=== PATIENT | male | born 1950 | race Caucasian/White ===

== ENCOUNTER 2022-07-03 17:05 | Inpatient (IN) | payer OTHER, MEDICARE, SELFPAY ==
[2022-07-03] VITALS (9 sets, daily range): BP systolic 192–206; BP diastolic 84–100; PULSE 64–105; RESP 16–22; TEMP 35.8–37.2; O2SAT 95–100; BMI 29.4
--- NOTE | ~2022-07-03 | XR_ITS ---
EXAMINATION: XR CHEST CLINICAL INFORMATION: Hypoxia COMPARISON: Chest radiographs 07/11/2022, 07/10/2022, CTA chest 07/06/2022. TECHNIQUE: Portable upright AP view of the chest was obtained. FINDINGS: There are low lung volumes with inspiration to the seventh posterior intercostal spaces. Heart size normal. Vascularity normal. No airspace consolidation or groundglass opacity. No pneumothorax or pleural reaction. NG tube is seen with distal end overlying the left upper quadrant abdomen. Left internal jugular central venous line tip is in region of mid SVC. XR/XR chest 1V IMPRESSION: Low lung volumes. No visible acute abnormality.
--- NOTE | ~2022-07-03 | XR_ITS ---
EXAMINATION: ABDOMEN. CHEST CLINICAL INFORMATION: Abdominal pain. Chest pain. Distention COMPARISON: 07/12/2022 TECHNIQUE: 2 views abdomen. Single view chest FINDINGS: Abdomen: There is diffuse enteric distention particularly with small bowel with less colonic distention. Partial small bowel obstruction versus ileus are differential considerations midline surgical sutures noted. No observed. Chest survey: Lungs grossly clear. Heart and pulmonary vessels normal. Left-sided central line seen with its distal tip in the SVC. Portions of an NG tube present with its distal tip is not clearly seen and may still be within the esophagus. Please confirm the positioning of the NG tube. XR/XR chest 1V . IMPRESSION: Ileus. Continued follow-up advised.
--- NOTE | ~2022-07-03 | CT_ITS ---
EXAMINATION: CT ANGIOGRAM OF THE CHEST WITH AND WITHOUT CONTRAST (CT PULMONARY ANGIOGRAM FOR PE) CLINICAL INFORMATION: Reason for Exam hypoxia COMPARISON: None TECHNIQUE: Prior to contrast administration, noncontrast localization images were obtained. Subsequently, multidetector volumetric imaging was performed from the thoracic inlet to below the diaphragms following the administration of 71 mL Omnipaque 350 intravenous contrast. No contrast reaction reported Sagittal, coronal, and MIP oblique sagittal reformatted images were obtained on the CT workstation, uploaded to PACS, and reviewed. This CT examination was performed using dose optimization techniques as appropriate, variously including the following: *Automated exposure control *Adjustment of mA and/or kV according to patient size (this includes techniques or standardized protocols for targeted exams where dose is matched to indication/reason for exam; i.e. extremities or head) *Use of iterative reconstruction technique Total exam dose-length product 257 mGy-cm FINDINGS: QUALITY OF STUDY/CONTRAST BOLUS: Satisfactory. PULMONARY ARTERIES: No central or segmental pulmonary emboli. THORACIC AORTA: No aneurysm or dissection. LUNGS / PLEURA: Moderate emphysema. Small bilateral pleural effusions with accompanying atelectasis. No pneumothorax. MEDIASTINUM: Normal heart size. No pericardial effusion. Triple vessel coronary calcifications. No hilar or mediastinal lymphadenopathy. No evidence of septal bowing or right heart strain.No reflux of contrast into the hepatic veins to suggest elevated right heart pressures. CHEST WALL/AXILLA: No axillary or internal mammary lymphadenopathy. OSSEOUS STRUCTURES: No acute or suspicious osseous abnormality. UPPER ABDOMEN: Cholelithiasis. Trace intraperitoneal free air evident anterior to the medial segment of the liver. The patient is postoperative day 1, so this is expected. CT/CT angio chest PE protocol IMPRESSION: * No pulmonary embolism. * No aortic aneurysm or dissection. * Moderate secretions present within the left mainstem bronchus and lower lobe bronchioles -- recommend pulmonary toilet. * Small bilateral pleural effusions with accompanying atelectasis. * Moderate emphysema. VTE: negative This critical result was discussed with Dr Farley at 07/06/2022 1:25 AM and it was ascertained that the content and urgency of the report was understood at the time of direct communication.
--- NOTE | ~2022-07-03 | CT_ITS ---
EXAMINATION: CT ABDOMEN AND PELVIS WITHOUT CONTRAST CLINICAL INFORMATION: Left lower quadrant pain. Colostomy. COMPARISON: None TECHNIQUE: Multidetector volumetric imaging was performed from the superior aspect of the liver through the pubic symphysis. Sagittal and coronal reformatted images were obtained on the technologist's workstation. This CT examination was performed using dose optimization techniques as appropriate, variously including the following: *Automated exposure control. *Adjustment of mA and/or kV according to patient size (this includes techniques or standardized protocols for targeted exams where dose is matched to indication/reason for exam; i.e. extremities or head). *Use of iterative reconstruction technique. DLP: 668 mGy-cm FINDINGS: LUNG BASES: The visualized lung bases are unremarkable. LIVER, GALLBLADDER, AND BILIARY TREE: The liver is normal in size, shape, and attenuation. No focal hepatic lesion or biliary ductal dilatation is present. Multiple small calcified gallstones in the gallbladder. No gallbladder wall thickening or edema around the gallbladder. No bile duct dilatation. PANCREAS: Unremarkable. SPLEEN: Unremarkable. ADRENAL GLANDS: Unremarkable. KIDNEYS AND URETERS: The kidneys are normal in size, shape, and attenuation. No hydronephrosis, hydroureter, or calculi seen. No perinephric stranding. A 1.2 cm hypodense cyst anterior midpole right kidney. No follow up imaging recommended. BLADDER: Unremarkable. ABDOMINAL WALL/GASTROINTESTINAL TRACT: Posterior left lower quadrant. Bowel loops herniated into the ostomy site in the subcutaneous tissue are mildly dilated. The bowel loops proximal to the ostomy are mildly dilated as well. Findings consistent with small bowel obstruction at the ostomy site. No dilatation of the large bowel. There is diverticulosis of the left colon without diverticulitis. Moderate volume of stool in the colon. The appendix is not visualized. No bowel wall thickening or edema. No free air or free fluid. No evidence for bowel ischemia at this time. LYMPH NODES: Normal. VASCULAR: Atherosclerotic vascular calcifications of the aorta and iliac arteries. No aneurysm. PELVIC VISCERA: Prostate prominent measuring 5 cm transverse. OSSEOUS STRUCTURES: Multilevel degenerative spondylosis of the spine. Grade 1 anterolisthesis of L4 and L5 with bilateral spondylolysis of the L4 pars interarticularis. Multilevel degenerative spondylosis of the spine with disc height narrowing and endplate spurring most significant at L4-L5. CT/CT abdomen pelvis wo con IMPRESSION: Ostomy left lower quadrant. Small bowel obstruction at the ostomy site with herniation of bowel loops at the ostomy. Fleischner guidelines were followed.
--- NOTE | ~2022-07-03 | XR_ITS ---
EXAMINATION: XR CHEST CLINICAL INFORMATION: Hypoxia with question of aspiration COMPARISON: CT angiogram chest 07/06/2022 TECHNIQUE: Frontal view of the chest was obtained. FINDINGS: Heart size normal. Bibasilar atelectasis is present. A small left pleural effusion is present. At the time of the prior CT, a tiny right effusion was present which is very well still be the case. No consolidations, lung masses or evidence of CHF. XR/XR chest 1V IMPRESSION: No probable interval change when compared to 07/06/2022. Bibasilar atelectasis and small pleural effusions, left greater than right
--- NOTE | ~2022-07-03 | XR_ITS ---
EXAMINATION: XR CHEST CLINICAL INFORMATION: Central line placement COMPARISON: Previous chest x-ray from earlier the same day TECHNIQUE: Frontal view of the chest was obtained. FINDINGS: There is a new left jugular line with tip projecting over the SVC. There is a new nasogastric tube with tip projecting over the distal stomach. The cardiac and mediastinal contours are stable. There may be atelectasis at the lung bases. The lungs are otherwise clear. There is no pleural effusion or pneumothorax. There are degenerative changes of the spine. XR/XR chest 1V IMPRESSION: Satisfactory position of left jugular line and nasogastric tube. No pneumothorax.
--- NOTE | ~2022-07-03 | FL_ITS ---
EXAMINATION: FL SMALL BOWEL SERIES CLINICAL INFORMATION: Postop ileus COMPARISON: Previous CT of the abdomen and pelvis 07/03/2022 and KUB 07/17/2022 TECHNIQUE: Social Services Director film was obtained. 2 bottles of oral Gastrografin contrast were instilled into the nasogastric tube. Small bowel follow-through was performed. Follow-up 19 hour KUB the following morning was performed. FINDINGS: Social Services Director film demonstrates dilated loops of small bowel and paucity of bowel gas in the large bowel. There are skin dany. No free air is seen. There are degenerative changes of the spine. The stomach is normal-appearing. There are dilated loops of small bowel. There is passage of a small amount of oral contrast into the proximal large bowel by 1 hour and 40 minutes however, the small bowel remains dilated and filled with contrast. Delayed 7 hour image demonstrates persistent dilated small bowel and oral contrast and a small amount of oral contrast in nondilated large bowel. Delayed 19 hour images the next morning demonstrates persistent dilatation of small bowel. There is been passage of oral contrast from the small bowel to the large bowel. The large bowel is nondilated. There is evidence of diverticular disease of the large bowel. Small bowel remains dilated measuring up to 6.7 cm in diameter. Nasogastric tube is no longer seen on delayed images. FLUOROSCOPY TIME: No fluoroscopic images obtained. FL/FL small bowel follow through IMPRESSION: Persistent dilated small bowel measuring up to 6.7 cm. There is slow passage of oral contrast into the large bowel which is nondilated. Appearance is suggestive of a distal partial small bowel obstruction. Nasogastric tube no longer seen on delayed images.
--- NOTE | ~2022-07-03 | XR_ITS ---
EXAMINATION: ABDOMEN. CHEST CLINICAL INFORMATION: Abdominal pain. Chest pain. Distention COMPARISON: 07/12/2022 TECHNIQUE: 2 views abdomen. Single view chest FINDINGS: Abdomen: There is diffuse enteric distention particularly with small bowel with less colonic distention. Partial small bowel obstruction versus ileus are differential considerations midline surgical sutures noted. No observed. Chest survey: Lungs grossly clear. Heart and pulmonary vessels normal. Left-sided central line seen with its distal tip in the SVC. Portions of an NG tube present with its distal tip is not clearly seen and may still be within the esophagus. Please confirm the positioning of the NG tube. XR/XR abdomen 1V . IMPRESSION: Ileus. Continued follow-up advised.
--- NOTE | 2022-07-03 17:59 | ECG_ITS ---
Test Reason : ABD PAIN Blood Pressure : / mmHG Vent. Rate : 074 BPM Atrial Rate : 074 BPM P-R Int : 174 ms QRS Dur : 114 ms QT Int : 398 ms P-R-T Axes : 061 030 035 degrees QTc Int : 441 ms Normal sinus rhythm Normal ECG When compared with ECG of 06-AUG-2006 08:31, No significant change was found Referred By: Elsa Espinosa Electronically Signed By:STU EGAN MD
--- NOTE | 2022-07-03 18:00 | ED.ABDPAIN ---
HPI - Abdominal Pain General Chief Complaint: Abdominal Pain Stated Complaint: abd pain pt has colostomy Time Seen by Provider: 07/03/22 17:45 Source: patient Mode of arrival: ambulatory Limitations: no limitations History of Present Illness HPI narrative: Patient comes to emergency room complaining of severe abdominal pain. Patient states that to our prior to arrival, he started having abdominal cramping under the colostomy in the left lower quadrant. Patient states he had his colostomy done in 2002 for colorectal cancer. Patient has never had any issues since then. Patient states that it feels that there is a lump under his colostomy bag in his abdomen. Patient denies vomiting or diarrhea. No fever chills, no dysuria or flank pain Related Data Allergies Allergy/AdvReac Type Severity Reaction Status Date / Time No Known Allergies Allergy Verified 07/03/22 17:35 [No Known Allergies*] Review of Systems Review of Systems Constitutional : No Weight loss, No Fever, No Chills, No Night Sweats, No Fatigue, No Malaise ENT/Mouth : No Hearing loss, No Ear Pain, No Nasal Congestion, No Sinus Pain, No Hoarseness, No sore throat, No Rhinorrhea, No Swallowing Difficulty Eyes: No Eye Pain, No Swelling, No Redness, No Foreign Body, No Discharge, No Vision Changes Cardiovascular : No Chest Pain, No SOB, No Dyspnea on Exertion, No Orthopnea, No Edema, No Palpitations Respiratory : No Cough, No Sputum, No Wheezing, No Smoke Exposure, No Dyspnea Gastrointestinal : No Nausea, No Vomiting, No Diarrhea, complaining of abdominal cramping and pain under the colostomy site in the left lower quadrant Genitourinary : no irregular bleeding, No Dysuria, No Urinary Frequency, No Hematuria, No Urinary Incontinence, No Urgency, No Flank Pain, No Urinary Flow Changes, No Hesitancy Musculoskeletal : No joint pain, No Myalgias, No Joint Swelling Skin : No Skin Lesions, No rash Neuro : No Weakness, No Numbness, No Paresthesias, No Loss of Consciousness, No Dizziness, No Headache Psych : No Anxiety/Panic, No Depression, No SI/HI/AH/VH, No Social Issues, Heme/Lymph: No Bruising, No Bleeding,No Lymphadenopathy Endocrine : No Polyuria, No Polydipsia, No Temperature Intolerance [facility] Past Medical History Medical History (Updated 07/03/22 @ 21:44 by Elsa Espinosa MD) Colorectal cancer Social History Social History Advance Directives: Yes Advance Directives Information Provided: No Advance Directives on File: No Physical Exam ED Vital Signs: Vital Signs - 24 hr 07/03/22 17:36 07/03/22 18:51 07/03/22 19:26 Temperature 96.4 F L 97.8 F Pulse Rate 64 74 Respiratory Rate 18 16 22 H Blood Pressure 206/84 H 192/92 H Pulse Oximetry 100 98 Oxygen Delivery Method Room Air Room Air Oxygen Flow Rate 07/03/22 19:20 07/03/22 20:00 07/03/22 21:35 Temperature 97.6 F 98.9 F 98.4 F Pulse Rate 75 86 89 Respiratory Rate 22 H 16 16 Blood Pressure 203/85 H 193/94 H 206/99 H Pulse Oximetry 95 98 98 Oxygen Delivery Method Room Air Nasal Cannula Nasal Cannula Oxygen Flow Rate 4 4 BMI result Body Mass Index 29.4 Const Other: Appearance: Alert. Oriented X3. Patient looks very uncomfortable Eyes: Pupils equal, round and reactive to light. ENT: Pharynx normal. Neck: Normal inspection. Neck supple. No lymph nodes noted. No crepitus CVS: Normal heart rate and rhythm. Pulses normal. Normal S1 and S2 Respiratory: No respiratory distress. Breath sounds normal. No Wheezing. No rales Abdomen: Soft tenderness and distension noted to the left lower quadrant around the colostomy site. The colostomy itself looks clean Skin: Skin warm and dry. Normal skin color. Normal skin turgor. Extremities: No lower extremity edema. No Lacerations. No Rash Neuro: Oriented X 3. No motor deficit. No sensory deficit. Moving all extremities. No slurred speech. CN 2 through 12 grossly intact Psych: calm, cooperative, normal affect Course Course Course Narrative: Patient received IV fluids, Zofran and Dilaudid, labs and imaging pending. Patient is empirically being covered with Zosyn. Patient seems to have a para stomal hernia and a small bowel obstruction, Dr. Lugo is aware. Patient being admitted MDM - Abdominal Pain Lab Data Result diagrams: 07/03/22 19:07 07/03/22 19:07 Labs: Lab Results 07/03/22 07/03/22 07/03/22 Range/Units 19:07 19:07 19:07 WBC 16.4 H (4.8-10.8) X10*3/uL RBC 4.86 (4.60-5.80) X10*6/uL Hgb 15.4 (14.0-18.0) g/dl Hct 44.5 (42.0-52.0) % MCV 91.6 (80.0-98.0) fL MCH 31.7 (27.0-33.0) pg MCHC 34.6 (31.0-36.0) g/dl RDW 12.5 (11.0-16.0) % Plt Count 269 (160-400) X10*3/uL MPV 10.2 (9.4-12.4) fL Immature Gran % (Auto) 0.4 (0.0-0.4) % Neut % (Auto) 91.1 H (45-73) % Lymph % (Auto) 4.4 L (20-40) % Kerr % (Auto) 3.7 (2-11) % Eos % (Auto) 0.1 (0-4) % Baso % (Auto) 0.3 (0-2) % Lymph # (Auto) 0.7 L (1.2-4.9) X10*3/uL [place] # (Auto) 0.6 (0.1-1.2) X10*3/uL Eos # (Auto) 0.0 (0.0-0.4) X10*3/uL Baso # (Auto) 0.1 (0.0-0.2) X10*3/uL Abs Immat Gran (auto) 0.06 H (0.00-0.03) X10*3/uL Absolute Neuts (auto) 15.0 H (2.0-8.3) x10*3/uL Absolute Nucleated RBC 0.000 (0.0-0.012) X10*3/uL Nucleated RBC % (auto) 0.0 (0.0-0.2) /100WBC Smear Tech's Comments VERIFIED Sodium 145 (135-145) mmol/L Potassium 3.1 L (3.3-5.1) mmol/L Chloride 103 (96-108) mmol/L Carbon Dioxide 24 (22-29) mmol/L Anion Gap 21 H (12-20) BUN 18 H (9-16) mg/dL Creatinine 1.15 (0.5-1.4) mg/dL Estim Creat Clear Calc 58.8 Estimated GFR > 60 Random Glucose 145 H (60-115) mg/dL Lactic Acid 2.7 H* (0.5-2.0) mmol/L Calcium 9.8 (8.4-10.2) mg/dL Lipase 24 (8-78) U/L Urine Color Urine Appearance Urine pH (5.0-8.0) Ur Specific [place] (1.005-1.025) Urine Protein (NEG-TRACE) MG/DL Urine Glucose (UA) (NEG) MG/DL Urine Ketones (NEG) MG/DL Urine Blood (NEG) Urine Nitrite (NEG) Ur Leukocyte Esterase (NEG) Urine RBC (0) /HPF Urine WBC (0-4) /HPF Ur Squamous Epith Cells /LPF Urine Bacteria /LPF COVID-19 (DUNIA) (Negative) COVID-19 Clin Com 07/03/22 07/03/22 Range/Units 19:15 19:21 WBC (4.8-10.8) X10*3/uL RBC (4.60-5.80) X10*6/uL Hgb (14.0-18.0) g/dl Hct (42.0-52.0) % MCV (80.0-98.0) fL MCH (27.0-33.0) pg MCHC (31.0-36.0) g/dl RDW (11.0-16.0) % Plt Count (160-400) X10*3/uL MPV (9.4-12.4) fL Immature Gran % (Auto) (0.0-0.4) % Neut % (Auto) (45-73) % Lymph % (Auto) (20-40) % [place] % (Auto) (2-11) % Eos % (Auto) (0-4) % Baso % (Auto) (0-2) % Lymph # (Auto) (1.2-4.9) X10*3/uL [place] # (Auto) (0.1-1.2) X10*3/uL Eos # (Auto) (0.0-0.4) X10*3/uL Baso # (Auto) (0.0-0.2) X10*3/uL Abs Immat Gran (auto) (0.00-0.03) X10*3/uL Absolute Neuts (auto) (2.0-8.3) x10*3/uL Absolute Nucleated RBC (0.0-0.012) X10*3/uL Nucleated RBC % (auto) (0.0-0.2) /100WBC Smear Tech's Comments Sodium (135-145) mmol/L Potassium (3.3-5.1) mmol/L Chloride (96-108) mmol/L Carbon Dioxide (22-29) mmol/L Anion Gap (12-20) BUN (9-16) mg/dL Creatinine (0.5-1.4) mg/dL Estim Creat Clear Calc Estimated GFR Random Glucose (60-115) mg/dL Lactic Acid (0.5-2.0) mmol/L Calcium (8.4-10.2) mg/dL Lipase (8-78) U/L Urine Color YELLOW Urine Appearance CLEAR Urine pH 7.0 (5.0-8.0) Ur Specific [place] 1.015 (1.005-1.025) Urine Protein TRACE (NEG-TRACE) MG/DL Urine Glucose (UA) NEG (NEG) MG/DL Urine Ketones 15 (NEG) MG/DL Urine Blood NEG (NEG) Urine Nitrite NEG (NEG) Ur Leukocyte Esterase TRACE H (NEG) Urine RBC 0 (0) /HPF Urine WBC 0-2 (0-4) /HPF Ur Squamous Epith Cells NONE /LPF Urine Bacteria TRACE /LPF COVID-19 (DUNIA) Negative (Negative) COVID-19 Clin Com See Note Imaging Data CT scan - abdomen: Radiologist's impression: FINDINGS: LUNG BASES: The visualized lung bases are unremarkable.? LIVER, GALLBLADDER, AND BILIARY TREE: The liver is normal in size, shape, and attenuation. No focal hepatic lesion or biliary ductal dilatation is present. Multiple small calcified gallstones in the gallbladder. No gallbladder wall thickening or edema around the gallbladder. No bile duct dilatation.? PANCREAS: Unremarkable.? SPLEEN: Unremarkable.? ADRENAL GLANDS: Unremarkable.? KIDNEYS AND URETERS: The kidneys are normal in size, shape, and attenuation. No hydronephrosis, hydroureter, or calculi seen. No perinephric stranding. A 1.2 cm hypodense cyst anterior midpole right kidney. No follow up imaging recommended. BLADDER: Unremarkable.? ABDOMINAL WALL/GASTROINTESTINAL TRACT: Posterior left lower quadrant. Bowel loops herniated into the ostomy site in the subcutaneous tissue are mildly dilated. The bowel loops proximal to the ostomy are mildly dilated as well. Findings consistent with small bowel obstruction at the ostomy site. No dilatation of the large bowel. There is diverticulosis of the left colon without diverticulitis. Moderate volume of stool in the colon. The appendix is not visualized. No bowel wall thickening or edema. No free air or free fluid. No evidence for bowel ischemia at this time. ? LYMPH NODES: Normal. VASCULAR: Atherosclerotic vascular calcifications of the aorta and iliac arteries. No aneurysm. PELVIC VISCERA: Prostate prominent measuring 5 cm transverse.? OSSEOUS STRUCTURES: Multilevel degenerative spondylosis of the spine. Grade 1 anterolisthesis of L4 and L5 with bilateral spondylolysis of the L4 pars interarticularis. Multilevel degenerative spondylosis of the spine with disc height narrowing and endplate spurring most significant at L4-L5.? CT/CT abdomen pelvis wo con IMPRESSION: Ostomy left lower quadrant. Small bowel obstruction at the ostomy site with herniation of bowel loops at the ostomy.? ? Fleischner guidelines were followed. Discharge Plan Discharge Clinical Impression: Parastomal hernia, Small bowel obstruction Patient Disposition: Admitted As Inpatient
[2022-07-03] MEDS: HYDROmorphone HCl 1 MG/ML SYRINGE IVPUSH ×4 (18:31→23:52)
[2022-07-03] MEDS: 0.9 % Sodium Chloride 1,000 ML 999 ML IVCONT (18:31)
[2022-07-03] MEDS: ondansetron HCL 4 MG/2 ML VIAL IVPUSH ×2 (18:31→23:58)
[2022-07-03 19:13] LABS: Basophils Absolute Auto 0.1 X10*3/uL (0.0-0.2); Basophils Percent Auto 0.3 % (0-2); Eosinophils Percent Auto 0.1 % (0-4); Hematocrit 44.5 % (42.0-52.0); Hemoglobin 15.4 g/dl (14.0-18.0); Imm Gran Abs Auto 0.06 X10*3/uL (0.00-0.03); Imm Gran Pct Auto 0.4 % (0.0-0.4); Lymphocytes Absolute Auto 0.7 X10*3/uL (1.2-4.9); Lymphocytes Percent Auto 4.4 % (20-40); MANUAL DIFF FLAG SCAN; Mean Corpuscular HGB Conc 34.6 g/dl (31.0-36.0); Mean Corpuscular Hemoglobin 31.7 pg (27.0-33.0); Mean Corpuscular Volume 91.6 fL (80.0-98.0); Mean Platelet Volume 10.2 fL (9.4-12.4); Monocytes Absolute Auto 0.6 X10*3/uL (0.1-1.2); Monocytes Percent Auto 3.7 % (2-11); Neutrophils Percent Auto 91.1 % (45-73); Platelet Count 269 X10*3/uL (160-400); Red Blood Count 4.86 X10*6/uL (4.60-5.80); Red Cell Distribution Width 12.5 % (11.0-16.0); SCAN SMEAR FLAG 1; White Blood Count 16.4 X10*3/uL (4.8-10.8)
--- NOTE | 2022-07-03 19:31 | PC.NURSE ---
pt medicated per MAR orders. Shortly after noted patients 02 saturation to desat to high 80s. Patient placed on 4L of 02 via NC. Pt 02 sat increased to 90s. Will continue to monitor pt
[2022-07-03 19:35] LABS: Anion Gap 21 (12-20); Blood Urea Nitrogen 18 mg/dL (9-16); Calcium 9.8 mg/dL (8.4-10.2); Carbon Dioxide 24 mmol/L (22-29); Chloride 103 mmol/L (96-108); Creatinine Clr Calc Pharmacy 58.8; Estimated Glomerular Filt Rate > 60; Glucose Random 145 mg/dL (60-115); Lipase 24 U/L (8-78); Potassium 3.1 mmol/L (3.3-5.1); Sodium 145 mmol/L (135-145)
[2022-07-03 19:39] LABS: Lactic Acid 2.7 mmol/L (0.5-2.0)
[2022-07-03 19:41] LABS: COVID-19 Test Negative (Negative); IDNOW Serial# 16C4AD1C
[2022-07-03 19:51] LABS: Appearance Urine CLEAR; Color Urine YELLOW; Glucose Urine UA NEG (NEG); Leukocyte Esterase Urine TRACE (NEG); Nitrite Urine NEG (NEG); Specific Gravity - Urine 1.015 (1.005-1.025); Urine Blood NEG (NEG); Urine Ketones 15 MG/DL (NEG); Urine Protein TRACE MG/DL (NEG-TRACE)
[2022-07-03 19:54] LABS: SLIDE REVIEW VERIFIED
[2022-07-03 20:00] LABS: Bacteria Urine TRACE /LPF; RBC Urine 0 /HPF (0); WBC Urine 0-2 /HPF (0-4)
[2022-07-03 21:11] LABS: Reflex Lactate? Lactic Acid Added
--- NOTE | 2022-07-03 21:50 | P.HPGS_ITS ---
History of Present Illness History of Present Illness Date of Service: 07/06/22 Chief complaint: parastomal hernia Narrative: Prosper Bhatti is a 72 year old male who came to the ED this evening because of abdominal pain. He says this started sometime earlier today. He states he did not have pain yesterday. He has a hx of abdominoperineal resenction in 2002 for rectal cancer, and has a colostomy on the LLQ. He states his pain was mostly around the stoma, and he says he has felt this area to be swollen. He does state that he has had a swollen area patient to the stoma for a long time now but this seems to be firmer tonight. He says that he has with stoma output. He otherwise says he has had no problems with his colostomy since his surgery in 2002. He had been undergoing colonoscopies as well via his stoma. Review of Systems 2 Constitutional: Constitutional: Denies chills and Denies fever(s) Cardiovascular: Cardiovascular: Denies chest pain, Denies dyspnea and Denies dyspnea on exertion Respiratory: Respiratory: Denies cough, Denies dyspnea and Denies dyspnea on exertion Gastrointestinal: Gastrointestinal: Denies hematochezia and Denies change in bowel habits Genitourinary: Genitourinary: Denies hematuria and Denies difficulty urinating Musculoskeletal: Musculoskeletal: Denies back pain and Denies limited range of motion Neurologic: Denies focal weakness and Denies convulsions Psychiatric: Psychiatric: Denies depression and Denies mood swings PMFSH Past Medical History Medical History Colorectal cancer Hypertension Social History Social History Household Members: Spouse Housing: Apartment Do you presently have visiting nurse or other home services: No Alcohol intake: unknown Patient Tobacco Use Status: Never used Tobacco Advance Directives Date on File: 07/04/22 service: Yes Current occupational status: retired Meds Allergies Allergy/AdvReac Type Severity Reaction Status Date / Time No Known Allergies Allergy Verified 07/03/22 17:35 [No Known Allergies*] Active Medications: Current Medications Potassium Chloride () 10 meq in 100 mls @ 100 mls/hr IV Q1H KRISTIAN Stop: 07/03/22 21:59 Sodium Chloride (Ns) 1,000 mls @ 999 mls/hr IVCONT .Q1H1M ONE Stop: 07/03/22 22:01 Piperacillin Sod/Tazobactam (Sod 3.375 gm/ Sodium Chloride) 50 mls @ 100 mls/hr IV ONCE ONE Stop: 07/03/22 21:55 Piperacillin Sod/Tazobactam (Sod 3.375 gm/ Sodium Chloride) 50 mls @ 100 mls/hr IV ONCE ONE Stop: 07/03/22 21:55 Sodium Chloride (Ns) 1,000 mls @ 999 mls/hr IV .Q1H1M ONE Stop: 07/03/22 22:25 Pharmacy Consult (Consult Rx Perform Med Rec) 1 each MISCELLANE ONCE PRN PRN Reason: Consult order Home Medications Medication Instructions Recorded Confirmed Last Taken Type benazepril 40 mg tablet 40 mg PO BID 07/03/22 07/03/22 07/03/22 History diltiazem HCl 30 mg tablet 30 mg PO DAILY 07/03/22 07/03/22 07/03/22 History hydrochlorothiazide 25 mg tablet 25 mg PO DAILY 07/03/22 07/03/22 07/03/22 History Physical Exam Vital Signs: Vital Signs: Last Vital Signs Temp 98.4 F 07/03/22 21:35 Pulse 89 07/03/22 21:35 Resp 16 07/03/22 21:35 BP 206/99 H 07/03/22 21:35 Pulse Ox 98 07/03/22 21:35 O2 Del Method 07/03/22 21:35 O2 Flow Rate 4 07/03/22 21:35 BMI result Body Mass Index 29.4 Const: Other: says he is uncomfortable General: no acute distress Orientation/consciousness: patient oriented x3 Neck: Neck: Yes no lymphadenopathy Resp: Auscultation: clear to auscultation bilaterally Cardio: Rhythm: regular rhythm GI: Other: colostomy with gas, small amount of stool, has praastomal hernia with some tenderness Palpation (GI): Soft to palpation, Tenderness to palpation present (GI), no guarding and not rigid Neuro: General: patient oriented x3 Results Results Labs: Short CBC 07/03/22 Range/Units 19:07 WBC 16.4 H (4.8-10.8) X10*3/uL Hgb 15.4 (14.0-18.0) g/dl Hct 44.5 (42.0-52.0) % Plt Count 269 (160-400) X10*3/uL BMP 07/03/22 19:07 Sodium 145 Potassium 3.1 L Chloride 103 Carbon Dioxide 24 BUN 18 H Creatinine 1.15 Calcium 9.8 Urine 07/03/22 Range/Units 19:21 Urine Color YELLOW Urine Appearance CLEAR Urine pH 7.0 (5.0-8.0) Ur Specific [place] 1.015 (1.005-1.025) Urine Protein TRACE (NEG-TRACE) MG/DL Urine Glucose (UA) NEG (NEG) MG/DL Additional studies: Laboratory Results WBC 16.4 X10*3/uL (4.8-10.8) H 07/03/22 19:07 RBC 4.86 X10*6/uL (4.60-5.80) 07/03/22 19:07 Hgb 15.4 g/dl (14.0-18.0) 07/03/22 19:07 Hct 44.5 % (42.0-52.0) 07/03/22 19:07 MCV 91.6 fL (80.0-98.0) 07/03/22 19:07 MCH 31.7 pg (27.0-33.0) 07/03/22 19:07 MCHC 34.6 g/dl (31.0-36.0) 07/03/22 19:07 RDW 12.5 % (11.0-16.0) 07/03/22 19:07 Plt Count 269 X10*3/uL (160-400) 07/03/22 19:07 MPV 10.2 fL (9.4-12.4) 07/03/22 19:07 Immature Gran % (Auto) 0.4 % (0.0-0.4) 07/03/22 19:07 Neut % (Auto) 91.1 % (45-73) H 07/03/22 19:07 Lymph % (Auto) 4.4 % (20-40) L 07/03/22 19:07 [place] % (Auto) 3.7 % (2-11) 07/03/22 19:07 Eos % (Auto) 0.1 % (0-4) 07/03/22 19:07 Baso % (Auto) 0.3 % (0-2) 07/03/22 19:07 Lymph # (Auto) 0.7 X10*3/uL (1.2-4.9) L 07/03/22 19:07 [place] # (Auto) 0.6 X10*3/uL (0.1-1.2) 07/03/22 19:07 Eos # (Auto) 0.0 X10*3/uL (0.0-0.4) 07/03/22 19:07 Baso # (Auto) 0.1 X10*3/uL (0.0-0.2) 07/03/22 19:07 Abs Immat Gran (auto) 0.06 X10*3/uL (0.00-0.03) H 07/03/22 19:07 Absolute Neuts (auto) 15.0 x10*3/uL (2.0-8.3) H 07/03/22 19:07 Absolute Nucleated RBC 0.000 X10*3/uL (0.0-0.012) 07/03/22 19:07 Nucleated RBC % (auto) 0.0 /100WBC (0.0-0.2) 07/03/22 19:07 Smear Tech's Comments VERIFIED 07/03/22 19:07 Sodium 145 mmol/L (135-145) 07/03/22 19:07 Potassium 3.1 mmol/L (3.3-5.1) L 07/03/22 19:07 Chloride 103 mmol/L (96-108) 07/03/22 19:07 Carbon Dioxide 24 mmol/L (22-29) 07/03/22 19:07 Anion Gap 21 (12-20) H 07/03/22 19:07 BUN 18 mg/dL (9-16) H 07/03/22 19:07 Creatinine 1.15 mg/dL (0.5-1.4) 07/03/22 19:07 Estim Creat Clear Calc 58.8 07/03/22 19:07 Estimated GFR > 60 07/03/22 19:07 Random Glucose 145 mg/dL (60-115) H 07/03/22 19:07 Lactic Acid 2.7 mmol/L (0.5-2.0) H* 07/03/22 19:07 Calcium 9.8 mg/dL (8.4-10.2) 07/03/22 19:07 Lipase 24 U/L (8-78) 07/03/22 19:07 Urine Color YELLOW 07/03/22 19:21 Urine Appearance CLEAR 07/03/22 19:21 Urine pH 7.0 (5.0-8.0) 07/03/22 19:21 Ur Specific [place] 1.015 (1.005-1.025) 07/03/22 19:21 Urine Protein TRACE MG/DL (NEG-TRACE) 07/03/22 19:21 Urine Glucose (UA) NEG MG/DL (NEG) 07/03/22 19:21 Urine Ketones 15 MG/DL (NEG) 07/03/22 19:21 Urine Blood NEG (NEG) 07/03/22 19:21 Urine Nitrite NEG (NEG) 07/03/22 19:21 Ur Leukocyte Esterase TRACE (NEG) H 07/03/22 19:21 Urine RBC 0 /HPF (0) 07/03/22 19:21 Urine WBC 0-2 /HPF (0-4) 07/03/22 19:21 Ur Squamous Epith Cells NONE /LPF 07/03/22 19:21 Urine Bacteria TRACE /LPF 07/03/22 19:21 COVID-19 (DUNIA) Negative (Negative) 07/03/22 19:15 COVID-19 Clin Com See Note 07/03/22 19:15 Impressions Abdomen/Pelvis CT 07/03/22 20:20 IMPRESSION: Ostomy left lower quadrant. Small bowel obstruction at the ostomy site with herniation of bowel loops at the ostomy. Fleischner guidelines were followed. Assessment and Plan (1) Parastomal hernia: Status: Acute He has a parastomal hernia whcih appears to be new. His CT shows mild dilatation of small bowel loops in the hernia, suggestive of partial small bowel obstruction. He otherwise has good air distal to this including in the colon. I would order for NGT placement, and bowel rest. I told him that if he does not improve or shows worsening within a reasonable period of time, he may require urgent repair of this parastomal hernia. His CT otherwise does not show thickening of involved bowel loops nor free fluiid. His lactate is slightly elevated so he will he given IV fluids generously. I will consult the Hospitalist for his HTN. Quality Stroke Does the patient have a stroke diagnosis?: No VTE Prior VTE?: No VTE Risk Level:: Medical - moderate - high VTE Device Contraindication: N/A - Device Ordered VTE Drug Contraindication: N/A - Med Ordered Procedures Date of Service Date of Service: 07/03/22
[2022-07-03] MEDS: Piperacillin Sodium/Tazobactam 3.375 GM in 0.9 % Sodium Chloride 50 ML IV (22:00)
--- NOTE | 2022-07-03 22:10 | PHA.MEDREC ---
Pharmacy Consult ? Medication Reconciliation Pharmacy has completed the medication reconciliation. Med list obtained from [place]
[2022-07-04] VITALS (10 sets, daily range): BP systolic 105–164; BP diastolic 57–89; PULSE 94–121; RESP 16–20; TEMP 36.1–37.2; O2SAT 91–98; BMI 29.3
[2022-07-04] MEDS: 0.9 % Sodium Chloride 1,000 ML 999 ML IVCONT (00:01)
[2022-07-04] MEDS: 0.9 % Sodium Chloride 1,000 ML 999 ML IV (00:13)
[2022-07-04 00:18] LABS: ~Lactic Acid-LAB USE ONLY 1.8 mmol/L (0.5-2.0)
[2022-07-04] MEDS: Potassium Chloride/H20 10 MEQ/100 ML PIGGYBACK 100 MEQ IV ×2 (01:16)
[2022-07-04] MEDS: Ketorolac Tromethamine 30 MG/ML VIAL IVPUSH (02:49)
[2022-07-04] MEDS: HYDROmorphone HCl 1 MG/ML SYRINGE IVPUSH ×2 (02:50→22:39)
--- NOTE | 2022-07-04 03:06 | PC.NURSE ---
all ordered IVFs now completed at this time will start pt on LR cont IVFs per MAR orders
[2022-07-04] MEDS: Lactated Ringers 1,000 ML 100 ML IVCONT ×3 (03:25→22:39)
--- NOTE | 2022-07-04 03:41 | PC.NURSE ---
pt asleep resting comfortably at this time, vss, will continue to monitor pt. Pt bed locked in lowest position, call light within reach
[2022-07-04 06:34] LABS: Hematocrit 50.3 % (42.0-52.0); Hemoglobin 16.8 g/dl (14.0-18.0); Mean Corpuscular HGB Conc 33.4 g/dl (31.0-36.0); Mean Corpuscular Hemoglobin 31.3 pg (27.0-33.0); Mean Corpuscular Volume 93.7 fL (80.0-98.0); Mean Platelet Volume 10.5 fL (9.4-12.4); Platelet Count 278 X10*3/uL (160-400); Red Blood Count 5.37 X10*6/uL (4.60-5.80); Red Cell Distribution Width 12.9 % (11.0-16.0); White Blood Count 7.4 X10*3/uL (4.8-10.8)
[2022-07-04 06:54] LABS: Anion Gap 17 (12-20); Blood Urea Nitrogen 23 mg/dL (9-16); Carbon Dioxide 20 mmol/L (22-29); Chloride 112 mmol/L (96-108); Estimated Glomerular Filt Rate 56; Glucose Random 169 mg/dL (60-115); Potassium 3.7 mmol/L (3.3-5.1); Sodium 145 mmol/L (135-145)
[2022-07-04 07:23] LABS: Calcium 8.1 mg/dL (8.4-10.2)
--- NOTE | 2022-07-04 10:21 | MHC.CM.PN ---
Met with patient in regards to discharge planning. Patient lives with his , ambulates independently and had no services prior to coming to the hospital. Patient has an ostomy at baseline. No services anticipated to be needed at discharge. PCP verified. Patient's has a copy of patient's HCP and will try to obtain a copy. Patient received 4 Moderna vaccines. IMM explained and signed. Patient's will transport him home when medically stable. Continue to monitor for d/c needs.
--- NOTE | 2022-07-04 10:51 | P.CONHOSP_ITS ---
History of Present Illness Data of Consult Service Date: 07/04/22 Primary Care Provider: Julio Cesar Hernandez MD HPI Reason for consult: hypertension This is a 72-year-old male with a past medical history of hypertension and colon cancer status post resection in 2002 who presents to the hospital with complaints of left lower quadrant abdominal pain and hardening which occurred on the day prior to admission. The patient reports that he had associated nausea and vomiting. There was decreased stool output in his ostomy. He reports due to the persistent nature of the pain he presented to the emergency room. In the ED, the patient was found to have a parastomal hernia. He has been admitted under the [facility]. Medical consult has been requested for management of his comorbidities. Patient is seen and examined the emergency room, he reports that he feels better with the placement of the NG tube. Review of Systems Review of Systems: Negative except HPI FORMERLY [facility], [facility] Medical History (Updated 07/03/22 @ 22:21 by Mati Lugo MD) Colorectal cancer Hypertension Social History Alcohol intake: unknown Patient Tobacco Use Status: Tobacco use Unknown Use of substances other than those prescribed or required for medical reasons: No Advance Directives: Yes Advance Directives Information Provided: No Advance Directives on File: No service: Yes Current occupational status: retired [employer] Allergies Allergy/AdvReac Type Severity Reaction Status Date / Time No Known Allergies Allergy Verified 07/03/22 17:35 [No Known Allergies*] Active Medications: Current Medications Heparin Sodium (Porcine) (Heparin Sodium,Porcine 5,000 Unit/Ml Vial) 5,000 unit SUBCUT Q12H KRISTIAN Hydromorphone HCl (Hydromorphone Hcl 1 Mg/Ml Syringe) 1 mg IVPUSH Q3H PRN; Protocol PRN Reason: Pain, Severe (Pain Scale 7-10) Last Admin: 07/04/22 02:50 Dose: 1 mg Lactated Ringer's (Lr) 1,000 mls @ 100 mls/hr IVCONT .Q10H KRISTIAN Last Admin: 07/04/22 03:25 Dose: 100 mls/hr Promethazine HCl 6.25 mg/ (Sodium Chloride) 50.25 mls @ 201 mls/hr IV Q6H PRN PRN Reason: nausea Ketorolac Tromethamine (Ketorolac Tromethamine 30 Mg/Ml Vial) 30 mg IVPUSH Q6H PRN PRN Reason: Pain, Moderate (Pain Scale 4-6 Last Admin: 07/04/22 02:49 Dose: 30 mg Ondansetron HCl (Ondansetron Hcl 4 Mg/2 Ml Vial) 4 mg IVPUSH Q8H PRN PRN Reason: nausea Last Admin: 07/03/22 23:58 Dose: 4 mg Pharmacy Consult (Consult Rx Perform Med Rec) 1 each MISCELLANE ONCE PRN PRN Reason: Consult order Sodium Chloride (0.9 % Sodium Chloride Flush 3 Ml Syringe) 3 ml IVFLUSH QSHIFT [facility] Last Admin: 07/04/22 07:25 Dose: Not Given Home Medications Medication Instructions Recorded Confirmed Last Taken Type benazepril 40 mg tablet 40 mg PO BID 07/03/22 07/03/22 07/03/22 History diltiazem HCl 30 mg tablet 30 mg PO DAILY 07/03/22 07/03/22 07/03/22 History hydrochlorothiazide 25 mg tablet 25 mg PO DAILY 07/03/22 07/03/22 07/03/22 History Physical Exam Vital Signs and Narrative: Vital Signs: Last Vital Signs Temp 98.0 F 07/04/22 07:45 Pulse 99 07/04/22 07:45 Resp 18 07/04/22 07:45 BP 110/71 07/04/22 07:45 Pulse Ox 95 07/04/22 07:45 O2 Del Method 07/04/22 07:45 O2 Flow Rate 5 07/04/22 07:45 BMI result Body Mass Index 29.4 Const: Other: General - no acute distress, appears comfortable HEENT - NG in place Cardiovascular - regular rate and rhythm, S1-S2 Lungs - normal respiratory effort, clear to auscultation bilaterally, no wheezing Abdomen - LLQ colostomy with minimal stool; NG in place Extremities - no edema bilaterally Neuro - awake and alert, no focal deficits Results Labs CBC and Chem 7: 07/04/22 06:21 07/04/22 06:21 Labs: Laboratory Results - last 24 hr 07/03/22 07/03/22 07/03/22 19:07 19:07 19:07 MCV 91.6 MCH 31.7 MCHC 34.6 RDW 12.5 Plt Count 269 MPV 10.2 Immature Gran % (Auto) 0.4 Neut % (Auto) 91.1 H Lymph % (Auto) 4.4 L [place] % (Auto) 3.7 Eos % (Auto) 0.1 Baso % (Auto) 0.3 Lymph # (Auto) 0.7 L [place] # (Auto) 0.6 Eos # (Auto) 0.0 Baso # (Auto) 0.1 Abs Immat Gran (auto) 0.06 H Absolute Neuts (auto) 15.0 H Absolute Nucleated RBC 0.000 Nucleated RBC % (auto) 0.0 Smear Tech's Comments VERIFIED Anion Gap 21 H Estim Creat Clear Calc 58.8 Estimated GFR > 60 Random Glucose 145 H Lactic Acid 2.7 H* Lactic Acid F/U @ 2Hr Calcium 9.8 Lipase 24 Urine Color Urine Appearance Urine pH Ur Specific [place] Urine Protein Urine Glucose (UA) Urine Ketones Urine Blood Urine Nitrite Ur Leukocyte Esterase Urine RBC Urine WBC Ur Squamous Epith Cells Urine Bacteria COVID-19 (DUNIA) COVID-19 Clin Com 07/03/22 07/03/22 07/03/22 19:15 19:21 23:38 MCV MCH MCHC RDW Plt Count MPV Immature Gran % (Auto) Neut % (Auto) Lymph % (Auto) [place] % (Auto) Eos % (Auto) Baso % (Auto) Lymph # (Auto) [place] # (Auto) Eos # (Auto) Baso # (Auto) Abs Immat Gran (auto) Absolute Neuts (auto) Absolute Nucleated RBC Nucleated RBC % (auto) Smear Tech's Comments Anion Gap Estim Creat Clear Calc Estimated GFR Random Glucose Lactic Acid Lactic Acid F/U @ 2Hr 1.8 Calcium Lipase Urine Color YELLOW Urine Appearance CLEAR Urine pH 7.0 Ur Specific [place] 1.015 Urine Protein TRACE Urine Glucose (UA) NEG Urine Ketones 15 Urine Blood NEG Urine Nitrite NEG Ur Leukocyte Esterase TRACE H Urine RBC 0 Urine WBC 0-2 Ur Squamous Epith Cells NONE Urine Bacteria TRACE COVID-19 (DUNIA) Negative COVID-19 Clin Com See Note 07/04/22 07/04/22 06:21 06:21 MCV 93.7 MCH 31.3 MCHC 33.4 RDW 12.9 Plt Count 278 MPV 10.5 Immature Gran % (Auto) Neut % (Auto) Lymph % (Auto) [place] % (Auto) Eos % (Auto) Baso % (Auto) Lymph # (Auto) [place] # (Auto) Eos # (Auto) Baso # (Auto) Abs Immat Gran (auto) Absolute Neuts (auto) Absolute Nucleated RBC 0.000 Nucleated RBC % (auto) 0.0 Smear Tech's Comments Anion Gap 17 Estim Creat Clear Calc 54.0 Estimated GFR 56 Random Glucose 169 H Lactic Acid Lactic Acid F/U @ 2Hr Calcium 8.1 L D Lipase Urine Color Urine Appearance Urine pH Ur Specific [place] Urine Protein Urine Glucose (UA) Urine Ketones Urine Blood Urine Nitrite Ur Leukocyte Esterase Urine RBC Urine WBC Ur Squamous Epith Cells Urine Bacteria COVID-19 (DUNIA) COVID-19 Clin Com Imaging Radiologist's Impressions: Impressions Abdomen/Pelvis CT 07/03/22 20:20 IMPRESSION: Ostomy left lower quadrant. Small bowel obstruction at the ostomy site with herniation of bowel loops at the ostomy. Fleischner guidelines were followed. Assessment and Plan (1) Hypertension: Status: Acute Plan This is a 72 yo M with a PMH of colon Ca s/p resection and ostomy, HTN who is admitted for pSBO (parastomal hernia). Medical consult requested for mgmt of his co-morbidities 1. SBO mgmt per gen surg 2. HTN normotensive currently, hold PO meds Patient is currently on 5L of oxygen - no documentation of hypoxia. D/w the patients RN -- pt placed on O2 after he was given dilaudid as he became a bit drowsy. Weaned O2 from 5L to 2.5L while in the room with sats remaining in the high 90s. RN to wean him to RA as tolerated. Will follow as needed.
--- NOTE | 2022-07-04 10:54 | PM.PNGS ---
Subjective Subjective Date of Service: 07/06/22 Interval history: He says he now feels much better Denies any pain anymore on the abdomen and the stoma Says he is comfortable Physical Exam Vital Signs: Vital Signs: Last Vital Signs Temp 98.0 F 07/04/22 07:45 Pulse 99 07/04/22 07:45 Resp 18 07/04/22 07:45 BP 110/71 07/04/22 07:45 Pulse Ox 95 07/04/22 07:45 O2 Del Method 07/04/22 07:45 O2 Flow Rate 5 07/04/22 07:45 BMI result Body Mass Index 29.4 Const: General: comfortable and no acute distress Resp: Effort & Inspection: normal respiratory effort Cardio: Rhythm: regular rhythm GI: Other: Soft, no guarding, no rebound, no tenderness, stoma with good gas, no tenderness on the parastomal hernia Objective Data Active Medications Heparin Sodium (Porcine) (Heparin Sodium,Porcine 5,000 Unit/Ml Vial) 5,000 unit SUBCUT Q12H KRISTIAN Hydromorphone HCl (Hydromorphone Hcl 1 Mg/Ml Syringe) 1 mg IVPUSH Q3H PRN; Protocol PRN Reason: Pain, Severe (Pain Scale 7-10) Last Admin: 07/04/22 02:50 Dose: 1 mg Documented By: KRUNAL Lactated Ringer's (Lr) 1,000 mls @ 100 mls/hr IVCONT .Q10H KRISTIAN Last Admin: 07/04/22 03:25 Dose: 100 mls/hr Documented By: KRUNAL Promethazine HCl 6.25 mg/ (Sodium Chloride) 50.25 mls @ 201 mls/hr IV Q6H PRN PRN Reason: nausea Ketorolac Tromethamine (Ketorolac Tromethamine 30 Mg/Ml Vial) 30 mg IVPUSH Q6H PRN PRN Reason: Pain, Moderate (Pain Scale 4-6 Last Admin: 07/04/22 02:49 Dose: 30 mg Documented By: KRUNAL Ondansetron HCl (Ondansetron Hcl 4 Mg/2 Ml Vial) 4 mg IVPUSH Q8H PRN PRN Reason: nausea Last Admin: 07/03/22 23:58 Dose: 4 mg Documented By: KRUNAL Pharmacy Consult (Consult Rx Perform Med Rec) 1 each MISCELLANE ONCE PRN PRN Reason: Consult order Sodium Chloride (0.9 % Sodium Chloride Flush 3 Ml Syringe) 3 ml IVFLUSH QSHIFT [facility] Last Admin: 07/04/22 07:25 Dose: Not Given Documented By: SIRENA Non-Admin Reason: IV Running Labs CBC & Chem 7: 07/06/22 05:31 07/06/22 05:31 Labs: Laboratory Results - last 24 hr 07/03/22 07/03/22 07/03/22 19:07 19:07 19:07 MCV 91.6 MCH 31.7 MCHC 34.6 RDW 12.5 Plt Count 269 MPV 10.2 Immature Gran % (Auto) 0.4 Neut % (Auto) 91.1 H Lymph % (Auto) 4.4 L [place] % (Auto) 3.7 Eos % (Auto) 0.1 Baso % (Auto) 0.3 Lymph # (Auto) 0.7 L [place] # (Auto) 0.6 Eos # (Auto) 0.0 Baso # (Auto) 0.1 Abs Immat Gran (auto) 0.06 H Absolute Neuts (auto) 15.0 H Absolute Nucleated RBC 0.000 Nucleated RBC % (auto) 0.0 Smear Tech's Comments VERIFIED Anion Gap 21 H Estim Creat Clear Calc 58.8 Estimated GFR > 60 Random Glucose 145 H Lactic Acid 2.7 H* Lactic Acid F/U @ 2Hr Calcium 9.8 Lipase 24 Urine Color Urine Appearance Urine pH Ur Specific [place] Urine Protein Urine Glucose (UA) Urine Ketones Urine Blood Urine Nitrite Ur Leukocyte Esterase Urine RBC Urine WBC Ur Squamous Epith Cells Urine Bacteria COVID-19 (DUNIA) COVID-19 Clin Com 07/03/22 07/03/22 07/03/22 19:15 19:21 23:38 MCV MCH MCHC RDW Plt Count MPV Immature Gran % (Auto) Neut % (Auto) Lymph % (Auto) [place] % (Auto) Eos % (Auto) Baso % (Auto) Lymph # (Auto) [place] # (Auto) Eos # (Auto) Baso # (Auto) Abs Immat Gran (auto) Absolute Neuts (auto) Absolute Nucleated RBC Nucleated RBC % (auto) Smear Tech's Comments Anion Gap Estim Creat Clear Calc Estimated GFR Random Glucose Lactic Acid Lactic Acid F/U @ 2Hr 1.8 Calcium Lipase Urine Color YELLOW Urine Appearance CLEAR Urine pH 7.0 Ur Specific [place] 1.015 Urine Protein TRACE Urine Glucose (UA) NEG Urine Ketones 15 Urine Blood NEG Urine Nitrite NEG Ur Leukocyte Esterase TRACE H Urine RBC 0 Urine WBC 0-2 Ur Squamous Epith Cells NONE Urine Bacteria TRACE COVID-19 (DUNIA) Negative COVID-19 Clin Com See Note 07/04/22 07/04/22 06:21 06:21 MCV 93.7 MCH 31.3 MCHC 33.4 RDW 12.9 Plt Count 278 MPV 10.5 Immature Gran % (Auto) Neut % (Auto) Lymph % (Auto) [place] % (Auto) Eos % (Auto) Baso % (Auto) Lymph # (Auto) [place] # (Auto) Eos # (Auto) Baso # (Auto) Abs Immat Gran (auto) Absolute Neuts (auto) Absolute Nucleated RBC 0.000 Nucleated RBC % (auto) 0.0 Smear Tech's Comments Anion Gap 17 Estim Creat Clear Calc 54.0 Estimated GFR 56 Random Glucose 169 H Lactic Acid Lactic Acid F/U @ 2Hr Calcium 8.1 L D Lipase Urine Color Urine Appearance Urine pH Ur Specific [place] Urine Protein Urine Glucose (UA) Urine Ketones Urine Blood Urine Nitrite Ur Leukocyte Esterase Urine RBC Urine WBC Ur Squamous Epith Cells Urine Bacteria COVID-19 (DUNIA) COVID-19 Clin Com Procedures Date of Service Date of Service: 07/04/22 Progress Note: A&P Assessment and plan (1) Parastomal hernia: Status: Acute Assessment and Plan: Pain on the parastomal hernia has resolved However, hernia still present He agrees to proceed with repair I had a long discussion with him about the technique of repair with mesh possible I explained the risks including but not limited to bleeding, infections, mesh failure, bowel injury, recurrent hernia We will order for a biologic mesh in case that this is necessary as he has a colostomy clinically looks well otherwise labs ok Time Spent With Patient Time: Total time spent is greater than 50% in coordination of care (as documented) at patient's floor/unit and/or counseling patient: Quality Stroke Does the patient have a stroke diagnosis?: No VTE Prior VTE?: No VTE Risk Level:: Medical - moderate - high VTE Device Contraindication: N/A - Device Ordered VTE Drug Contraindication: N/A - Med Ordered
--- NOTE | 2022-07-04 13:39 | PC.NURSE ---
CALLED TO GIVE REPORT, UNABLE TO GIVE ROOM BEING COVID CLEANED
[2022-07-04] MEDS: Heparin Sodium,Porcine 5,000 UNIT/ML VIAL 5000 UNIT SUBCUT (22:38)
[2022-07-05] VITALS (17 sets, daily range): BP systolic 101–178; BP diastolic 62–82; PULSE 78–122; RESP 16–24; TEMP 35.9–37.4; O2SAT 88–98; BMI 29.0
[2022-07-05] MEDS: Lactated Ringers 1,000 ML 100 ML IVCONT ×2 (04:38→07:37)
[2022-07-05] MEDS: HYDROmorphone HCl 1 MG/ML SYRINGE IVPUSH ×2 (07:38→20:40)
--- NOTE | 2022-07-05 09:23 | HO.ANESPROP2 ---
FORMERLY [facility], [facility] Active Problems Active Problems: All Active Problems (Updated 07/03/22 @ 22:21 by Mati Lugo MD) Hypertension (Acute) Parastomal hernia (Acute) Small bowel obstruction (Acute) Past Medical History Medical History Colorectal cancer Hypertension Family History Family history of problems with anesthesia: No Surgical History History of Problems with Anesthesia: No Social History Social History Household Members: Spouse Housing: Apartment Do you presently have visiting nurse or other home services: No Alcohol intake: unknown Patient Tobacco Use Status: Never used Tobacco Advance Directives Date on File: 07/04/22 service: Yes Current occupational status: retired [employer] Allergies Allergy/AdvReac Type Severity Reaction Status Date / Time No Known Allergies Allergy Verified 07/03/22 17:35 [No Known Allergies*] Active Medications: Current Medications Fentanyl (Fentanyl Citrate/Pf 100 Mcg/2 Ml Vial) 25 mcg IVPUSH Q5M PRN; Protocol PRN Reason: Pain, Moderate (Pain Scale 4-6 Heparin Sodium (Porcine) (Heparin Sodium,Porcine 5,000 Unit/Ml Vial) 5,000 unit SUBCUT Q12H [facility] Last Admin: 07/04/22 22:38 Dose: 5,000 unit Hydromorphone HCl (Hydromorphone Hcl 1 Mg/Ml Syringe) 1 mg IVPUSH Q3H PRN; Protocol PRN Reason: Pain, Severe (Pain Scale 7-10) Last Admin: 07/05/22 07:38 Dose: 1 mg Lactated Ringer's (Lr) 1,000 mls @ 100 mls/hr IVCONT .Q10H KRISTIAN Last Admin: 07/05/22 07:37 Dose: 100 mls/hr Promethazine HCl 6.25 mg/ (Sodium Chloride) 50.25 mls @ 201 mls/hr IV Q6H PRN PRN Reason: nausea Ketorolac Tromethamine (Ketorolac Tromethamine 30 Mg/Ml Vial) 30 mg IVPUSH Q6H PRN PRN Reason: Pain, Moderate (Pain Scale 4-6 Last Admin: 07/04/22 02:49 Dose: 30 mg Ondansetron HCl (Ondansetron Hcl 4 Mg/2 Ml Vial) 4 mg IVPUSH Q8H PRN PRN Reason: nausea Last Admin: 07/03/22 23:58 Dose: 4 mg Ondansetron HCl (Ondansetron Hcl 4 Mg/2 Ml Vial) 4 mg IVPUSH ONCE PRN PRN Reason: Nausea and Vomiting Pharmacy Consult (Consult Rx Perform Med Rec) 1 each MISCELLANE ONCE PRN PRN Reason: Consult order Sodium Chloride (0.9 % Sodium Chloride Flush 3 Ml Syringe) [facility] Last Admin: 07/05/22 07:38 Dose: Not Given Home Medications Medication Instructions Recorded Confirmed Last Taken Type benazepril 40 mg tablet 40 mg PO BID 07/03/22 07/03/22 07/03/22 History diltiazem HCl 30 mg tablet 30 mg PO DAILY 07/03/22 07/03/22 07/03/22 History hydrochlorothiazide 25 mg tablet 25 mg PO DAILY 07/03/22 07/03/22 07/03/22 History Exam Exam Date and Time: July 05, [id number] Height,Weight and Vital Signs: Height 5 ft 7 in Weight 83.915 kg Last Vital Signs Temp 98.4 F 07/05/22 08:12 Pulse 110 H 07/05/22 08:12 Resp 18 07/05/22 08:12 BP 136/62 07/05/22 08:12 Pulse Ox 98 07/05/22 08:12 O2 Del Method 07/05/22 08:12 O2 Flow Rate 2 07/04/22 12:15 Pertinent Lab Results Pertinent Lab Results: Laboratory Tests 07/03/22 07/03/22 07/03/22 19:07 19:07 19:07 WBC 16.4 H RBC 4.86 Hgb 15.4 Hct 44.5 MCV 91.6 MCH 31.7 MCHC 34.6 RDW 12.5 Plt Count 269 MPV 10.2 Immature Gran % (Auto) 0.4 Neut % (Auto) 91.1 H Lymph % (Auto) 4.4 L [place] % (Auto) 3.7 Eos % (Auto) 0.1 Baso % (Auto) 0.3 Lymph # (Auto) 0.7 L [place] # (Auto) 0.6 Eos # (Auto) 0.0 Baso # (Auto) 0.1 Abs Immat Gran (auto) 0.06 H Absolute Neuts (auto) 15.0 H Absolute Nucleated RBC 0.000 Nucleated RBC % (auto) 0.0 Smear Tech's Comments VERIFIED Sodium 145 Potassium 3.1 L Chloride 103 Carbon Dioxide 24 Anion Gap 21 H BUN 18 H Creatinine 1.15 Estim Creat Clear Calc 58.8 Estimated GFR > 60 Random Glucose 145 H Lactic Acid 2.7 H* Lactic Acid F/U @ 2Hr Calcium 9.8 Lipase 24 Urine Color Urine Appearance Urine pH Ur Specific [place] Urine Protein Urine Glucose (UA) Urine Ketones Urine Blood Urine Nitrite Ur Leukocyte Esterase Urine RBC Urine WBC Ur Squamous Epith Cells Urine Bacteria COVID-19 (DUNIA) COVID-19 Clin Com 07/03/22 07/03/22 07/03/22 19:15 19:21 23:38 WBC RBC Hgb Hct MCV MCH MCHC RDW Plt Count MPV Immature Gran % (Auto) Neut % (Auto) Lymph % (Auto) [place] % (Auto) Eos % (Auto) Baso % (Auto) Lymph # (Auto) [place] # (Auto) Eos # (Auto) Baso # (Auto) Abs Immat Gran (auto) Absolute Neuts (auto) Absolute Nucleated RBC Nucleated RBC % (auto) Smear Tech's Comments Sodium Potassium Chloride Carbon Dioxide Anion Gap BUN Creatinine Estim Creat Clear Calc Estimated GFR Random Glucose Lactic Acid Lactic Acid F/U @ 2Hr 1.8 Calcium Lipase Urine Color YELLOW Urine Appearance CLEAR Urine pH 7.0 Ur Specific [place] 1.015 Urine Protein TRACE Urine Glucose (UA) NEG Urine Ketones 15 Urine Blood NEG Urine Nitrite NEG Ur Leukocyte Esterase TRACE H Urine RBC 0 Urine WBC 0-2 Ur Squamous Epith Cells NONE Urine Bacteria TRACE COVID-19 (DUNIA) Negative COVID-19 Clin Com See Note 07/04/22 07/04/22 06:21 06:21 WBC 7.4 RBC 5.37 Hgb 16.8 Hct 50.3 MCV 93.7 MCH 31.3 MCHC 33.4 RDW 12.9 Plt Count 278 MPV 10.5 Immature Gran % (Auto) Neut % (Auto) Lymph % (Auto) [place] % (Auto) Eos % (Auto) Baso % (Auto) Lymph # (Auto) [place] # (Auto) Eos # (Auto) Baso # (Auto) Abs Immat Gran (auto) Absolute Neuts (auto) Absolute Nucleated RBC 0.000 Nucleated RBC % (auto) 0.0 Smear Tech's Comments Sodium 145 Potassium 3.7 Chloride 112 H Carbon Dioxide 20 L Anion Gap 17 BUN 23 H Creatinine 1.25 Estim Creat Clear Calc 54.0 Estimated GFR 56 Random Glucose 169 H Lactic Acid Lactic Acid F/U @ 2Hr Calcium 8.1 L D Lipase Urine Color Urine Appearance Urine pH Ur Specific [place] Urine Protein Urine Glucose (UA) Urine Ketones Urine Blood Urine Nitrite Ur Leukocyte Esterase Urine RBC Urine WBC Ur Squamous Epith Cells Urine Bacteria COVID-19 (DUNIA) COVID-19 Clin Com Airway Mallampati Class: I TM Dist: >3cm Neck ROM: Full Loose/Missing/Broken Teeth: No Heart: rr Lungs: clear Assessment and Plan Final Anesthetic Review Family History of Problems with Anesthesia: No History of Problems with Anesthesia: No NPO: Yes ASA Class: II Final Preanesthetic Review: No Changes in Pt Med Stat, Meds/Allgs Chart Reviewed, Consent Obtained/Reviewed and Anes Risks/Benef Reviewed Patient Risk: Intermediate Procedure Risk: High Anesthetic Plan Anesthetic Plan: GA Disposition: Standard PACU
--- NOTE | 2022-07-05 13:08 | P.OP_ITS ---
Operative Note Operative Note Date of Service: 07/05/22 Narrative: Preop diagnosis: Parastomal hernia Postop diagnosis: Parastomal hernia, with necrotic segment of incarcerated small bowel loops; extensive adhesions Procedure: Laparotomy, reduction of incarcerated parastomal hernia, extensive lysis of adhesions, small-bowel resection, repair of the hernia a biologic mesh, flexible sigmoidoscopy via the colostomy Surgeon: Mati Lugo MD The patient is a 72-year-old male, who had an APR in 2002, and had been doing well but admitted on the evening of 07/03/2022 because of pain on his stoma. His CAT scan showed small bowel loops within the stoma without thickening nor free fluid. There was some mildly dilated small bowel loops proximal to this stoma so says this was suggestive of partial small-bowel obstruction. I placed an NG tube and admitted him for bowel rest and IV fluids and close observation. He improved significantly admission and denies any abdominal pain thereafter. His exam remains very benign. He had good colostomy output. However, explained to him that I would recommend proceeding with repair because of the possibility of recurrent problems with this parastomal hernia. I therefore kept the NG tube in place and schedule him for repair of the parastomal hernia He was brought to the operating room. He was placed supine on the table under general anesthesia via endotracheal tube. A Webb catheter was inserted. The abdomen was prepped and draped in the usual sterile fashion. A surgical time- out was done. The patient received Cefotan 2 g IV preoperatively I had earlier closed the colostomy with a running Dexon 2-0 stitch to seal this. I made a low midline incision using blade 15. This was carried down through the full-thickness of the skin and subcutaneous fat with electrocautery. There was note of a lot of fibrotic changes along this area from the previous surgery. I incised the fascia and entered the peritoneum. Note of adherent omentum on the upper part of the incision so I had to carefully separate this. I applied Jennifer clamps on the fascia on the left side to lift this up examined the stoma. Note of small bowel loops in herniated through the parastomal hernia. This was markedly adherent to the surrounding fascia so I to gently lyse these adhesions with Metzenbaum scissors as well as electrocautery. The sac was also divided as well to allow me to reduce the hernia. eventually, after for dissection of adhesions surrounding the small bowel loops I was able to reduce this. Examination of this herniated small bowel loops showed dense adhesions which appeared to be fibrotic suggestive of chronic hernia. However, there were areas of the in herniated small bowel that was also nonviable and appeared. There was note of significant distention of the small bowel loops proximal to this. I therefore proceeded to continue to fede the small bowel loops away from the rest of the abdomen. There was note of very dense adhesions distal to this segment that was earlier incarcerated. Note of thick fibrotic bands tethering this to the pelvis and other surrounding small bowel loops. I had to do a lot of extensive dissection using the Metzenbaum scissors to carefully lysed these adhesions all the way to the pelvis. This part of the procedure took an extended period of time. The most distal small bowel loops were also noted to be telangiectatic in the pelvis and were densely adherent and packed in the pelvic region. This was likely secondary to previous radiation treatment to the pelvis for his rectal cancer Since I could clearly define theViable and healthy or small bowel loops her extensive lysis of adhesions, I proceeded to then find the proximal bowel loops as well and was able to free this up. This entire segment of incarcerated small intestine appeared to be in the jejunum. I chose my point of dissection proximally I created a mesenteric window divided this with a SUSANA 60 mm stapler. I was able to choose my point of transection as well distally a segment that appeared healthy so I created a mesenteric window as well and divided this with a SUSANA 60 mm stapler. I the entire segment of small bowel from the rest of the mesentery by dividing the mesentery with the LigaSure all the way to the distal side This was sent as specimen. Overall I resected about 75 cm of also bowel I then proceeded to do my ruin-ih-nocl anastomosis. I opened up the apex of each staple line. I had to suction a lot of enteric contents from the proximal limb. I then positioned each arm of the SUSANA 60 mm stapler at the anti mesenteric border. Line this to limbs together and position the stapler. Once I confirmed that there was no bowel loops trapped between the staplers, I fired this to do my ipbr-hr-[id number] anastomosis. I completed the anastomosis with a TA 60 mm stapler to close the enterotomy I applied had Dexon 3-0 stitch at the crotch of the staple line in a seromuscular fashion to release any tension along the staple line itself Examined the staple lines and these all appeared to be viable and healthy without any evidence of any ischemia. The dany all appeared to be intact I then proceeded to close the enlarged mesenteric defect with a running Dexon 3- 0 stitch I then replaced the bowel loops back into the peritoneal cavity Proceeded to carefully define the stoma at the peritoneal side. The stoma limb of the colon itself appeared viable. There was note of however dense adhesions lateral to this so my view more laterally was still limited. I did not want to do more Dissection of adhesions lateral to the stoma because of the risk of injury to the stoma. I closed the excess fascial opening medial to the stoma with a running Maxon 1 stitch. I then reinforced this with an Ovitex biologic mesh, partially lateralizing the stoma as well. I used tacks to secure this is on the peritoneal side I made sure that I was not applying the tacks on the stoma limb itself . I then proceeded to copiously irrigate. I closed the fascia with a running PDS 1 stitch. It is noted that the fascia had fibrotic changes from his scar and appeared tenuous. I closed the skin incision with skin dany. I infiltrated the area with Marcaine 0.5% for postop analgesia. Dressings were applied I proceeded to do the sigmoidoscopy to examine the stoma limb. I released the there was applied earlier on the stoma. I inserted the colonoscope gently all the way to level 20 cm and examined the entire lumen distally and this appeared to be patent, viable and healthy with out any ischemic segment The colostomy appliance was then applied The procedure was then completed The patient tolerated procedure well. There were no complications noted. Shell final counts of sponges and instruments were correct. Estimated blood loss was about 100 cc The patient was extubated without difficulty and transferred to the recovery room with stable vital signs.
[2022-07-05] MEDS: fentaNYL citrate/PF 100 MCG/2 ML VIAL 25 MCG IVPUSH ×4 (13:35→13:50)
[2022-07-05] MEDS: HYDROmorphone HCl 0.5 MG/0.5 ML SYRINGE 0.25 MG IVPUSH ×2 (13:55→14:53)
--- NOTE | 2022-07-05 14:13 | MHC.CM.PN ---
Patient Not yet medically ready for discharge today r/t surgery for Parastomal hernia. Discharge plan continues to be Home (self-care). CM will continue to follow for safe discharge.
[2022-07-05] MEDS: 0.9 % Sodium Chloride Flush 3 ML SYRINGE IVFLUSH ×2 (15:40→20:37)
--- NOTE | 2022-07-05 16:34 | PM.EVENT ---
Event Note Date of Service: 07/05/22 Event Note: Seen postop He had undergone laparotomy, extensive lysis of adhesions, reduction of incarcerated hernia para stoma with small bowel resection and repair of hernia with biologic mesh Says he has good pain control Clear liquids Pain management Webb in place Incentive spirometry updated over the phone
[2022-07-05] MEDS: Heparin Sodium,Porcine 5,000 UNIT/ML VIAL 5000 UNIT SUBCUT (20:37)
[2022-07-06] VITALS (9 sets, daily range): BP systolic 166–170; BP diastolic 74–82; PULSE 95–102; RESP 16–24; TEMP 36.1–37.1; O2SAT 87–97
[2022-07-06 00:33] LABS: Anion Gap 13 (12-20); Blood Urea Nitrogen 40 mg/dL (9-16); Calcium 7.7 mg/dL (8.4-10.2); Carbon Dioxide 29 mmol/L (22-29); Chloride 108 mmol/L (96-108); Creatinine Clr Calc Pharmacy 57.3; Estimated Glomerular Filt Rate > 60; Glucose Random 133 mg/dL (60-115); Sodium 146 mmol/L (135-145)
[2022-07-06 00:36] LABS: B Type Natriuretic Peptide 73 pg/mL (<100)
[2022-07-06] MEDS: iohexoL 350 MG/ML 100 ML INFUS..BTL IV (00:46)
--- NOTE | 2022-07-06 00:52 | PC.NURSE ---
Patient was hypoxic for 11 pm vitals. Patient was originally on 3L of O2 via NC. Patient was sating 87% on the 3L. Patient O2 had to be bumped to 10L to a non rebreather. Md was notified. Test were ordered.
[2022-07-06] MEDS: Furosemide 20 MG/2 ML VIAL IVPUSH (01:05)
--- NOTE | 2022-07-06 01:25 | PM.EVENT ---
Event Note Date of Service: 07/06/22 Event Note: acute hypoxia: Patient was placed on supplemental oxygen requiring up to 10 L. Not in respiratory distress. CT chest showed no evidence of pulmonary embolism. Noted to have emphysema. Sid p.r.n. CT chest also showed mucus plugging-chest physiotherapy CT chest showed intra-abdominal air -appears to be postsurgical changes as per the radiologist.
[2022-07-06] MEDS: Albuterol/Iprat 2.5/0.5MG 3 ML AMPUL.NEB INHALE ×2 (02:00→05:56)
[2022-07-06] MEDS: HYDROmorphone HCl 1 MG/ML SYRINGE IVPUSH ×5 (05:40→21:34)
--- NOTE | 2022-07-06 06:29 | PC.NURSE ---
Patient pulled out NG tube on 07/06/22 at 0630. Md was notified. Since output for the night was 50 ml, MD advised to hold off on replacing NG tube
[2022-07-06 06:45] LABS: Hematocrit 47.2 % (42.0-52.0); Hemoglobin 15.4 g/dl (14.0-18.0); Mean Corpuscular HGB Conc 32.6 g/dl (31.0-36.0); Mean Corpuscular Hemoglobin 31.7 pg (27.0-33.0); Mean Corpuscular Volume 97.1 fL (80.0-98.0); PLT CLUMP 1; Red Blood Count 4.86 X10*6/uL (4.60-5.80); Red Cell Distribution Width 13.3 % (11.0-16.0)
[2022-07-06 07:03] LABS: Anion Gap 17 (12-20); Blood Urea Nitrogen 36 mg/dL (9-16); Calcium 7.8 mg/dL (8.4-10.2); Carbon Dioxide 26 mmol/L (22-29); Chloride 106 mmol/L (96-108); Creatinine Clr Calc Pharmacy 61.5; Estimated Glomerular Filt Rate > 60; Glucose Random 105 mg/dL (60-115); Sodium 145 mmol/L (135-145)
[2022-07-06 07:20] LABS: Platelet Count 163 X10*3/uL (160-400); White Blood Count 11.4 X10*3/uL (4.8-10.8)
[2022-07-06 07:21] LABS: Mean Platelet Volume 11.6 fL (9.4-12.4)
[2022-07-06] MEDS: 0.9 % Sodium Chloride Flush 3 ML SYRINGE IVFLUSH ×3 (08:32→23:41)
[2022-07-06] MEDS: Heparin Sodium,Porcine 5,000 UNIT/ML VIAL 5000 UNIT SUBCUT ×2 (08:32→21:34)
--- NOTE | 2022-07-06 09:08 | PM.PNGS ---
Subjective Subjective Date of Service: 07/09/22 Interval history: says he feels ok seems to have had good pain control O2 sats low last night - was on 10 lpm of NC O2 sats better this AM he pulled out NGT by accident early this AM Physical Exam Vital Signs: Vital Signs: Last Vital Signs Temp 98.7 F 07/06/22 07:24 Pulse 98 07/06/22 07:24 Resp 20 07/06/22 07:24 BP 169/78 H 07/06/22 07:24 Pulse Ox 92 07/06/22 07:24 O2 Del Method 07/06/22 07:24 O2 Flow Rate 14 07/06/22 03:09 BMI result Body Mass Index 29.0 Const: General: no acute distress Resp: Effort & Inspection: normal respiratory effort Cardio: Rate: regular rate GI: Other: soft, stoma viable, no signficant output, dressings clean Objective Data Active Medications Albuterol/Ipratropium (Albuterol/Iprat 2.5/0.5mg 3 Ml Ampul.Neb) 3 ml INHALE RQ4H PRN PRN Reason: Shortness of Breath/Wheezing Last Admin: 07/06/22 05:56 Dose: 3 ml Documented By: DAMIÁN Heparin Sodium (Porcine) (Heparin Sodium,Porcine 5,000 Unit/Ml Vial) 5,000 unit SUBCUT Q12H KRISTIAN Last Admin: 07/06/22 08:32 Dose: 5,000 unit Documented By: VISH Hydromorphone HCl (Hydromorphone Hcl 1 Mg/Ml Syringe) 1 mg IVPUSH Q3H PRN; Protocol PRN Reason: Pain, Severe (Pain Scale 7-10) Last Admin: 07/06/22 08:27 Dose: 1 mg Documented By: VISH Hydromorphone HCl (Hydromorphone Hcl 0.5 Mg/0.5 Ml Syringe) 0.25 mg IVPUSH Q5M PRN; Protocol PRN Reason: Pain, Severe (Pain Scale 7-10) Last Admin: 07/05/22 14:53 Dose: 0.25 mg Documented By: JOANNA Promethazine HCl 6.25 mg/ (Sodium Chloride) 50.25 mls @ 201 mls/hr IV Q6H PRN PRN Reason: nausea Ketorolac Tromethamine (Ketorolac Tromethamine 30 Mg/Ml Vial) 30 mg IVPUSH Q6H PRN PRN Reason: Pain, Moderate (Pain Scale 4-6 Last Admin: 07/04/22 02:49 Dose: 30 mg Documented By: KRUNAL Ondansetron HCl (Ondansetron Hcl 4 Mg/2 Ml Vial) 4 mg IVPUSH Q8H PRN PRN Reason: nausea Last Admin: 07/03/22 23:58 Dose: 4 mg Documented By: KRUNAL Ondansetron HCl (Ondansetron Hcl 4 Mg/2 Ml Vial) 4 mg IVPUSH ONCE PRN PRN Reason: Nausea and Vomiting Pharmacy Consult (Consult Rx Perform Med Rec) 1 each MISCELLANE ONCE PRN PRN Reason: Consult order Sodium Chloride (0.9 % Sodium Chloride Flush 3 Ml Syringe) 3 ml IVFLUSH QSHIFT KRISTIAN Last Admin: 07/06/22 08:32 Dose: 3 ml Documented By: VISH Labs CBC & Chem 7: 07/06/22 05:31 07/06/22 05:31 Labs: Laboratory Results - last 24 hr 07/06/22 07/06/22 07/06/22 00:08 00:08 05:31 MCV 97.1 MCH 31.7 MCHC 32.6 RDW 13.3 Plt Count 163 D MPV 11.6 Absolute Nucleated RBC 0.000 Nucleated RBC % (auto) 0.0 Anion Gap 13 Estim Creat Clear Calc 57.3 Estimated GFR > 60 Random Glucose 133 H Calcium 7.7 L B-Natriuretic Peptide 73 07/06/22 05:31 MCV MCH MCHC RDW Plt Count MPV Absolute Nucleated RBC Nucleated RBC % (auto) Anion Gap 17 Estim Creat Clear Calc 61.5 Estimated GFR > 60 Random Glucose 105 Calcium 7.8 L B-Natriuretic Peptide Microbiology Microbiology Results: Microbiology 07/03/22 22:16 Blood Culture - Preliminary Blood - Venous No growth after 48 hours. 07/03/22 21:51 Blood Culture - Preliminary Blood - Venous No growth after 48 hours. Procedures Date of Service Date of Service: 07/06/22 Progress Note: A&P Assessment and plan (1) Parastomal hernia: Status: Acute Assessment and Plan: underwent laparotomy, reduction of hernia, SB resection yesterday O2 sats marginal last night, better this AM clear liquid diet today OOB to chair await full return of GI function pain mgt instructed on incentive spirometry Time Spent With Patient Time: Total time spent is greater than 50% in coordination of care (as documented) at patient's floor/unit and/or counseling patient: Quality Stroke Does the patient have a stroke diagnosis?: No VTE Prior VTE?: No VTE Risk Level:: Medical - moderate - high VTE Device Contraindication: N/A - Device Ordered VTE Drug Contraindication: N/A - Med Ordered
--- NOTE | 2022-07-06 11:28 | MHC.CM.PN ---
DCP CONTINUES TO BE HOME WITH NO SERVICES TO TRANSPORT
--- NOTE | 2022-07-06 11:50 | HO.POSTANES ---
Post Anesthesia Evaluation Post Anesthesia Evaluation Vital Signs: Vital Signs Temp Pulse Resp BP Pulse Ox O2 Del Method O2 Flow Rate 07/06/22 10:50 94 Oxymask 9 07/06/22 07:24 98.7 F 98 20 169/78 H 92 Oxymask 07/06/22 05:56 97 16 07/06/22 03:09 96.9 F 96 20 166/74 H 92 Aerosol Mask 14 07/06/22 02:00 95 24 H Anesthesia: General Endotracheal-GETA Mental Status: Awake Pain Control: Satisfactory Nausea/Vomiting: None Hydration: Adequate Anesthesia-Related Issues: No Anes. Related Issues
--- NOTE | 2022-07-06 15:24 | PM.EVENT ---
Event Note Date of Service: 07/06/22 Event Note: Says he is comfortable Some incisional pain coughing No significant output yet from the colostomy O2 sats still marginal, requiring supplemental oxygen He says he is not short of breath Appears comfortable Abdomen soft Some serous drainage from the incision Dressings therefore changed Keep on clear liquids only Out of bed Await return of GI function
--- NOTE | 2022-07-06 16:00 | PC.NURSE ---
RESP- PT ON OXYMASCK. AT 9 L ALL SHIFT. o2 SAT FLUCTUATES. DEPENDING ON ACTIVITY SUCH JENNY EATIN AND USING INCENTIVE. AT TIMES PT FORGETS TO PUT MASK BACK ON. SAT HAS BEEN ANYWHERE BETWEEN 88- 95%
[2022-07-06] MEDS: Ketorolac Tromethamine 30 MG/ML VIAL IVPUSH (18:17)
[2022-07-07] VITALS (13 sets, daily range): BP systolic 140–192; BP diastolic 68–94; PULSE 72–99; RESP 16–20; TEMP 36–36.9; O2SAT 91–99
[2022-07-07] MEDS: HYDROmorphone HCl 1 MG/ML SYRINGE IVPUSH ×3 (02:17→15:16)
[2022-07-07] MEDS: Ketorolac Tromethamine 30 MG/ML VIAL IVPUSH ×3 (04:05→23:30)
[2022-07-07] MEDS: dilTIAZem HCL 30 MG TABLET PO (04:05)
--- NOTE | 2022-07-07 08:22 | P.PNGS_ITS ---
Subjective Subjective Date of Service: 07/07/22 Interval history: Pod 2 following small-bowel resection and repair of parastomal hernia with biologic mesh. He has incisional pain but reports good improvement with the pain medications. Denies any output from his ostomy. Physical Exam Vital Signs: Vital Signs: Last Vital Signs Temp 96.8 F 07/07/22 07:09 Pulse 81 07/07/22 07:09 Resp 18 07/07/22 07:09 BP 160/86 H 07/07/22 08:09 Pulse Ox 96 07/07/22 08:00 O2 Del Method 07/07/22 08:00 O2 Flow Rate 11 07/07/22 07:09 Oxygen Flow Rate 9 07/06/22 08:37 BMI result Body Mass Index 29.0 Const: General: comfortable and alert Nutritional Appearance: well nourished Orientation/consciousness: patient oriented x3 Limitations: no limitations Resp: Effort & Inspection: normal respiratory effort GI: Other: Dressings changed. A small amount of serous discharge noted from in incision. No surrounding erythema is appreciated. Hernia repair is intact. Ostomy is patent but with no stool or gas identified. Neuro: General: patient oriented x3 Extrem: General: Yes no pedal edema Objective Data Active Medications Albuterol/Ipratropium (Albuterol/Iprat 2.5/0.5mg 3 Ml Ampul.Neb) 3 ml INHALE RQ4H PRN PRN Reason: Shortness of Breath/Wheezing Last Admin: 07/06/22 05:56 Dose: 3 ml Documented By: DAMIÁN Diltiazem HCl (Diltiazem Hcl 30 Mg Tablet) 30 mg PO DAILY KRISTIAN; Protocol Last Admin: 07/07/22 04:05 Dose: 30 mg Documented By: MADHU Heparin Sodium (Porcine) (Heparin Sodium,Porcine 5,000 Unit/Ml Vial) 5,000 unit SUBCUT Q12H KRISTIAN Last Admin: 07/06/22 21:34 Dose: 5,000 unit Documented By: ADRIA Hydromorphone HCl (Hydromorphone Hcl 1 Mg/Ml Syringe) 1 mg IVPUSH Q3H PRN; Protocol PRN Reason: Pain, Severe (Pain Scale 7-10) Last Admin: 07/07/22 02:17 Dose: 1 mg Documented By: MADHU Hydromorphone HCl (Hydromorphone Hcl 0.5 Mg/0.5 Ml Syringe) 0.25 mg IVPUSH Q5M PRN; Protocol PRN Reason: Pain, Severe (Pain Scale 7-10) Last Admin: 07/05/22 14:53 Dose: 0.25 mg Documented By: JOANNA Promethazine HCl 6.25 mg/ (Sodium Chloride) 50.25 mls @ 201 mls/hr IV Q6H PRN PRN Reason: nausea Ketorolac Tromethamine (Ketorolac Tromethamine 30 Mg/Ml Vial) 30 mg IVPUSH Q6H PRN PRN Reason: Pain, Moderate (Pain Scale 4-6 Last Admin: 07/07/22 04:05 Dose: 30 mg Documented By: MADHU Ondansetron HCl (Ondansetron Hcl 4 Mg/2 Ml Vial) 4 mg IVPUSH Q8H PRN PRN Reason: nausea Last Admin: 07/03/22 23:58 Dose: 4 mg Documented By: KRUNAL Ondansetron HCl (Ondansetron Hcl 4 Mg/2 Ml Vial) 4 mg IVPUSH ONCE PRN PRN Reason: Nausea and Vomiting Pharmacy Consult (Consult Rx Perform Med Rec) 1 each MISCELLANE ONCE PRN PRN Reason: Consult order Sodium Chloride (0.9 % Sodium Chloride Flush 3 Ml Syringe) [facility] Last Admin: 07/06/22 23:41 Dose: 3 ml Documented By: MADHU Labs CBC & Chem 7: 07/06/22 05:31 07/06/22 05:31 Procedures Date of Service Date of Service: 07/07/22 Progress Note: A&P Assessment and plan (1) Parastomal hernia: Status: Acute Assessment and Plan: underwent laparotomy, reduction of hernia, SB resection pod 2 Continues to require supplemental O2. Continue clear liquid diet today pending return of GI function Encouraged OOB to chair and incentive spirometry await full return of GI function Monitor incisional drainage output. Time Spent With Patient Time: Total time spent is greater than 50% in coordination of care (as documented) at patient's floor/unit and/or counseling patient: Quality Stroke Does the patient have a stroke diagnosis?: No VTE Prior VTE?: No VTE Risk Level:: Medical - moderate - high VTE Device Contraindication: N/A - Device Ordered VTE Drug Contraindication: N/A - Med Ordered
[2022-07-07] MEDS: Heparin Sodium,Porcine 5,000 UNIT/ML VIAL 5000 UNIT SUBCUT ×2 (10:14→20:19)
[2022-07-07] MEDS: 0.9 % Sodium Chloride Flush 3 ML SYRINGE IVFLUSH ×3 (10:14→22:41)
[2022-07-07] MEDS: Simethicone 80 MG TAB.CHEW PO ×2 (11:55→22:45)
[2022-07-07] MEDS: HYDROmorphone HCl 0.5 MG/0.5 ML SYRINGE 0.25 MG IVPUSH (22:40)
[2022-07-07] MEDS: Albuterol/Iprat 2.5/0.5MG 3 ML AMPUL.NEB INHALE (23:33)
[2022-07-08] VITALS (7 sets, daily range): BP systolic 146–168; BP diastolic 66–80; PULSE 63–85; RESP 14–18; TEMP 36–36.9; O2SAT 96–100
[2022-07-08] MEDS: HYDROmorphone HCl 1 MG/ML SYRINGE IVPUSH ×5 (03:47→23:28)
--- NOTE | 2022-07-08 08:14 | P.PNGS_ITS ---
Subjective Subjective Date of Service: 07/08/22 Interval history: patient reports feeling much improved today with decreased abdominal pain. He denies any flatus or BM per ostomy yet. He is tolerating clear liquids without nausea or vomiting. He does have occasional hiccups. He is requesting pudding. Physical Exam Vital Signs: Vital Signs: Last Vital Signs Temp 98.4 F 07/08/22 03:35 Pulse 69 07/08/22 03:35 Resp 18 07/08/22 03:35 BP 164/80 H 07/08/22 03:35 Pulse Ox 96 07/08/22 03:35 O2 Del Method 07/08/22 03:35 O2 Flow Rate 10 07/08/22 03:35 Oxygen Flow Rate 9 07/06/22 08:37 BMI result Body Mass Index 29.0 Const: General: comfortable and alert Nutritional Appearance: well nourished Orientation/consciousness: patient oriented x3 Limitations: no limitations Resp: Effort & Inspection: normal respiratory effort GI: Other: Dressings changed. Continued serous discharge from the mid incision; the hernia repair is intact. Ostomy is patent but with no stool or gas identified. Inspection: Yes distended and Yes Abdominal panniculus present Percussion: Y es dullness to percussion Skin: General skin exam: no rashes or lesions noted Neuro: General: patient oriented x3 Extrem: General: Yes no pedal edema Objective Data Active Medications Albuterol/Ipratropium (Albuterol/Iprat 2.5/0.5mg 3 Ml Ampul.Neb) 3 ml INHALE RQ4H PRN PRN Reason: Shortness of Breath/Wheezing Last Admin: 07/07/22 23:33 Dose: 3 ml Documented By: ROCKY Diltiazem HCl (Diltiazem Hcl 30 Mg Tablet) 30 mg PO DAILY [facility]; Protocol Last Admin: 07/07/22 04:05 Dose: 30 mg Documented By: MADHU Heparin Sodium (Porcine) (Heparin Sodium,Porcine 5,000 Unit/Ml Vial) 5,000 unit SUBCUT Q12H [facility] Last Admin: 07/07/22 20:19 Dose: 5,000 unit Documented By: JOSERISLiu Hydromorphone HCl (Hydromorphone Hcl 1 Mg/Ml Syringe) 1 mg IVPUSH Q3H PRN; Protocol PRN Reason: Pain, Severe (Pain Scale 7-10) Last Admin: 07/08/22 03:47 Dose: 1 mg Documented By: SHIRLEY Hydromorphone HCl (Hydromorphone Hcl 0.5 Mg/0.5 Ml Syringe) 0.25 mg IVPUSH Q5M PRN; Protocol PRN Reason: Pain, Severe (Pain Scale 7-10) Last Admin: 07/07/22 22:40 Dose: 0.25 mg Documented By: SHIRLEY Promethazine HCl 6.25 mg/ (Sodium Chloride) 50.25 mls @ 201 mls/hr IV Q6H PRN PRN Reason: nausea Ketorolac Tromethamine (Ketorolac Tromethamine 30 Mg/Ml Vial) 30 mg IVPUSH Q6H PRN PRN Reason: Pain, Moderate (Pain Scale 4-6 Last Admin: 07/07/22 23:30 Dose: 30 mg Documented By: SHIRLEY Ondansetron HCl (Ondansetron Hcl 4 Mg/2 Ml Vial) 4 mg IVPUSH Q8H PRN PRN Reason: nausea Last Admin: 07/03/22 23:58 Dose: 4 mg Documented By: NGHIA-FELICITAS Ondansetron HCl (Ondansetron Hcl 4 Mg/2 Ml Vial) 4 mg IVPUSH ONCE PRN PRN Reason: Nausea and Vomiting Pharmacy Consult (Consult Rx Perform Med Rec) 1 each MISCELLANE ONCE PRN PRN Reason: Consult order Simethicone (Simethicone 80 Mg Tab.Chew) 80 mg PO Q6H PRN PRN Reason: Gas Last Admin: 07/07/22 22:45 Dose: 80 mg Documented By: SHIRLEY Sodium Chloride (0.9 % Sodium Chloride Flush 3 Ml Syringe) [facility] Last Admin: 07/07/22 22:41 Dose: 3 ml Documented By: SHIRLEY Labs CBC & Chem 7: 07/06/22 05:31 07/06/22 05:31 Procedures Date of Service Date of Service: 07/08/22 Progress Note: A&P Assessment and plan (1) Parastomal hernia: Status: Acute Assessment and Plan: Status post laparotomy, repair of parastomal hernia with biologic mesh,, SB res ection pod 3 Continues to require supplemental O2. Tolerating clear liquids without nausea or vomiting. Encouraged OOB to chair and incentive spirometry await full return of GI function Monitor incisional drainage output. (2) Small bowel obstruction: Status: Acute Time Spent With Patient Time: Total time spent is greater than 50% in coordination of care (as documented) at patient's floor/unit and/or counseling patient: Quality Stroke Does the patient have a stroke diagnosis?: No VTE Prior VTE?: No VTE Risk Level:: Medical - moderate - high VTE Device Contraindication: N/A - Device Ordered VTE Drug Contraindication: N/A - Med Ordered
[2022-07-08] MEDS: dilTIAZem HCL 30 MG TABLET PO (09:00)
[2022-07-08] MEDS: 0.9 % Sodium Chloride Flush 3 ML SYRINGE IVFLUSH ×3 (09:01→20:16)
[2022-07-08] MEDS: Ketorolac Tromethamine 30 MG/ML VIAL IVPUSH (11:39)
[2022-07-08] MEDS: Heparin Sodium,Porcine 5,000 UNIT/ML VIAL 5000 UNIT SUBCUT ×2 (11:39→20:16)
[2022-07-09] MEDS: ondansetron HCL 4 MG/2 ML VIAL IVPUSH (03:43)
[2022-07-09] MEDS: HYDROmorphone HCl 1 MG/ML SYRINGE IVPUSH ×3 (03:44→17:47)
[2022-07-09 03:48] VITALS: BP 171/85; PULSE 88; RESP 19; TEMP 36.4; O2SAT 95
[2022-07-09 07:03] VITALS: BP 160/90; PULSE 71; RESP 20; TEMP 36.1; O2SAT 99
--- NOTE | 2022-07-09 08:08 | PM.PNGS ---
Subjective Subjective Date of Service: 07/10/22 Interval history: c/o hiccups denies signficant abdl pain no output yet from stoma Physical Exam Vital Signs: Vital Signs: Last Vital Signs Temp 97 F 07/09/22 07:03 Pulse 71 07/09/22 07:03 Resp 20 07/09/22 07:03 BP 160/90 H 07/09/22 07:03 Pulse Ox 99 07/09/22 07:03 O2 Del Method 07/09/22 07:03 O2 Flow Rate 9 07/09/22 03:48 Oxygen Flow Rate 9 07/08/22 08:00 BMI result Body Mass Index 29.0 Const: General: no acute distress Resp: Other: still on O2 supplement Effort & Inspection: normal respiratory effort and able to speak in complete sentences Cardio: Rate: regular rate GI: Other: stoma viable, no stooll Palpation (GI): Soft to palpation, not firm and no guarding Objective Data Active Medications Albuterol/Ipratropium (Albuterol/Iprat 2.5/0.5mg 3 Ml Ampul.Neb) 3 ml INHALE RQ4H PRN PRN Reason: Shortness of Breath/Wheezing Last Admin: 07/07/22 23:33 Dose: 3 ml Documented By: ROCKY Diltiazem HCl (Diltiazem Hcl 30 Mg Tablet) 30 mg PO DAILY [facility]; Protocol Last Admin: 07/08/22 09:00 Dose: 30 mg Documented By: BIBI Heparin Sodium (Porcine) (Heparin Sodium,Porcine 5,000 Unit/Ml Vial) 5,000 unit SUBCUT Q12H [facility] Last Admin: 07/08/22 20:16 Dose: 5,000 unit Documented By: JOSERISM Hydromorphone HCl (Hydromorphone Hcl 0.5 Mg/0.5 Ml Syringe) 0.25 mg IVPUSH Q5M PRN; Protocol PRN Reason: Pain, Severe (Pain Scale 7-10) Last Admin: 07/07/22 22:40 Dose: 0.25 mg Documented By: JOSERISM Hydromorphone HCl (Hydromorphone Hcl 1 Mg/Ml Syringe) 1 mg IVPUSH Q3H PRN; Protocol PRN Reason: Pain, Severe (Pain Scale 7-10) Last Admin: 07/09/22 03:44 Dose: 1 mg Documented By: SHIRLEY Promethazine HCl 6.25 mg/ (Sodium Chloride) 50.25 mls @ 201 mls/hr IV Q6H PRN PRN Reason: nausea Ondansetron HCl (Ondansetron Hcl 4 Mg/2 Ml Vial) 4 mg IVPUSH Q8H PRN PRN Reason: nausea Last Admin: 07/09/22 03:43 Dose: 4 mg Documented By: SHIRLEY Ondansetron HCl (Ondansetron Hcl 4 Mg/2 Ml Vial) 4 mg IVPUSH ONCE PRN PRN Reason: Nausea and Vomiting Pharmacy Consult (Consult Rx Perform Med Rec) 1 each MISCELLANE ONCE PRN PRN Reason: Consult order Simethicone (Simethicone 80 Mg Tab.Chew) 80 mg PO Q6H PRN PRN Reason: Gas Last Admin: 07/07/22 22:45 Dose: 80 mg Documented By: SHIRLEY Sodium Chloride (0.9 % Sodium Chloride Flush 3 Ml Syringe) 3 ml IVFLUSH QSHIFT [facility] Last Admin: 07/08/22 20:16 Dose: 3 ml Documented By: SHIRLEY Labs CBC & Chem 7: 07/06/22 05:31 07/06/22 05:31 Microbiology Microbiology Results: Microbiology 07/03/22 22:16 Blood Culture - Final Blood - Venous No growth after 5 days. 07/03/22 21:51 Blood Culture - Final Blood - Venous No growth after 5 days. Procedures Date of Service Date of Service: 07/09/22 Progress Note: A&P Assessment and plan (1) Small bowel obstruction: Status: Acute Plan OOB to chair await return of GI function exam benign check labs wean off O2? appreciate Hospitalist input Time Spent With Patient Time: Total time spent is greater than 50% in coordination of care (as documented) at patient's floor/unit and/or counseling patient: Quality Stroke Does the patient have a stroke diagnosis?: No VTE Prior VTE?: No VTE Risk Level:: Medical - moderate - high VTE Device Contraindication: N/A - Device Ordered VTE Drug Contraindication: N/A - Med Ordered
[2022-07-09] MEDS: dilTIAZem HCL 30 MG TABLET PO (08:33)
[2022-07-09] MEDS: 0.9 % Sodium Chloride Flush 3 ML SYRINGE IVFLUSH ×3 (08:39→23:54)
[2022-07-09] MEDS: Heparin Sodium,Porcine 5,000 UNIT/ML VIAL 5000 UNIT SUBCUT ×2 (10:09→21:29)
[2022-07-09 11:48] VITALS: BP 154/77; PULSE 81; RESP 21; TEMP 36.6; O2SAT 97
--- NOTE | 2022-07-09 15:07 | MHC.CM.PN ---
Case Management continues to follow patient for discharge planning. No change in original d/c plan.
--- NOTE | 2022-07-09 15:09 | PM.EVENT ---
Event Note Date of Service: 07/09/22 Event Note: Seen on afternoon rounds Says he is comfortable Sitting up on the recliner Still on O2 Stoma now with good output stool and gas Plan to advance diet Hopefully we will be able to DC his Webb catheter tomorrow He seems to be coming along well overall
[2022-07-09 16:00] VITALS: BP 170/78; PULSE 78; RESP 18; TEMP 36.2; O2SAT 96
[2022-07-09 19:46] VITALS: BP 172/76; PULSE 75; RESP 18; TEMP 36.3; O2SAT 97
[2022-07-09 23:24] VITALS: BP 160/72; PULSE 78; RESP 17; TEMP 36.6; O2SAT 95
[2022-07-10] VITALS (8 sets, daily range): BP systolic 158–187; BP diastolic 65–84; PULSE 62–79; RESP 17–18; TEMP 36.1–36.9; O2SAT 93–98
[2022-07-10] MEDS: HYDROmorphone HCl 1 MG/ML SYRINGE IVPUSH ×2 (05:48→20:58)
--- NOTE | 2022-07-10 07:28 | PM.PNGS ---
Subjective Subjective Date of Service: 07/11/22 Interval history: says he continues to feel better had a good night stoma has been functioning says he has been walking around room more Physical Exam Vital Signs: Vital Signs: Last Vital Signs Temp 97.8 F 07/10/22 04:00 Pulse 77 07/10/22 04:00 Resp 18 07/10/22 04:00 BP 158/65 H 07/10/22 04:00 Pulse Ox 98 07/10/22 04:00 O2 Del Method 07/10/22 04:00 O2 Flow Rate 10 07/09/22 23:24 Oxygen Flow Rate 9 07/08/22 08:00 BMI result Body Mass Index 29.0 Const: Other: on O2 General: comfortable and no acute distress Resp: Other: on O2 Effort & Inspection: normal respiratory effort Cardio: Rate: regular rate GI: Other: stoma with good output, incision with serosanguinous drainage Palpation (GI): Soft to palpation, not firm and no guarding Objective Data Active Medications Albuterol/Ipratropium (Albuterol/Iprat 2.5/0.5mg 3 Ml Ampul.Neb) 3 ml INHALE RQ4H PRN PRN Reason: Shortness of Breath/Wheezing Last Admin: 07/07/22 23:33 Dose: 3 ml Documented By: ROCKY Diltiazem HCl (Diltiazem Hcl 30 Mg Tablet) 30 mg PO DAILY [facility]; Protocol Last Admin: 07/09/22 08:33 Dose: 30 mg Documented By: BARBIE Heparin Sodium (Porcine) (Heparin Sodium,Porcine 5,000 Unit/Ml Vial) 5,000 unit SUBCUT Q12H [facility] Last Admin: 07/09/22 21:29 Dose: 5,000 unit Documented By: CASTILM Hydromorphone HCl (Hydromorphone Hcl 0.5 Mg/0.5 Ml Syringe) 0.25 mg IVPUSH Q5M PRN; Protocol PRN Reason: Pain, Severe (Pain Scale 7-10) Last Admin: 07/07/22 22:40 Dose: 0.25 mg Documented By: ODRISM Hydromorphone HCl (Hydromorphone Hcl 1 Mg/Ml Syringe) 1 mg IVPUSH Q3H PRN; Protocol PRN Reason: Pain, Severe (Pain Scale 7-10) Last Admin: 07/10/22 05:48 Dose: 1 mg Documented By: ZEV Promethazine HCl 6.25 mg/ (Sodium Chloride) 50.25 mls @ 201 mls/hr IV Q6H PRN PRN Reason: nausea Ondansetron HCl (Ondansetron Hcl 4 Mg/2 Ml Vial) 4 mg IVPUSH Q8H PRN PRN Reason: nausea Last Admin: 07/09/22 03:43 Dose: 4 mg Documented By: SHIRLEY Ondansetron HCl (Ondansetron Hcl 4 Mg/2 Ml Vial) 4 mg IVPUSH ONCE PRN PRN Reason: Nausea and Vomiting Pharmacy Consult (Consult Rx Perform Med Rec) 1 each MISCELLANE ONCE PRN PRN Reason: Consult order Simethicone (Simethicone 80 Mg Tab.Chew) 80 mg PO Q6H PRN PRN Reason: Gas Last Admin: 07/07/22 22:45 Dose: 80 mg Documented By: SHIRLEY Sodium Chloride (0.9 % Sodium Chloride Flush 3 Ml Syringe) [facility] Last Admin: 07/09/22 23:54 Dose: 3 ml Documented By: ZEV Labs CBC & Chem 7: 07/10/22 16:30 07/10/22 16:30 Procedures Date of Service Date of Service: 07/10/22 Progress Note: A&P Assessment and plan (1) Parastomal hernia: Status: Acute Assessment and Plan: s/p repair and reduction of hernia, SB resection clinically doing well advance diet dc Bowser ambulate incetnive spirometry wean off O2 Time Spent With Patient Time: Total time spent is greater than 50% in coordination of care (as documented) at patient's floor/unit and/or counseling patient: Quality Stroke Does the patient have a stroke diagnosis?: No VTE Prior VTE?: No VTE Risk Level:: Medical - moderate - high VTE Device Contraindication: N/A - Device Ordered VTE Drug Contraindication: N/A - Med Ordered
[2022-07-10] MEDS: dilTIAZem HCL 30 MG TABLET PO (08:36)
[2022-07-10] MEDS: Heparin Sodium,Porcine 5,000 UNIT/ML VIAL 5000 UNIT SUBCUT ×2 (08:37→20:55)
[2022-07-10] MEDS: 0.9 % Sodium Chloride Flush 3 ML SYRINGE IVFLUSH ×3 (08:37→20:58)
--- NOTE | 2022-07-10 15:14 | MHC.CM.PN ---
EMR review, patient is Not yet medically cleared for discharge today r/t weaning off O2, Advancing his diet, and Discharging his Webb Catheter. D/C plan continues to be Home (self-care). CM will continue to follow for D/C need.
--- NOTE | 2022-07-10 16:22 | P.PNIM_ITS ---
Subjective Subjective Date of Service: 07/10/22 Interval History: asked to see patient in follow up for persistent oxygen requirements pt seen and examined he denies any shortness of breath despite o2 requirements; reports cough productive of white sputum denies pleuritic chest pain Review of Systems negative except interval history Physical Exam Vital Signs: Vital Signs: Last Vital Signs Temp 98.4 F 07/10/22 15:23 Pulse 76 07/10/22 15:23 Resp 18 07/10/22 15:23 BP 169/79 H 07/10/22 15:23 Pulse Ox 97 07/10/22 15:23 O2 Del Method 07/10/22 15:23 O2 Flow Rate 8 07/10/22 15:23 Oxygen Flow Rate 9 07/08/22 08:00 BMI result Body Mass Index 29.0 Const: Other: General - no acute distress, appears comfortable Cardiovascular - regular rate and rhythm, S1-S2 Lungs - rales at L base, diminished sounds otherwise Abdomen - soft, nontender, no rebound or guarding Extremities - no edema bilaterally Neuro - awake and alert, no focal deficits Objective Data Active Medications Albuterol/Ipratropium (Albuterol/Iprat 2.5/0.5mg 3 Ml Ampul.Neb) 3 ml INHALE RQ4H PRN PRN Reason: Shortness of Breath/Wheezing Last Admin: 07/07/22 23:33 Dose: 3 ml Documented By: ROCKY Albuterol/Ipratropium (Albuterol/Iprat 2.5/0.5mg 3 Ml Ampul.Neb) 3 ml INHALE RQ4H WHILE AWAKE [facility] Diltiazem HCl (Diltiazem Hcl 30 Mg Tablet) 30 mg PO DAILY [facility]; Protocol Last Admin: 07/10/22 08:36 Dose: 30 mg Documented By: DAYANNA Guaifenesin (Guaifenesin 100 Mg/5 Ml Liquid) 5 ml PO Q6H [facility] Heparin Sodium (Porcine) (Heparin Sodium,Porcine 5,000 Unit/Ml Vial) 5,000 unit SUBCUT Q12H [facility] Last Admin: 07/10/22 08:37 Dose: 5,000 unit Documented By: DAYANNA Hydromorphone HCl (Hydromorphone Hcl 0.5 Mg/0.5 Ml Syringe) 0.25 mg IVPUSH Q5M PRN; Protocol PRN Reason: Pain, Severe (Pain Scale 7-10) Last Admin: 07/07/22 22:40 Dose: 0.25 mg Documented By: SHIRLEY Hydromorphone HCl (Hydromorphone Hcl 1 Mg/Ml Syringe) 1 mg IVPUSH Q3H PRN; Pro tocol PRN Reason: Pain, Severe (Pain Scale 7-10) Last Admin: 07/10/22 05:48 Dose: 1 mg Documented By: ZEV Promethazine HCl 6.25 mg/ (Sodium Chloride) 50.25 mls @ 201 mls/hr IV Q6H PRN PRN Reason: nausea Ondansetron HCl (Ondansetron Hcl 4 Mg/2 Ml Vial) 4 mg IVPUSH Q8H PRN PRN Reason: nausea Last Admin: 07/09/22 03:43 Dose: 4 mg Documented By: SHIRLEY Ondansetron HCl (Ondansetron Hcl 4 Mg/2 Ml Vial) 4 mg IVPUSH ONCE PRN PRN Reason: Nausea and Vomiting Pharmacy Consult (Consult Rx Perform Med Rec) 1 each MISCELLANE ONCE PRN PRN Reason: Consult order Simethicone (Simethicone 80 Mg Tab.Chew) 80 mg PO Q6H PRN PRN Reason: Gas Last Admin: 07/07/22 22:45 Dose: 80 mg Documented By: SHIRLEY Sodium Chloride (0.9 % Sodium Chloride Flush 3 Ml Syringe) 3 ml IVFLUSH QSHIFT [facility] Last Admin: 07/10/22 16:17 Dose: 3 ml Documented By: KODOSOB Labs CBC & Chem 7: 07/06/22 05:31 07/06/22 05:31 Assessment and Plan (1) Acute respiratory failure with hypoxia: Status: Acute Plan This is a 72 year old male with a PMH of colon Ca s/p resection and ostomy, HTN, prior tobacco use but no formal diagnosis of COPD who is admitted under the general surgical services. Medical follow up requested due to persistant hypoxia. 1. Acute respiratory failure with hypoxia CT scan from 07/06 reviewed -- secretions noted in the L mainstem bronchus; on exam has some LL rales -> will empirically start unasyn for presumed aspiration. Will check CXR. CT also showing moderate emphysema (not formally diagnosed previously). Will start scheduled DuoNebs. Mucinex Continue with incentive spirometry 2. HTN not at goal; continue cardizem, resume benazapril 3. Incarcerated hernia s/p repair mgmt per gen surg Will follow along. Quality Stroke Does the patient have a stroke diagnosis?: No VTE Prior VTE?: No VTE Risk Level:: Medical - moderate - high VTE Device Contraindication: N/A - Device Ordered VTE Drug Contraindication: N/A - Med Ordered
[2022-07-10 16:47] LABS: Hematocrit 36.2 % (42.0-52.0); Hemoglobin 12.2 g/dl (14.0-18.0); Mean Corpuscular HGB Conc 33.7 g/dl (31.0-36.0); Mean Corpuscular Hemoglobin 31.5 pg (27.0-33.0); Mean Corpuscular Volume 93.5 fL (80.0-98.0); Platelet Count 266 X10*3/uL (160-400); Red Blood Count 3.87 X10*6/uL (4.60-5.80); Red Cell Distribution Width 12.4 % (11.0-16.0); White Blood Count 12.5 X10*3/uL (4.8-10.8)
[2022-07-10 16:53] LABS: Anion Gap 13 (12-20); Blood Urea Nitrogen 23 mg/dL (9-16); Calcium 7.9 mg/dL (8.4-10.2); Carbon Dioxide 29 mmol/L (22-29); Chloride 102 mmol/L (96-108); Creatinine Clr Calc Pharmacy 103.2; Estimated Glomerular Filt Rate > 60; Glucose Random 127 mg/dL (60-115); Potassium 3.3 mmol/L (3.3-5.1); Sodium 141 mmol/L (135-145)
[2022-07-10] MEDS: guaiFENesin 100 MG/5 ML LIQUID PO ×2 (17:43→20:57)
[2022-07-10] MEDS: Ampicillin Sodium/Sulbactam Na 3 GM in 0.9 % Sodium Chloride 100 ML IV ×2 (17:44→22:31)
[2022-07-10] MEDS: Albuterol/Iprat 2.5/0.5MG 3 ML AMPUL.NEB INHALE (19:20)
[2022-07-10] MEDS: lisinopriL 40 MG TABLET PO (19:57)
[2022-07-11] VITALS (22 sets, daily range): BP systolic 132–189; BP diastolic 62–85; PULSE 70–84; RESP 11–24; TEMP 35.8–37.4; O2SAT 93–98
--- NOTE | 2022-07-11 01:26 | PC.NURSE ---
Dressing changed to mid abd, mild serosanguinous drainage to old dressing. Dr Del Rosario notified at 0100 that a midline staple has come apart and the wound is open about 2.5 cm, PT denies pain and is asymptomatic. No new orders at this time.
[2022-07-11] MEDS: guaiFENesin 100 MG/5 ML LIQUID PO (05:12)
[2022-07-11] MEDS: Ampicillin Sodium/Sulbactam Na 3 GM in 0.9 % Sodium Chloride 100 ML IV ×3 (05:13→22:32)
[2022-07-11] MEDS: lisinopriL 40 MG TABLET PO (08:24)
[2022-07-11] MEDS: 0.9 % Sodium Chloride Flush 3 ML SYRINGE IVFLUSH ×2 (08:24→23:09)
[2022-07-11] MEDS: Heparin Sodium,Porcine 5,000 UNIT/ML VIAL 5000 UNIT SUBCUT ×2 (08:24→22:29)
[2022-07-11] MEDS: dilTIAZem HCL 30 MG TABLET PO (08:24)
--- NOTE | 2022-07-11 08:28 | P.PNGS_ITS ---
Subjective Subjective Date of Service: 07/13/22 Interval history: Says he feels ?great? Has been ambulating in room Tolerating diet well Stoma with good function Physical Exam Vital Signs: Vital Signs: Last Vital Signs Temp 97.4 F 07/11/22 07:43 Pulse 75 07/11/22 07:43 Resp 18 07/11/22 07:43 BP 158/64 H 07/11/22 07:43 Pulse Ox 94 07/11/22 07:43 O2 Del Method 07/11/22 07:43 O2 Flow Rate 6 07/11/22 07:43 Oxygen Flow Rate 9 07/08/22 08:00 BMI result Body Mass Index 29.0 Const: Other: Still with oxygen supplement General: comfortable and no acute distress Resp: Effort & Inspection: normal respiratory effort Cardio: Rate: regular rate GI: Other: Soft, no guarding rebound, incision clean although with some serosanguineous drainage, stoma functioning well with good output Objective Data Active Medications Albuterol/Ipratropium (Albuterol/Iprat 2.5/0.5mg 3 Ml Ampul.Neb) 3 ml INHALE RQ4H PRN PRN Reason: Shortness of Breath/Wheezing Last Admin: 07/07/22 23:33 Dose: 3 ml Documented By: ROCKY Albuterol/Ipratropium (Albuterol/Iprat 2.5/0.5mg 3 Ml Ampul.Neb) 3 ml INHALE RQ4H WHILE AWAKE [facility] Last Admin: 07/10/22 19:20 Dose: 3 ml Documented By: MARIZA Diltiazem HCl (Diltiazem Hcl 30 Mg Tablet) 30 mg PO DAILY [facility]; Protocol Last Admin: 07/11/22 08:24 Dose: 30 mg Documented By: DAYANNA Guaifenesin (Guaifenesin 100 Mg/5 Ml Liquid) 5 ml PO Q6H [facility] Last Admin: 07/11/22 05:12 Dose: 5 ml Documented By: DERRICK Heparin Sodium (Porcine) (Heparin Sodium,Porcine 5,000 Unit/Ml Vial) 5,000 unit SUBCUT Q12H [facility] Last Admin: 07/11/22 08:24 Dose: 5,000 unit Documented By: DAYANNA Hydromorphone HCl (Hydromorphone Hcl 0.5 Mg/0.5 Ml Syringe) 0.25 mg IVPUSH Q5M PRN; Protocol PRN Reason: Pain, Severe (Pain Scale 7-10) Last Admin: 07/07/22 22:40 Dose: 0.25 mg Documented By: SHIRLEY Hydromorphone HCl (Hydromorphone Hcl 1 Mg/Ml Syringe) 1 mg IVPUSH Q3H PRN; Protocol PRN Reason: Pain, Severe (Pain Scale 7-10) Last Admin: 07/10/22 20:58 Dose: 1 mg Documented By: DERRICK Promethazine HCl 6.25 mg/ (Sodium Chloride) 50.25 mls @ 201 mls/hr IV Q6H PRN PRN Reason: nausea Ampicillin Sodium/Sulbactam (Sodium 3 gm/ Sodium Chloride) 100 mls @ 200 mls/hr IV Q6H [facility] Last Infusion: 07/11/22 05:55 Dose: 0 mls/hr Documented By: DERRICK Lisinopril (Lisinopril 40 Mg Tablet) 40 mg PO BID [facility] Last Admin: 07/11/22 08:24 Dose: 40 mg Documented By: DAYANNA Ondansetron HCl (Ondansetron Hcl 4 Mg/2 Ml Vial) 4 mg IVPUSH Q8H PRN PRN Reason: nausea Last Admin: 07/09/22 03:43 Dose: 4 mg Documented By: SHIRLEY Ondansetron HCl (Ondansetron Hcl 4 Mg/2 Ml Vial) 4 mg IVPUSH ONCE PRN PRN Reason: Nausea and Vomiting Pharmacy Consult (Consult Rx Perform Med Rec) 1 each MISCELLANE ONCE PRN PRN Reason: Consult order Simethicone (Simethicone 80 Mg Tab.Chew) 80 mg PO Q6H PRN PRN Reason: Gas Last Admin: 07/07/22 22:45 Dose: 80 mg Documented By: SHIRLEY Sodium Chloride (0.9 % Sodium Chloride Flush 3 Ml Syringe) [address] [facility] Last Admin: 07/11/22 08:24 Dose: 3 ml Documented By: DAYANNA Labs CBC & Chem 7: 07/12/22 08:54 07/13/22 06:09 Labs: Laboratory Results - last 24 hr 07/10/22 07/10/22 16:30 16:30 MCV 93.5 MCH 31.5 MCHC 33.7 RDW 12.4 Plt Count 266 D MPV 10.0 Absolute Nucleated RBC 0.000 Nucleated RBC % (auto) 0.0 Anion Gap 13 Estim Creat Clear Calc 103.2 Estimated GFR > 60 Random Glucose 127 H Calcium 7.9 L Procedures Date of Service Date of Service: 07/11/22 Progress Note: A&P Assessment and plan (1) Parastomal hernia: Status: Acute Assessment and Plan: Status post reduction of incarcerated hernia, repair, lysis of adhesions Looks well Clinically seems to be doing well However still with to supplementation - appreciate by hospitalist Labs okay He has been ambulating in room Good oral intake Time Spent With Patient Time: Total time spent is greater than 50% in coordination of care (as documented) at patient's floor/unit and/or counseling patient: Quality Stroke Does the patient have a stroke diagnosis?: No VTE Prior VTE?: No VTE Risk Level:: Medical - moderate - high VTE Device Contraindication: N/A - Device Ordered VTE Drug Contraindication: N/A - Med Ordered
[2022-07-11] MEDS: Albuterol/Iprat 2.5/0.5MG 3 ML AMPUL.NEB INHALE ×3 (08:35→19:55)
--- NOTE | 2022-07-11 10:51 | P.PNIM_ITS ---
Subjective Subjective Date of Service: 07/11/22 Interval History: F/u on hypoxia without resp difficulty he continues to feel fine On oxymask at 6 and 94% Review of Systems negative except interval history Physical Exam Vital Signs: Vital Signs: Last Vital Signs Temp 97.4 F 07/11/22 07:43 Pulse 78 07/11/22 08:35 Resp 18 07/11/22 08:35 BP 158/64 H 07/11/22 07:43 Pulse Ox 94 07/11/22 08:00 O2 Del Method 07/11/22 08:00 O2 Flow Rate 6 07/11/22 07:43 Oxygen Flow Rate 6 07/11/22 08:00 BMI result Body Mass Index 29.0 Const: Other: General - no acute distress, appears comfortable Cardiovascular - regular rate and rhythm, S1-S2 Lungs - rales at L base, diminished sounds otherwise Abdomen - soft, nontender, no rebound or guarding Extremities - no edema bilaterally Neuro - awake and alert, no focal deficits Objective Data Active Medications Albuterol/Ipratropium (Albuterol/Iprat 2.5/0.5mg 3 Ml Ampul.Neb) 3 ml INHALE RQ4H PRN PRN Reason: Shortness of Breath/Wheezing Last Admin: 07/07/22 23:33 Dose: 3 ml Documented By: ROCKY Albuterol/Ipratropium (Albuterol/Iprat 2.5/0.5mg 3 Ml Ampul.Neb) 3 ml INHALE RQ4H WHILE AWAKE [facility] Last Admin: 07/11/22 08:35 Dose: 3 ml Documented By: RUBÉN Diltiazem HCl (Diltiazem Hcl 30 Mg Tablet) 30 mg PO DAILY [facility]; Protocol Last Admin: 07/11/22 08:24 Dose: 30 mg Documented By: DAYANNA Guaifenesin (Guaifenesin 100 Mg/5 Ml Liquid) 5 ml PO Q6H [facility] Last Admin: 07/11/22 05:12 Dose: 5 ml Documented By: DERRICK Heparin Sodium (Porcine) (Heparin Sodium,Porcine 5,000 Unit/Ml Vial) 5,000 unit SUBCUT Q12H [facility] Last Admin: 07/11/22 08:24 Dose: 5,000 unit Documented By: DAYANNA Hydromorphone HCl (Hydromorphone Hcl 0.5 Mg/0.5 Ml Syringe) 0.25 mg IVPUSH Q5M PRN; Protocol PRN Reason: Pain, Severe (Pain Scale 7-10) Last Admin: 07/07/22 22:40 Dose: 0.25 mg Documented By: SHIRLEY Hydromorphone HCl (Hydromorphone Hcl 1 Mg/Ml Syringe) 1 mg IVPUSH Q3H PRN; Protocol PRN Reason: Pain, Severe (Pain Scale 7-10) Last Admin: 07/10/22 20:58 Dose: 1 mg Documented By: DERRICK Promethazine HCl 6.25 mg/ (Sodium Chloride) 50.25 mls @ 201 mls/hr IV Q6H PRN PRN Reason: nausea Ampicillin Sodium/Sulbactam (Sodium 3 gm/ Sodium Chloride) 100 mls @ 200 mls/hr IV Q6H [facility] Last Infusion: 07/11/22 05:55 Dose: 0 mls/hr Documented By: DERRICK Lisinopril (Lisinopril 40 Mg Tablet) 40 mg PO BID [facility] Last Admin: 07/11/22 08:24 Dose: 40 mg Documented By: DAYANNA Ondansetron HCl (Ondansetron Hcl 4 Mg/2 Ml Vial) 4 mg IVPUSH Q8H PRN PRN Reason: nausea Last Admin: 07/09/22 03:43 Dose: 4 mg Documented By: SHIRLEY Ondansetron HCl (Ondansetron Hcl 4 Mg/2 Ml Vial) 4 mg IVPUSH ONCE PRN PRN Reason: Nausea and Vomiting Pharmacy Consult (Consult Rx Perform Med Rec) 1 each MISCELLANE ONCE PRN PRN Reason: Consult order Simethicone (Simethicone 80 Mg Tab.Chew) 80 mg PO Q6H PRN PRN Reason: Gas Last Admin: 07/07/22 22:45 Dose: 80 mg Documented By: SHIRLEY Sodium Chloride (0.9 % Sodium Chloride Flush 3 Ml Syringe) 3 ml IVFLUSH [facility] Last Admin: 07/11/22 08:24 Dose: 3 ml Documented By: DAYANNA Labs CBC & Chem 7: 07/10/22 16:30 07/10/22 16:30 Labs: Laboratory Results - last 24 hr 07/10/22 07/10/22 16:30 16:30 MCV 93.5 MCH 31.5 MCHC 33.7 RDW 12.4 Plt Count 266 D MPV 10.0 Absolute Nucleated RBC 0.000 Nucleated RBC % (auto) 0.0 Anion Gap 13 Estim Creat Clear Calc 103.2 Estimated GFR > 60 Random Glucose 127 H Calcium 7.9 L Assessment and Plan (1) Acute respiratory failure with hypoxia: Status: Acute Plan 72 year old male with a PMH of colon Ca s/p resection and ostomy, HTN, prior tobacco use but no formal diagnosis of COPD who is admitted under the general surgical services. Medical follow up requested due to persistant hypoxia. 1. Acute respiratory failure with hypoxia CT scan from 07/06 reviewed -- secretions noted in the L mainstem bronchus; on exam has some LL rales ->, No PT, continue empirica unasyn for presumed aspiration. Will check CXR. CT also showing moderate emphysema (not formally diagnosed previously). Will start scheduled DuoNebs. Mucinex Continue with incentive spirometry Pulmonology input 2. HTN not at goal; continue cardizem, resume benazapril 3. Incarcerated hernia s/p repair mgmt per gen surg will continue to f/u Quality Stroke Does the patient have a stroke diagnosis?: No VTE Prior VTE?: No VTE Risk Level:: Medical - moderate - high VTE Device Contraindication: N/A - Device Ordered VTE Drug Contraindication: N/A - Med Ordered
--- NOTE | 2022-07-11 11:29 | PM.EVENT ---
Event Note Date of Service: 07/11/22 Event Note: pt had been doing well was ambulating down the hallway when he caoughed his wound opened and he had evisceration from the incision pt seen - small bowel loops noted to be eviscerate stable VS explained to him that we need to bring him to OR for closure of the fascial dehiscence explained risks including but not limited to bleeding, infections, recurrence of dehiscence in view of his multiple surgeries inherent risks of anesthesia he has given consent was with him during the discussion eviscerated bowel temporarily covered with wet pads
--- NOTE | 2022-07-11 11:32 | P.CONAN_ITS ---
HPI - Anesthesia Eval Consult details Narrative: Repair wound dehiscence PMFSH Active Problems Active Problems: All Active Problems (Updated 07/10/22 @ 16:45 by Apolinar Jimenez MD) Acute respiratory failure with hypoxia (Acute) Hypertension (Acute) Parastomal hernia (Acute) Small bowel obstruction (Acute) Past Medical History Medical History Colorectal cancer Hypertension Family History Family history of problems with anesthesia: No Surgical History History of Problems with Anesthesia: No Social History Social History Household Members: Spouse Housing: Apartment Do you presently have visiting nurse or other home services: No Alcohol intake: unknown Patient Tobacco Use Status: Never used Tobacco Advance Directives Date on File: 07/04/22 service: Yes Current occupational status: retired [employer] Allergies Allergy/AdvReac Type Severity Reaction Status Date / Time No Known Allergies Allergy Verified 07/03/22 17:35 [No Known Allergies*] Active Medications: Current Medications Albuterol/Ipratropium (Albuterol/Iprat 2.5/0.5mg 3 Ml Ampul.Neb) 3 ml INHALE RQ4H PRN PRN Reason: Shortness of Breath/Wheezing Last Admin: 07/07/22 23:33 Dose: 3 ml Albuterol/Ipratropium (Albuterol/Iprat 2.5/0.5mg 3 Ml Ampul.Neb) 3 ml INHALE RQ4H WHILE AWAKE [facility] Last Admin: 07/11/22 08:35 Dose: 3 ml Diltiazem HCl (Diltiazem Hcl 30 Mg Tablet) 30 mg PO DAILY [facility]; Protocol Last Admin: 07/11/22 08:24 Dose: 30 mg Guaifenesin (Guaifenesin 100 Mg/5 Ml Liquid) 5 ml PO Q6H [facility] Last Admin: 07/11/22 05:12 Dose: 5 ml Heparin Sodium (Porcine) (Heparin Sodium,Porcine 5,000 Unit/Ml Vial) 5,000 unit SUBCUT Q12H [facility] Last Admin: 07/11/22 08:24 Dose: 5,000 unit Hydromorphone HCl (Hydromorphone Hcl 0.5 Mg/0.5 Ml Syringe) 0.25 mg IVPUSH Q5M PRN; Protocol PRN Reason: Pain, Severe (Pain Scale 7-10) Last Admin: 07/07/22 22:40 Dose: 0.25 mg Hydromorphone HCl (Hydromorphone Hcl 1 Mg/Ml Syringe) 1 mg IVPUSH Q3H PRN; Protocol PRN Reason: Pain, Severe (Pain Scale 7-10) Last Admin: 07/10/22 20:58 Dose: 1 mg Promethazine HCl 6.25 mg/ (Sodium Chloride) 50.25 mls @ 201 mls/hr IV Q6H PRN PRN Reason: nausea Ampicillin Sodium/Sulbactam (Sodium 3 gm/ Sodium Chloride) 100 mls @ 200 mls/hr IV Q6H [facility] Last Infusion: 07/11/22 05:55 Dose: Infused Lisinopril (Lisinopril 40 Mg Tablet) 40 mg PO BID [facility] Last Admin: 07/11/22 08:24 Dose: 40 mg Ondansetron HCl (Ondansetron Hcl 4 Mg/2 Ml Vial) 4 mg IVPUSH Q8H PRN PRN Reason: nausea Last Admin: 07/09/22 03:43 Dose: 4 mg Ondansetron HCl (Ondansetron Hcl 4 Mg/2 Ml Vial) 4 mg IVPUSH ONCE PRN PRN Reason: Nausea and Vomiting Pharmacy Consult (Consult Rx Perform Med Rec) 1 each MISCELLANE ONCE PRN PRN Reason: Consult order Simethicone (Simethicone 80 Mg Tab.Chew) 80 mg PO Q6H PRN PRN Reason: Gas Last Admin: 07/07/22 22:45 Dose: 80 mg Sodium Chloride (0.9 % Sodium Chloride Flush 3 Ml Syringe) [facility] Last Admin: 07/11/22 08:24 Dose: 3 ml Home Medications Medication Instructions Recorded Confirmed Last Taken Type benazepril 40 mg tablet 40 mg PO BID 07/03/22 07/03/22 07/03/22 History diltiazem HCl 30 mg tablet 30 mg PO DAILY 07/03/22 07/03/22 07/03/22 History hydrochlorothiazide 25 mg tablet 25 mg PO DAILY 07/03/22 07/03/22 07/03/22 History Exam Exam Date and Time: July 11, 2022 113 Height,Weight and Vital Signs: Height 5 ft 7 in Weight 83.915 kg Last Vital Signs Temp 97.4 F 07/11/22 07:43 Pulse 78 07/11/22 08:35 Resp 18 07/11/22 08:35 BP 158/64 H 07/11/22 07:43 Pulse Ox 94 07/11/22 08:00 O2 Del Method 07/11/22 08:00 O2 Flow Rate 6 07/11/22 07:43 Oxygen Flow Rate 6 07/11/22 08:00 Pertinent Lab Results Pertinent Lab Results: Laboratory Tests 07/03/22 07/03/22 07/03/22 19:07 19:07 19:07 WBC 16.4 H RBC 4.86 Hgb 15.4 Hct 44.5 MCV 91.6 MCH 31.7 MCHC 34.6 RDW 12.5 Plt Count 269 MPV 10.2 Immature Gran % (Auto) 0.4 Neut % (Auto) 91.1 H Lymph % (Auto) 4.4 L [place] % (Auto) 3.7 Eos % (Auto) 0.1 Baso % (Auto) 0.3 Lymph # (Auto) 0.7 L [place] # (Auto) 0.6 Eos # (Auto) 0.0 Baso # (Auto) 0.1 Abs Immat Gran (auto) 0.06 H Absolute Neuts (auto) 15.0 H Absolute Nucleated RBC 0.000 Nucleated RBC % (auto) 0.0 Smear Tech's Comments VERIFIED Sodium 145 Potassium 3.1 L Chloride 103 Carbon Dioxide 24 Anion Gap 21 H BUN 18 H Creatinine 1.15 Estim Creat Clear Calc 58.8 Estimated GFR > 60 Random Glucose 145 H Lactic Acid 2.7 H* Lactic Acid F/U @ 2Hr Calcium 9.8 B-Natriuretic Peptide Lipase 24 Urine Color Urine Appearance Urine pH Ur Specific [place] Urine Protein Urine Glucose (UA) Urine Ketones Urine Blood Urine Nitrite Ur Leukocyte Esterase Urine RBC Urine WBC Ur Squamous Epith Cells Urine Bacteria COVID-19 ([facility]) COVID-19 Clin Com 07/03/22 07/03/22 07/03/22 19:15 19:21 23:38 WBC RBC Hgb Hct MCV MCH MCHC RDW Plt Count MPV Immature Gran % (Auto) Neut % (Auto) Lymph % (Auto) [place] % (Auto) Eos % (Auto) Baso % (Auto) Lymph # (Auto) [place] # (Auto) Eos # (Auto) Baso # (Auto) Abs Immat Gran (auto) Absolute Neuts (auto) Absolute Nucleated RBC Nucleated RBC % (auto) Smear Tech's Comments Sodium Potassium Chloride Carbon Dioxide Anion Gap BUN Creatinine Estim Creat Clear Calc Estimated GFR Random Glucose Lactic Acid Lactic Acid F/U @ 2Hr 1.8 Calcium B-Natriuretic Peptide Lipase Urine Color YELLOW Urine Appearance CLEAR Urine pH 7.0 Ur Specific [place] 1.015 Urine Protein TRACE Urine Glucose (UA) NEG Urine Ketones 15 Urine Blood NEG Urine Nitrite NEG Ur Leukocyte Esterase TRACE H Urine RBC 0 Urine WBC 0-2 Ur Squamous Epith Cells NONE Urine Bacteria TRACE COVID-19 ([facility]) Negative COVID-19 Clin Com See Note 07/04/22 07/04/22 07/06/22 06:21 06:21 00:08 WBC 7.4 RBC 5.37 Hgb 16.8 Hct 50.3 MCV 93.7 MCH 31.3 MCHC 33.4 RDW 12.9 Plt Count 278 MPV 10.5 Immature Gran % (Auto) Neut % (Auto) Lymph % (Auto) [place] % (Auto) Eos % (Auto) Baso % (Auto) Lymph # (Auto) [place] # (Auto) Eos # (Auto) Baso # (Auto) Abs Immat Gran (auto) Absolute Neuts (auto) Absolute Nucleated RBC 0.000 Nucleated RBC % (auto) 0.0 Smear Tech's Comments Sodium 145 146 H Potassium 3.7 4.0 Chloride 112 H 108 Carbon Dioxide 20 L 29 Anion Gap 17 13 BUN 23 H 40 H D Creatinine 1.25 1.17 Estim Creat Clear Calc 54.0 57.3 Estimated GFR 56 > 60 Random Glucose 169 H 133 H Lactic Acid Lactic Acid F/U @ 2Hr Calcium 8.1 L D 7.7 L B-Natriuretic Peptide Lipase Urine Color Urine Appearance Urine pH Ur Specific [place] Urine Protein Urine Glucose (UA) Urine Ketones Urine Blood Urine Nitrite Ur Leukocyte Esterase Urine RBC Urine WBC Ur Squamous Epith Cells Urine Bacteria COVID-19 ([facility]) COVID-19 Clin Com 07/06/22 07/06/22 07/06/22 00:08 05:31 05:31 WBC 11.4 H RBC 4.86 Hgb 15.4 Hct 47.2 MCV 97.1 MCH 31.7 MCHC 32.6 RDW 13.3 Plt Count 163 D MPV 11.6 Immature Gran % (Auto) Neut % (Auto) Lymph % (Auto) [place] % (Auto) Eos % (Auto) Baso % (Auto) Lymph # (Auto) [place] # (Auto) Eos # (Auto) Baso # (Auto) Abs Immat Gran (auto) Absolute Neuts (auto) Absolute Nucleated RBC 0.000 Nucleated RBC % (auto) 0.0 Smear Tech's Comments Sodium 145 Potassium 4.0 Chloride 106 Carbon Dioxide 26 Anion Gap 17 BUN 36 H Creatinine 1.09 Estim Creat Clear Calc 61.5 Estimated GFR > 60 Random Glucose 105 Lactic Acid Lactic Acid F/U @ 2Hr Calcium 7.8 L B-Natriuretic Peptide 73 Lipase Urine Color Urine Appearance Urine pH Ur Specific [place] Urine Protein Urine Glucose (UA) Urine Ketones Urine Blood Urine Nitrite Ur Leukocyte Esterase Urine RBC Urine WBC Ur Squamous Epith Cells Urine Bacteria COVID-19 ([facility]) COVID-19 Clin Com 07/10/22 07/10/22 16:30 16:30 WBC 12.5 H RBC 3.87 L D Hgb 12.2 L D Hct 36.2 L D MCV 93.5 MCH 31.5 MCHC 33.7 RDW 12.4 Plt Count 266 D MPV 10.0 Immature Gran % (Auto) Neut % (Auto) Lymph % (Auto) [place] % (Auto) Eos % (Auto) Baso % (Auto) Lymph # (Auto) [place] # (Auto) Eos # (Auto) Baso # (Auto) Abs Immat Gran (auto) Absolute Neuts (auto) Absolute Nucleated RBC 0.000 Nucleated RBC % (auto) 0.0 Smear Tech's Comments Sodium 141 Potassium 3.3 Chloride 102 Carbon Dioxide 29 Anion Gap 13 BUN 23 H Creatinine 0.65 Estim Creat Clear Calc 103.2 Estimated GFR > 60 Random Glucose 127 H Lactic Acid Lactic Acid F/U @ 2Hr Calcium 7.9 L B-Natriuretic Peptide Lipase Urine Color Urine Appearance Urine pH Ur Specific [place] Urine Protein Urine Glucose (UA) Urine Ketones Urine Blood Urine Nitrite Ur Leukocyte Esterase Urine RBC Urine WBC Ur Squamous Epith Cells Urine Bacteria COVID-19 ([facility]) COVID-19 Clin Com Airway Mallampati Class: II TM Dist: >3cm Neck ROM: Full Loose/Missing/Broken Teeth: No Heart: ok Lungs: ok Assessment and Plan Assessment Anesthesia Assessment: Anesthesia Plan Discussed and Chart Reviewed Final Anesthetic Review Family History of Problems with Anesthesia: No History of Problems with Anesthesia: No NPO: No ASA Class: III and Emergency Final Preanesthetic Review: No Changes in Pt Med Stat, Meds/Allgs Chart Reviewed, Consent Obtained/Reviewed and Anes Risks/Benef Reviewed Patient Risk: High Procedure Risk: Intermediate Anesthetic Plan Anesthetic Plan: GA and Agree w/ Assess. and Plan Disposition: Standard PACU
--- NOTE | 2022-07-11 11:39 | PC.NURSE ---
pt deemed emergent due to dehiscence. pt ate at 930 and anesthesia already aware.
[2022-07-11] MEDS: ceFAZolin Sodium/Dextrose,Iso 2 GM/50 ML PIGGYBACK IV (12:03)
--- NOTE | 2022-07-11 13:03 | MHC.CM.PN ---
EMR review, patient is Not yet cleared for discharge today r/t repair of wound dehiscence. Discharge plan Home self-care vs Home with New VNA. CM will continue to follow for D/C needs.
--- NOTE | 2022-07-11 13:08 | W.PM.OPN ---
Operative Note Operative Note Date of Service: 07/11/22 Narrative: Preop diagnosis: Fascial dehiscence, with evisceration of small bowel loops Postop diagnosis: As above Procedure: Repair of fascial dehiscence, reinforcement with retention sutures Surgeon: Mati Lugo MD general assistant: Han Del Rosario MD The patient is a 49-year-old what undergone laparotomy, repair of a parastomal hernia with small-bowel resection last 07/05/2022. He actually had been doing well postoperatively. His ostomy has a good output PDS tolerating diet well. However, this morning, he said he was ambulating down the hallway and had coughed and his bowels eviscerated through the incision. I therefore explained to him that we needed to proceed with the fascial dehiscence. I explained the technique of this procedure as well as the risks, benefits, and alternatives. He had given consent. He was brought to the operating room. He was placed supine. He was under general anesthesia via endotracheal tube. The abdomen was prepped and draped in the usual sterile fashion. A surgical time-out was done. The patient received cefazolin 2 g IV preoperatively . Examination of the abdomen showed evisceration of small bowel loops through the lower part of the incision. I removed all skin dany. I closed the stoma with a running Dexon 2-0 stitch to seal this . I then proceeded to remove the original PDS stitch from the fascia. The PDS stitch was noted to be transected. By releasing the entire stitch, this allowed us to open the entire incision. I examined the eviscerated small bowel loops. There was note of some edema and redness and distension but no obvious injury. I was able to reduce all the eviscerated bowel loops back into the peritoneal cavity. Copious irrigation was then done. An NG tube was inserted because of the distention of these eviscerated bowel loops. I proceeded to define the fascia and applied Jennifer clamps on both sides. Again as before, the fascial edges appeared to be tenuous from previous surgeries. I placed a running Maxon 1 stitch to close the fascia. I placed retention sutures to reinforce the closure. I made sure that there were no bowel loops by the stitches with direct visualization while applying the sutures. I then proceeded closed the skin with dany. Dressings were applied. I released the sutures from the stoma and reapplied the appliance. A Webb catheter was inserted at the end by the urologist because of resistance from the prostate. He tolerated the procedure well. There were no complications. He was extubated without difficulty and transferred to the recovery room with stable vital signs.
[2022-07-11] MEDS: HYDROmorphone HCl 1 MG/ML SYRINGE IVPUSH ×3 (14:41→22:24)
--- NOTE | 2022-07-11 14:59 | W.PM.CCCN ---
History of Present Illness Data of Consult Service Date: 07/11/22 Requesting physician: Mati Lugo Primary Care Provider: Julio Cesar Hernandez MD HPI Reason for consult: severe COPD and hypertensive cardiovascular disease 72-year-old male 20 years status post abdominal perineal large bowel resection for rectal carcinoma with stable colostomy and bowel function with 1 day of abdominal pain and noted to have a parastomal hernia with entrapped small bowel a portion was necrotic underwent small-bowel resection with a repair of the colostomy stoma that was 6 days ago and today had dehiscence of the wound with exterior is a benson of a large amount of very distended and edematous small bowel obviously still had an ileus and currently status post repair of the wound with the with abdominal wound closure having pain but awake and oriented no respiratory distress but coughing up a purulent looking phlegm A bedside echo shows globally normal systolic wall motion of the left ventricle no primary valve or pericardial disease Review of Systems Review of Systems: Yes all other systems are reviewed and are negative [facility] Past Medical History Medical History Colorectal cancer Hypertension Social History Social History Household Members: Spouse Housing: Apartment Do you presently have visiting nurse or other home services: No Alcohol intake: unknown Patient Tobacco Use Status: Never used Tobacco Advance Directives Date on File: 07/04/22 service: Yes Current occupational status: retired Meds Allergies Allergy/AdvReac Type Severity Reaction Status Date / Time No Known Allergies Allergy Verified 07/03/22 17:35 [No Known Allergies*] Active Medications: Current Medications Albuterol/Ipratropium (Albuterol/Iprat 2.5/0.5mg 3 Ml Ampul.Neb) 3 ml INHALE RQ4H PRN PRN Reason: Shortness of Breath/Wheezing Last Admin: 07/07/22 23:33 Dose: 3 ml Albuterol/Ipratropium (Albuterol/Iprat 2.5/0.5mg 3 Ml Ampul.Neb) 3 ml INHALE RQ4H WHILE AWAKE [facility] Last Admin: 07/11/22 12:11 Dose: Not Given Diltiazem HCl (Diltiazem Hcl 30 Mg Tablet) 30 mg PO DAILY [facility]; Protocol Last Admin: 07/11/22 08:24 Dose: 30 mg Guaifenesin (Guaifenesin 100 Mg/5 Ml Liquid) 5 ml PO Q6H [facility] Last Admin: 07/11/22 05:12 Dose: 5 ml Heparin Sodium (Porcine) (Heparin Sodium,Porcine 5,000 Unit/Ml Vial) 5,000 unit SUBCUT Q12H [facility] Last Admin: 07/11/22 08:24 Dose: 5,000 unit Hydromorphone HCl (Hydromorphone Hcl 0.5 Mg/0.5 Ml Syringe) 0.25 mg IVPUSH Q5M PRN; Protocol PRN Reason: Pain, Severe (Pain Scale 7-10) Last Admin: 07/07/22 22:40 Dose: 0.25 mg Hydromorphone HCl (Hydromorphone Hcl 1 Mg/Ml Syringe) 1 mg IVPUSH Q3H PRN; Protocol PRN Reason: Pain, Severe (Pain Scale 7-10) Last Admin: 07/11/22 14:41 Dose: 1 mg Promethazine HCl 6.25 mg/ (Sodium Chloride) 50.25 mls @ 201 mls/hr IV Q6H PRN PRN Reason: nausea Ampicillin Sodium/Sulbactam (Sodium 3 gm/ Sodium Chloride) 100 mls @ 200 mls/hr IV Q6H [facility] Last Infusion: 07/11/22 05:55 Dose: Infused Acetaminophen (Ofirmev) 1,000 mg in 100 mls @ 400 mls/hr IV Q6H [facility] Stop: 07/12/22 07:59 Last Admin: 07/11/22 14:05 Dose: 400 mls/hr Lisinopril (Lisinopril 40 Mg Tablet) 40 mg PO BID [facility] Last Admin: 07/11/22 08:24 Dose: 40 mg Ondansetron HCl (Ondansetron Hcl 4 Mg/2 Ml Vial) 4 mg IVPUSH Q8H PRN PRN Reason: nausea Last Admin: 07/09/22 03:43 Dose: 4 mg Ondansetron HCl (Ondansetron Hcl 4 Mg/2 Ml Vial) 4 mg IVPUSH ONCE PRN PRN Reason: Nausea and Vomiting Pharmacy Consult (Consult Rx Perform Med Rec) 1 each MISCELLANE ONCE PRN PRN Reason: Consult order Simethicone (Simethicone 80 Mg Tab.Chew) 80 mg PO Q6H PRN PRN Reason: Gas Last Admin: 07/07/22 22:45 Dose: 80 mg Sodium Chloride (0.9 % Sodium Chloride Flush 3 Ml Syringe) 3 ml IVFLUSH QSHIFT [facility] Last Admin: 07/11/22 08:24 Dose: 3 ml Home Medications Medication Instructions Recorded Confirmed Last Taken Type benazepril 40 mg tablet 40 mg PO BID 07/03/22 07/03/22 07/03/22 History diltiazem HCl 30 mg tablet 30 mg PO DAILY 07/03/22 07/03/22 07/03/22 History hydrochlorothiazide 25 mg tablet 25 mg PO DAILY 07/03/22 07/03/22 07/03/22 History Physical Exam Vital Signs: Vital Signs: Last Vital Signs Temp 98.4 F 07/11/22 14:05 Pulse 76 07/11/22 14:25 Resp 16 07/11/22 14:41 BP 172/79 H 07/11/22 14:25 Pulse Ox 95 07/11/22 14:25 O2 Del Method 07/11/22 14:25 O2 Flow Rate 6 07/11/22 14:25 Oxygen Flow Rate 6 07/11/22 08:00 BMI result Body Mass Index 29.0 awake alert and oriented and nonfocal neurologically bedside echo with class 1 LV function flat neck veins and good bilateral carotid upstrokes skin intact and no acrocyanosis abdomen is moderately distended maybe even softer than yesterday silent and diffusely tender Results Labs CBC & Chem 7: 07/12/22 05:25 07/12/22 05:25 Labs: Short CBC 07/10/22 Range/Units 16:30 WBC 12.5 H (4.8-10.8) X10*3/uL Hgb 12.2 L D (14.0-18.0) g/dl Hct 36.2 L D (42.0-52.0) % Plt Count 266 D (160-400) X10*3/uL BMP 07/10/22 16:30 Sodium 141 Potassium 3.3 Chloride 102 Carbon Dioxide 29 BUN 23 H Creatinine 0.65 Calcium 7.9 L Microbiology Microbiology Results: Microbiology 07/03/22 22:16 Blood - Venous Blood Culture - Final No growth after 5 days. 08/02/22 21:51 Blood - Venous Blood Culture - Final No growth after 5 days. Assessment and Plan (1) Parastomal hernia: Status: Acute (2) Small bowel obstruction: Status: Acute (3) Hypertension: Status: Acute (4) Acute respiratory failure with hypoxia: Status: Acute Plan at this point we can stop the high-flow mechanism he is not demonstrating any bronchospasm and all lab work look excellent he appears to be volume repleted and because easily he has had an ileus and no nutrition for almost a week now and potentially anticipating another week until bowel recovers on going to start TPN at 40 cc an hour that could be titrated up in and slowly titrate down his fluid and electrolytes which I dropped to 100 cc/hour but when we started TPN we can drop it that it to 80 cc/hour
[2022-07-11] MEDS: KCl 20 mEq in 5% Dex/0.45% Sod 20 MEQ/1,000 ML IV.SOLN 125 MEQ IVCONT ×2 (16:54→23:09)
--- NOTE | 2022-07-11 17:13 | PM.EVENT ---
Event Note Date of Service: 07/11/22 Event Note: pt seen on afternoon rounds unerwent repair of fascial dehiscence with evisceration earlier says he is ok adequte pain control good UO dressings dry alert on high flow O2 to be monitored in ICU dw anesthesiologist earlier dw pain mgt
[2022-07-11] MEDS: HYDROmorphone HCl 0.5 MG/0.5 ML SYRINGE IVPUSH (19:45)
[2022-07-12] VITALS (11 sets, daily range): BP systolic 142–172; BP diastolic 62–80; PULSE 71–90; RESP 10–18; TEMP 36.3–37.1; O2SAT 90–98; BMI 29.0
[2022-07-12] MEDS: HYDROmorphone HCl 0.5 MG/0.5 ML SYRINGE IVPUSH ×5 (00:58→23:25)
[2022-07-12] MEDS: HYDROmorphone HCl 1 MG/ML SYRINGE IVPUSH ×3 (03:23→11:22)
[2022-07-12] MEDS: ondansetron HCL 4 MG/2 ML VIAL IVPUSH (03:26)
[2022-07-12] MEDS: Ampicillin Sodium/Sulbactam Na 3 GM in 0.9 % Sodium Chloride 100 ML IV ×4 (05:20→23:25)
[2022-07-12 05:30] LABS: MANUAL DIFF FLAG NO
[2022-07-12 05:33] LABS: Basophils Absolute Auto 0.1 X10*3/uL (0.0-0.2); Basophils Percent Auto 0.4 % (0-2); Eosinophils Absolute Auto 0.2 X10*3/uL (0.0-0.4); Eosinophils Percent Auto 1.5 % (0-4); Hematocrit 33.9 % (42.0-52.0); Hemoglobin 11.3 g/dl (14.0-18.0); Imm Gran Abs Auto 0.51 X10*3/uL (0.00-0.03); Imm Gran Pct Auto 3.3 % (0.0-0.4); Lymphocytes Absolute Auto 1.1 X10*3/uL (1.2-4.9); Mean Corpuscular HGB Conc 33.3 g/dl (31.0-36.0); Mean Corpuscular Hemoglobin 31.6 pg (27.0-33.0); Mean Corpuscular Volume 94.7 fL (80.0-98.0); Mean Platelet Volume 9.9 fL (9.4-12.4); Monocytes Absolute Auto 1.1 X10*3/uL (0.1-1.2); Monocytes Percent Auto 7.3 % (2-11); Neutrophils Absolute Auto 12.6 x10*3/uL (2.0-8.3); Neutrophils Percent Auto 80.5 % (45-73); Platelet Count 301 X10*3/uL (160-400); Red Blood Count 3.58 X10*6/uL (4.60-5.80); Red Cell Distribution Width 12.4 % (11.0-16.0); White Blood Count 15.6 X10*3/uL (4.8-10.8)
[2022-07-12] MEDS: KCl 20 mEq in 5% Dex/0.45% Sod 20 MEQ/1,000 ML IV.SOLN 125 MEQ IVCONT ×2 (05:35→14:08)
[2022-07-12 05:53] LABS: Alanine Aminotransferase 31 U/L (0-40); Albumin Level 2.2 g/dL (3.5-5.0); Alkaline Phosphatase 65 U/L (39-117); Anion Gap 11 (12-20); Aspartate Amino Transferase 18 U/L (5-37); Bilirubin Total 0.4 mg/dL (0.0-1.0); Blood Urea Nitrogen 17 mg/dL (9-16); Calcium 7.2 mg/dL (8.4-10.2); Carbon Dioxide 32 mmol/L (22-29); Chloride 104 mmol/L (96-108); Creatinine Clr Calc Pharmacy 93.2; Estimated Glomerular Filt Rate > 60; Glucose Random 149 mg/dL (60-115); Potassium 3.5 mmol/L (3.3-5.1); Sodium 143 mmol/L (135-145)
--- NOTE | 2022-07-12 06:40 | PC.NURSE ---
ASSUMED CARE OF PT AT 1900. PT A&O X3. BP STABLE, AFEBRILE. MONITOR SHOWS NSR, RATE 70-80'S, NO ECTOPY. NGT TO INTERMITTENT SUCTION DRAINING SMALL AMT OF BILE FLUID, 50 ML OVERNIGHT. COLOSTOMY LLQ INTACT, STOMA IS PINK. NO OUTPUT IN COLOSTOMY, MIDLINE ABD DSG IS D&I. PT IS GOOD AT SPLINTING HIS ABDOMEN. INCENTIVE SPIROMETER DONE SEVERAL TIMES DURING THE NIGHT UP TO 1500 ML. PT TAKING A FEW ICE CHIPS BY MOUTH.
[2022-07-12 07:21] LABS: Glucose, Whole Blood 142 mg/dL (60-115)
--- NOTE | 2022-07-12 07:22 | PM.CCPN ---
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 and and on the day of admission had developed pain at the ostomy site because of a parastomal hernia with entrapped bowel and and a section of small bowel was resected because it was necrotic and and recreated another ostomy site and then he had a wound dehiscence with exterior is a benson of the bowel which was then replaced rate and washed out repaired and primarily reclosed and outside of some pain that was responsive to pain medication he had a comfortable night and and no demonstrable need for ongoing nasal high-flow because again he has no active bronchospastic problem he has expected rating comfortably and because of nutritional issues for the prior week and anticipated for the upcoming week starting TPN today at 42 cc/hour that could be titrated up progressively to 60 and then to 80 cc/hour as we titrate down on the fluid electrolytes bedside echo shows class 1 LV and RV function Critical Care Time (minutes): 30 Physical Exam Vital Signs: Vital Signs: Last Vital Signs Temp 98.1 F 07/12/22 03:50 Pulse 71 07/12/22 03:50 Resp 16 07/12/22 05:14 BP 142/64 H 07/12/22 03:50 Pulse Ox 94 07/12/22 03:50 O2 Del Method 07/12/22 03:50 O2 Flow Rate 40 07/12/22 03:50 FiO2 35 07/12/22 03:50 Oxygen Flow Rate 6 07/11/22 08:00 BMI result Body Mass Index 29.0 awake/ alert/neurologically intact cardiovascular within normal limits by bedside echo chest perfectly clear including chest x-ray abdomen a little softer than it was the day prior skin intact Objective Data Labs CBC & Chem 7: 07/12/22 05:25 07/12/22 05:25 Labs: Laboratory Results - last 24 hr 07/12/22 07/12/22 07/12/22 05:25 05:25 07:18 WBC 15.6 H RBC 3.58 L Hgb 11.3 L Hct 33.9 L MCV 94.7 MCH 31.6 MCHC 33.3 RDW 12.4 Plt Count 301 MPV 9.9 Immature Gran % (Auto) 3.3 H Neut % (Auto) 80.5 H Lymph % (Auto) 7.0 L [place] % (Auto) 7.3 Eos % (Auto) 1.5 Baso % (Auto) 0.4 Lymph # (Auto) 1.1 L [place] # (Auto) 1.1 Eos # (Auto) 0.2 Baso # (Auto) 0.1 Abs Immat Gran (auto) 0.51 H Absolute Neuts (auto) 12.6 H Absolute Nucleated RBC 0.000 Nucleated RBC % (auto) 0.0 Sodium 143 Potassium 3.5 Chloride 104 Carbon Dioxide 32 H Anion Gap 11 L BUN 17 H Creatinine 0.72 Estim Creat Clear Calc 93.2 Estimated GFR > 60 POC Glucose 142 H Random Glucose 149 H Calcium 7.2 L D Total Bilirubin 0.4 AST 18 ALT 31 Alkaline Phosphatase 65 Total Protein 4.0 L Albumin 2.2 L Microbiology Microbiology Results: Microbiology 07/03/22 22:16 Blood - Venous Blood Culture - Final No growth after 5 days. 07/03/22 21:51 Blood - Venous Blood Culture - Final No growth after 5 days. Progress Note: A&P Assessment and plan (1) Acute respiratory failure with hypoxia: Status: Acute (2) Hypertension: Status: Acute (3) Parastomal hernia: Status: Acute (4) Small bowel obstruction: Status: Acute Plan plan is to transfer to the floor and discontinue the nasal high-flow and initiate TPN via the central line Quality Stroke Does the patient have a stroke diagnosis?: No VTE Prior VTE?: No VTE Risk Level:: Medical - moderate - high VTE Device Contraindication: N/A - Device Ordered VTE Drug Contraindication: N/A - Med Ordered
[2022-07-12] MEDS: Albuterol/Iprat 2.5/0.5MG 3 ML AMPUL.NEB INHALE ×4 (07:41→20:18)
[2022-07-12 07:42] LABS: Magnesium 1.8 mg/dL (1.6-2.6); Phosphorus 3.2 mg/dL (2.7-4.5); Triglycerides 116 mg/dL
--- NOTE | 2022-07-12 08:25 | PM.PNGS ---
Subjective Subjective Date of Service: 07/13/22 Interval history: uneventful night says pain well controlled Still on O2 supplementation Physical Exam Vital Signs: Vital Signs: Last Vital Signs Temp 97.8 F 07/12/22 08:00 Pulse 82 07/12/22 08:00 Resp 14 07/12/22 08:00 BP 172/78 H 07/12/22 08:00 Pulse Ox 95 07/12/22 08:00 O2 Del Method 07/12/22 03:50 O2 Flow Rate 2 07/12/22 08:00 FiO2 35 07/12/22 03:50 Oxygen Flow Rate 6 07/11/22 08:00 BMI result Body Mass Index 29.0 Const: Other: On 02 by [place] General: comfortable and no acute distress Resp: Effort & Inspection: normal respiratory effort Cardio: Rate: regular rate GI: Other: Soft, no stoma output yet, dressings dry, Objective Data Active Medications Albuterol/Ipratropium (Albuterol/Iprat 2.5/0.5mg 3 Ml Ampul.Neb) 3 ml INHALE RQ4H PRN PRN Reason: Shortness of Breath/Wheezing Last Admin: 07/07/22 23:33 Dose: 3 ml Documented By: ROCKY Albuterol/Ipratropium (Albuterol/Iprat 2.5/0.5mg 3 Ml Ampul.Neb) 3 ml INHALE RQ4H WHILE AWAKE [facility] Last Admin: 07/12/22 07:41 Dose: 3 ml Documented By: JARRED Guaifenesin (Guaifenesin 100 Mg/5 Ml Liquid) 5 ml PO Q6H [facility] Last Admin: 07/12/22 03:27 Dose: Not Given Documented By: DONAVAN Non-Admin Reason: Patient Refused Heparin Sodium (Porcine) (Heparin Sodium,Porcine 5,000 Unit/Ml Vial) 5,000 unit SUBCUT Q12H [facility] Last Admin: 07/11/22 22:29 Dose: 5,000 unit Documented By: DONAVAN Hydromorphone HCl (Hydromorphone Hcl 1 Mg/Ml Syringe) 1 mg IVPUSH Q3H PRN; Protocol PRN Reason: Pain, Severe (Pain Scale 7-10) Last Admin: 07/12/22 07:26 Dose: 1 mg Documented By: VIKRAM Hydromorphone HCl (Hydromorphone Hcl 0.5 Mg/0.5 Ml Syringe) 0.5 mg IVPUSH Q2H PRN; Protocol PRN Reason: Pain, Moderate (Pain Scale 4-6 Last Admin: 07/12/22 05:33 Dose: 0.5 mg Documented By: DONAVAN Promethazine HCl 6.25 mg/ (Sodium Chloride) 50.25 mls @ 201 mls/hr IV Q6H PRN PRN Reason: nausea Ampicillin Sodium/Sulbactam (Sodium 3 gm/ Sodium Chloride) 100 mls @ 200 mls/hr IV Q6H [facility] Last Infusion: 07/12/22 06:12 Dose: 0 mls/hr Documented By: DONAVAN Potassium Chloride/Dextrose/Sod Cl () 20 meq in 1,000 mls @ 100 mls/hr IVCONT .Q10H [facility] Last Admin: 07/12/22 05:35 Dose: 125 mls/hr Documented By: DONAVAN Lisinopril (Lisinopril 20 Mg Tablet) 20 mg PO DAILY [facility] Ondansetron HCl (Ondansetron Hcl 4 Mg/2 Ml Vial) 4 mg IVPUSH Q8H PRN PRN Reason: nausea Last Admin: 07/12/22 03:26 Dose: 4 mg Documented By: DONAVAN Ondansetron HCl (Ondansetron Hcl 4 Mg/2 Ml Vial) 4 mg IVPUSH ONCE PRN PRN Reason: Nausea and Vomiting Pharmacy Consult (Consult Rx Perform Med Rec) 1 each MISCELLANE ONCE PRN PRN Reason: Consult order Simethicone (Simethicone 80 Mg Tab.Chew) 80 mg PO Q6H PRN PRN Reason: Gas Last Admin: 07/07/22 22:45 Dose: 80 mg Documented By: ODRISLiu Sodium Chloride (0.9 % Sodium Chloride Flush 3 Ml Syringe) [facility] Last Admin: 07/12/22 07:32 Dose: Not Given Documented By: VIKRAM Non-Admin Reason: IV Running Labs CBC & Chem 7: 07/12/22 08:54 07/13/22 06:09 Labs: Laboratory Results - last 24 hr 07/12/22 07/12/22 07/12/22 05:25 05:25 07:18 MCV 94.7 MCH 31.6 MCHC 33.3 RDW 12.4 Plt Count 301 MPV 9.9 Immature Gran % (Auto) 3.3 H Neut % (Auto) 80.5 H Lymph % (Auto) 7.0 L [place] % (Auto) 7.3 Eos % (Auto) 1.5 Baso % (Auto) 0.4 Lymph # (Auto) 1.1 L [place] # (Auto) 1.1 Eos # (Auto) 0.2 Baso # (Auto) 0.1 Abs Immat Gran (auto) 0.51 H Absolute Neuts (auto) 12.6 H Absolute Nucleated RBC 0.000 Nucleated RBC % (auto) 0.0 Anion Gap 11 L Estim Creat Clear Calc 93.2 Estimated GFR > 60 POC Glucose 142 H Random Glucose 149 H Calcium 7.2 L D Phosphorus 3.2 Magnesium 1.8 Total Bilirubin 0.4 AST 18 ALT 31 Alkaline Phosphatase 65 Total Protein 4.0 L Albumin 2.2 L Triglycerides 116 Procedures Date of Service Date of Service: 07/12/22 Progress Note: A&P Assessment and plan (1) Dehiscence of closure of fascia, superficial or muscular: Status: Acute Assessment and Plan: Status post repair Await return of GI function Incentive spirometry Pain management O2 sats still on the low side Discussed with Dr. Dos Santos - patient to be transferred to regular floor updated Time Spent With Patient Time: Total time spent is greater than 50% in coordination of care (as documented) at patient's floor/unit and/or counseling patient: Quality Stroke Does the patient have a stroke diagnosis?: No VTE Prior VTE?: No VTE Risk Level:: Medical - moderate - high VTE Device Contraindication: N/A - Device Ordered VTE Drug Contraindication: N/A - Med Ordered
[2022-07-12 08:58] LABS: MANUAL DIFF FLAG NO
[2022-07-12 09:38] LABS: Basophils Absolute Auto 0.1 X10*3/uL (0.0-0.2); Basophils Percent Auto 0.3 % (0-2); Eosinophils Absolute Auto 0.2 X10*3/uL (0.0-0.4); Eosinophils Percent Auto 1.4 % (0-4); Hemoglobin 13.3 g/dl (14.0-18.0); Imm Gran Abs Auto 0.66 X10*3/uL (0.00-0.03); Imm Gran Pct Auto 3.7 % (0.0-0.4); Lymphocytes Percent Auto 5.7 % (20-40); Mean Corpuscular HGB Conc 33.3 g/dl (31.0-36.0); Mean Corpuscular Hemoglobin 31.6 pg (27.0-33.0); Mean Platelet Volume 10.5 fL (9.4-12.4); Monocytes Absolute Auto 1.3 X10*3/uL (0.1-1.2); Monocytes Percent Auto 7.4 % (2-11); Neutrophils Absolute Auto 14.4 x10*3/uL (2.0-8.3); Neutrophils Percent Auto 81.5 % (45-73); Platelet Count 304 X10*3/uL (160-400); Red Blood Count 4.21 X10*6/uL (4.60-5.80); Red Cell Distribution Width 12.5 % (11.0-16.0); White Blood Count 17.7 X10*3/uL (4.8-10.8)
[2022-07-12 09:48] LABS: INTERNATIONAL NORM RATIO 1.1 (0.9-1.1); Prothrombin Time 12.7 SEC (10.0-13.1)
--- NOTE | 2022-07-12 09:49 | HO.POSTANES ---
Post Anesthesia Evaluation Post Anesthesia Evaluation Vital Signs: Vital Signs Temp Pulse Resp BP Pulse Ox O2 Del Method O2 Flow Rate 07/12/22 08:00 96 Nasal Cannula 07/12/22 08:00 97.8 F 82 14 172/78 H 95 2 07/12/22 07:43 78 18 07/12/22 05:14 16 07/11/22 23:54 16 07/12/22 03:50 98.1 F 71 10 L 142/64 H 94 High Flow Nasal Cannula 40 07/11/22 23:50 97.9 F 70 13 132/62 95 Mechanical Ventilation 40 FiO2 07/12/22 08:00 07/12/22 08:00 07/12/22 07:43 07/12/22 05:14 07/11/22 23:54 07/12/22 03:50 35 07/11/22 23:50 35 Anesthesia: General Endotracheal-GETA Mental Status: Awake Pain Control: Satisfactory Nausea/Vomiting: None Hydration: Adequate Anesthesia-Related Issues: No Anes. Related Issues
--- NOTE | 2022-07-12 10:09 | MHC.CLN ---
PT WILL REQUIRE TPN FOR NUTRITION SUPPORT RECOMMEND DAY 1 D15AA5% AT 45ML/HR TO PROVIDE 767KCALS, 54G PROTEIN DAY 2 RECOMMEND INCREASING FORMULA TO 65ML/HR TO PROVIDE 1108KCALS, 78G PROTEIN CHECK TRIGS NOTED 116 TODAY DAY 3 RECOMMEND INCREASING FORMULA TO 85ML/HR TO PROVIDE 1448KCALS, 102G PROTEIN [facility] WITH PHARM [facility] SEE ALSO FULL CLINICAL NUTRITION ASSESSMENT
[2022-07-12] MEDS: lisinopriL 20 MG TABLET PO (10:15)
[2022-07-12] MEDS: Heparin Sodium,Porcine 5,000 UNIT/ML VIAL 5000 UNIT SUBCUT ×2 (10:46→21:33)
[2022-07-12 11:46] LABS: Glucose, Whole Blood 137 mg/dL (60-115)
--- NOTE | 2022-07-12 15:06 | PC.NURSE ---
O2 sat maintaining 82% on 2L [place] with good pleth. Patient awake, A&O x3, no complaints, no signs of respiratory distress, breathing even and nonlabored. RT at bedside. O2 increased to 12L with O2 sat up to 90-91%. Dr [place] at bedside. CVP ordered reading 2. CXR ordered - see report. Dr Lugo notified and aware. O2 improving and patient currently on 4L [place] sating 95%. Plan for patient to be transferred to medical floors. Handoff given to ROLF Corral on M/S.
--- NOTE | 2022-07-12 16:54 | PM.EVENT ---
Event Note Date of Service: 07/12/22 Event Note: seen on late rounds now in med surg looks comfortable does describe incisional pain good urine output dressings dry await GI function return incentive spirometry pain management
[2022-07-12 19:38] LABS: Glucose, Whole Blood 127 mg/dL (60-115)
[2022-07-12] MEDS: KCl 20 mEq in 5% Dex/0.45% Sod 20 MEQ/1,000 ML IV.SOLN 80 MEQ IVCONT (23:11)
[2022-07-13] VITALS (12 sets, daily range): BP systolic 127–181; BP diastolic 60–78; PULSE 50–81; RESP 15–18; TEMP 36–36.4; O2SAT 94–99; BMI 29.0
[2022-07-13] MEDS: HYDROmorphone HCl 1 MG/ML SYRINGE IVPUSH ×5 (04:34→21:37)
[2022-07-13] MEDS: Ampicillin Sodium/Sulbactam Na 3 GM in 0.9 % Sodium Chloride 100 ML IV ×4 (04:59→23:09)
[2022-07-13 07:27] LABS: Anion Gap 14 (12-20); Blood Urea Nitrogen 15 mg/dL (9-16); Calcium 7.1 mg/dL (8.4-10.2); Carbon Dioxide 28 mmol/L (22-29); Chloride 103 mmol/L (96-108); Creatinine Clr Calc Pharmacy 95.8; Estimated Glomerular Filt Rate > 60; Magnesium 1.8 mg/dL (1.6-2.6); Phosphorus 2.6 mg/dL (2.7-4.5); Potassium 3.7 mmol/L (3.3-5.1); Sodium 141 mmol/L (135-145)
[2022-07-13] MEDS: ondansetron HCL 4 MG/2 ML VIAL IVPUSH (07:41)
[2022-07-13] MEDS: 0.9 % Sodium Chloride Flush 3 ML SYRINGE IVFLUSH (07:42)
[2022-07-13 07:54] LABS: Glucose, Whole Blood 152 mg/dL (60-115)
[2022-07-13] MEDS: Albuterol/Iprat 2.5/0.5MG 3 ML AMPUL.NEB INHALE ×3 (08:21→20:01)
[2022-07-13] MEDS: KCl 20 mEq in 5% Dex/0.45% Sod 20 MEQ/1,000 ML IV.SOLN 80 MEQ IVCONT ×2 (09:04→19:22)
[2022-07-13] MEDS: lisinopriL 20 MG TABLET PO (09:05)
--- NOTE | 2022-07-13 09:50 | MHC.CLN ---
F/U RECEIVING TPN FOR NUTRITION SUPPORT. RUNNING AT D15AA5% AT 45ML/HR TO PROVIDE 767KCALS, 54G PROTEIN. LABS REVIEWED. DISCUSSED WITH PHARMACY. RECOMMEND TODAY, DAY 2: INCREASE TO 65ML/HR TO PROVIDE 1108KCALS, 78G PROTEIN. REPLETE LYTES NEEDED. DAY 3, 07/14/22: RECOMMEND INCREASE FORMULA TO 83.33ML/HR. ADD LIPIDS 10 ML OF 20% LIPIDS. PROVIDES 1662 KCALS (23 KCALS/KG CALCULATED METABOLIC WEIGHT); 100 G PROTEIN (1.4 G/KG CALCULATED METABOLIC WEIGHT). REPLETE LYTES NEEDED. FOLLOW FOR DIET ADVANCEMENT AND TPN TOLERANCE.
[2022-07-13] MEDS: Heparin Sodium,Porcine 5,000 UNIT/ML VIAL 5000 UNIT SUBCUT ×2 (10:17→21:41)
--- NOTE | 2022-07-13 11:16 | PM.PNGS ---
Subjective Subjective Date of Service: 07/23/22 Interval history: tired - says he wants to rest c/o pain on incision (05/11) no events reported overnight good UO NGT had a lot of output this AM still Physical Exam Vital Signs: Vital Signs: Last Vital Signs Temp 96.8 F 07/13/22 11:02 Pulse 81 07/13/22 11:02 Resp 18 07/13/22 11:02 BP 166/71 H 07/13/22 11:02 Pulse Ox 96 07/13/22 11:02 O2 Del Method 07/13/22 11:02 O2 Flow Rate 2 07/13/22 11:02 FiO2 35 07/12/22 03:50 Oxygen Flow Rate 4 07/13/22 08:00 BMI result Body Mass Index 29.0 Const: General: comfortable and no acute distress Resp: Other: still on O2 supplement Effort & Inspection: normal respiratory effort Cardio: Rate: regular rate GI: Other: soft mildly distended, stoma with no output yet Objective Data Active Medications Albuterol/Ipratropium (Albuterol/Iprat 2.5/0.5mg 3 Ml Ampul.Neb) 3 ml INHALE RQ4H PRN PRN Reason: Shortness of Breath/Wheezing Last Admin: 07/07/22 23:33 Dose: 3 ml Documented By: ROCKY Albuterol/Ipratropium (Albuterol/Iprat 2.5/0.5mg 3 Ml Ampul.Neb) 3 ml INHALE RQ4H WHILE AWAKE [facility] Last Admin: 07/13/22 08:21 Dose: 3 ml Documented By: JARRED Guaifenesin (Guaifenesin 100 Mg/5 Ml Liquid) 5 ml PO Q6H [facility] Last Admin: 07/13/22 07:42 Dose: Not Given Documented By: LORIE Non-Admin Reason: Patient Refused Heparin Sodium (Porcine) (Heparin Sodium,Porcine 5,000 Unit/Ml Vial) 5,000 unit SUBCUT Q12H [facility] Last Admin: 07/13/22 10:17 Dose: 5,000 unit Documented By: LORIE Hydromorphone HCl (Hydromorphone Hcl 1 Mg/Ml Syringe) 1 mg IVPUSH Q3H PRN; Protocol PRN Reason: Pain, Severe (Pain Scale 7-10) Last Admin: 07/13/22 10:17 Dose: 1 mg Documented By: LORIE Hydromorphone HCl (Hydromorphone Hcl 0.5 Mg/0.5 Ml Syringe) 0.5 mg IVPUSH Q2H PRN; Protocol PRN Reason: Pain, Moderate (Pain Scale 4-6 Last Admin: 07/12/22 23:25 Dose: 0.5 mg Documented By: SHIRLEY Promethazine HCl 6.25 mg/ (Sodium Chloride) 50.25 mls @ 201 mls/hr IV Q6H PRN PRN Reason: nausea Last Infusion: 07/13/22 11:13 Dose: 0 mls/hr Documented By: LORIE Ampicillin Sodium/Sulbactam (Sodium 3 gm/ Sodium Chloride) 100 mls @ 200 mls/hr IV Q6H [facility] Last Admin: 07/13/22 10:45 Dose: 200 mls/hr Documented By: LORIE Potassium Chloride/Dextrose/Sod Cl () 20 meq in 1,000 mls @ 80 mls/hr IVCONT .[id number] [facility] Last Admin: 07/13/22 09:04 Dose: 80 mls/hr Documented By: LORIE Multivitamins 18.5 ml/ Trace Metals 1.9 ml/ Amino Acids/Electrolytes 1,080 mls @ 45 mls/hr IV DAILY@1800 [facility] Stop: 07/13/22 17:59 Last Admin: 07/12/22 19:42 Dose: 45 mls/hr Documented By: SHIRLEY Acetaminophen (Ofirmev) 1,000 mg in 100 mls @ 400 mls/hr IV Q6H [facility] Last Infusion: 07/13/22 10:40 Dose: 0 mls/hr Documented By: LORIE Multivitamins 12.8 ml/ Trace Metals 1.3 ml/ Amino Acids/Electrolytes 1,560 mls @ 65 mls/hr IV DAILY@1800 [facility] Stop: 07/14/22 17:59 Lisinopril (Lisinopril 20 Mg Tablet) 20 mg PO DAILY [facility] Last Admin: 07/13/22 09:05 Dose: 20 mg Documented By: LORIE Ondansetron HCl (Ondansetron Hcl 4 Mg/2 Ml Vial) 4 mg IVPUSH Q8H PRN PRN Reason: nausea Last Admin: 07/13/22 07:41 Dose: 4 mg Documented By: LORIE Ondansetron HCl (Ondansetron Hcl 4 Mg/2 Ml Vial) 4 mg IVPUSH ONCE PRN PRN Reason: Nausea and Vomiting Pharmacy Consult (Consult Rx Perform Med Rec) 1 each MISCELLANE ONCE PRN PRN Reason: Consult order Simethicone (Simethicone 80 Mg Tab.Chew) 80 mg PO Q6H PRN PRN Reason: Gas Last Admin: 07/07/22 22:45 Dose: 80 mg Documented By: SHIRLEY Sodium Chloride (0.9 % Sodium Chloride Flush 3 Ml Syringe) 3 ml IVFLUSH QSHIFT [facility] Last Admin: 07/13/22 07:42 Dose: 3 ml Documented By: LORIE Labs CBC & Chem 7: 07/21/22 05:52 07/23/22 09:19 Labs: Laboratory Results - last 24 hr 07/12/22 07/12/22 07/13/22 11:43 19:34 06:09 Anion Gap 14 Estim Creat Clear Calc 95.8 Estimated GFR > 60 POC Glucose 137 H 127 H Calcium 7.1 L Phosphorus 2.6 L Magnesium 1.8 Procalcitonin 07/13/22 07/13/22 06:09 07:44 Anion Gap Estim Creat Clear Calc Estimated GFR POC Glucose 152 H Calcium Phosphorus Magnesium Procalcitonin 0.50 Procedures Date of Service Date of Service: 07/13/22 Progress Note: A&P Assessment and plan (1) Dehiscence of closure of fascia, superficial or muscular: Status: Acute Assessment and Plan: S/P repair, with retention sutures pain mgt will keep NGT for now TPN ordered dc Webb OOB to chair when pain better managed anticipate ileus incentive spirometry Time Spent With Patient Time: Total time spent is greater than 50% in coordination of care (as documented) at patient's floor/unit and/or counseling patient: Quality Stroke Does the patient have a stroke diagnosis?: No VTE Prior VTE?: No VTE Risk Level:: Medical - moderate - high VTE Device Contraindication: N/A - Device Ordered VTE Drug Contraindication: N/A - Med Ordered
[2022-07-13 11:28] LABS: Glucose, Whole Blood 161 mg/dL (60-115)
--- NOTE | 2022-07-13 12:24 | P.PNIM_ITS ---
Subjective Subjective Date of Service: 07/13/22 Interval History: Cough improved No dyspnea No wheezing Down to 3L O2 via NC Incisional pain NG tube with bilious output Review of Systems Review of Systems: Yes all other systems are reviewed and are negative Physical Exam Vital Signs: Vital Signs: Last Vital Signs Temp 96.8 F 07/13/22 11:02 Pulse 77 07/13/22 11:51 Resp 16 07/13/22 11:51 BP 166/71 H 07/13/22 11:02 Pulse Ox 96 07/13/22 11:02 O2 Del Method 07/13/22 11:02 O2 Flow Rate 2 07/13/22 11:02 FiO2 35 07/12/22 03:50 Oxygen Flow Rate 4 07/13/22 08:00 BMI result Body Mass Index 29.0 Gen: in no acute distress HEENT: sclera anicteric, moist mucus membranes Neck: supple Lungs: clear to auscultation bilaterally Heart: regular rate and rhythm, no murmurs Abd: soft, stoma without output, NG tube with bilious drainage Ext: no edema Skin: warm/well-perfused Neuro: alert and oriented x3, no focal findings Psych: appropriate affect Objective Data Active Medications Albuterol/Ipratropium (Albuterol/Iprat 2.5/0.5mg 3 Ml Ampul.Neb) 3 ml INHALE RQ4H PRN PRN Reason: Shortness of Breath/Wheezing Last Admin: 07/07/22 23:33 Dose: 3 ml Documented By: ROCKY Albuterol/Ipratropium (Albuterol/Iprat 2.5/0.5mg 3 Ml Ampul.Neb) 3 ml INHALE RQ4H WHILE AWAKE [facility] Last Admin: 07/13/22 11:50 Dose: 3 ml Documented By: JARRED Benzonatate (Benzonatate 100 Mg Capsule) 200 mg PO TID PRN PRN Reason: cough Guaifenesin (Guaifenesin 100 Mg/5 Ml Liquid) 5 ml PO Q6H [facility] Last Admin: 07/13/22 07:42 Dose: Not Given Documented By: LORIE Non-Admin Reason: Patient Refused Heparin Sodium (Porcine) (Heparin Sodium,Porcine 5,000 Unit/Ml Vial) 5,000 unit SUBCUT Q12H [facility] Last Admin: 07/13/22 10:17 Dose: 5,000 unit Documented By: LORIE Hydromorphone HCl (Hydromorphone Hcl 1 Mg/Ml Syringe) 1 mg IVPUSH Q3H PRN; Protocol PRN Reason: Pain, Severe (Pain Scale 7-10) Last Admin: 07/13/22 10:17 Dose: 1 mg Documented By: LORIE Hydromorphone HCl (Hydromorphone Hcl 0.5 Mg/0.5 Ml Syringe) 0.5 mg IVPUSH Q2H PRN; Protocol PRN Reason: Pain, Moderate (Pain Scale 4-6 Last Admin: 07/12/22 23:25 Dose: 0.5 mg Documented By: SHIRLEY Promethazine HCl 6.25 mg/ (Sodium Chloride) 50.25 mls @ 201 mls/hr IV Q6H PRN PRN Reason: nausea Last Infusion: 07/13/22 11:13 Dose: 0 mls/hr Documented By: LORIE Ampicillin Sodium/Sulbactam (Sodium 3 gm/ Sodium Chloride) 100 mls @ 200 mls/hr IV Q6H [facility] Last Infusion: 07/13/22 11:24 Dose: 0 mls/hr Documented By: LORIE Potassium Chloride/Dextrose/Sod Cl () 20 meq in 1,000 mls @ 80 mls/hr IVCONT .[id number] [facility] Last Admin: 07/13/22 09:04 Dose: 80 mls/hr Documented By: LORIE Multivitamins 18.5 ml/ Trace Metals 1.9 ml/ Amino Acids/Electrolytes 1,080 mls @ 45 mls/hr IV DAILY@1800 [facility] Stop: 07/13/22 17:59 Last Admin: 07/12/22 19:42 Dose: 45 mls/hr Documented By: SHIRLEY Acetaminophen (Ofirmev) 1,000 mg in 100 mls @ 400 mls/hr IV Q6H [facility] Last Infusion: 07/13/22 10:40 Dose: 0 mls/hr Documented By: LORIE Multivitamins 12.8 ml/ Trace Metals 1.3 ml/ Amino Acids/Electrolytes 1,560 mls @ 65 mls/hr IV DAILY@1800 [facility] Stop: 07/14/22 17:59 Lisinopril (Lisinopril 20 Mg Tablet) 20 mg PO DAILY [facility] Last Admin: 07/13/22 09:05 Dose: 20 mg Documented By: LOREI Ondansetron HCl (Ondansetron Hcl 4 Mg/2 Ml Vial) 4 mg IVPUSH Q8H PRN PRN Reason: nausea Last Admin: 07/13/22 07:41 Dose: 4 mg Documented By: LORIE Ondansetron HCl (Ondansetron Hcl 4 Mg/2 Ml Vial) 4 mg IVPUSH ONCE PRN PRN Reason: Nausea and Vomiting Pharmacy Consult (Consult Rx Perform Med Rec) 1 each MISCELLANE ONCE PRN PRN Reason: Consult order Simethicone (Simethicone 80 Mg Tab.Chew) 80 mg PO Q6H PRN PRN Reason: Gas Last Admin: 07/07/22 22:45 Dose: 80 mg Documented By: SHIRLEY Sodium Chloride (0.9 % Sodium Chloride Flush 3 Ml Syringe) 3 ml IVFLUSH QSHIFT [facility] Last Admin: 07/13/22 07:42 Dose: 3 ml Documented By: LORIE Labs CBC & Chem 7: 07/12/22 08:54 07/13/22 06:09 Labs: Laboratory Results - last 24 hr 07/12/22 07/13/22 07/13/22 19:34 06:09 06:09 Anion Gap 14 Estim Creat Clear Calc 95.8 Estimated GFR > 60 POC Glucose 127 H Calcium 7.1 L Phosphorus 2.6 L Magnesium 1.8 Procalcitonin 0.50 07/13/22 07/13/22 07:44 11:04 Anion Gap Estim Creat Clear Calc Estimated GFR POC Glucose 152 H 161 H Calcium Phosphorus Magnesium Procalcitonin Assessment and Plan (1) Acute respiratory failure with hypoxia: Status: Acute Plan 72yo M with colon CA s/p resection/osteomy, HTN admitted to general surgery service for parastomal hernia, repaired 07/05, back to OR 07/11 for fascial dehiscence medicine consultation for hypoxia # acute hypoxic resp failure - wean O2 as tolerated # presumed aspiration PNA - continue amp/sulbactam d#4, trend PCT # moderate emphysema (on CT, not previously diagnosed) - nebs, outpt PFTs # HTN - continue lisinopril # parastomal hernia # fascial dehiscence - management as per Surgery # postop ileus - on TPN # VTE ppx - [facility] Quality Stroke Does the patient have a stroke diagnosis?: No VTE Prior VTE?: No VTE Risk Level:: Medical - moderate - high VTE Device Contraindication: N/A - Device Ordered VTE Drug Contraindication: N/A - Med Ordered
--- NOTE | 2022-07-13 12:47 | P.CONPL_ITS ---
History of Present Illness History of Present Illness Consult date: 07/13/22 Reason for consult: pulmonary hypertension Chief complaint: parastomal hernia Narrative: This is an inpatient pulmonary consultation. This is a 72-year-old male with a past medical history of hypertension and colon cancer status post resection in 2002 who presents to the hospital with complaints of left lower quadrant abdominal pain and hardening which occurred on the day prior to admission.? The patient reports that he had associated nausea and vomiting.? There was decreased stool output in his ostomy.? He reports due to the persistent nature of the pain he presented to the emergency room. He was evaluated by surgery and was taken to the OR on 07/05 for surgical correction. On POD1 the patient desaturated. He did undergo a CTA than was personally reviewed by me, demonstrating moderate emphysema and LLL airspacespace disease and atelectasis with mucus plugging. ALso an endobronchial lesion likely mucus closer to the LMS bronchus. The patient was maintained on oxygen. While he was recovering from his surgery he started coughing more and had dehiscence requiring urgent surgical intervention. After his surgical intervention he did require ICU level of care was placed on high-flow. He was transferred to the floor on 4L NC. C/O severe abdominal pain with coughing and deep breathing. Review of Systems Constitutional: Constitutional: Denies chills and Denies fever(s) Cardiovascular: Cardiovascular: Denies chest pain, Denies dyspnea and Denies dyspnea on exertion Respiratory: Respiratory: Reports chest congestion, Reports cough, Denies dyspnea and Denies dyspnea on exertion Gastrointestinal: Gastrointestinal: Reports abdominal pain Genitourinary: Genitourinary: Denies hematuria and Denies difficulty urinating Musculoskeletal: Musculoskeletal: Denies back pain and Denies limited range of motion Neurologic: Denies focal weakness and Denies convulsions Psychiatric: Psychiatric: Denies depression and Denies mood swings PMF Past Medical History Medical History (Updated 07/13/22 @ 13:11 by Ishmael Perkins MD) Colorectal cancer Dehiscence of closure of fascia, superficial or muscular Emphysema lung Hypertension Social History Social History Household Members: Spouse Housing: Apartment Do you presently have visiting nurse or other home services: No Alcohol intake: unknown Patient Tobacco Use Status: Never used Tobacco Advance Directives Date on File: 07/04/22 service: Yes Current occupational status: retired Meds Allergies Allergy/AdvReac Type Severity Reaction Status Date / Time No Known Allergies Allergy Verified 07/03/22 17:35 [No Known Allergies*] Active Medications: Current Medications Albuterol/Ipratropium (Albuterol/Iprat 2.5/0.5mg 3 Ml Ampul.Neb) 3 ml INHALE RQ4H PRN PRN Reason: Shortness of Breath/Wheezing Last Admin: 07/07/22 23:33 Dose: 3 ml Albuterol/Ipratropium (Albuterol/Iprat 2.5/0.5mg 3 Ml Ampul.Neb) 3 ml INHALE RQ4H WHILE AWAKE [facility] Last Admin: 07/13/22 11:50 Dose: 3 ml Benzonatate (Benzonatate 100 Mg Capsule) 200 mg PO TID PRN PRN Reason: cough Guaifenesin (Guaifenesin 100 Mg/5 Ml Liquid) 5 ml PO Q6H [facility] Last Admin: 07/13/22 07:42 Dose: Not Given Heparin Sodium (Porcine) (Heparin Sodium,Porcine 5,000 Unit/Ml Vial) 5,000 unit SUBCUT Q12H [facility]STIAN Last Admin: 07/13/22 10:17 Dose: 5,000 unit Hydromorphone HCl (Hydromorphone Hcl 1 Mg/Ml Syringe) 1 mg IVPUSH Q3H PRN; Protocol PRN Reason: Pain, Severe (Pain Scale 7-10) Last Admin: 07/13/22 10:17 Dose: 1 mg Hydromorphone HCl (Hydromorphone Hcl 0.5 Mg/0.5 Ml Syringe) 0.5 mg IVPUSH Q2H PRN; Protocol PRN Reason: Pain, Moderate (Pain Scale 4-6 Last Admin: 07/12/22 23:25 Dose: 0.5 mg Promethazine HCl 6.25 mg/ (Sodium Chloride) 50.25 mls @ 201 mls/hr IV Q6H PRN PRN Reason: nausea Last Infusion: 07/13/22 11:13 Dose: Infused Ampicillin Sodium/Sulbactam (Sodium 3 gm/ Sodium Chloride) 100 mls @ 200 mls/hr IV Q6H KRISTIAN Last Infusion: 07/13/22 11:24 Dose: Infused Potassium Chloride/Dextrose/Sod Cl () 20 meq in 1,000 mls @ 80 mls/hr IVCONT .[id number] [facility] Last Admin: 07/13/22 09:04 Dose: 80 mls/hr Multivitamins 18.5 ml/ Trace Metals 1.9 ml/ Amino Acids/Electrolytes 1,080 mls @ 45 mls/hr IV DAILY@1800 [facility] Stop: 07/13/22 17:59 Last Admin: 07/12/22 19:42 Dose: 45 mls/hr Acetaminophen (Ofirmev) 1,000 mg in 100 mls @ 400 mls/hr IV Q6H [facility] Last Infusion: 07/13/22 10:40 Dose: Infused Multivitamins 12.8 ml/ Trace Metals 1.3 ml/ Amino Acids/Electrolytes 1,560 mls @ 65 mls/hr IV DAILY@1800 [facility] Stop: 07/14/22 17:59 Lisinopril (Lisinopril 20 Mg Tablet) 20 mg PO DAILY [facility] Last Admin: 07/13/22 09:05 Dose: 20 mg Ondansetron HCl (Ondansetron Hcl 4 Mg/2 Ml Vial) 4 mg IVPUSH Q8H PRN PRN Reason: nausea Last Admin: 07/13/22 07:41 Dose: 4 mg Ondansetron HCl (Ondansetron Hcl 4 Mg/2 Ml Vial) 4 mg IVPUSH ONCE PRN PRN Reason: Nausea and Vomiting Pharmacy Consult (Consult Rx Perform Med Rec) 1 each MISCELLANE ONCE PRN PRN Reason: Consult order Simethicone (Simethicone 80 Mg Tab.Chew) 80 mg PO Q6H PRN PRN Reason: Gas Last Admin: 07/07/22 22:45 Dose: 80 mg Sodium Chloride (0.9 % Sodium Chloride Flush 3 Ml Syringe) 3 ml IVFLUSH QSHIFT [facility] Last Admin: 07/13/22 07:42 Dose: 3 ml Home Medications Medication Instructions Recorded Confirmed Last Taken Type benazepril 40 mg tablet 40 mg PO BID 07/03/22 07/03/22 07/03/22 History diltiazem HCl 30 mg tablet 30 mg PO DAILY 07/03/22 07/03/22 07/03/22 History hydrochlorothiazide 25 mg tablet 25 mg PO DAILY 07/03/22 07/03/22 07/03/22 History Physical Exam Vital Signs: Vital Signs: Last Vital Signs Temp 96.8 F 07/13/22 11:02 Pulse 77 07/13/22 11:51 Resp 16 07/13/22 11:51 BP 166/71 H 07/13/22 11:02 Pulse Ox 96 07/13/22 11:02 O2 Del Method 07/13/22 11:02 O2 Flow Rate 2 07/13/22 11:02 FiO2 35 07/12/22 03:50 Oxygen Flow Rate 4 07/13/22 08:00 BMI result Body Mass Index 29.0 Const: General: tired appearing HEENT: General nose exam: Foreign body present in naris (NGT with bilious drainage) Chest: Chest palpation & inspection: normal inspection of the chest Resp: Other: still on O2 supplement Effort & Inspection: decreased respiratory effort Auscultation: diminished lung sounds Cardio: Rate: regular rate GI: Other: using cough pillow over abdomen Extrem: General: No cyanosis Results Laboratory Findings CBC and BMP: 07/12/22 08:54 07/13/22 06:09 ABG, PT/INR, D-dimer: PT/INR, D-dimer PT 12.7 SEC (10.0-13.1) 07/12/22 08:54 INR 1.1 (0.9-1.1) 07/12/22 08:54 Abnormal lab findings: Abnormal Labs 07/03/22 07/03/22 07/03/22 19:07 19:07 19:07 WBC 16.4 H RBC Hgb Hct Immature Gran % (Auto) Neut % (Auto) 91.1 H Lymph % (Auto) 4.4 L Lymph # (Auto) 0.7 L [place] # (Auto) Abs Immat Gran (auto) 0.06 H Absolute Neuts (auto) 15.0 H Sodium Potassium 3.1 L Chloride Carbon Dioxide Anion Gap 21 H BUN 18 H POC Glucose Random Glucose 145 H Lactic Acid 2.7 H* Calcium Phosphorus Total Protein Albumin Ur Leukocyte Esterase 07/03/22 07/04/22 07/06/22 19:21 06:21 00:08 WBC RBC Hgb Hct Immature Gran % (Auto) Neut % (Auto) Lymph % (Auto) Lymph # (Auto) [place] # (Auto) Abs Immat Gran (auto) Absolute Neuts (auto) Sodium 146 H Potassium Chloride 112 H Carbon Dioxide 20 L Anion Gap BUN 23 H 40 H D POC Glucose Random Glucose 169 H 133 H Lactic Acid Calcium 8.1 L D 7.7 L Phosphorus Total Protein Albumin Ur Leukocyte Esterase TRACE H 07/06/22 07/06/22 07/10/22 05:31 05:31 16:30 WBC 11.4 H 12.5 H RBC 3.87 L D Hgb 12.2 L D Hct 36.2 L D Immature Gran % (Auto) Neut % (Auto) Lymph % (Auto) Lymph # (Auto) [place] # (Auto) Abs Immat Gran (auto) Absolute Neuts (auto) Sodium Potassium Chloride Carbon Dioxide Anion Gap BUN 36 H POC Glucose Random Glucose Lactic Acid Calcium 7.8 L Phosphorus Total Protein Albumin Ur Leukocyte Esterase 07/10/22 07/12/22 07/12/22 16:30 05:25 05:25 WBC 15.6 H RBC 3.58 L Hgb 11.3 L Hct 33.9 L Immature Gran % (Auto) 3.3 H Neut % (Auto) 80.5 H Lymph % (Auto) 7.0 L Lymph # (Auto) 1.1 L [place] # (Auto) Abs Immat Gran (auto) 0.51 H Absolute Neuts (auto) 12.6 H Sodium Potassium Chloride Carbon Dioxide 32 H Anion Gap 11 L BUN 23 H 17 H POC Glucose Random Glucose 127 H 149 H Lactic Acid Calcium 7.9 L 7.2 L D Phosphorus Total Protein 4.0 L Albumin 2.2 L Ur Leukocyte Esterase 07/12/22 07/12/22 07/12/22 07:18 08:54 11:43 WBC 17.7 H RBC 4.21 L Hgb 13.3 L Hct 40.0 L Immature Gran % (Auto) 3.7 H Neut % (Auto) 81.5 H Lymph % (Auto) 5.7 L Lymph # (Auto) 1.0 L [place] # (Auto) 1.3 H Abs Immat Gran (auto) 0.66 H Absolute Neuts (auto) 14.4 H Sodium Potassium Chloride Carbon Dioxide Anion Gap BUN POC Glucose 142 H 137 H Random Glucose Lactic Acid Calcium Phosphorus Total Protein Albumin Ur Leukocyte Esterase 07/12/22 07/13/22 07/13/22 19:34 06:09 07:44 WBC RBC Hgb Hct Immature Gran % (Auto) Neut % (Auto) Lymph % (Auto) Lymph # (Auto) [place] # (Auto) Abs Immat Gran (auto) Absolute Neuts (auto) Sodium Potassium Chloride Carbon Dioxide Anion Gap BUN POC Glucose 127 H 152 H Random Glucose Lactic Acid Calcium 7.1 L Phosphorus 2.6 L Total Protein Albumin Ur Leukocyte Esterase 07/13/22 11:04 WBC RBC Hgb Hct Immature Gran % (Auto) Neut % (Auto) Lymph % (Auto) Lymph # (Auto) [place] # (Auto) Abs Immat Gran (auto) Absolute Neuts (auto) Sodium Potassium Chloride Carbon Dioxide Anion Gap BUN POC Glucose 161 H Random Glucose Lactic Acid Calcium Phosphorus Total Protein Albumin Ur Leukocyte Esterase Microbiology: Microbiology 07/03/22 22:16 Blood - Venous Blood Culture - Final No growth after 5 days. 07/03/22 21:51 Blood - Venous Blood Culture - Final No growth after 5 days. Assessment and Plan (1) Acute respiratory failure with hypoxia: Status: Acute (2) Atelectasis: Status: Acute (3) Emphysema lung: Status: Acute (4) Post-op pain: Status: Acute Plan HYpoxia is multifactorial; evidence of moderate emphysema, LLL atelectasis with mucuc plugging and now with post op pain with worsening ventilation and VQ missmatch REG: ISS pain management nebs QID Consider repeating CT chest in the future if no better. Consider bronchoscopy if no better Procedures Date of Service Date of Service: 07/13/22
--- NOTE | 2022-07-13 16:12 | PM.EVENT ---
Event Note Date of Service: 07/13/22 Event Note: seen on afternoon rounds says he feels much better after sleeping for a few hours earlier pain control adequate looks well stable vital sign abdomen soft no significant stoma output yet await return of GI function NG tube, TPN
[2022-07-13 16:17] LABS: Glucose, Whole Blood 134 mg/dL (60-115)
[2022-07-13 21:51] LABS: Glucose, Whole Blood 156 mg/dL (60-115)
[2022-07-14] VITALS (13 sets, daily range): BP systolic 136–176; BP diastolic 58–80; PULSE 72–84; RESP 14–18; TEMP 36.2–37; O2SAT 95–97
[2022-07-14] MEDS: HYDROmorphone HCl 1 MG/ML SYRINGE IVPUSH ×6 (00:35→22:04)
[2022-07-14] MEDS: Ampicillin Sodium/Sulbactam Na 3 GM in 0.9 % Sodium Chloride 100 ML IV ×4 (04:36→23:03)
--- NOTE | 2022-07-14 04:43 | PC.NURSE ---
NGT draining large amt dark green liquid, patient tolerating ice chips, no nausea. pain controlled with dilaudid. hiccups, denies flatus or BM
[2022-07-14 06:46] LABS: Anion Gap 12 (12-20); Blood Urea Nitrogen 15 mg/dL (9-16); Carbon Dioxide 28 mmol/L (22-29); Chloride 105 mmol/L (96-108); Creatinine Clr Calc Pharmacy 106.5; Estimated Glomerular Filt Rate > 60; Glucose Random 153 mg/dL (60-115); Magnesium 1.8 mg/dL (1.6-2.6); Phosphorus 2.6 mg/dL (2.7-4.5); Sodium 141 mmol/L (135-145)
[2022-07-14 07:13] LABS: Hematocrit 33.2 % (42.0-52.0); Hemoglobin 10.9 g/dl (14.0-18.0); Mean Corpuscular HGB Conc 32.8 g/dl (31.0-36.0); Mean Corpuscular Hemoglobin 31.6 pg (27.0-33.0); Mean Corpuscular Volume 96.2 fL (80.0-98.0); Mean Platelet Volume 10.9 fL (9.4-12.4); Platelet Count 214 X10*3/uL (160-400); Red Blood Count 3.45 X10*6/uL (4.60-5.80); Red Cell Distribution Width 12.7 % (11.0-16.0); White Blood Count 21.9 X10*3/uL (4.8-10.8)
[2022-07-14 07:19] LABS: Albumin Level 2.1 g/dL (3.5-5.0); Triglycerides 96 mg/dL
[2022-07-14 07:36] LABS: Glucose, Whole Blood 150 mg/dL (60-115)
[2022-07-14] MEDS: Albuterol/Iprat 2.5/0.5MG 3 ML AMPUL.NEB INHALE ×4 (08:08→20:48)
[2022-07-14] MEDS: lisinopriL 20 MG TABLET PO (09:09)
[2022-07-14] MEDS: 0.9 % Sodium Chloride Flush 3 ML SYRINGE IVFLUSH ×2 (09:09→15:56)
[2022-07-14] MEDS: Heparin Sodium,Porcine 5,000 UNIT/ML VIAL 5000 UNIT SUBCUT ×2 (09:09→22:13)
[2022-07-14] MEDS: KCl 20 mEq in 5% Dex/0.45% Sod 20 MEQ/1,000 ML IV.SOLN 80 MEQ IVCONT (09:09)
--- NOTE | 2022-07-14 11:14 | PM.PNGS ---
Subjective Subjective Date of Service: 07/14/22 Interval history: The patient is seen in coverage for Dr. Lugo The pt reports continued incisional pain and is interested in getting out of bed He denies any headache, visual changes, chest pain, difficulty breathing or shortness of breath. No gas from stoma; no stool Physical Exam Vital Signs: Vital Signs: Last Vital Signs Temp 98 F 07/14/22 07:21 Pulse 83 07/14/22 11:09 Resp 17 07/14/22 11:09 BP 152/66 H 07/14/22 11:09 Pulse Ox 96 07/14/22 11:09 O2 Del Method 07/14/22 11:09 O2 Flow Rate 2 07/14/22 11:09 FiO2 35 07/12/22 03:50 Oxygen Flow Rate 2 07/14/22 08:00 BMI result Body Mass Index 29.0 Abdominal dressing is clean, dry and intact Stoma is pink and viable with no gas nor stool Appropriate abdominal tenderness is present with no peritoneal sign Objective Data Active Medications Albuterol/Ipratropium (Albuterol/Iprat 2.5/0.5mg 3 Ml Ampul.Neb) 3 ml INHALE RQ4H PRN PRN Reason: Shortness of Breath/Wheezing Last Admin: 07/07/22 23:33 Dose: 3 ml Documented By: ROCKY Albuterol/Ipratropium (Albuterol/Iprat 2.5/0.5mg 3 Ml Ampul.Neb) 3 ml INHALE RQ4H WHILE AWAKE [facility] Last Admin: 07/14/22 08:08 Dose: 3 ml Documented By: MATEUSZ Benzonatate (Benzonatate 100 Mg Capsule) 200 mg PO TID PRN PRN Reason: cough Guaifenesin (Guaifenesin 100 Mg/5 Ml Liquid) 5 ml PO Q6H [facility] Last Admin: 07/14/22 09:10 Dose: Not Given Documented By: LORIE Non-Admin Reason: Patient Refused Heparin Sodium (Porcine) (Heparin Sodium,Porcine 5,000 Unit/Ml Vial) 5,000 unit SUBCUT Q12H [facility] Last Admin: 07/14/22 09:09 Dose: 5,000 unit Documented By: LORIE Hydromorphone HCl (Hydromorphone Hcl 1 Mg/Ml Syringe) 1 mg IVPUSH Q3H PRN; Protocol PRN Reason: Pain, Severe (Pain Scale 7-10) Last Admin: 07/14/22 09:13 Dose: 1 mg Documented By: LORIE Hydromorphone HCl (Hydromorphone Hcl 0.5 Mg/0.5 Ml Syringe) 0.5 mg IVPUSH Q2H PRN; Protocol PRN Reason: Pain, Moderate (Pain Scale 4-6 Last Admin: 07/12/22 23:25 Dose: 0.5 mg Documented By: SHIRLEY Promethazine HCl 6.25 mg/ (Sodium Chloride) 50.25 mls @ 201 mls/hr IV Q6H PRN PRN Reason: nausea Last Infusion: 07/13/22 11:13 Dose: 0 mls/hr Documented By: LORIE Ampicillin Sodium/Sulbactam (Sodium 3 gm/ Sodium Chloride) 100 mls @ 200 mls/hr IV Q6H [facility] Last Admin: 07/14/22 10:40 Dose: 200 mls/hr Documented By: LORIE Potassium Chloride/Dextrose/Sod Cl () 20 meq in 1,000 mls @ 80 mls/hr IVCONT .[id number] [facility] Last Admin: 07/14/22 09:09 Dose: 80 mls/hr Documented By: LORIE Acetaminophen (Ofirmev) 1,000 mg in 100 mls @ 400 mls/hr IV Q6H [facility] Last Infusion: 07/14/22 11:01 Dose: 0 mls/hr Documented By: LORIE Multivitamins 12.8 ml/ Trace Metals 1.3 ml/ Amino Acids/Electrolytes 1,560 mls @ 65 mls/hr IV DAILY@1800 [facility] Stop: 07/14/22 17:59 Last Admin: 07/13/22 19:16 Dose: 65 mls/hr Documented By: LUISITO Multivitamins 10 ml/ Trace Metals 1 ml/ Amino Acids/Electrolytes 2,000 mls @ 83.333 mls/hr IV DAILY@1800 [facility] Stop: 07/15/22 17:59 Fat Emulsion Intravenous (Intralipid) 120 mls @ 10 mls/hr IV DAILY@1800 [facility] Stop: 07/15/22 05:59 Lisinopril (Lisinopril 20 Mg Tablet) 20 mg PO DAILY [facility] Last Admin: 07/14/22 09:09 Dose: 20 mg Documented By: LORIE Ondansetron HCl (Ondansetron Hcl 4 Mg/2 Ml Vial) 4 mg IVPUSH Q8H PRN PRN Reason: nausea Last Admin: 07/13/22 07:41 Dose: 4 mg Documented By: LORIE Ondansetron HCl (Ondansetron Hcl 4 Mg/2 Ml Vial) 4 mg IVPUSH ONCE PRN PRN Reason: Nausea and Vomiting Pharmacy Consult (Consult Rx Perform Med Rec) 1 each MISCELLANE ONCE PRN PRN Reason: Consult order Simethicone (Simethicone 80 Mg Tab.Chew) 80 mg PO Q6H PRN PRN Reason: Gas Last Admin: 07/07/22 22:45 Dose: 80 mg Documented By: SHIRLEY Sodium Chloride (0.9 % Sodium Chloride Flush 3 Ml Syringe) 3 ml IVFLUSH QSHIFT [facility] Last Admin: 07/14/22 09:09 Dose: 3 ml Documented By: LORIE Labs CBC & Chem 7: 07/14/22 06:51 07/14/22 05:40 Labs: Laboratory Results - last 24 hr 07/13/22 07/13/22 07/13/22 11:04 16:00 21:46 MCV MCH MCHC RDW Plt Count MPV Absolute Nucleated RBC Nucleated RBC % (auto) Anion Gap Estim Creat Clear Calc Estimated GFR POC Glucose 161 H 134 H 156 H Random Glucose Calcium Phosphorus Magnesium Albumin Triglycerides 07/14/22 07/14/22 07/14/22 05:40 06:51 07:27 MCV 96.2 MCH 31.6 MCHC 32.8 RDW 12.7 Plt Count 214 D MPV 10.9 Absolute Nucleated RBC 0.000 Nucleated RBC % (auto) 0.0 Anion Gap 12 Estim Creat Clear Calc 106.5 Estimated GFR > 60 POC Glucose 150 H Random Glucose 153 H Calcium 7.0 L Phosphorus 2.6 L Magnesium 1.8 Albumin 2.1 L Triglycerides 96 Procedures Date of Service Date of Service: 07/14/22 Progress Note: A&P Assessment and plan (1) Dehiscence of closure of fascia, superficial or muscular: Status: Acute (2) Parastomal hernia: Status: Acute (3) Small bowel obstruction: Status: Acute (4) Hypertension: Status: Acute (5) Post-op pain: Status: Acute Plan I have asked the nurse to resect cure the nasogastric tube since that is tenuous at this time Continue present management with NG, TPN, Abx. Trend labs. Patient is interested in getting OOB Please assess ability to remove Webb. Encourage incentive spirometry and ambulation if possible. Time Spent With Patient Time: Total time spent is greater than 50% in coordination of care (as documented) at patient's floor/unit and/or counseling patient: Quality Stroke Does the patient have a stroke diagnosis?: No VTE Prior VTE?: No VTE Risk Level:: Medical - moderate - high VTE Device Contraindication: N/A - Device Ordered VTE Drug Contraindication: N/A - Med Ordered
--- NOTE | 2022-07-14 11:45 | HO.PM.IMPN ---
Subjective Subjective Date of Service: 07/14/22 Interval History: cough + dyspnea improved no gas in stoma yet Review of Systems Review of Systems: Yes all other systems are reviewed and are negative Physical Exam Vital Signs: Vital Signs: Last Vital Signs Temp 98 F 07/14/22 07:21 Pulse 83 07/14/22 11:09 Resp 17 07/14/22 11:09 BP 152/66 H 07/14/22 11:09 Pulse Ox 96 07/14/22 11:09 O2 Del Method 07/14/22 11:09 O2 Flow Rate 2 07/14/22 11:09 FiO2 35 07/12/22 03:50 Oxygen Flow Rate 2 07/14/22 08:00 BMI result Body Mass Index 29.0 Gen: in no acute distress HEENT: sclera anicteric, moist mucus membranes Neck: supple Lungs: clear to auscultation bilaterally Heart: regular rate and rhythm, no murmurs Abd: soft, stoma without output, NG tube with bilious drainage Ext: trace edema Skin: warm/well-perfused Neuro: alert and oriented x3, no focal findings Psych: appropriate affect Objective Data Active Medications Albuterol/Ipratropium (Albuterol/Iprat 2.5/0.5mg 3 Ml Ampul.Neb) 3 ml INHALE RQ4H PRN PRN Reason: Shortness of Breath/Wheezing Last Admin: 07/07/22 23:33 Dose: 3 ml Documented By: ROCKY Albuterol/Ipratropium (Albuterol/Iprat 2.5/0.5mg 3 Ml Ampul.Neb) 3 ml INHALE RQ4H WHILE AWAKE [facility] Last Admin: 07/14/22 08:08 Dose: 3 ml Documented By: MATEUSZ Benzonatate (Benzonatate 100 Mg Capsule) 200 mg PO TID PRN PRN Reason: cough Guaifenesin (Guaifenesin 100 Mg/5 Ml Liquid) 5 ml PO Q6H [facility] Last Admin: 07/14/22 09:10 Dose: Not Given Documented By: LORIE Non-Admin Reason: Patient Refused Heparin Sodium (Porcine) (Heparin Sodium,Porcine 5,000 Unit/Ml Vial) 5,000 unit SUBCUT Q12H [facility] Last Admin: 07/14/22 09:09 Dose: 5,000 unit Documented By: LORIE Hydromorphone HCl (Hydromorphone Hcl 1 Mg/Ml Syringe) 1 mg IVPUSH Q3H PRN; Protocol PRN Reason: Pain, Severe (Pain Scale 7-10) Last Admin: 07/14/22 09:13 Dose: 1 mg Documented By: LORIE Hydromorphone HCl (Hydromorphone Hcl 0.5 Mg/0.5 Ml Syringe) 0.5 mg IVPUSH Q2H PRN; Protocol PRN Reason: Pain, Moderate (Pain Scale 4-6 Last Admin: 07/12/22 23:25 Dose: 0.5 mg Documented By: SHIRLEY Promethazine HCl 6.25 mg/ (Sodium Chloride) 50.25 mls @ 201 mls/hr IV Q6H PRN PRN Reason: nausea Last Infusion: 07/13/22 11:13 Dose: 0 mls/hr Documented By: LORIE Ampicillin Sodium/Sulbactam (Sodium 3 gm/ Sodium Chloride) 100 mls @ 200 mls/hr IV Q6H [facility] Last Infusion: 07/14/22 11:31 Dose: 0 mls/hr Documented By: LORIE Potassium Chloride/Dextrose/Sod Cl () 20 meq in 1,000 mls @ 80 mls/hr IVCONT .[id number] [facility] Last Admin: 07/14/22 09:09 Dose: 80 mls/hr Documented By: LORIE Acetaminophen (Ofirmev) 1,000 mg in 100 mls @ 400 mls/hr IV Q6H [facility] Last Infusion: 07/14/22 11:01 Dose: 0 mls/hr Documented By: LORIE Multivitamins 12.8 ml/ Trace Metals 1.3 ml/ Amino Acids/Electrolytes 1,560 mls @ 65 mls/hr IV DAILY@1800 [facility] Stop: 07/14/22 17:59 Last Admin: 07/13/22 19:16 Dose: 65 mls/hr Documented By: LUISITO Multivitamins 10 ml/ Trace Metals 1 ml/ Amino Acids/Electrolytes 2,000 mls @ 83.333 mls/hr IV DAILY@1800 [facility] Stop: 07/15/22 17:59 Fat Emulsion Intravenous (Intralipid) 120 mls @ 10 mls/hr IV DAILY@1800 [facility] Stop: 07/15/22 05:59 Lisinopril (Lisinopril 20 Mg Tablet) 20 mg PO DAILY [facility] Last Admin: 07/14/22 09:09 Dose: 20 mg Documented By: LORIE Ondansetron HCl (Ondansetron Hcl 4 Mg/2 Ml Vial) 4 mg IVPUSH Q8H PRN PRN Reason: nausea Last Admin: 07/13/22 07:41 Dose: 4 mg Documented By: LORIE Ondansetron HCl (Ondansetron Hcl 4 Mg/2 Ml Vial) 4 mg IVPUSH ONCE PRN PRN Reason: Nausea and Vomiting Pharmacy Consult (Consult Rx Perform Med Rec) 1 each MISCELLANE ONCE PRN PRN Reason: Consult order Simethicone (Simethicone 80 Mg Tab.Chew) 80 mg PO Q6H PRN PRN Reason: Gas Last Admin: 07/07/22 22:45 Dose: 80 mg Documented By: SHIRLEY Sodium Chloride (0.9 % Sodium Chloride Flush 3 Ml Syringe) 3 ml IVFLUSH QSHIFT [facility] Last Admin: 07/14/22 09:09 Dose: 3 ml Documented By: LORIE Labs CBC & Chem 7: 07/14/22 06:51 07/14/22 05:40 Labs: Laboratory Results - last 24 hr 07/13/22 07/13/22 07/14/22 16:00 21:46 05:40 MCV MCH MCHC RDW Plt Count MPV Absolute Nucleated RBC Nucleated RBC % (auto) Anion Gap 12 Estim Creat Clear Calc 106.5 Estimated GFR > 60 POC Glucose 134 H 156 H Random Glucose 153 H Calcium 7.0 L Phosphorus 2.6 L Magnesium 1.8 Albumin 2.1 L Triglycerides 96 07/14/22 07/14/22 06:51 07:27 MCV 96.2 MCH 31.6 MCHC 32.8 RDW 12.7 Plt Count 214 D MPV 10.9 Absolute Nucleated RBC 0.000 Nucleated RBC % (auto) 0.0 Anion Gap Estim Creat Clear Calc Estimated GFR POC Glucose 150 H Random Glucose Calcium Phosphorus Magnesium Albumin Triglycerides Assessment and Plan (1) Acute respiratory failure with hypoxia: Status: Acute Plan 72yo M with colon CA s/p resection/osteomy, HTN admitted to general surgery service for parastomal hernia, repaired 07/05, back to OR 07/11 for fascial dehiscence medicine consultation for hypoxia # acute hypoxic resp failure - wean O2 as tolerated # presumed aspiration PNA - continue amp/sulbactam d#5, trend PCT # moderate emphysema (on CT, not previously diagnosed) - nebs, outpt PFTs # HTN - continue lisinopril # parastomal hernia # fascial dehiscence - management as per Surgery # postop ileus - on TPN, d/c IV fluids # VTE ppx - [facility] Quality Stroke Does the patient have a stroke diagnosis?: No VTE Prior VTE?: No VTE Risk Level:: Medical - moderate - high VTE Device Contraindication: N/A - Device Ordered VTE Drug Contraindication: N/A - Med Ordered
[2022-07-14 12:26] LABS: Glucose, Whole Blood 134 mg/dL (60-115)
[2022-07-14] MEDS: Fat Emulsions 20% 250 ML 10 ML IV (19:03)
[2022-07-14 19:56] LABS: Glucose, Whole Blood 130 mg/dL (60-115)
[2022-07-15] VITALS (11 sets, daily range): BP systolic 169–194; BP diastolic 70–87; PULSE 65–81; RESP 15–21; TEMP 35.9–37.2; O2SAT 92–97
[2022-07-15] MEDS: HYDROmorphone HCl 1 MG/ML SYRINGE IVPUSH ×5 (03:01→22:18)
[2022-07-15] MEDS: Ampicillin Sodium/Sulbactam Na 3 GM in 0.9 % Sodium Chloride 100 ML IV ×4 (05:18→22:03)
[2022-07-15 06:12] LABS: Hematocrit 31.6 % (42.0-52.0); Hemoglobin 10.6 g/dl (14.0-18.0); Mean Corpuscular HGB Conc 33.5 g/dl (31.0-36.0); Mean Corpuscular Hemoglobin 31.9 pg (27.0-33.0); Mean Corpuscular Volume 95.2 fL (80.0-98.0); Mean Platelet Volume 9.9 fL (9.4-12.4); Platelet Count 335 X10*3/uL (160-400); Red Blood Count 3.32 X10*6/uL (4.60-5.80); Red Cell Distribution Width 12.7 % (11.0-16.0); White Blood Count 22.3 X10*3/uL (4.8-10.8)
[2022-07-15 06:38] LABS: Albumin Level 2.1 g/dL (3.5-5.0); Anion Gap 15 (12-20); Blood Urea Nitrogen 17 mg/dL (9-16); Calcium 7.4 mg/dL (8.4-10.2); Carbon Dioxide 27 mmol/L (22-29); Chloride 102 mmol/L (96-108); Estimated Glomerular Filt Rate > 60; Glucose Random 154 mg/dL (60-115); Magnesium 1.8 mg/dL (1.6-2.6); Phosphorus 3.1 mg/dL (2.7-4.5); Potassium 4.1 mmol/L (3.3-5.1); Sodium 140 mmol/L (135-145); Triglycerides 133 mg/dL
[2022-07-15 07:43] LABS: Glucose, Whole Blood 147 mg/dL (60-115)
[2022-07-15] MEDS: Albuterol/Iprat 2.5/0.5MG 3 ML AMPUL.NEB INHALE ×2 (08:02→11:12)
[2022-07-15] MEDS: lisinopriL 40 MG TABLET PO (09:13)
[2022-07-15] MEDS: Heparin Sodium,Porcine 5,000 UNIT/ML VIAL 5000 UNIT SUBCUT ×2 (09:13→22:02)
[2022-07-15] MEDS: 0.9 % Sodium Chloride Flush 3 ML SYRINGE IVFLUSH ×2 (09:14→16:16)
--- NOTE | 2022-07-15 10:08 | MHC.CLN ---
F/U TPN [id number] AT MAX GOAL RATE 83.33ML/HR WITH 10 ML OF 20% LIPIDS. PROVIDES 1662 KCALS (23 KCALS/KG CALCULATED METABOLIC WEIGHT); 100 G PROTEIN (1.4 G/KG CALCULATED METABOLIC WEIGHT). REPLETE LYTES NEEDED. REVIEWED LABS AND COMMUNICATED WITH PHARMACY. FOLLOW FOR DIET ADVANCEMENT AND TPN TOLERANCE.
[2022-07-15 10:19] LABS: Procalcitonin 0.22 ng/mL
--- NOTE | 2022-07-15 10:24 | HO.PM.IMPN ---
Subjective Subjective Date of Service: 07/15/22 Interval History: breathing + cough improved, down to 1.5L O2 incisional pain controlled eager to eat Review of Systems Review of Systems: Yes all other systems are reviewed and are negative Physical Exam Vital Signs: Vital Signs: Last Vital Signs Temp 98.4 F 07/15/22 07:15 Pulse 69 07/15/22 08:04 Resp 16 07/15/22 08:04 BP 191/87 H 07/15/22 07:15 Pulse Ox 97 07/15/22 07:15 O2 Del Method 07/15/22 07:15 O2 Flow Rate 2 07/15/22 07:15 FiO2 35 07/12/22 03:50 Oxygen Flow Rate 2 07/14/22 08:00 BMI result Body Mass Index 29.0 Gen: in no acute distress HEENT: sclera anicteric, moist mucus membranes Neck: supple Lungs: clear to auscultation bilaterally Heart: regular rate and rhythm, no murmurs Abd: soft, stoma without output, NG tube with bilious drainage Ext: trace edema Skin: warm/well-perfused Neuro: alert and oriented x3, no focal findings Psych: appropriate affect Objective Data Active Medications Albuterol/Ipratropium (Albuterol/Iprat 2.5/0.5mg 3 Ml Ampul.Neb) 3 ml INHALE RQ4H PRN PRN Reason: Shortness of Breath/Wheezing Last Admin: 07/07/22 23:33 Dose: 3 ml Documented By: ROCKY Albuterol/Ipratropium (Albuterol/Iprat 2.5/0.5mg 3 Ml Ampul.Neb) 3 ml INHALE RQ4H WHILE AWAKE [facility] Last Admin: 07/15/22 08:02 Dose: 3 ml Documented By: BREDANNY Benzonatate (Benzonatate 100 Mg Capsule) 200 mg PO TID PRN PRN Reason: cough Guaifenesin (Guaifenesin 100 Mg/5 Ml Liquid) 5 ml PO Q6H [facility] Last Admin: 07/15/22 04:32 Dose: Not Given Documented By: MADHU Non-Admin Reason: Patient Refused Heparin Sodium (Porcine) (Heparin Sodium,Porcine 5,000 Unit/Ml Vial) 5,000 unit SUBCUT Q12H [facility] Last Admin: 07/15/22 09:13 Dose: 5,000 unit Documented By: LORIE Hydromorphone HCl (Hydromorphone Hcl 1 Mg/Ml Syringe) 1 mg IVPUSH Q3H PRN; Protocol PRN Reason: Pain, Severe (Pain Scale 7-10) Last Admin: 07/15/22 09:13 Dose: 1 mg Documented By: LORIE Hydromorphone HCl (Hydromorphone Hcl 0.5 Mg/0.5 Ml Syringe) 0.5 mg IVPUSH Q2H PRN; Protocol PRN Reason: Pain, Moderate (Pain Scale 4-6 Last Admin: 07/12/22 23:25 Dose: 0.5 mg Documented By: SHIRLEY Promethazine HCl 6.25 mg/ (Sodium Chloride) 50.25 mls @ 201 mls/hr IV Q6H PRN PRN Reason: nausea Last Infusion: 07/13/22 11:13 Dose: 0 mls/hr Documented By: LORIE Ampicillin Sodium/Sulbactam (Sodium 3 gm/ Sodium Chloride) 100 mls @ 200 mls/hr IV Q6H [facility] Last Infusion: 07/15/22 05:55 Dose: 0 mls/hr Documented By: MADHU Acetaminophen (Ofirmev) 1,000 mg in 100 mls @ 400 mls/hr IV Q6H [facility] Last Infusion: 07/15/22 05:18 Dose: 0 mls/hr Documented By: MADHU Multivitamins 10 ml/ Trace Metals 1 ml/ Amino Acids/Electrolytes 2,000 mls @ 83.333 mls/hr IV DAILY@1800 [facility] Stop: 07/15/22 17:59 Last Admin: 07/14/22 18:58 Dose: 83.33 mls/hr Documented By: LUISITO Lisinopril (Lisinopril 40 Mg Tablet) 40 mg PO DAILY [facility] Last Admin: 07/15/22 09:13 Dose: 40 mg Documented By: LORIE Ondansetron HCl (Ondansetron Hcl 4 Mg/2 Ml Vial) 4 mg IVPUSH Q8H PRN PRN Reason: nausea Last Admin: 07/13/22 07:41 Dose: 4 mg Documented By: LORIE Ondansetron HCl (Ondansetron Hcl 4 Mg/2 Ml Vial) 4 mg IVPUSH ONCE PRN PRN Reason: Nausea and Vomiting Pharmacy Consult (Consult Rx Perform Med Rec) 1 each MISCELLANE ONCE PRN PRN Reason: Consult order Simethicone (Simethicone 80 Mg Tab.Chew) 80 mg PO Q6H PRN PRN Reason: Gas Last Admin: 07/07/22 22:45 Dose: 80 mg Documented By: SHIRLEY Sodium Chloride (0.9 % Sodium Chloride Flush 3 Ml Syringe) 3 ml IVFLUSH QSHIFT [facility] Last Admin: 07/15/22 09:14 Dose: 3 ml Documented By: LORIE Labs CBC & Chem 7: 07/15/22 06:01 07/15/22 06:00 Labs: Laboratory Results - last 24 hr 07/14/22 07/14/22 07/15/22 11:15 19:44 06:00 MCV MCH MCHC RDW Plt Count MPV Absolute Nucleated RBC Nucleated RBC % (auto) Anion Gap 15 Estim Creat Clear Calc 110.0 Estimated GFR > 60 POC Glucose 134 H 130 H Random Glucose 154 H Calcium 7.4 L Phosphorus 3.1 Magnesium 1.8 Albumin 2.1 L Triglycerides 133 Procalcitonin 07/15/22 07/15/22 07/15/22 06:00 06:01 07:14 MCV 95.2 MCH 31.9 MCHC 33.5 RDW 12.7 Plt Count 335 D MPV 9.9 Absolute Nucleated RBC 0.000 Nucleated RBC % (auto) 0.0 Anion Gap Estim Creat Clear Calc Estimated GFR POC Glucose 147 H Random Glucose Calcium Phosphorus Magnesium Albumin Triglycerides Procalcitonin 0.22 Assessment and Plan (1) Acute respiratory failure with hypoxia: Status: Acute Plan 72yo M with colon CA s/p resection/osteomy, HTN admitted to general surgery service for parastomal hernia, repaired 07/05, back to OR 07/11 for fascial dehiscence medicine consultation for hypoxia from aspiration/mucus plugging # acute hypoxic resp failure - wean O2 as tolerated # presumed aspiration PNA - continue amp/sulbactam d#6/7, PCT decreasing appropriately # moderate emphysema (on CT, not previously diagnosed) - prn nebs, outpt PFTs # HTN - increase lisinopril for improved control 20->40 mg daily today # parastomal hernia # fascial dehiscence - management as per Surgery # postop ileus - on TPN until bowel function returns # VTE ppx - [facility] Quality Stroke Does the patient have a stroke diagnosis?: No VTE Prior VTE?: No VTE Risk Level:: Medical - moderate - high VTE Device Contraindication: N/A - Device Ordered VTE Drug Contraindication: N/A - Med Ordered
[2022-07-15 11:35] LABS: Glucose, Whole Blood 155 mg/dL (60-115)
[2022-07-15] MEDS: Nystatin Powder 15 GM BOTTLE 1 APPL TOPICAL ×2 (14:44→21:17)
[2022-07-15 15:24] LABS: Glucose, Whole Blood 126 mg/dL (60-115)
--- NOTE | 2022-07-15 15:36 | PM.PNGS ---
Subjective Subjective Date of Service: 07/15/22 Patient reports: no new complaints Interval history: The patient is seen in coverage for Dr. Lugo. The patient is still not passing anything out of his ostomy, but is hungry and asked whether not he could have food. We discussed his ileus in the likelihood of bloating, nausea and vomiting that would occur if he ate or drank anything. He still has significant NG output at this time and no ostomy output. He otherwise denies any chest pain, difficulty breathing or shortness of breath. Physical Exam Vital Signs: Vital Signs: Last Vital Signs Temp 98.9 F 07/15/22 11:28 Pulse 75 07/15/22 15:26 Resp 15 07/15/22 15:26 BP 170/70 H 07/15/22 15:26 Pulse Ox 92 07/15/22 15:26 O2 Del Method 07/15/22 15:26 O2 Flow Rate 2 07/15/22 07:15 FiO2 35 07/12/22 03:50 Oxygen Flow Rate 2 07/14/22 08:00 BMI result Body Mass Index 29.0 Patient's ostomy is pink and viable and his abdominal dressing clean, dry and intact Mood and affect are appropriate Patient is nontoxic Appropriate incisional tenderness is present with no peritoneal sign Objective Data Active Medications Albuterol/Ipratropium (Albuterol/Iprat 2.5/0.5mg 3 Ml Ampul.Neb) 3 ml INHALE RQ4H PRN PRN Reason: Shortness of Breath/Wheezing Last Admin: 07/07/22 23:33 Dose: 3 ml Documented By: ROCKY Albuterol/Ipratropium (Albuterol/Iprat 2.5/0.5mg 3 Ml Ampul.Neb) 3 ml INHALE RQ4H WHILE AWAKE [facility] Last Admin: 07/15/22 15:26 Dose: Not Given Documented By: JARRED Non-Admin Reason: Patient Refused Benzonatate (Benzonatate 100 Mg Capsule) 200 mg PO TID PRN PRN Reason: cough Guaifenesin (Guaifenesin 100 Mg/5 Ml Liquid) 5 ml PO Q6H [facility] Last Admin: 07/15/22 11:30 Dose: Not Given Documented By: LORIE Non-Admin Reason: Patient Refused Heparin Sodium (Porcine) (Heparin Sodium,Porcine 5,000 Unit/Ml Vial) 5,000 unit SUBCUT Q12H [facility] Last Admin: 07/15/22 09:13 Dose: 5,000 unit Documented By: LORIE Hydromorphone HCl (Hydromorphone Hcl 1 Mg/Ml Syringe) 1 mg IVPUSH Q3H PRN; Protocol PRN Reason: Pain, Severe (Pain Scale 7-10) Last Admin: 07/15/22 13:05 Dose: 1 mg Documented By: LORIE Hydromorphone HCl (Hydromorphone Hcl 0.5 Mg/0.5 Ml Syringe) 0.5 mg IVPUSH Q2H PRN; Protocol PRN Reason: Pain, Moderate (Pain Scale 4-6 Last Admin: 07/12/22 23:25 Dose: 0.5 mg Documented By: SHIRLEY Promethazine HCl 6.25 mg/ (Sodium Chloride) 50.25 mls @ 201 mls/hr IV Q6H PRN PRN Reason: nausea Last Infusion: 07/13/22 11:13 Dose: 0 mls/hr Documented By: LORIE Ampicillin Sodium/Sulbactam (Sodium 3 gm/ Sodium Chloride) 100 mls @ 200 mls/hr IV Q6H [facility] Last Infusion: 07/15/22 11:50 Dose: 0 mls/hr Documented By: LORIE Acetaminophen (Ofirmev) 1,000 mg in 100 mls @ 400 mls/hr IV Q6H [facility] Last Infusion: 07/15/22 11:50 Dose: 0 mls/hr Documented By: LORIE Multivitamins 10 ml/ Trace Metals 1 ml/ Amino Acids/Electrolytes 2,000 mls @ 83.333 mls/hr IV DAILY@1800 [facility] Stop: 07/15/22 17:59 Last Admin: 07/14/22 18:58 Dose: 83.33 mls/hr Documented By: LUISITO Multivitamins 10 ml/ Trace Metals 1 ml/ Amino Acids/Electrolytes 2,000 mls @ 83.333 mls/hr IV DAILY@1800 [facility] Stop: 07/16/22 17:59 Fat Emulsion Intravenous (Intralipid) 120 mls @ 10 mls/hr IV DAILY@1800 [facility] Stop: 07/16/22 05:59 Lisinopril (Lisinopril 40 Mg Tablet) 40 mg PO DAILY [facility] Last Admin: 07/15/22 09:13 Dose: 40 mg Documented By: LORIE Nystatin (Nystatin Powder 15 Gm Bottle) 1 appl TOPICAL TID [facility]; Protocol Last Admin: 07/15/22 14:44 Dose: 1 appl Documented By: LORIE Ondansetron HCl (Ondansetron Hcl 4 Mg/2 Ml Vial) 4 mg IVPUSH Q8H PRN PRN Reason: nausea Last Admin: 07/13/22 07:41 Dose: 4 mg Documented By: LORIE Ondansetron HCl (Ondansetron Hcl 4 Mg/2 Ml Vial) 4 mg IVPUSH ONCE PRN PRN Reason: Nausea and Vomiting Pharmacy Consult (Consult Rx Perform Med Rec) 1 each MISCELLANE ONCE PRN PRN Reason: Consult order Simethicone (Simethicone 80 Mg Tab.Chew) 80 mg PO Q6H PRN PRN Reason: Gas Last Admin: 07/07/22 22:45 Dose: 80 mg Documented By: SHIRLEY Sodium Chloride (0.9 % Sodium Chloride Flush 3 Ml Syringe) [facility] Last Admin: 07/15/22 09:14 Dose: 3 ml Documented By: LORIE Labs CBC & Chem 7: 07/15/22 06:01 07/15/22 06:00 Labs: Laboratory Results - last 24 hr 07/14/22 07/15/22 07/15/22 19:44 06:00 06:00 MCV MCH MCHC RDW Plt Count MPV Absolute Nucleated RBC Nucleated RBC % (auto) Anion Gap 15 Estim Creat Clear Calc 110.0 Estimated GFR > 60 POC Glucose 130 H Random Glucose 154 H Calcium 7.4 L Phosphorus 3.1 Magnesium 1.8 Albumin 2.1 L Triglycerides 133 Procalcitonin 0.22 07/15/22 07/15/22 07/15/22 06:01 07:14 11:27 MCV 95.2 MCH 31.9 MCHC 33.5 RDW 12.7 Plt Count 335 D MPV 9.9 Absolute Nucleated RBC 0.000 Nucleated RBC % (auto) 0.0 Anion Gap Estim Creat Clear Calc Estimated GFR POC Glucose 147 H 155 H Random Glucose Calcium Phosphorus Magnesium Albumin Triglycerides Procalcitonin 07/15/22 15:15 MCV MCH MCHC RDW Plt Count MPV Absolute Nucleated RBC Nucleated RBC % (auto) Anion Gap Estim Creat Clear Calc Estimated GFR POC Glucose 126 H Random Glucose Calcium Phosphorus Magnesium Albumin Triglycerides Procalcitonin Procedures Date of Service Date of Service: 07/15/22 Progress Note: A&P Assessment and plan (1) Parastomal hernia: Status: Acute (2) Dehiscence of closure of fascia, superficial or muscular: Status: Acute (3) Hypertension: Status: Acute (4) Emphysema lung: Status: Acute (5) Ileus: Status: Acute Plan Continue antibiotics, bowel rest, NG-tube & TPN D/C Webb Encourage IS & ambulation Await bowel fxn Dr. Del Rosario to assume care Monday 07/16 Time Spent With Patient Time: Total time spent is greater than 50% in coordination of care (as documented) at patient's floor/unit and/or counseling patient: Quality Stroke Does the patient have a stroke diagnosis?: No VTE Prior VTE?: No VTE Risk Level:: Medical - moderate - high VTE Device Contraindication: N/A - Device Ordered VTE Drug Contraindication: N/A - Med Ordered
[2022-07-15] MEDS: Fat Emulsions 20% 250 ML 10 ML IV (18:54)
[2022-07-15 19:34] LABS: Glucose, Whole Blood 142 mg/dL (60-115)
[2022-07-16] VITALS (7 sets, daily range): BP systolic 160–172; BP diastolic 63–84; PULSE 82–90; RESP 16–20; TEMP 36–37.7; O2SAT 92–95
[2022-07-16] MEDS: HYDROmorphone HCl 1 MG/ML SYRINGE IVPUSH ×5 (01:06→21:20)
[2022-07-16] MEDS: Lidocaine HCl 2 % Urojet 10 ML JEL.PF.APP TOPICAL (02:55)
[2022-07-16] MEDS: Midazolam HCl/PF 2 MG/2 ML VIAL 1 MG IVPUSH (03:02)
--- NOTE | 2022-07-16 03:16 | PC.NURSE ---
PATIENT UNABLE TO VOID AT START OF THIS 11-7 SHIFT, CHUNG CATHETER HAD BEEN REMOVED AT 1600 AND DUE TO VOID BETWEEN 2200 AND 0000. PT STATED TO FEEL BLADDER PRESSURE AND ATTEMPTED TO VOID TO URINAL NUMEROUS TIMES. BLADDER SCAN REVEALED 457ML. 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 NURSING PARKS WORKER ALERTED AND HE SENT ICU CC AND SHE TOO WAS UNSUCCESSFUL. PATIENT OOB TO STAND WITH ASSIST OF 3 AND WALKER AND CONTINUED TO NOT BE ABLE TO VOID. PT VERY UNCOMFORTABLE AND MEDICATED AT 0100 WITH IVP DILAUDID WITH SOME EFFECT, TRIED TO RELAX AND TRY AGAIN WITH NO RESULTS. HOSPITALIST WAS UPDATED, NURSING PARKS WORKER CAME TO SEE PT. HE CONSULTED WITH HOSPITALIST AND PT GIVEN IVP VERSED TO RELAX AND UROJET OF LIDOCAINE WAS INJECTED AND PARKS WORKER ABLE TO INSERT A 12 FR CATHETER AND ATTACHED IT TO A CHUNG BAG. MD THEN ASKED PER PARKS WORKER RECOMMENDATIONS TO LEAVE IN UNTIL MORNING WHEN HIS SURGEON AND/OR UROLOGY CAN SEE HIM. PATIENT MUCH RELIEVED, CATHETER DRAINED OVER 400ML YELLOW URINE QUICKLY AND WILL KEEP IN PLACE. LIDOCAINE GIVEN AT 0255, VERSED AT 0300 PRIOR TO PROCEDURE AND PT TOLERATED WELL. WILL CONTINUE TO MONITOR CLOSELY. ABD DSG C-D-I, COLOSTOMY AT LLQ STILL WITH NO STOOL, TPN AND LIPIDS TO LEFT NECK TLC ORDERED.. NGT AT RIGHT NARE DRAINING BROWN LIQUID TO LOW INTERMITTENT WALL SUCTION.
[2022-07-16] MEDS: Ampicillin Sodium/Sulbactam Na 3 GM in 0.9 % Sodium Chloride 100 ML IV ×4 (04:55→22:33)
[2022-07-16 05:49] LABS: Hematocrit 34.4 % (42.0-52.0); Hemoglobin 11.5 g/dl (14.0-18.0); Mean Corpuscular HGB Conc 33.4 g/dl (31.0-36.0); Mean Corpuscular Hemoglobin 31.8 pg (27.0-33.0); Mean Platelet Volume 9.7 fL (9.4-12.4); Platelet Count 413 X10*3/uL (160-400); Red Blood Count 3.62 X10*6/uL (4.60-5.80); Red Cell Distribution Width 12.9 % (11.0-16.0); White Blood Count 25.1 X10*3/uL (4.8-10.8)
--- NOTE | 2022-07-16 06:14 | PM.EVENT ---
Event Note Date of Service: 07/16/22 Event Note: Pt developed urinary retention with bladder scan showing more than >400. Pt very uncomfortable and feels anxious and in pain and would like cath in place. Multiple attempts were made at placement of 14fr cath with no success. pt becoming more anxious, nervous and complaining of worsening pain. Were able to place a 12fr with help of nursing air intercept controller supervisor. Consult made to urology for further recommendation
--- NOTE | 2022-07-16 07:08 | PC.NURSE ---
CHUNG CATHETER DRAINED 1200ML CLOUDY YELLOW URINE BY 0600, PT ABLE TO NAP COMFORTABLY.
[2022-07-16 07:25] LABS: Glucose, Whole Blood 137 mg/dL (60-115)
[2022-07-16] MEDS: lisinopriL 40 MG TABLET PO (08:04)
[2022-07-16] MEDS: Heparin Sodium,Porcine 5,000 UNIT/ML VIAL 5000 UNIT SUBCUT ×2 (08:04→21:14)
[2022-07-16] MEDS: 0.9 % Sodium Chloride Flush 3 ML SYRINGE IVFLUSH ×2 (08:05→15:50)
[2022-07-16 08:49] LABS: Anion Gap 14 (12-20); Blood Urea Nitrogen 19 mg/dL (9-16); Calcium 7.6 mg/dL (8.4-10.2); Carbon Dioxide 31 mmol/L (22-29); Chloride 102 mmol/L (96-108); Creatinine Clr Calc Pharmacy 101.7; Estimated Glomerular Filt Rate > 60; Glucose Random 152 mg/dL (60-115); Potassium 3.8 mmol/L (3.3-5.1); Sodium 143 mmol/L (135-145)
--- NOTE | 2022-07-16 09:05 | P.PNGS_ITS ---
Subjective Subjective Date of Service: 07/16/22 Interval history: Patient denies significant abdominal pain. No flatus or BM per ostomy. Webb catheter reinserted last night. Physical Exam Vital Signs: Vital Signs: Last Vital Signs Temp 98.2 F 07/16/22 07:26 Pulse 89 07/16/22 07:26 Resp 18 07/16/22 07:26 BP 160/70 H 07/16/22 07:26 Pulse Ox 95 07/16/22 08:18 O2 Del Method 07/16/22 08:18 O2 Flow Rate 2 07/15/22 07:15 FiO2 35 07/12/22 03:50 Oxygen Flow Rate 2 07/14/22 08:00 BMI result Body Mass Index 29.0 Const: General: cooperative and no acute distress Nutritional Appearance: well nourished Orientation/consciousness: patient oriented x3 Limitations: no limitations Resp: Other: Breathing comfortably on air, no respiratory distress GI: Other: midline incision is clean, dry, and intact. Tympany to percussion. Ostomy is pink but no stool or flatus. Skin: Other: Warm, dry, no rash . Neuro: General: patient oriented x3 Extrem: General: Yes no pedal edema Objective Data Active Medications Albuterol/Ipratropium (Albuterol/Iprat 2.5/0.5mg 3 Ml Ampul.Neb) 3 ml INHALE RQ4H PRN PRN Reason: Shortness of Breath/Wheezing Last Admin: 07/07/22 23:33 Dose: 3 ml Documented By: ROCKY Albuterol/Ipratropium (Albuterol/Iprat 2.5/0.5mg 3 Ml Ampul.Neb) 3 ml INHALE RQ4H WHILE AWAKE [facility] Last Admin: 07/16/22 07:42 Dose: Not Given Documented By: RUTH Non-Admin Reason: Patient Refused Benzonatate (Benzonatate 100 Mg Capsule) 200 mg PO TID PRN PRN Reason: cough Guaifenesin (Guaifenesin 100 Mg/5 Ml Liquid) 5 ml PO Q6H [facility] Last Admin: 07/16/22 04:55 Dose: Not Given Documented By: MADHU Non-Admin Reason: Patient Refused Heparin Sodium (Porcine) (Heparin Sodium,Porcine 5,000 Unit/Ml Vial) 5,000 unit SUBCUT Q12H [facility] Last Admin: 07/16/22 08:04 Dose: 5,000 unit Documented By: VISH Hydromorphone HCl (Hydromorphone Hcl 1 Mg/Ml Syringe) 1 mg IVPUSH Q3H PRN; Protocol PRN Reason: Pain, Severe (Pain Scale 7-10) Last Admin: 07/16/22 08:05 Dose: 1 mg Documented By: VISH Hydromorphone HCl (Hydromorphone Hcl 0.5 Mg/0.5 Ml Syringe) 0.5 mg IVPUSH Q2H PRN; Protocol PRN Reason: Pain, Moderate (Pain Scale 4-6 Last Admin: 07/12/22 23:25 Dose: 0.5 mg Documented By: JOSERISLiu Promethazine HCl 6.25 mg/ (Sodium Chloride) 50.25 mls @ 201 mls/hr IV Q6H PRN PRN Reason: nausea Last Infusion: 07/13/22 11:13 Dose: 0 mls/hr Documented By: LORIE Ampicillin Sodium/Sulbactam (Sodium 3 gm/ Sodium Chloride) 100 mls @ 200 mls/hr IV Q6H [facility] Last Infusion: 07/16/22 05:31 Dose: 0 mls/hr Documented By: MADHU Multivitamins 10 ml/ Trace Metals 1 ml/ Amino Acids/Electrolytes 2,000 mls @ 83.333 mls/hr IV DAILY@1800 [facility] Stop: 07/16/22 17:59 Last Admin: 07/15/22 18:53 Dose: 83.33 mls/hr Documented By: LUISITO Lisinopril (Lisinopril 40 Mg Tablet) 40 mg PO DAILY [facility] Last Admin: 07/16/22 08:04 Dose: 40 mg Documented By: VISH Nystatin (Nystatin Powder 15 Gm Bottle) 1 appl TOPICAL TID [facility]; Protocol Last Admin: 07/15/22 21:17 Dose: 1 appl Documented By: LUISITO Ondansetron HCl (Ondansetron Hcl 4 Mg/2 Ml Vial) 4 mg IVPUSH Q8H PRN PRN Reason: nausea Last Admin: 07/13/22 07:41 Dose: 4 mg Documented By: LORIE Ondansetron HCl (Ondansetron Hcl 4 Mg/2 Ml Vial) 4 mg IVPUSH ONCE PRN PRN Reason: Nausea and Vomiting Pharmacy Consult (Consult Rx Perform Med Rec) 1 each MISCELLANE ONCE PRN PRN Reason: Consult order Simethicone (Simethicone 80 Mg Tab.Chew) 80 mg PO Q6H PRN PRN Reason: Gas Last Admin: 07/07/22 22:45 Dose: 80 mg Documented By: SHIRLEY Sodium Chloride (0.9 % Sodium Chloride Flush 3 Ml Syringe) 3 ml IVFLUSH QSHIFT [facility] Last Admin: 07/16/22 08:05 Dose: 3 ml Documented By: VISH Labs CBC & Chem 7: 07/16/22 05:32 07/16/22 05:32 Labs: Laboratory Results - last 24 hr 07/15/22 07/15/22 07/15/22 06:00 11:27 15:15 MCV MCH MCHC RDW Plt Count MPV Absolute Nucleated RBC Nucleated RBC % (auto) Anion Gap Estim Creat Clear Calc Estimated GFR POC Glucose 155 H 126 H Random Glucose Calcium Procalcitonin 0.22 07/15/22 07/16/22 07/16/22 19:27 05:32 05:32 MCV 95.0 MCH 31.8 MCHC 33.4 RDW 12.9 Plt Count 413 H MPV 9.7 Absolute Nucleated RBC 0.000 Nucleated RBC % (auto) 0.0 Anion Gap 14 Estim Creat Clear Calc 101.7 Estimated GFR > 60 POC Glucose 142 H Random Glucose 152 H Calcium 7.6 L Procalcitonin 07/16/22 07:21 MCV MCH MCHC RDW Plt Count MPV Absolute Nucleated RBC Nucleated RBC % (auto) Anion Gap Estim Creat Clear Calc Estimated GFR POC Glucose 137 H Random Glucose Calcium Procalcitonin Procedures Date of Service Date of Service: 07/16/22 Progress Note: A&P Assessment and plan (1) Dehiscence of closure of fascia, superficial or muscular: Status: Acute Assessment and Plan: 72-year-old male patient status post repair peristomal hernia with subsequent dehiscence requiring return to OR for repair with placement of retention sutures. Patient reports good pain control. Awaiting return of bowel function. Patient currently on TPN. Continue TPN as ordered. Webb catheter reinserted due to urinary retention. Encourage patient to use incentive spirometry every hour. Continue NPO. Time Spent With Patient Time: Total time spent is greater than 50% in coordination of care (as documented) at patient's floor/unit and/or counseling patient: Quality Stroke Does the patient have a stroke diagnosis?: No VTE Prior VTE?: No VTE Risk Level:: Medical - moderate - high VTE Device Contraindication: N/A - Device Ordered VTE Drug Contraindication: N/A - Med Ordered
[2022-07-16] MEDS: Nystatin Powder 15 GM BOTTLE 1 APPL TOPICAL ×3 (09:11→21:15)
--- NOTE | 2022-07-16 09:42 | HO.PM.IMPN ---
Subjective Subjective Date of Service: 07/16/22 Interval History: Seen in f/u for med consult No sob, breathing + cough improved, off O2 incisional pain controlled eager to eat, still has NGT in Review of Systems no sob, no fever, incisional pain Physical Exam Vital Signs: Vital Signs: Last Vital Signs Temp 98.2 F 07/16/22 07:26 Pulse 89 07/16/22 07:26 Resp 18 07/16/22 07:26 BP 160/70 H 07/16/22 07:26 Pulse Ox 95 07/16/22 08:18 O2 Del Method 07/16/22 08:18 O2 Flow Rate 2 07/15/22 07:15 FiO2 35 07/12/22 03:50 Oxygen Flow Rate 2 07/14/22 08:00 BMI result Body Mass Index 29.0 Const: Other: Gen: in no acute distress HEENT: sclera anicteric, moist mucus membranes Neck: supple Lungs: clear to auscultation bilaterally Heart: regular rate and rhythm, no murmurs Abd: soft, stoma ok, NG tube with bilious drainage Ext: trace edema Skin: warm/well-perfused Neuro: alert and oriented x3, no focal findings Psych: appropriate affect ? Objective Data Active Medications Albuterol/Ipratropium (Albuterol/Iprat 2.5/0.5mg 3 Ml Ampul.Neb) 3 ml INHALE RQ4H PRN PRN Reason: Shortness of Breath/Wheezing Last Admin: 07/07/22 23:33 Dose: 3 ml Documented By: ROCKY Albuterol/Ipratropium (Albuterol/Iprat 2.5/0.5mg 3 Ml Ampul.Neb) 3 ml INHALE RQ4H WHILE AWAKE [facility] Last Admin: 07/16/22 07:42 Dose: Not Given Documented By: RUTH Non-Admin Reason: Patient Refused Benzonatate (Benzonatate 100 Mg Capsule) 200 mg PO TID PRN PRN Reason: cough Guaifenesin (Guaifenesin 100 Mg/5 Ml Liquid) 5 ml PO Q6H [facility] Last Admin: 07/16/22 09:13 Dose: Not Given Documented By: VISH Non-Admin Reason: Patient Refused Heparin Sodium (Porcine) (Heparin Sodium,Porcine 5,000 Unit/Ml Vial) 5,000 unit SUBCUT Q12H [facility] Last Admin: 07/16/22 08:04 Dose: 5,000 unit Documented By: VISH Hydromorphone HCl (Hydromorphone Hcl 1 Mg/Ml Syringe) 1 mg IVPUSH Q3H PRN; Protocol PRN Reason: Pain, Severe (Pain Scale 7-10) Last Admin: 07/16/22 08:05 Dose: 1 mg Documented By: VISH Hydromorphone HCl (Hydromorphone Hcl 0.5 Mg/0.5 Ml Syringe) 0.5 mg IVPUSH Q2H PRN; Protocol PRN Reason: Pain, Moderate (Pain Scale 4-6 Last Admin: 07/12/22 23:25 Dose: 0.5 mg Documented By: SHIRLEY Promethazine HCl 6.25 mg/ (Sodium Chloride) 50.25 mls @ 201 mls/hr IV Q6H PRN PRN Reason: nausea Last Infusion: 07/13/22 11:13 Dose: 0 mls/hr Documented By: LORIE Ampicillin Sodium/Sulbactam (Sodium 3 gm/ Sodium Chloride) 100 mls @ 200 mls/hr IV Q6H [facility] Last Infusion: 07/16/22 05:31 Dose: 0 mls/hr Documented By: MADHU Multivitamins 10 ml/ Trace Metals 1 ml/ Amino Acids/Electrolytes 2,000 mls @ 83.333 mls/hr IV DAILY@1800 [facility] Stop: 07/16/22 17:59 Last Admin: 07/15/22 18:53 Dose: 83.33 mls/hr Documented By: LUISITO Lisinopril (Lisinopril 40 Mg Tablet) 40 mg PO DAILY [facility] Last Admin: 07/16/22 08:04 Dose: 40 mg Documented By: VISH Nystatin (Nystatin Powder 15 Gm Bottle) 1 appl TOPICAL TID [facility]; Protocol Last Admin: 07/16/22 09:11 Dose: 1 appl Documented By: VISH Ondansetron HCl (Ondansetron Hcl 4 Mg/2 Ml Vial) 4 mg IVPUSH Q8H PRN PRN Reason: nausea Last Admin: 07/13/22 07:41 Dose: 4 mg Documented By: LORIE Ondansetron HCl (Ondansetron Hcl 4 Mg/2 Ml Vial) 4 mg IVPUSH ONCE PRN PRN Reason: Nausea and Vomiting Pharmacy Consult (Consult Rx Perform Med Rec) 1 each MISCELLANE ONCE PRN PRN Reason: Consult order Simethicone (Simethicone 80 Mg Tab.Chew) 80 mg PO Q6H PRN PRN Reason: Gas Last Admin: 07/07/22 22:45 Dose: 80 mg Documented By: SHIRLEY Sodium Chloride (0.9 % Sodium Chloride Flush 3 Ml Syringe) 3 ml IVFLUSH QSHIFT [facility] Last Admin: 07/16/22 08:05 Dose: 3 ml Documented By: VISH Labs CBC & Chem 7: 07/16/22 05:32 07/16/22 05:32 Labs: Laboratory Results - last 24 hr 07/15/22 07/15/22 07/15/22 06:00 11:27 15:15 MCV MCH MCHC RDW Plt Count MPV Absolute Nucleated RBC Nucleated RBC % (auto) Anion Gap Estim Creat Clear Calc Estimated GFR POC Glucose 155 H 126 H Random Glucose Calcium Procalcitonin 0.22 07/15/22 07/16/22 07/16/22 19:27 05:32 05:32 MCV 95.0 MCH 31.8 MCHC 33.4 RDW 12.9 Plt Count 413 H MPV 9.7 Absolute Nucleated RBC 0.000 Nucleated RBC % (auto) 0.0 Anion Gap 14 Estim Creat Clear Calc 101.7 Estimated GFR > 60 POC Glucose 142 H Random Glucose 152 H Calcium 7.6 L Procalcitonin 07/16/22 07:21 MCV MCH MCHC RDW Plt Count MPV Absolute Nucleated RBC Nucleated RBC % (auto) Anion Gap Estim Creat Clear Calc Estimated GFR POC Glucose 137 H Random Glucose Calcium Procalcitonin Assessment and Plan (1) Acute respiratory failure with hypoxia: Status: Acute Plan 72yo M with colon CA s/p resection/osteomy, HTN admitted to general surgery service for parastomal hernia, repaired 07/05, back to OR 07/11 for fascial dehiscence medicine consultation for hypoxia from aspiration/mucus plugging # acute hypoxic resp failure--resolved, doing well on room air. use IS # presumed aspiration PNA - continue amp/sulbactam d#06/07, PCT decreasing appropriately # moderate emphysema (on CT, not previously diagnosed) - prn nebs, outpt PFTs # HTN - continue lisinopril 40 mg daily # parastomal hernia # fascial dehiscence - management as per Surgery # postop ileus - on TPN until bowel function returns # VTE ppx - UFH Need for inaptient: Defer to surgery Quality Stroke Does the patient have a stroke diagnosis?: No VTE Prior VTE?: No VTE Risk Level:: Medical - moderate - high VTE Device Contraindication: N/A - Device Ordered VTE Drug Contraindication: N/A - Med Ordered
[2022-07-16 10:03] LABS: Magnesium 1.8 mg/dL (1.6-2.6)
--- NOTE | 2022-07-16 11:31 | MHC.CLN ---
F/U CONTINUES NPO WITH TPN. TPN D15AA5 AT MAX GOAL RATE 83.33ML/HR WITH 10 ML OF 20% LIPIDS. PROVIDES 1662 KCALS (23 KCALS/KG CALCULATED METABOLIC WEIGHT); 100 G PROTEIN (1.4 G/KG CALCULATED METABOLIC WEIGHT). REPLETE LYTES NEEDED. REVIEWED LABS AND COMMUNICATED WITH PHARMACY. FOLLOW FOR DIET ADVANCEMENT AND TPN TOLERANCE.
[2022-07-16 11:44] LABS: Glucose, Whole Blood 145 mg/dL (60-115)
--- NOTE | 2022-07-16 15:26 | MHC.CM.PN ---
EMR REVIEWED, PT REMAINS ON NPO, TPN AND NGT IN PLACE UNTIL BOWEL FX RETURNS, CM WILL CONT TO FOLLOW D/C NEEDS.
[2022-07-16 15:51] LABS: Glucose, Whole Blood 137 mg/dL (60-115)
--- NOTE | 2022-07-16 15:54 | PC.RT ---
pt refusing respiratory treatments. doesnt want us to come in room. Spoke with Dr. Guerra and will dc these treatments.
[2022-07-16] MEDS: Fat Emulsions 20% 250 ML 10 ML IV (18:07)
[2022-07-16 20:24] LABS: Glucose, Whole Blood 122 mg/dL (60-115)
[2022-07-17] VITALS (7 sets, daily range): BP systolic 146–175; BP diastolic 74–88; PULSE 75–83; RESP 16–20; TEMP 36.2–36.9; O2SAT 94–97; BMI 31.4
[2022-07-17] MEDS: Ampicillin Sodium/Sulbactam Na 3 GM in 0.9 % Sodium Chloride 100 ML IV ×4 (05:05→23:48)
[2022-07-17 05:57] LABS: Anion Gap 14 (12-20); Blood Urea Nitrogen 23 mg/dL (9-16); Calcium 7.5 mg/dL (8.4-10.2); Carbon Dioxide 29 mmol/L (22-29); Chloride 103 mmol/L (96-108); Creatinine Clr Calc Pharmacy 106.5; Estimated Glomerular Filt Rate > 60; Glucose Random 147 mg/dL (60-115); Potassium 4.1 mmol/L (3.3-5.1); Sodium 142 mmol/L (135-145)
[2022-07-17 07:32] LABS: Glucose, Whole Blood 137 mg/dL (60-115)
[2022-07-17] MEDS: HYDROmorphone HCl 1 MG/ML SYRINGE IVPUSH ×4 (07:48→20:00)
[2022-07-17] MEDS: lisinopriL 40 MG TABLET PO (07:48)
[2022-07-17] MEDS: Heparin Sodium,Porcine 5,000 UNIT/ML VIAL 5000 UNIT SUBCUT ×2 (07:48→22:07)
[2022-07-17] MEDS: Nystatin Powder 15 GM BOTTLE 1 APPL TOPICAL ×3 (07:52→20:06)
[2022-07-17 07:54] LABS: Albumin Level 2.2 g/dL (3.5-5.0); Magnesium 1.9 mg/dL (1.6-2.6); Phosphorus 3.5 mg/dL (2.7-4.5)
--- NOTE | 2022-07-17 10:07 | HO.PM.IMPN ---
Subjective Subjective Date of Service: 07/17/22 Interval History: Seen in f/u for med consult No sob, breathing + cough improved, off O2 incisional pain controlled eager to eat, still has NGT in Review of Systems no sob, no fever, incisional pain Physical Exam Vital Signs: Vital Signs: Last Vital Signs Temp 98.1 F 07/17/22 07:30 Pulse 83 07/17/22 07:30 Resp 19 07/17/22 07:30 BP 168/88 H 07/17/22 07:30 Pulse Ox 95 07/17/22 08:00 O2 Del Method 07/17/22 08:00 O2 Flow Rate 2 07/15/22 07:15 FiO2 35 07/12/22 03:50 Oxygen Flow Rate 2 07/14/22 08:00 BMI result Body Mass Index 29.0 Const: Other: Gen: in no acute distress HEENT: sclera anicteric, moist mucus membranes Neck: supple Lungs: clear to auscultation bilaterally Heart: regular rate and rhythm, no murmurs Abd: soft, stoma ok, NG tube with bilious drainage Ext: trace edema Skin: warm/well-perfused Neuro: alert and oriented x3, no focal findings Psych: appropriate affect ? Objective Data Active Medications Albuterol/Ipratropium (Albuterol/Iprat 2.5/0.5mg 3 Ml Ampul.Neb) 3 ml INHALE RQ4H PRN PRN Reason: Shortness of Breath/Wheezing Last Admin: 07/07/22 23:33 Dose: 3 ml Documented By: ROCKY Albuterol/Ipratropium (Albuterol/Iprat 2.5/0.5mg 3 Ml Ampul.Neb) 3 ml INHALE RQ4H WHILE AWAKE [facility] Last Admin: 07/17/22 08:21 Dose: Not Given Documented By: RUBÉN Non-Admin Reason: Patient Refused Benzonatate (Benzonatate 100 Mg Capsule) 200 mg PO TID PRN PRN Reason: cough Guaifenesin (Guaifenesin 100 Mg/5 Ml Liquid) 5 ml PO Q6H [facility] Last Admin: 07/17/22 09:02 Dose: Not Given Documented By: BIBIANA Non-Admin Reason: Patient Refused Heparin Sodium (Porcine) (Heparin Sodium,Porcine 5,000 Unit/Ml Vial) 5,000 unit SUBCUT Q12H [facility] Last Admin: 07/17/22 07:48 Dose: 5,000 unit Documented By: TANO Hydromorphone HCl (Hydromorphone Hcl 1 Mg/Ml Syringe) 1 mg IVPUSH Q3H PRN; Protocol PRN Reason: Pain, Severe (Pain Scale 7-10) Last Admin: 07/17/22 07:48 Dose: 1 mg Documented By: TANO Hydromorphone HCl (Hydromorphone Hcl 0.5 Mg/0.5 Ml Syringe) 0.5 mg IVPUSH Q2H PRN; Protocol PRN Reason: Pain, Moderate (Pain Scale 4-6 Last Admin: 07/12/22 23:25 Dose: 0.5 mg Documented By: SHIRLEY Promethazine HCl 6.25 mg/ (Sodium Chloride) 50.25 mls @ 201 mls/hr IV Q6H PRN PRN Reason: nausea Last Infusion: 07/13/22 11:13 Dose: 0 mls/hr Documented By: LORIE Ampicillin Sodium/Sulbactam (Sodium 3 gm/ Sodium Chloride) 100 mls @ 200 mls/hr IV Q6H [facility] Last Infusion: 07/17/22 05:46 Dose: 0 mls/hr Documented By: MADHU Multivitamins 10 ml/ Trace Metals 1 ml/ Amino Acids/Electrolytes 2,000 mls @ 83.333 mls/hr IV DAILY@1800 [facility] Stop: 07/17/22 17:59 Last Admin: 07/16/22 18:07 Dose: 83.33 mls/hr Documented By: DANTE Multivitamins 10 ml/ Trace Metals 1 ml/ Amino Acids/Electrolytes 1,999.92 mls @ 83.33 mls/hr IV DAILY@1800 [facility] Stop: 07/18/22 17:59 Fat Emulsion Intravenous (Intralipid) 120 mls @ 10 mls/hr IV DAILY@1800 [facility] Stop: 07/18/22 05:59 Lisinopril (Lisinopril 40 Mg Tablet) 40 mg PO DAILY [facility] Last Admin: 07/17/22 07:48 Dose: 40 mg Documented By: TANO Nystatin (Nystatin Powder 15 Gm Bottle) 1 appl TOPICAL TID [facility]; Protocol Last Admin: 07/17/22 07:52 Dose: 1 appl Documented By: TANO Ondansetron HCl (Ondansetron Hcl 4 Mg/2 Ml Vial) 4 mg IVPUSH Q8H PRN PRN Reason: nausea Last Admin: 07/13/22 07:41 Dose: 4 mg Documented By: LORIE Ondansetron HCl (Ondansetron Hcl 4 Mg/2 Ml Vial) 4 mg IVPUSH ONCE PRN PRN Reason: Nausea and Vomiting Pharmacy Consult (Consult Rx Perform Med Rec) 1 each MISCELLANE ONCE PRN PRN Reason: Consult order Simethicone (Simethicone 80 Mg Tab.Chew) 80 mg PO Q6H PRN PRN Reason: Gas Last Admin: 07/07/22 22:45 Dose: 80 mg Documented By: SHIRLEY Sodium Chloride (0.9 % Sodium Chloride Flush 3 Ml Syringe) 3 ml IVFLUSH [facility] Last Admin: 07/17/22 07:54 Dose: Not Given Documented By: TANO Non-Admin Reason: tlc flush only Labs CBC & Chem 7: 07/16/22 05:32 07/17/22 05:12 Labs: Laboratory Results - last 24 hr 07/16/22 07/16/22 07/16/22 11:40 15:44 20:09 Anion Gap Estim Creat Clear Calc Estimated GFR POC Glucose 145 H 137 H 122 H Random Glucose Calcium Phosphorus Magnesium Albumin 07/17/22 07/17/22 05:12 07:14 Anion Gap 14 Estim Creat Clear Calc 106.5 Estimated GFR > 60 POC Glucose 137 H Random Glucose 147 H Calcium 7.5 L Phosphorus 3.5 Magnesium 1.9 Albumin 2.2 L Assessment and Plan (1) Acute respiratory failure with hypoxia: Status: Acute Plan 72yo M with colon CA s/p resection/osteomy, HTN admitted to general surgery service for parastomal hernia, repaired 07/05, back to OR 07/11 for fascial dehiscence medicine consultation for hypoxia from aspiration/mucus plugging # acute hypoxic resp failure--resolved, doing well on room air. use IS # presumed aspiration PNA - completed amp/sulbactam d#06/07, PCT decreasing appropriately # moderate emphysema (on CT, not previously diagnosed) - prn nebs, outpt PFTs # HTN - continue lisinopril 40 mg daily # parastomal hernia # fascial dehiscence - management as per Surgery # postop ileus - on TPN until bowel function returns # VTE ppx - UFH Need for inaptient: Defer to surgery Quality Stroke Does the patient have a stroke diagnosis?: No VTE Prior VTE?: No VTE Risk Level:: Medical - moderate - high VTE Device Contraindication: N/A - Device Ordered VTE Drug Contraindication: N/A - Med Ordered
--- NOTE | 2022-07-17 11:31 | MHC.CLN ---
F/U CONTINUES NPO WITH TPN. TPN D15AA5 AT MAX GOAL RATE 83.33ML/HR WITH 10 ML OF 20% LIPIDS PROVIDES 1662 KCALS (23 KCALS/KG [facility]); 100 G PROTEIN (1.4 G/KG) REPLETE LYTES NEEDED REVIEWED LABS AND COMMUNICATED WITH PHARMACY
[2022-07-17 11:45] LABS: Glucose, Whole Blood 134 mg/dL (60-115)
--- NOTE | 2022-07-17 13:21 | MHC.CM.PN ---
PER ROUNDS DISCUSSION, PATIENT NOT YET MEDICALLY CLEARED FOR DISCHARGE TODAY R/T ON NG TUBE, NPO, AND REINSERTED CHUNG CATHETER. DISCHARGE PLAN CONTINUES TO BE HOME SELF-CARE vs HOME WITH NEW VNA. CM WILL CONTINUE TO FOLLOW FOR DISCHARGE NEED.
[2022-07-17 16:13] LABS: Glucose, Whole Blood 121 mg/dL (60-115)
[2022-07-17] MEDS: Fat Emulsions 20% 250 ML 10 ML IV (18:10)
[2022-07-17 20:32] LABS: Glucose, Whole Blood 150 mg/dL (60-115)
[2022-07-18] VITALS (9 sets, daily range): BP systolic 144–179; BP diastolic 63–91; PULSE 70–78; RESP 17–20; TEMP 36.1–36.3; O2SAT 95–98; BMI 31.8
[2022-07-18] MEDS: HYDROmorphone HCl 1 MG/ML SYRINGE IVPUSH ×4 (02:17→16:56)
[2022-07-18] MEDS: Ampicillin Sodium/Sulbactam Na 3 GM in 0.9 % Sodium Chloride 100 ML IV ×4 (04:45→22:47)
[2022-07-18 06:33] LABS: Anion Gap 14 (12-20); Blood Urea Nitrogen 22 mg/dL (9-16); Calcium 7.6 mg/dL (8.4-10.2); Carbon Dioxide 29 mmol/L (22-29); Chloride 104 mmol/L (96-108); Creatinine Clr Calc Pharmacy 107.3; Estimated Glomerular Filt Rate > 60; Glucose Random 148 mg/dL (60-115); Potassium 4.3 mmol/L (3.3-5.1); Sodium 143 mmol/L (135-145)
[2022-07-18 06:52] LABS: Hematocrit 30.5 % (42.0-52.0); Hemoglobin 10.1 g/dl (14.0-18.0); Mean Corpuscular HGB Conc 33.1 g/dl (31.0-36.0); Mean Corpuscular Hemoglobin 32.1 pg (27.0-33.0); Mean Corpuscular Volume 96.8 fL (80.0-98.0); Mean Platelet Volume 10.6 fL (9.4-12.4); Platelet Count 470 X10*3/uL (160-400); Red Blood Count 3.15 X10*6/uL (4.60-5.80); Red Cell Distribution Width 13.2 % (11.0-16.0); White Blood Count 13.9 X10*3/uL (4.8-10.8)
[2022-07-18 07:44] LABS: Glucose, Whole Blood 141 mg/dL (60-115)
[2022-07-18] MEDS: lisinopriL 40 MG TABLET PO (08:51)
--- NOTE | 2022-07-18 08:59 | P.PNGS_ITS ---
Subjective Subjective Date of Service: 07/18/22 Interval history: NG tube advanced yesterday, producing approximately 100 mL of gastric fluid. Patient feels much improved this morning with decreased upper abdominal pain. He still has some hickups. Denies any further coughing episodes. Physical Exam Vital Signs: Vital Signs: Last Vital Signs Temp 97.1 F 07/18/22 07:45 Pulse 75 07/18/22 07:45 Resp 18 07/18/22 07:45 BP 167/88 H 07/18/22 07:45 Pulse Ox 98 07/18/22 08:00 O2 Del Method 07/18/22 08:00 O2 Flow Rate 2 07/15/22 07:15 FiO2 35 07/12/22 03:50 Oxygen Flow Rate 2 07/14/22 08:00 BMI result Body Mass Index 31.8 Const: General: no acute distress Nutritional Appearance: well nourished Orientation/consciousness: patient oriented x3 Resp: Effort & Inspection: normal respiratory effort GI: Other: Softly distended, tympanitic to percussion, much softer than yesterday. Incision clean and intact. Ostomy pain but no stool or gas. Skin: Other: Warm, dry, no rash Neuro: General: patient oriented x3 Extrem: Other: No edema Objective Data Active Medications Albuterol/Ipratropium (Albuterol/Iprat 2.5/0.5mg 3 Ml Ampul.Neb) 3 ml INHALE RQ4H PRN PRN Reason: Shortness of Breath/Wheezing Last Admin: 07/07/22 23:33 Dose: 3 ml Documented By: ROCKY Benzonatate (Benzonatate 100 Mg Capsule) 200 mg PO TID PRN PRN Reason: cough Guaifenesin (Guaifenesin 100 Mg/5 Ml Liquid) 5 ml PO Q6H [facility] Last Admin: 07/18/22 04:08 Dose: Not Given Documented By: MADHU Non-Admin Reason: Patient Refused Heparin Sodium (Porcine) (Heparin Sodium,Porcine 5,000 Unit/Ml Vial) 5,000 unit SUBCUT Q12H [facility] Last Admin: 07/17/22 22:07 Dose: 5,000 unit Documented By: DANTE Hydromorphone HCl (Hydromorphone Hcl 1 Mg/Ml Syringe) 1 mg IVPUSH Q3H PRN; Protocol PRN Reason: Pain, Severe (Pain Scale 7-10) Last Admin: 07/18/22 06:02 Dose: 1 mg Documented By: MADHU Hydromorphone HCl (Hydromorphone Hcl 0.5 Mg/0.5 Ml Syringe) 0.5 mg IVPUSH Q2H PRN; Protocol PRN Reason: Pain, Moderate (Pain Scale 4-6 Last Admin: 07/12/22 23:25 Dose: 0.5 mg Documented By: SHIRLEY Promethazine HCl 6.25 mg/ (Sodium Chloride) 50.25 mls @ 201 mls/hr IV Q6H PRN PRN Reason: nausea Last Infusion: 07/13/22 11:13 Dose: 0 mls/hr Documented By: LORIE Ampicillin Sodium/Sulbactam (Sodium 3 gm/ Sodium Chloride) 100 mls @ 200 mls/hr IV Q6H [facility] Last Infusion: 07/18/22 05:19 Dose: 0 mls/hr Documented By: MADHU Multivitamins 10 ml/ Trace Metals 1 ml/ Amino Acids/Electrolytes 1,999.92 mls @ 83.33 mls/hr IV DAILY@1800 [facility] Stop: 07/18/22 17:59 Last Admin: 07/17/22 18:10 Dose: 83.33 mls/hr Documented By: TANO Lisinopril (Lisinopril 40 Mg Tablet) 40 mg PO DAILY [facility] Last Admin: 07/18/22 08:51 Dose: 40 mg Documented By: TANO Nystatin (Nystatin Powder 15 Gm Bottle) 1 appl TOPICAL TID [facility]; Protocol Last Admin: 07/17/22 20:06 Dose: 1 appl Documented By: DANTE Ondansetron HCl (Ondansetron Hcl 4 Mg/2 Ml Vial) 4 mg IVPUSH Q8H PRN PRN Reason: nausea Last Admin: 07/13/22 07:41 Dose: 4 mg Documented By: LORIE Ondansetron HCl (Ondansetron Hcl 4 Mg/2 Ml Vial) 4 mg IVPUSH ONCE PRN PRN Reason: Nausea and Vomiting Pharmacy Consult (Consult Rx Perform Med Rec) 1 each MISCELLANE ONCE PRN PRN Reason: Consult order Simethicone (Simethicone 80 Mg Tab.Chew) 80 mg PO Q6H PRN PRN Reason: Gas Last Admin: 07/07/22 22:45 Dose: 80 mg Documented By: SHIRLEY Sodium Chloride (0.9 % Sodium Chloride Flush 3 Ml Syringe) 3 ml IVFLUSH QSHIFT [facility] Last Admin: 07/18/22 01:13 Dose: Not Given Documented By: MADHU Non-Admin Reason: tlc flush only Labs CBC & Chem 7: 07/18/22 05:07 07/18/22 05:07 Labs: Laboratory Results - last 24 hr 07/17/22 07/17/22 07/17/22 11:18 15:55 20:18 MCV MCH MCHC RDW Plt Count MPV Absolute Nucleated RBC Nucleated RBC % (auto) Anion Gap Estim Creat Clear Calc Estimated GFR POC Glucose 134 H 121 H 150 H Random Glucose Calcium 07/18/22 07/18/22 07/18/22 05:07 05:07 07:15 MCV 96.8 MCH 32.1 MCHC 33.1 RDW 13.2 Plt Count 470 H MPV 10.6 Absolute Nucleated RBC 0.000 Nucleated RBC % (auto) 0.0 Anion Gap 14 Estim Creat Clear Calc 107.3 Estimated GFR > 60 POC Glucose 141 H Random Glucose 148 H Calcium 7.6 L Procedures Date of Service Date of Service: 07/18/22 Progress Note: A&P Assessment and plan (1) Ileus: Status: Acute (2) Dehiscence of closure of fascia, superficial or muscular: Status: Acute (3) Parastomal hernia: Status: Acute Plan Abdominal exam much improved this morning, softer and less tympanitic. Symptomatically is improved as well although no return of bowel function as of yet. Continue NPO with TPN. Recheck WBC. Encourage incentive spirometry. Time Spent With Patient Time: Total time spent is greater than 50% in coordination of care (as documented) at patient's floor/unit and/or counseling patient: Quality Stroke Does the patient have a stroke diagnosis?: No VTE Prior VTE?: No VTE Risk Level:: Medical - moderate - high VTE Device Contraindication: N/A - Device Ordered VTE Drug Contraindication: N/A - Med Ordered
[2022-07-18 10:41] LABS: Albumin Level 2.3 g/dL (3.5-5.0); Phosphorus 3.8 mg/dL (2.7-4.5); Triglycerides 145 mg/dL
[2022-07-18] MEDS: Nystatin Powder 15 GM BOTTLE 1 APPL TOPICAL ×3 (10:44→20:14)
[2022-07-18] MEDS: Heparin Sodium,Porcine 5,000 UNIT/ML VIAL 5000 UNIT SUBCUT ×2 (10:44→21:26)
[2022-07-18] MEDS: 0.9 % Sodium Chloride Flush 3 ML SYRINGE IVFLUSH ×2 (10:44→16:55)
--- NOTE | 2022-07-18 11:19 | HO.PM.IMPN ---
Subjective Subjective Date of Service: 07/18/22 Interval History: Seen in f/u for med consult No sob, breathing + cough improved, off O2 incisional pain controlled eager to eat, still has NGT in Review of Systems no sob, no fever, incisional pain Physical Exam Vital Signs: Vital Signs: Last Vital Signs Temp 97.1 F 07/18/22 07:45 Pulse 75 07/18/22 07:45 Resp 18 07/18/22 07:45 BP 167/88 H 07/18/22 07:45 Pulse Ox 98 07/18/22 08:00 O2 Del Method 07/18/22 08:00 O2 Flow Rate 2 07/15/22 07:15 FiO2 35 07/12/22 03:50 Oxygen Flow Rate 2 07/14/22 08:00 BMI result Body Mass Index 31.8 Const: Other: Gen: in no acute distress HEENT: sclera anicteric, moist mucus membranes Neck: supple Lungs: clear to auscultation bilaterally Heart: regular rate and rhythm, no murmurs Abd: soft, stoma ok, NG tube with bilious drainage, no bowel sounds Ext: trace edema Skin: warm/well-perfused Neuro: alert and oriented x3, no focal findings Psych: appropriate affect ? Objective Data Active Medications Albuterol/Ipratropium (Albuterol/Iprat 2.5/0.5mg 3 Ml Ampul.Neb) 3 ml INHALE RQ4H PRN PRN Reason: Shortness of Breath/Wheezing Last Admin: 07/07/22 23:33 Dose: 3 ml Documented By: ROCKY Benzonatate (Benzonatate 100 Mg Capsule) 200 mg PO TID PRN PRN Reason: cough Guaifenesin (Guaifenesin 100 Mg/5 Ml Liquid) 5 ml PO Q6H [facility] Last Admin: 07/18/22 10:49 Dose: Not Given Documented By: TANO Non-Admin Reason: Patient Refused Heparin Sodium (Porcine) (Heparin Sodium,Porcine 5,000 Unit/Ml Vial) 5,000 unit SUBCUT Q12H [facility] Last Admin: 07/18/22 10:44 Dose: 5,000 unit Documented By: TANO Hydromorphone HCl (Hydromorphone Hcl 1 Mg/Ml Syringe) 1 mg IVPUSH Q3H PRN; Protocol PRN Reason: Pain, Severe (Pain Scale 7-10) Last Admin: 07/18/22 06:02 Dose: 1 mg Documented By: MADHU Hydromorphone HCl (Hydromorphone Hcl 0.5 Mg/0.5 Ml Syringe) 0.5 mg IVPUSH Q2H PRN; Protocol PRN Reason: Pain, Moderate (Pain Scale 4-6 Last Admin: 07/12/22 23:25 Dose: 0.5 mg Documented By: SHIRLEY Promethazine HCl 6.25 mg/ (Sodium Chloride) 50.25 mls @ 201 mls/hr IV Q6H PRN PRN Reason: nausea Last Infusion: 07/13/22 11:13 Dose: 0 mls/hr Documented By: LORIE Ampicillin Sodium/Sulbactam (Sodium 3 gm/ Sodium Chloride) 100 mls @ 200 mls/hr IV Q6H [facility] Last Admin: 07/18/22 10:44 Dose: 200 mls/hr Documented By: TANO Multivitamins 10 ml/ Trace Metals 1 ml/ Amino Acids/Electrolytes 1,999.92 mls @ 83.33 mls/hr IV DAILY@1800 [facility] Stop: 07/18/22 17:59 Last Admin: 07/17/22 18:10 Dose: 83.33 mls/hr Documented By: TANO Lisinopril (Lisinopril 40 Mg Tablet) 40 mg PO DAILY [facility] Last Admin: 07/18/22 08:51 Dose: 40 mg Documented By: TANO Nystatin (Nystatin Powder 15 Gm Bottle) 1 appl TOPICAL TID [facility]; Protocol Last Admin: 07/18/22 10:44 Dose: 1 appl Documented By: TANO Ondansetron HCl (Ondansetron Hcl 4 Mg/2 Ml Vial) 4 mg IVPUSH Q8H PRN PRN Reason: nausea Last Admin: 07/13/22 07:41 Dose: 4 mg Documented By: LORIE Ondansetron HCl (Ondansetron Hcl 4 Mg/2 Ml Vial) 4 mg IVPUSH ONCE PRN PRN Reason: Nausea and Vomiting Pharmacy Consult (Consult Rx Perform Med Rec) 1 each MISCELLANE ONCE PRN PRN Reason: Consult order Simethicone (Simethicone 80 Mg Tab.Chew) 80 mg PO Q6H PRN PRN Reason: Gas Last Admin: 07/07/22 22:45 Dose: 80 mg Documented By: SHIRLEY Sodium Chloride (0.9 % Sodium Chloride Flush 3 Ml Syringe) 3 ml IVFLUSH QSHIFT [facility] Last Admin: 07/18/22 10:44 Dose: 3 ml Documented By: TANO Labs CBC & Chem 7: 07/18/22 05:07 07/18/22 05:07 Labs: Laboratory Results - last 24 hr 07/17/22 07/17/22 07/17/22 11:18 15:55 20:18 MCV MCH MCHC RDW Plt Count MPV Absolute Nucleated RBC Nucleated RBC % (auto) Anion Gap Estim Creat Clear Calc Estimated GFR POC Glucose 134 H 121 H 150 H Random Glucose Calcium Phosphorus Magnesium Albumin Triglycerides 07/18/22 07/18/22 07/18/22 05:07 05:07 07:15 MCV 96.8 MCH 32.1 MCHC 33.1 RDW 13.2 Plt Count 470 H MPV 10.6 Absolute Nucleated RBC 0.000 Nucleated RBC % (auto) 0.0 Anion Gap 14 Estim Creat Clear Calc 107.3 Estimated GFR > 60 POC Glucose 141 H Random Glucose 148 H Calcium 7.6 L Phosphorus 3.8 Magnesium 2.0 Albumin 2.3 L Triglycerides 145 Assessment and Plan (1) Acute respiratory failure with hypoxia: Status: Acute Plan 72yo M with colon CA s/p resection/osteomy, HTN admitted to general surgery service for parastomal hernia, repaired 07/05, back to OR 07/11 for fascial dehiscence medicine consultation for hypoxia from aspiration/mucus plugging # acute hypoxic resp failure--resolved, doing well on room air. use IS # presumed aspiration PNA - completed amp/sulbactam d#06/07, PCT decreasing appropriately # moderate emphysema (on CT, not previously diagnosed) - prn nebs, outpt PFTs # HTN - continue lisinopril 40 mg daily and additional meds as needed # parastomal hernia # fascial dehiscence - management as per Surgery # postop ileus - on TPN until bowel function returns # VTE ppx - UFH Need for inaptient: Defer to surgery Quality Stroke Does the patient have a stroke diagnosis?: No VTE Prior VTE?: No VTE Risk Level:: Medical - moderate - high VTE Device Contraindication: N/A - Device Ordered VTE Drug Contraindication: N/A - Med Ordered
--- NOTE | 2022-07-18 11:33 | MHC.CLN ---
F/U CONTINUES NPO WITH TPN. TPN [id number] AT MAX GOAL RATE 83.33ML/HR WITH 10 ML OF 20% LIPIDS PROVIDES 1662 KCALS (23 KCALS/KG CMW); 100 G PROTEIN (1.4 G/KG). REPLETE LYTES NEEDED. REVIEWED LABS AND COMMUNICATED WITH PHARMACY AND MD. REVIEW OF RECENT WEIGHTS SHOWS WEIGHT GAIN OF 9.9% X 5 DAYS. NO SOB NOTED AND ONLY TRACE EDEMA. SUSPECT WEIGHT GAIN NOT ACTUAL. RD RECOMMENDS CONTINUE TPN AND LIPIDS AT MAX GOAL RATE.
[2022-07-18 11:48] LABS: Glucose, Whole Blood 120 mg/dL (60-115)
[2022-07-18 16:22] LABS: Glucose, Whole Blood 140 mg/dL (60-115)
[2022-07-18] MEDS: Fat Emulsions 20% 250 ML 10 ML IV (18:05)
[2022-07-18 20:14] LABS: Glucose, Whole Blood 122 mg/dL (60-115)
[2022-07-19] VITALS (7 sets, daily range): BP systolic 138–169; BP diastolic 70–90; PULSE 71–98; RESP 17–19; TEMP 36.1–36.6; O2SAT 94–96; BMI 31.4
[2022-07-19] MEDS: 0.9 % Sodium Chloride Flush 3 ML SYRINGE IVFLUSH ×4 (01:21→22:49)
[2022-07-19] MEDS: Ampicillin Sodium/Sulbactam Na 3 GM in 0.9 % Sodium Chloride 100 ML IV ×4 (04:14→22:40)
[2022-07-19] MEDS: HYDROmorphone HCl 1 MG/ML SYRINGE IVPUSH ×5 (04:18→19:24)
[2022-07-19 05:46] LABS: MANUAL DIFF FLAG NO
[2022-07-19 05:51] LABS: Basophils Absolute Auto 0.1 X10*3/uL (0.0-0.2); Basophils Percent Auto 0.5 % (0-2); Eosinophils Absolute Auto 0.2 X10*3/uL (0.0-0.4); Eosinophils Percent Auto 1.6 % (0-4); Hematocrit 31.7 % (42.0-52.0); Hemoglobin 10.3 g/dl (14.0-18.0); Imm Gran Abs Auto 0.28 X10*3/uL (0.00-0.03); Imm Gran Pct Auto 1.9 % (0.0-0.4); Mean Corpuscular HGB Conc 32.5 g/dl (31.0-36.0); Mean Corpuscular Hemoglobin 30.9 pg (27.0-33.0); Mean Corpuscular Volume 95.2 fL (80.0-98.0); Mean Platelet Volume 10.1 fL (9.4-12.4); Monocytes Absolute Auto 1.4 X10*3/uL (0.1-1.2); Monocytes Percent Auto 9.7 % (2-11); Neutrophils Absolute Auto 11.6 x10*3/uL (2.0-8.3); Neutrophils Percent Auto 79.3 % (45-73); Platelet Count 501 X10*3/uL (160-400); Red Blood Count 3.33 X10*6/uL (4.60-5.80); Red Cell Distribution Width 13.4 % (11.0-16.0); White Blood Count 14.6 X10*3/uL (4.8-10.8)
[2022-07-19 06:05] LABS: INTERNATIONAL NORM RATIO 1.1 (0.9-1.1); Prothrombin Time 12.6 SEC (10.0-13.1)
[2022-07-19 06:06] LABS: Triglycerides 131 mg/dL
[2022-07-19 06:14] LABS: Anion Gap 14 (12-20); Blood Urea Nitrogen 22 mg/dL (9-16); Calcium 7.9 mg/dL (8.4-10.2); Carbon Dioxide 30 mmol/L (22-29); Chloride 103 mmol/L (96-108); Creatinine Clr Calc Pharmacy 104.7; Estimated Glomerular Filt Rate > 60; Glucose Random 154 mg/dL (60-115); Potassium 4.4 mmol/L (3.3-5.1); Sodium 143 mmol/L (135-145)
[2022-07-19 06:59] LABS: Phosphorus 3.9 mg/dL (2.7-4.5)
[2022-07-19] MEDS: Nystatin Powder 15 GM BOTTLE 1 APPL TOPICAL ×3 (07:25→19:31)
[2022-07-19] MEDS: lisinopriL 40 MG TABLET PO (07:25)
[2022-07-19 07:27] LABS: Glucose, Whole Blood 147 mg/dL (60-115)
--- NOTE | 2022-07-19 07:40 | P.PNGS_ITS ---
Subjective Subjective Date of Service: 07/19/22 Interval history: Patient is tired and does not feel he is improving. He continues to have incisional pain possibly due to the retention sutures. Denies any nausea or vomiting. He was able to get out of bed yesterday and ambulate in the room. Physical Exam Vital Signs: Vital Signs: Last Vital Signs Temp 97.0 F 07/19/22 04:00 Pulse 79 07/19/22 04:00 Resp 18 07/19/22 04:00 BP 156/70 H 07/19/22 04:00 Pulse Ox 96 07/19/22 04:00 O2 Del Method 07/19/22 04:00 O2 Flow Rate 2 07/15/22 07:15 FiO2 35 07/12/22 03:50 Oxygen Flow Rate 2 07/14/22 08:00 BMI result Body Mass Index 31.8 Const: General: tired appearing Nutritional Appearance: well nourished Orientation/consciousness: patient oriented x3 Resp: Effort & Inspection: normal respiratory effort, no audible wheezes and no cough GI: Other: Abdomen is much softer with no further tympany to percussion. Incisions are clean and intact. Retention is a are intact as well. Ostomy remains without gas or stool. Skin: Other: Warm, dry, no rashes. Neuro: General: patient oriented x3 Extrem: Other: No edema Objective Data Active Medications Albuterol/Ipratropium (Albuterol/Iprat 2.5/0.5mg 3 Ml Ampul.Neb) 3 ml INHALE RQ4H PRN PRN Reason: Shortness of Breath/Wheezing Last Admin: 07/07/22 23:33 Dose: 3 ml Documented By: ROCKY Benzonatate (Benzonatate 100 Mg Capsule) 200 mg PO TID PRN PRN Reason: cough Guaifenesin (Guaifenesin 100 Mg/5 Ml Liquid) 5 ml PO Q6H ON LICENSE OF [facility] Last Admin: 07/19/22 03:27 Dose: Not Given Documented By: DERRICK Non-Admin Reason: Patient Refused Heparin Sodium (Porcine) (Heparin Sodium,Porcine 5,000 Unit/Ml Vial) 5,000 unit SUBCUT Q12H ON LICENSE OF [facility] Last Admin: 07/18/22 21:26 Dose: 5,000 unit Documented By: HO.MORRINL Hydromorphone HCl (Hydromorphone Hcl 1 Mg/Ml Syringe) 1 mg IVPUSH Q3H PRN; Protocol PRN Reason: Pain, Severe (Pain Scale 7-10) Last Admin: 07/19/22 07:22 Dose: 1 mg Documented By: BIBIANA Hydromorphone HCl (Hydromorphone Hcl 0.5 Mg/0.5 Ml Syringe) 0.5 mg IVPUSH Q2H PRN; Protocol PRN Reason: Pain, Moderate (Pain Scale 4-6 Last Admin: 07/12/22 23:25 Dose: 0.5 mg Documented By: SHIRLEY Promethazine HCl 6.25 mg/ (Sodium Chloride) 50.25 mls @ 201 mls/hr IV Q6H PRN PRN Reason: nausea Last Infusion: 07/13/22 11:13 Dose: 0 mls/hr Documented By: LORIE Ampicillin Sodium/Sulbactam (Sodium 3 gm/ Sodium Chloride) 100 mls @ 200 mls/hr IV Q6H ON LICENSE OF [facility] Last Infusion: 07/19/22 04:51 Dose: 0 mls/hr Documented By: LOLISRINGlenda Multivitamins 10 ml/ Trace Metals 1 ml/ Amino Acids/Electrolytes 2,000 mls @ 83.333 mls/hr IV DAILY@1800 ON LICENSE OF [facility] Stop: 07/19/22 17:59 Last Admin: 07/18/22 18:00 Dose: 83.33 mls/hr Documented By: BIBIANA Multivitamins 10 ml/ Trace Metals 1 ml/ Amino Acids/Electrolytes 2,000 mls @ 83.333 mls/hr IV DAILY@1800 ON LICENSE OF [facility] Stop: 07/20/22 17:59 Fat Emulsion Intravenous (Intralipid) 120 mls @ 10 mls/hr IV DAILY@1800 ON LICENSE OF [facility] Stop: 07/20/22 05:59 Lisinopril (Lisinopril 40 Mg Tablet) 40 mg PO DAILY ON LICENSE OF [facility] Last Admin: 07/19/22 07:25 Dose: 40 mg Documented By: BIBIANA Nystatin (Nystatin Powder 15 Gm Bottle) 1 appl TOPICAL TID ON LICENSE OF [facility]; Protocol Last Admin: 07/19/22 07:25 Dose: 1 appl Documented By: BIBIANA Ondansetron HCl (Ondansetron Hcl 4 Mg/2 Ml Vial) 4 mg IVPUSH Q8H PRN PRN Reason: nausea Last Admin: 07/13/22 07:41 Dose: 4 mg Documented By: LORIE Ondansetron HCl (Ondansetron Hcl 4 Mg/2 Ml Vial) 4 mg IVPUSH ONCE PRN PRN Reason: Nausea and Vomiting Pharmacy Consult (Consult Rx Perform Med Rec) 1 each MISCELLANE ONCE PRN PRN Reason: Consult order Simethicone (Simethicone 80 Mg Tab.Chew) 80 mg PO Q6H PRN PRN Reason: Gas Last Admin: 07/07/22 22:45 Dose: 80 mg Documented By: SHIRLEY Sodium Chloride (0.9 % Sodium Chloride Flush 3 Ml Syringe) 3 ml IVFLUSH QSHIFT ON LICENSE OF [facility] Last Admin: 07/19/22 07:25 Dose: 3 ml Documented By: BIBIANA Labs CBC & Chem 7: 07/19/22 05:18 07/19/22 05:19 Labs: Laboratory Results - last 24 hr 07/18/22 07/18/22 07/18/22 05:07 07:15 11:20 MCV MCH MCHC RDW Plt Count MPV Immature Gran % (Auto) Neut % (Auto) Lymph % (Auto) Hawkins % (Auto) Eos % (Auto) Baso % (Auto) Lymph # (Auto) Hawkins # (Auto) Eos # (Auto) Baso # (Auto) Abs Immat Gran (auto) Absolute Neuts (auto) Absolute Nucleated RBC Nucleated RBC % (auto) PT INR Anion Gap Estim Creat Clear Calc Estimated GFR POC Glucose 141 H 120 H Random Glucose Calcium Phosphorus 3.8 Magnesium 2.0 Albumin 2.3 L Triglycerides 145 07/18/22 07/18/22 07/19/22 15:59 19:22 05:18 MCV 95.2 MCH 30.9 MCHC 32.5 RDW 13.4 Plt Count 501 H MPV 10.1 Immature Gran % (Auto) 1.9 H Neut % (Auto) 79.3 H Lymph % (Auto) 7.0 L Hawkins % (Auto) 9.7 Eos % (Auto) 1.6 Baso % (Auto) 0.5 Lymph # (Auto) 1.0 L Hawkins # (Auto) 1.4 H Eos # (Auto) 0.2 Baso # (Auto) 0.1 Abs Immat Gran (auto) 0.28 H Absolute Neuts (auto) 11.6 H Absolute Nucleated RBC 0.000 Nucleated RBC % (auto) 0.0 PT INR Anion Gap Estim Creat Clear Calc Estimated GFR POC Glucose 140 H 122 H Random Glucose Calcium Phosphorus Magnesium Albumin Triglycerides 07/19/22 07/19/22 07/19/22 05:18 05:19 05:19 MCV MCH MCHC RDW Plt Count MPV Immature Gran % (Auto) Neut % (Auto) Lymph % (Auto) Hawkins % (Auto) Eos % (Auto) Baso % (Auto) Lymph # (Auto) Hawkins # (Auto) Eos # (Auto) Baso # (Auto) Abs Immat Gran (auto) Absolute Neuts (auto) Absolute Nucleated RBC Nucleated RBC % (auto) PT 12.6 INR 1.1 Anion Gap 14 Estim Creat Clear Calc 104.7 Estimated GFR > 60 POC Glucose Random Glucose 154 H Calcium 7.9 L Phosphorus 3.9 Magnesium 2.0 Albumin Triglycerides 131 07/19/22 07:18 MCV MCH MCHC RDW Plt Count MPV Immature Gran % (Auto) Neut % (Auto) Lymph % (Auto) Hawkins % (Auto) Eos % (Auto) Baso % (Auto) Lymph # (Auto) Hawkins # (Auto) Eos # (Auto) Baso # (Auto) Abs Immat Gran (auto) Absolute Neuts (auto) Absolute Nucleated RBC Nucleated RBC % (auto) PT INR Anion Gap Estim Creat Clear Calc Estimated GFR POC Glucose 147 H Random Glucose Calcium Phosphorus Magnesium Albumin Triglycerides Procedures Date of Service Date of Service: 07/19/22 Progress Note: A&P Assessment and plan (1) Ileus: Status: Acute (2) Post-op pain: Status: Acute (3) Dehiscence of closure of fascia, superficial or muscular: Status: Acute (4) Parastomal hernia: Status: Acute Plan Patient continues with a prolonged ileus following repair of a peristomal hernia and repair of a wound dehiscence. Nasogastric tube is producing a high volume of fluid in his abdomen is much softer today compared to yesterday. Patient was encouraged to continue deep breathing exercises any ambulate in the hallways. Will continue TPN. Continue NG tube decompression and Webb catheter for urinary retention. Time Spent With Patient Time: Total time spent is greater than 50% in coordination of care (as documented) at patient's floor/unit and/or counseling patient: Quality Stroke Does the patient have a stroke diagnosis?: No VTE Prior VTE?: No VTE Risk Level:: Medical - moderate - high VTE Device Contraindication: N/A - Device Ordered VTE Drug Contraindication: N/A - Med Ordered
--- NOTE | 2022-07-19 08:59 | P.PNIM_ITS ---
Subjective Subjective Date of Service: 07/19/22 Physical Exam Vital Signs: Vital Signs: Last Vital Signs Temp 97.6 F 07/19/22 08:00 Pulse 98 07/19/22 08:00 Resp 18 07/19/22 08:00 BP 156/70 H 07/19/22 04:00 Pulse Ox 95 07/19/22 08:00 O2 Del Method 07/19/22 08:00 O2 Flow Rate 2 07/15/22 07:15 FiO2 35 07/12/22 03:50 Oxygen Flow Rate 2 07/14/22 08:00 BMI result Body Mass Index 31.8 Objective Data Active Medications Albuterol/Ipratropium (Albuterol/Iprat 2.5/0.5mg 3 Ml Ampul.Neb) 3 ml INHALE RQ4H PRN PRN Reason: Shortness of Breath/Wheezing Last Admin: 07/07/22 23:33 Dose: 3 ml Documented By: ROCKY Benzonatate (Benzonatate 100 Mg Capsule) 200 mg PO TID PRN PRN Reason: cough Guaifenesin (Guaifenesin 100 Mg/5 Ml Liquid) 5 ml PO Q6H [facility] Last Admin: 07/19/22 03:27 Dose: Not Given Documented By: LOLISRINGlenda Non-Admin Reason: Patient Refused Heparin Sodium (Porcine) (Heparin Sodium,Porcine 5,000 Unit/Ml Vial) 5,000 unit SUBCUT Q12H [facility] Last Admin: 07/18/22 21:26 Dose: 5,000 unit Documented By: MORRINL Hydromorphone HCl (Hydromorphone Hcl 1 Mg/Ml Syringe) 1 mg IVPUSH Q3H PRN; Protocol PRN Reason: Pain, Severe (Pain Scale 7-10) Last Admin: 07/19/22 07:22 Dose: 1 mg Documented By: DABA Hydromorphone HCl (Hydromorphone Hcl 0.5 Mg/0.5 Ml Syringe) 0.5 mg IVPUSH Q2H PRN; Protocol PRN Reason: Pain, Moderate (Pain Scale 4-6 Last Admin: 07/12/22 23:25 Dose: 0.5 mg Documented By: ODRISM Promethazine HCl 6.25 mg/ (Sodium Chloride) 50.25 mls @ 201 mls/hr IV Q6H PRN PRN Reason: nausea Last Infusion: 07/13/22 11:13 Dose: 0 mls/hr Documented By: LORIE Ampicillin Sodium/Sulbactam (Sodium 3 gm/ Sodium Chloride) 100 mls @ 200 mls/hr IV Q6H [facility] Last Infusion: 07/19/22 04:51 Dose: 0 mls/hr Documented By: LOLISRINL Multivitamins 10 ml/ Trace Metals 1 ml/ Amino Acids/Electrolytes 2,000 mls @ 83.333 mls/hr IV DAILY@1800 [facility] Stop: 07/19/22 17:59 Last Admin: 07/18/22 18:00 Dose: 83.33 mls/hr Documented By: BIBIANA Multivitamins 10 ml/ Trace Metals 1 ml/ Amino Acids/Electrolytes 2,000 mls @ 83.333 mls/hr IV DAILY@1800 [facility] Stop: 07/20/22 17:59 Fat Emulsion Intravenous (Intralipid) 120 mls @ 10 mls/hr IV DAILY@1800 [facility] Stop: 07/20/22 05:59 Lisinopril (Lisinopril 40 Mg Tablet) 40 mg PO DAILY [facility] Last Admin: 07/19/22 07:25 Dose: 40 mg Documented By: BIBIANA Nystatin (Nystatin Powder 15 Gm Bottle) 1 appl TOPICAL TID [facility]; Protocol Last Admin: 07/19/22 07:25 Dose: 1 appl Documented By: BIBIANA Ondansetron HCl (Ondansetron Hcl 4 Mg/2 Ml Vial) 4 mg IVPUSH Q8H PRN PRN Reason: nausea Last Admin: 07/13/22 07:41 Dose: 4 mg Documented By: LORIE Ondansetron HCl (Ondansetron Hcl 4 Mg/2 Ml Vial) 4 mg IVPUSH ONCE PRN PRN Reason: Nausea and Vomiting Pharmacy Consult (Consult Rx Perform Med Rec) 1 each MISCELLANE ONCE PRN PRN Reason: Consult order Simethicone (Simethicone 80 Mg Tab.Chew) 80 mg PO Q6H PRN PRN Reason: Gas Last Admin: 07/07/22 22:45 Dose: 80 mg Documented By: SHIRLEY Sodium Chloride (0.9 % Sodium Chloride Flush 3 Ml Syringe) 3 ml IVFLUSH QSHIFT [facility] Last Admin: 07/19/22 07:25 Dose: 3 ml Documented By: BIBIANA Labs CBC & Chem 7: 07/19/22 05:18 07/19/22 05:19 Labs: Laboratory Results - last 24 hr 07/18/22 07/18/22 07/18/22 05:07 11:20 15:59 MCV MCH MCHC RDW Plt Count MPV Immature Gran % (Auto) Neut % (Auto) Lymph % (Auto) [place] % (Auto) Eos % (Auto) Baso % (Auto) Lymph # (Auto) [place] # (Auto) Eos # (Auto) Baso # (Auto) Abs Immat Gran (auto) Absolute Neuts (auto) Absolute Nucleated RBC Nucleated RBC % (auto) PT INR Anion Gap Estim Creat Clear Calc Estimated GFR POC Glucose 120 H 140 H Random Glucose Calcium Phosphorus 3.8 Magnesium 2.0 Albumin 2.3 L Triglycerides 145 07/18/22 07/19/22 07/19/22 19:22 05:18 05:18 MCV 95.2 MCH 30.9 MCHC 32.5 RDW 13.4 Plt Count 501 H MPV 10.1 Immature Gran % (Auto) 1.9 H Neut % (Auto) 79.3 H Lymph % (Auto) 7.0 L [place] % (Auto) 9.7 Eos % (Auto) 1.6 Baso % (Auto) 0.5 Lymph # (Auto) 1.0 L [place] # (Auto) 1.4 H Eos # (Auto) 0.2 Baso # (Auto) 0.1 Abs Immat Gran (auto) 0.28 H Absolute Neuts (auto) 11.6 H Absolute Nucleated RBC 0.000 Nucleated RBC % (auto) 0.0 PT 12.6 INR 1.1 Anion Gap Estim Creat Clear Calc Estimated GFR POC Glucose 122 H Random Glucose Calcium Phosphorus Magnesium Albumin Triglycerides 07/19/22 07/19/22 07/19/22 05:19 05:19 07:18 MCV MCH MCHC RDW Plt Count MPV Immature Gran % (Auto) Neut % (Auto) Lymph % (Auto) [place] % (Auto) Eos % (Auto) Baso % (Auto) Lymph # (Auto) [place] # (Auto) Eos # (Auto) Baso # (Auto) Abs Immat Gran (auto) Absolute Neuts (auto) Absolute Nucleated RBC Nucleated RBC % (auto) PT INR Anion Gap 14 Estim Creat Clear Calc 104.7 Estimated GFR > 60 POC Glucose 147 H Random Glucose 154 H Calcium 7.9 L Phosphorus 3.9 Magnesium 2.0 Albumin Triglycerides 131 Assessment and Plan (1) Acute respiratory failure with hypoxia: Status: Acute Plan 72yo M with colon CA s/p resection/osteomy, HTN admitted to general surgery service for parastomal hernia, repaired 07/05, back to OR 07/11 for fascial dehiscence medicine consultation for hypoxia from aspiration/mucus plugging # acute hypoxic resp failure--resolved, doing well on room air. use IS # presumed aspiration PNA - completed amp/sulbactam d#06/07, PCT decreasing appropriately # moderate emphysema (on CT, not previously diagnosed) - prn nebs, outpt PFTs # HTN--BPs on high side but will continue to monitor for now - continue lisinopril 40 mg daily and additional meds as needed # parastomal hernia # fascial dehiscence - management as per Surgery # postop ileus - on TPN until bowel function returns # VTE ppx - UFH Need for inaptient: Defer to surgery Quality Stroke Does the patient have a stroke diagnosis?: No VTE Prior VTE?: No VTE Risk Level:: Medical - moderate - high VTE Device Contraindication: N/A - Device Ordered VTE Drug Contraindication: N/A - Med Ordered
[2022-07-19] MEDS: Heparin Sodium,Porcine 5,000 UNIT/ML VIAL 5000 UNIT SUBCUT ×2 (10:34→21:17)
[2022-07-19 11:41] LABS: Glucose, Whole Blood 123 mg/dL (60-115)
[2022-07-19 16:03] LABS: Glucose, Whole Blood 126 mg/dL (60-115)
[2022-07-19] MEDS: Fat Emulsions 20% 250 ML 10 ML IV (18:03)
[2022-07-19 19:55] LABS: Glucose, Whole Blood 136 mg/dL (60-115)
[2022-07-19] MEDS: HYDROmorphone HCl 0.5 MG/0.5 ML SYRINGE IVPUSH (22:39)
[2022-07-20] VITALS (7 sets, daily range): BP systolic 138–178; BP diastolic 63–84; PULSE 73–77; RESP 17–19; TEMP 36–37.1; O2SAT 94–97; BMI 31.4
[2022-07-20] MEDS: HYDROmorphone HCl 1 MG/ML SYRINGE IVPUSH ×5 (03:17→22:56)
[2022-07-20] MEDS: Ampicillin Sodium/Sulbactam Na 3 GM in 0.9 % Sodium Chloride 100 ML IV ×2 (04:08→11:21)
[2022-07-20 06:09] LABS: Anion Gap 13 (12-20); Blood Urea Nitrogen 25 mg/dL (9-16); Calcium 8.2 mg/dL (8.4-10.2); Carbon Dioxide 31 mmol/L (22-29); Chloride 104 mmol/L (96-108); Creatinine Clr Calc Pharmacy 98.2; Estimated Glomerular Filt Rate > 60; Glucose Random 153 mg/dL (60-115); Potassium 4.3 mmol/L (3.3-5.1); Sodium 144 mmol/L (135-145)
[2022-07-20 06:50] LABS: Albumin Level 2.4 g/dL (3.5-5.0); Magnesium 2.1 mg/dL (1.6-2.6); Phosphorus 4.1 mg/dL (2.7-4.5); Triglycerides 119 mg/dL
[2022-07-20 07:50] LABS: Glucose, Whole Blood 145 mg/dL (60-115)
--- NOTE | 2022-07-20 08:35 | P.PNGS_ITS ---
Subjective Subjective Date of Service: 07/20/22 Interval history: Patient was up and ambulating yesterday felt good about it. His abdominal pain is well controlled. He denies any nausea or vomiting. No stool or gas per ostomy. Physical Exam Vital Signs: Vital Signs: Last Vital Signs Temp 98.0 F 07/20/22 07:15 Pulse 74 07/20/22 07:15 Resp 19 07/20/22 07:15 BP 140/70 H 07/20/22 07:15 Pulse Ox 94 07/20/22 07:57 O2 Del Method 07/20/22 07:57 O2 Flow Rate 2 07/15/22 07:15 FiO2 35 07/12/22 03:50 Oxygen Flow Rate 2 07/14/22 08:00 BMI result Body Mass Index 31.4 Const: General: no acute distress Nutritional Appearance: well nourished Orientation/consciousness: patient oriented x3 Limitations: no limitations Resp: Effort & Inspection: normal respiratory effort GI: Other: Soft and nondistended. No tympany to percussion. Midline incision is clean and dry. Ostomy is pink but without stool or gas. Skin: Other: Warm, dry, no rash Neuro: General: patient oriented x3 Objective Data Active Medications Albuterol/Ipratropium (Albuterol/Iprat 2.5/0.5mg 3 Ml Ampul.Neb) 3 ml INHALE RQ4H PRN PRN Reason: Shortness of Breath/Wheezing Last Admin: 07/07/22 23:33 Dose: 3 ml Documented By: ROCKY Benzonatate (Benzonatate 100 Mg Capsule) 200 mg PO TID PRN PRN Reason: cough Guaifenesin (Guaifenesin 100 Mg/5 Ml Liquid) 5 ml PO Q6H [facility] Last Admin: 07/20/22 03:21 Dose: Not Given Documented By: MORRINL Non-Admin Reason: Patient Refused Heparin Sodium (Porcine) (Heparin Sodium,Porcine 5,000 Unit/Ml Vial) 5,000 unit SUBCUT Q12H [facility] Last Admin: 07/19/22 21:17 Dose: 5,000 unit Documented By: MORRINL Hydromorphone HCl (Hydromorphone Hcl 1 Mg/Ml Syringe) 1 mg IVPUSH Q3H PRN; Protocol PRN Reason: Pain, Severe (Pain Scale 7-10) Last Admin: 07/20/22 03:17 Dose: 1 mg Documented By: DERRICK Hydromorphone HCl (Hydromorphone Hcl 0.5 Mg/0.5 Ml Syringe) 0.5 mg IVPUSH Q2H PRN; Protocol PRN Reason: Pain, Moderate (Pain Scale 4-6 Last Admin: 07/19/22 22:39 Dose: 0.5 mg Documented By: DERRICK Promethazine HCl 6.25 mg/ (Sodium Chloride) 50.25 mls @ 201 mls/hr IV Q6H PRN PRN Reason: nausea Last Infusion: 07/13/22 11:13 Dose: 0 mls/hr Documented By: LORIE Ampicillin Sodium/Sulbactam (Sodium 3 gm/ Sodium Chloride) 100 mls @ 200 mls/hr IV Q6H [facility] Last Infusion: 07/20/22 04:45 Dose: 0 mls/hr Documented By: DERRICK Multivitamins 10 ml/ Trace Metals 1 ml/ Amino Acids/Electrolytes 2,000 mls @ 83.333 mls/hr IV DAILY@1800 [facility] Stop: 07/20/22 17:59 Last Admin: 07/19/22 18:03 Dose: 83.33 mls/hr Documented By: BIBIANA Lisinopril (Lisinopril 40 Mg Tablet) 40 mg PO DAILY [facility] Last Admin: 07/19/22 07:25 Dose: 40 mg Documented By: BIBIANA Nystatin (Nystatin Powder 15 Gm Bottle) 1 appl TOPICAL TID [facility]; Protocol Last Admin: 07/19/22 19:31 Dose: 1 appl Documented By: DERRICK Ondansetron HCl (Ondansetron Hcl 4 Mg/2 Ml Vial) 4 mg IVPUSH Q8H PRN PRN Reason: nausea Last Admin: 07/13/22 07:41 Dose: 4 mg Documented By: LORIE Ondansetron HCl (Ondansetron Hcl 4 Mg/2 Ml Vial) 4 mg IVPUSH ONCE PRN PRN Reason: Nausea and Vomiting Pharmacy Consult (Consult Rx Perform Med Rec) 1 each MISCELLANE ONCE PRN PRN Reason: Consult order Simethicone (Simethicone 80 Mg Tab.Chew) 80 mg PO Q6H PRN PRN Reason: Gas Last Admin: 07/07/22 22:45 Dose: 80 mg Documented By: SHIRLEY Sodium Chloride (0.9 % Sodium Chloride Flush 3 Ml Syringe) 3 ml IVFLUSH QSHIFT [facility] Last Admin: 07/19/22 22:49 Dose: 3 ml Documented By: DERRICK Labs CBC & Chem 7: 07/19/22 05:18 07/20/22 05:27 Labs: Laboratory Results - last 24 hr 07/19/22 07/19/22 07/19/22 11:27 15:50 19:14 Anion Gap Estim Creat Clear Calc Estimated GFR POC Glucose 123 H 126 H 136 H Random Glucose Calcium Phosphorus Magnesium Albumin Triglycerides 07/20/22 07/20/22 05:27 07:17 Anion Gap 13 Estim Creat Clear Calc 98.2 Estimated GFR > 60 POC Glucose 145 H Random Glucose 153 H Calcium 8.2 L Phosphorus 4.1 Magnesium 2.1 Albumin 2.4 L Triglycerides 119 Procedures Date of Service Date of Service: 07/20/22 Progress Note: A&P Assessment and plan (1) Ileus: Status: Acute (2) Parastomal hernia: Status: Acute Assessment and Plan: Patient continues to have a prolonged ileus and requires continued nasogastric tube decompression, bowel rest. Abdomen is much softer and is midline incision is clean and intact. Continue NPO and TPN. Will recheck CBC in a.m.. Time Spent With Patient Time: Total time spent is greater than 50% in coordination of care (as documented) at patient's floor/unit and/or counseling patient: Quality Stroke Does the patient have a stroke diagnosis?: No VTE Prior VTE?: No VTE Risk Level:: Medical - moderate - high VTE Device Contraindication: N/A - Device Ordered VTE Drug Contraindication: N/A - Med Ordered
[2022-07-20] MEDS: lisinopriL 40 MG TABLET PO (08:56)
[2022-07-20] MEDS: Heparin Sodium,Porcine 5,000 UNIT/ML VIAL 5000 UNIT SUBCUT ×2 (08:57→22:50)
[2022-07-20] MEDS: 0.9 % Sodium Chloride Flush 3 ML SYRINGE IVFLUSH ×3 (09:01→19:59)
--- NOTE | 2022-07-20 09:55 | MHC.CLN ---
F/U CONTINUES NPO WITH TPN. TPN [id number] AT MAX GOAL RATE 83.33ML/HR WITH 10 ML OF 20% LIPIDS PROVIDES 1662 KCALS (23 KCALS/KG CMW); 100 G PROTEIN (1.4 G/KG). REPLETE LYTES NEEDED. REVIEWED LABS AND COMMUNICATED WITH PHARMACY. RD RECOMMENDS CONTINUE TPN AND LIPIDS AT MAX GOAL RATE.
[2022-07-20] MEDS: Nystatin Powder 15 GM BOTTLE 1 APPL TOPICAL ×3 (10:12→19:59)
[2022-07-20 11:45] LABS: Glucose, Whole Blood 131 mg/dL (60-115)
--- NOTE | 2022-07-20 12:52 | MHC.CM.PN ---
Per Rounds discussion, patient is not yet medically cleared for discharge today R/T continued on NPO with TPN. CM will continue to follow for discharge needs.
--- NOTE | 2022-07-20 13:58 | P.PNIM_ITS ---
Subjective Subjective Date of Service: 07/20/22 Interval History: Seen in f/u for med consult No sob, breathing + cough improved, off O2 incisional pain controlled , still has NGT in Review of Systems no sob, no fever, incisional pain Physical Exam Vital Signs: Vital Signs: Last Vital Signs Temp 97.0 F 07/20/22 11:31 Pulse 76 07/20/22 11:31 Resp 17 07/20/22 11:31 BP 152/70 H 07/20/22 11:31 Pulse Ox 95 07/20/22 11:31 O2 Del Method 07/20/22 11:31 O2 Flow Rate 2 07/15/22 07:15 FiO2 35 07/12/22 03:50 Oxygen Flow Rate 2 07/14/22 08:00 BMI result Body Mass Index 31.4 Const: Other: Gen: in no acute distress HEENT: sclera anicteric, moist mucus membranes, NGT in bilious drainage Neck: supple Lungs: clear to auscultation bilaterally Heart: regular rate and rhythm, no murmurs Abd: soft, stoma ok, NG tube with bilious drainage, no bowel sounds still Ext: trace edema Skin: warm/well-perfused Neuro: alert and oriented x3, no focal findings Psych: appropriate affect ? Objective Data Active Medications Albuterol/Ipratropium (Albuterol/Iprat 2.5/0.5mg 3 Ml Ampul.Neb) 3 ml INHALE RQ4H PRN PRN Reason: Shortness of Breath/Wheezing Last Admin: 07/07/22 23:33 Dose: 3 ml Documented By: ROCKY Benzonatate (Benzonatate 100 Mg Capsule) 200 mg PO TID PRN PRN Reason: cough Guaifenesin (Guaifenesin 100 Mg/5 Ml Liquid) 5 ml PO Q6H [facility] Last Admin: 07/20/22 11:00 Dose: Not Given Documented By: DAYANNA Non-Admin Reason: Patient Refused Heparin Sodium (Porcine) (Heparin Sodium,Porcine 5,000 Unit/Ml Vial) 5,000 unit SUBCUT Q12H [facility] Last Admin: 07/20/22 08:57 Dose: 5,000 unit Documented By: MORRINL Hydromorphone HCl (Hydromorphone Hcl 1 Mg/Ml Syringe) 1 mg IVPUSH Q3H PRN; Protocol PRN Reason: Pain, Severe (Pain Scale 7-10) Last Admin: 07/20/22 10:44 Dose: 1 mg Documented By: DAYANNA Hydromorphone HCl (Hydromorphone Hcl 0.5 Mg/0.5 Ml Syringe) 0.5 mg IVPUSH Q2H PRN; Protocol PRN Reason: Pain, Moderate (Pain Scale 4-6 Last Admin: 07/19/22 22:39 Dose: 0.5 mg Documented By: DERRICK Promethazine HCl 6.25 mg/ (Sodium Chloride) 50.25 mls @ 201 mls/hr IV Q6H PRN PRN Reason: nausea Last Infusion: 07/13/22 11:13 Dose: 0 mls/hr Documented By: LORIE Ampicillin Sodium/Sulbactam (Sodium 3 gm/ Sodium Chloride) 100 mls @ 200 mls/hr IV Q6H [facility] Last Infusion: 07/20/22 12:01 Dose: 0 mls/hr Documented By: DAYANNA Multivitamins 10 ml/ Trace Metals 1 ml/ Amino Acids/Electrolytes 2,000 mls @ 83.333 mls/hr IV DAILY@1800 [facility] Stop: 07/20/22 17:59 Last Admin: 07/19/22 18:03 Dose: 83.33 mls/hr Documented By: BIBIANA Multivitamins 10 ml/ Trace Metals 1 ml/ Amino Acids/Electrolytes 2,000 mls @ 83.333 mls/hr IV DAILY@1800 [facility] Stop: 07/21/22 17:59 Fat Emulsion Intravenous (Intralipid) 120 mls @ 10 mls/hr IV DAILY@1800 [facility] Stop: 07/21/22 05:59 Lisinopril (Lisinopril 40 Mg Tablet) 40 mg PO DAILY [facility] Last Admin: 07/20/22 08:56 Dose: 40 mg Documented By: DERRICK Nystatin (Nystatin Powder 15 Gm Bottle) 1 appl TOPICAL TID [facility]; Protocol Last Admin: 07/20/22 10:12 Dose: 1 appl Documented By: DAYANNA Ondansetron HCl (Ondansetron Hcl 4 Mg/2 Ml Vial) 4 mg IVPUSH Q8H PRN PRN Reason: nausea Last Admin: 07/13/22 07:41 Dose: 4 mg Documented By: LORIE Ondansetron HCl (Ondansetron Hcl 4 Mg/2 Ml Vial) 4 mg IVPUSH ONCE PRN PRN Reason: Nausea and Vomiting Pharmacy Consult (Consult Rx Perform Med Rec) 1 each MISCELLANE ONCE PRN PRN Reason: Consult order Simethicone (Simethicone 80 Mg Tab.Chew) 80 mg PO Q6H PRN PRN Reason: Gas Last Admin: 07/07/22 22:45 Dose: 80 mg Documented By: SHIRLEY Sodium Chloride (0.9 % Sodium Chloride Flush 3 Ml Syringe) 3 ml IVFLUSH QSHIFT [facility] Last Admin: 07/20/22 09:01 Dose: 3 ml Documented By: DERRICK Labs CBC & Chem 7: 07/19/22 05:18 07/20/22 05:27 Labs: Laboratory Results - last 24 hr 07/19/22 07/19/22 07/20/22 15:50 19:14 05:27 Anion Gap 13 Estim Creat Clear Calc 98.2 Estimated GFR > 60 POC Glucose 126 H 136 H Random Glucose 153 H Calcium 8.2 L Phosphorus 4.1 Magnesium 2.1 Albumin 2.4 L Triglycerides 119 07/20/22 07/20/22 07:17 11:34 Anion Gap Estim Creat Clear Calc Estimated GFR POC Glucose 145 H 131 H Random Glucose Calcium Phosphorus Magnesium Albumin Triglycerides Assessment and Plan (1) Acute respiratory failure with hypoxia: Status: Acute Plan 72yo M with colon CA s/p resection/osteomy, HTN admitted to general surgery service for parastomal hernia, repaired 07/05, back to OR 07/11 for fascial dehiscence medicine consultation for hypoxia from aspiration/mucus plugging # acute hypoxic resp failure--resolved, doing well on room air. use IS # presumed aspiration PNA - completed amp/sulbactam d#06/07, PCT decreasing appropriately # moderate emphysema (on CT, not previously diagnosed) - prn nebs, outpt PFTs # HTN--BPs a bit on high side but will continue to watach - continue lisinopril 40 mg daily and additional meds as needed # parastomal hernia # fascial dehiscence - management as per Surgery # postop ileus - on TPN until bowel function returns # VTE ppx - UFH Need for inaptient: Defer to surgery Quality Stroke Does the patient have a stroke diagnosis?: No VTE Prior VTE?: No VTE Risk Level:: Medical - moderate - high VTE Device Contraindication: N/A - Device Ordered VTE Drug Contraindication: N/A - Med Ordered
[2022-07-20 16:17] LABS: Glucose, Whole Blood 137 mg/dL (60-115)
[2022-07-20] MEDS: Fat Emulsions 20% 250 ML 10 ML IV (18:17)
[2022-07-20 20:17] LABS: Glucose, Whole Blood 135 mg/dL (60-115)
[2022-07-21] VITALS (8 sets, daily range): BP systolic 158–197; BP diastolic 72–105; PULSE 67–82; RESP 17–20; TEMP 35.9–36.8; O2SAT 94–97
[2022-07-21] MEDS: HYDROmorphone HCl 1 MG/ML SYRINGE IVPUSH ×5 (03:34→20:42)
[2022-07-21 06:55] LABS: Hematocrit 33.7 % (42.0-52.0); Hemoglobin 10.9 g/dl (14.0-18.0); Mean Corpuscular HGB Conc 32.3 g/dl (31.0-36.0); Mean Corpuscular Hemoglobin 31.3 pg (27.0-33.0); Mean Corpuscular Volume 96.8 fL (80.0-98.0); Mean Platelet Volume 10.4 fL (9.4-12.4); Platelet Count 531 X10*3/uL (160-400); Red Blood Count 3.48 X10*6/uL (4.60-5.80); Red Cell Distribution Width 13.7 % (11.0-16.0); White Blood Count 13.8 X10*3/uL (4.8-10.8)
[2022-07-21 07:14] LABS: Anion Gap 16 (12-20); Blood Urea Nitrogen 28 mg/dL (9-16); Carbon Dioxide 28 mmol/L (22-29); Chloride 104 mmol/L (96-108); Estimated Glomerular Filt Rate > 60; Glucose Random 139 mg/dL (60-115); Potassium 4.2 mmol/L (3.3-5.1); Sodium 144 mmol/L (135-145)
[2022-07-21 07:46] LABS: Glucose, Whole Blood 135 mg/dL (60-115)
[2022-07-21] MEDS: lisinopriL 40 MG TABLET PO (08:27)
[2022-07-21] MEDS: 0.9 % Sodium Chloride Flush 3 ML SYRINGE IVFLUSH ×2 (08:28→15:59)
[2022-07-21] MEDS: Nystatin Powder 15 GM BOTTLE 1 APPL TOPICAL ×3 (08:38→23:03)
--- NOTE | 2022-07-21 08:59 | HO.PM.IMPN ---
Subjective Subjective Date of Service: 07/21/22 Interval History: Seen in f/u for med consult No sob , no ab pain, BP high Physical Exam Vital Signs: Vital Signs: Last Vital Signs Temp 97 F 07/21/22 07:44 Pulse 78 07/21/22 07:44 Resp 18 07/21/22 07:44 BP 178/82 H 07/21/22 07:44 Pulse Ox 94 07/21/22 07:44 O2 Del Method 07/21/22 07:44 O2 Flow Rate 2 07/15/22 07:15 FiO2 35 07/12/22 03:50 Oxygen Flow Rate 2 07/14/22 08:00 BMI result Body Mass Index 31.4 Const: Other: Gen: in no acute distress HEENT: sclera anicteric, moist mucus membranes, NGT in bilious drainage Neck: supple Lungs: clear to auscultation bilaterally Heart: regular rate and rhythm, no murmurs Abd: soft, stoma ok, NG tube with bilious drainage, no bowel sounds still Ext: trace edema Skin: warm/well-perfused Neuro: alert and oriented x3, no focal findings Psych: appropriate affect ? Objective Data Active Medications Albuterol/Ipratropium (Albuterol/Iprat 2.5/0.5mg 3 Ml Ampul.Neb) 3 ml INHALE RQ4H PRN PRN Reason: Shortness of Breath/Wheezing Last Admin: 07/07/22 23:33 Dose: 3 ml Documented By: ROCKY Benzonatate (Benzonatate 100 Mg Capsule) 200 mg PO TID PRN PRN Reason: cough Guaifenesin (Guaifenesin 100 Mg/5 Ml Liquid) 5 ml PO Q6H [facility] Last Admin: 07/21/22 02:45 Dose: Not Given Documented By: DERRICK Non-Admin Reason: Patient Refused Heparin Sodium (Porcine) (Heparin Sodium,Porcine 5,000 Unit/Ml Vial) 5,000 unit SUBCUT Q12H [facility] Last Admin: 07/20/22 22:50 Dose: 5,000 unit Documented By: LOLISRINL Hydromorphone HCl (Hydromorphone Hcl 1 Mg/Ml Syringe) 1 mg IVPUSH Q3H PRN; Protocol PRN Reason: Pain, Severe (Pain Scale 7-10) Last Admin: 07/21/22 08:28 Dose: 1 mg Documented By: AMARILIS Hydromorphone HCl (Hydromorphone Hcl 0.5 Mg/0.5 Ml Syringe) 0.5 mg IVPUSH Q2H PRN; Protocol PRN Reason: Pain, Moderate (Pain Scale 4-6 Last Admin: 07/19/22 22:39 Dose: 0.5 mg Documented By: MORRINL Promethazine HCl 6.25 mg/ (Sodium Chloride) 50.25 mls @ 201 mls/hr IV Q6H PRN PRN Reason: nausea Last Infusion: 07/13/22 11:13 Dose: 0 mls/hr Documented By: LORIE Multivitamins 10 ml/ Trace Metals 1 ml/ Amino Acids/Electrolytes 2,000 mls @ 83.333 mls/hr IV DAILY@1800 [facility] Stop: 07/21/22 17:59 Last Admin: 07/20/22 18:10 Dose: 83.33 mls/hr Documented By: DAYANNA Lisinopril (Lisinopril 40 Mg Tablet) 40 mg PO DAILY [facility] Last Admin: 07/21/22 08:27 Dose: 40 mg Documented By: AMARILIS Nystatin (Nystatin Powder 15 Gm Bottle) 1 appl TOPICAL TID [facility]; Protocol Last Admin: 07/21/22 08:38 Dose: 1 appl Documented By: AMARILIS Ondansetron HCl (Ondansetron Hcl 4 Mg/2 Ml Vial) 4 mg IVPUSH Q8H PRN PRN Reason: nausea Last Admin: 07/13/22 07:41 Dose: 4 mg Documented By: LORIE Ondansetron HCl (Ondansetron Hcl 4 Mg/2 Ml Vial) 4 mg IVPUSH ONCE PRN PRN Reason: Nausea and Vomiting Pharmacy Consult (Consult Rx Perform Med Rec) 1 each MISCELLANE ONCE PRN PRN Reason: Consult order Simethicone (Simethicone 80 Mg Tab.Chew) 80 mg PO Q6H PRN PRN Reason: Gas Last Admin: 07/07/22 22:45 Dose: 80 mg Documented By: SHIRLEY Sodium Chloride (0.9 % Sodium Chloride Flush 3 Ml Syringe) [facility] Last Admin: 07/21/22 08:28 Dose: 3 ml Documented By: AMARILIS Labs CBC & Chem 7: 07/21/22 05:52 07/21/22 05:52 Labs: Laboratory Results - last 24 hr 07/20/22 07/20/22 07/20/22 11:34 15:40 19:29 MCV MCH MCHC RDW Plt Count MPV Absolute Nucleated RBC Nucleated RBC % (auto) Anion Gap Estim Creat Clear Calc Estimated GFR POC Glucose 131 H 137 H 135 H Random Glucose Calcium 07/21/22 07/21/22 07/21/22 05:52 05:52 07:42 MCV 96.8 MCH 31.3 MCHC 32.3 RDW 13.7 Plt Count 531 H MPV 10.4 Absolute Nucleated RBC 0.000 Nucleated RBC % (auto) 0.0 Anion Gap 16 Estim Creat Clear Calc 101.0 Estimated GFR > 60 POC Glucose 135 H Random Glucose 139 H Calcium 8.0 L Assessment and Plan (1) Acute respiratory failure with hypoxia: Status: Acute Plan 72yo M with colon CA s/p resection/osteomy, HTN admitted to general surgery service for parastomal hernia, repaired 07/05, back to OR 07/11 for fascial dehiscence medicine consultation for hypoxia from aspiration/mucus plugging # acute hypoxic resp failure--resolved, doing well on room air. use IS # presumed aspiration PNA - completed amp/sulbactam d#06/07, PCT decreasing appropriately # moderate emphysema (on CT, not previously diagnosed) - prn nebs, outpt PFTs # HTN--BPs a bit on high side but will continue to watach - continue lisinopril 40 mg. IV med PRN # parastomal hernia # fascial dehiscence - management as per Surgery # postop ileus - on TPN until bowel function returns # VTE ppx - UFH Need for inaptient: Defer to surgery Quality Stroke Does the patient have a stroke diagnosis?: No VTE Prior VTE?: No VTE Risk Level:: Medical - moderate - high VTE Device Contraindication: N/A - Device Ordered VTE Drug Contraindication: N/A - Med Ordered
--- NOTE | 2022-07-21 09:15 | PM.PNGS ---
Subjective Subjective Date of Service: 07/21/22 Interval history: No new complaints this morning. Reports ambulating in the hallways yesterday and plans to do this once again today. Abdominal pain is well controlled. No flatus or BM yet per ostomy. Physical Exam Vital Signs: Vital Signs: Last Vital Signs Temp 97 F 07/21/22 07:44 Pulse 78 07/21/22 07:44 Resp 18 07/21/22 07:44 BP 178/82 H 07/21/22 07:44 Pulse Ox 94 07/21/22 07:44 O2 Del Method 07/21/22 07:44 O2 Flow Rate 2 07/15/22 07:15 FiO2 35 07/12/22 03:50 Oxygen Flow Rate 2 07/14/22 08:00 BMI result Body Mass Index 31.4 Const: General: comfortable and no acute distress Nutritional Appearance: well nourished Orientation/consciousness: patient oriented x3 Limitations: no limitations Resp: Effort & Inspection: normal respiratory effort, no audible wheezes, no cough and no respiratory distress GI: Other: Midline incision is clean and intact with intact retention sutures. No bleeding or discharge noted. Ostomy is patent but no gas or stool noted. Abdomen is softly distended. No tympany to percussion Skin: Other: Warm, dry, no rashes Neuro: General: patient oriented x3 Extrem: Other: No edema Objective Data Active Medications Albuterol/Ipratropium (Albuterol/Iprat 2.5/0.5mg 3 Ml Ampul.Neb) 3 ml INHALE RQ4H PRN PRN Reason: Shortness of Breath/Wheezing Last Admin: 07/07/22 23:33 Dose: 3 ml Documented By: ROCKY Benzonatate (Benzonatate 100 Mg Capsule) 200 mg PO TID PRN PRN Reason: cough Guaifenesin (Guaifenesin 100 Mg/5 Ml Liquid) 5 ml PO Q6H [facility] Last Admin: 07/21/22 02:45 Dose: Not Given Documented By: DERRICK Non-Admin Reason: Patient Refused Heparin Sodium (Porcine) (Heparin Sodium,Porcine 5,000 Unit/Ml Vial) 5,000 unit SUBCUT Q12H [facility] Last Admin: 07/20/22 22:50 Dose: 5,000 unit Documented By: HO.MORRINL Hydromorphone HCl (Hydromorphone Hcl 1 Mg/Ml Syringe) 1 mg IVPUSH Q3H PRN; Protocol PRN Reason: Pain, Severe (Pain Scale 7-10) Last Admin: 07/21/22 08:28 Dose: 1 mg Documented By: AMARILIS Hydromorphone HCl (Hydromorphone Hcl 0.5 Mg/0.5 Ml Syringe) 0.5 mg IVPUSH Q2H PRN; Protocol PRN Reason: Pain, Moderate (Pain Scale 4-6 Last Admin: 07/19/22 22:39 Dose: 0.5 mg Documented By: LOLISRINGlenda Promethazine HCl 6.25 mg/ (Sodium Chloride) 50.25 mls @ 201 mls/hr IV Q6H PRN PRN Reason: nausea Last Infusion: 07/13/22 11:13 Dose: 0 mls/hr Documented By: LORIE Multivitamins 10 ml/ Trace Metals 1 ml/ Amino Acids/Electrolytes 2,000 mls @ 83.333 mls/hr IV DAILY@1800 [facility] Stop: 07/21/22 17:59 Last Admin: 07/20/22 18:10 Dose: 83.33 mls/hr Documented By: DAYANNA Lisinopril (Lisinopril 40 Mg Tablet) 40 mg PO DAILY [facility] Last Admin: 07/21/22 08:27 Dose: 40 mg Documented By: AMARILIS Nystatin (Nystatin Powder 15 Gm Bottle) 1 appl TOPICAL TID [facility]; Protocol Last Admin: 07/21/22 08:38 Dose: 1 appl Documented By: AMARILIS Ondansetron HCl (Ondansetron Hcl 4 Mg/2 Ml Vial) 4 mg IVPUSH Q8H PRN PRN Reason: nausea Last Admin: 07/13/22 07:41 Dose: 4 mg Documented By: LORIE Ondansetron HCl (Ondansetron Hcl 4 Mg/2 Ml Vial) 4 mg IVPUSH ONCE PRN PRN Reason: Nausea and Vomiting Pharmacy Consult (Consult Rx Perform Med Rec) 1 each MISCELLANE ONCE PRN PRN Reason: Consult order Simethicone (Simethicone 80 Mg Tab.Chew) 80 mg PO Q6H PRN PRN Reason: Gas Last Admin: 07/07/22 22:45 Dose: 80 mg Documented By: SHIRLEY Sodium Chloride (0.9 % Sodium Chloride Flush 3 Ml Syringe) 3 ml IVFLUSH QSHIFT [facility] Last Admin: 07/21/22 08:28 Dose: 3 ml Documented By: AMARILIS Labs CBC & Chem 7: 07/21/22 05:52 07/21/22 05:52 Labs: Laboratory Results - last 24 hr 07/20/22 07/20/22 07/20/22 11:34 15:40 19:29 MCV MCH MCHC RDW Plt Count MPV Absolute Nucleated RBC Nucleated RBC % (auto) Anion Gap Estim Creat Clear Calc Estimated GFR POC Glucose 131 H 137 H 135 H Random Glucose Calcium 07/21/22 07/21/22 07/21/22 05:52 05:52 07:42 MCV 96.8 MCH 31.3 MCHC 32.3 RDW 13.7 Plt Count 531 H MPV 10.4 Absolute Nucleated RBC 0.000 Nucleated RBC % (auto) 0.0 Anion Gap 16 Estim Creat Clear Calc 101.0 Estimated GFR > 60 POC Glucose 135 H Random Glucose 139 H Calcium 8.0 L Procedures Date of Service Date of Service: 07/21/22 Progress Note: A&P Assessment and plan (1) Ileus: Status: Acute (2) Parastomal hernia: Status: Acute Assessment and Plan: Patient continues to have a prolonged ileus and requires continued nasogastric tube decompression, bowel rest. NG output remains high. Abdomen is much softer and is midline incision is clean and intact. Continue NPO and TPN. Continue out of bed and ambulation. Discussed trying chewing gum to stimulate peristalsis. Await return of bowel function before removal of nasogastric tube and starting p.o. Time Spent With Patient Time: Total time spent is greater than 50% in coordination of care (as documented) at patient's floor/unit and/or counseling patient: Quality Stroke Does the patient have a stroke diagnosis?: No VTE Prior VTE?: No VTE Risk Level:: Medical - moderate - high VTE Device Contraindication: N/A - Device Ordered VTE Drug Contraindication: N/A - Med Ordered
[2022-07-21 10:11] LABS: Magnesium 2.1 mg/dL (1.6-2.6); Phosphorus 4.2 mg/dL (2.7-4.5)
[2022-07-21 11:48] LABS: Glucose, Whole Blood 130 mg/dL (60-115)
[2022-07-21] MEDS: Heparin Sodium,Porcine 5,000 UNIT/ML VIAL 5000 UNIT SUBCUT ×2 (12:37→22:54)
--- NOTE | 2022-07-21 12:48 | MHC.CM.PN ---
PER REVIEW OF NOTES, PLAN IS TO AWAIT NG REMOVAL AND RETURN OF BOWEL FUNCTION. CASE MANAGEMENT FOLLOWING FOR DC PLANS.
[2022-07-21 16:12] LABS: Glucose, Whole Blood 143 mg/dL (60-115)
[2022-07-21] MEDS: Fat Emulsions 20% 250 ML 10 ML IV (18:27)
[2022-07-21 20:57] LABS: Glucose, Whole Blood 122 mg/dL (60-115)
[2022-07-21] MEDS: HYDROmorphone HCl 0.5 MG/0.5 ML SYRINGE IVPUSH (22:53)
[2022-07-22] VITALS (7 sets, daily range): BP systolic 144–162; BP diastolic 62–84; PULSE 67–84; RESP 17–18; TEMP 36–36.6; O2SAT 94–96
[2022-07-22] MEDS: 0.9 % Sodium Chloride Flush 3 ML SYRINGE IVFLUSH ×3 (00:13→09:07)
[2022-07-22] MEDS: HYDROmorphone HCl 0.5 MG/0.5 ML SYRINGE IVPUSH ×4 (04:26→15:32)
[2022-07-22 07:52] LABS: Glucose, Whole Blood 135 mg/dL (60-115)
[2022-07-22] MEDS: Heparin Sodium,Porcine 5,000 UNIT/ML VIAL 5000 UNIT SUBCUT ×2 (09:06→20:15)
[2022-07-22] MEDS: Nystatin Powder 15 GM BOTTLE 1 APPL TOPICAL ×3 (09:06→20:18)
[2022-07-22] MEDS: lisinopriL 40 MG TABLET PO (09:06)
--- NOTE | 2022-07-22 09:57 | P.PNGS_ITS ---
Subjective Subjective Date of Service: 07/22/22 Interval history: Patient reports being very tired this morning. Feels he did sleep during the night. Having some mild abdominal pain well controlled with current medications. No stool or gas from ostomy. Physical Exam Vital Signs: Vital Signs: Last Vital Signs Temp 97.9 F 07/22/22 08:00 Pulse 75 07/22/22 08:00 Resp 17 07/22/22 08:00 BP 146/80 H 07/22/22 08:00 Pulse Ox 94 07/22/22 08:00 O2 Del Method 07/22/22 08:00 O2 Flow Rate 2 07/15/22 07:15 FiO2 35 07/12/22 03:50 Oxygen Flow Rate 2 07/14/22 08:00 BMI result Body Mass Index 31.4 Const: General: no acute distress Nutritional Appearance: well nourished Orientation/consciousness: patient oriented x3 Limitations: no limitations Resp: Effort & Inspection: normal respiratory effort, no audible wheezes, no cough and no respiratory distress GI: Other: Softly distended, nontender, incision is clean and intact. Retention sutures are intact without bleeding or discharge. Ostomy with no stool or gas. Skin: Other: Warm, dry, no rash Neuro: General: patient oriented x3 Extrem: General: Yes normal to inspection Objective Data Active Medications Albuterol/Ipratropium (Albuterol/Iprat 2.5/0.5mg 3 Ml Ampul.Neb) 3 ml INHALE RQ4H PRN PRN Reason: Shortness of Breath/Wheezing Last Admin: 07/07/22 23:33 Dose: 3 ml Documented By: ROCKY Benzonatate (Benzonatate 100 Mg Capsule) 200 mg PO TID PRN PRN Reason: cough Guaifenesin (Guaifenesin 100 Mg/5 Ml Liquid) 5 ml PO Q6H [facility] Last Admin: 07/22/22 09:07 Dose: Not Given Documented By: AMARILIS Non-Admin Reason: Patient Refused Heparin Sodium (Porcine) (Heparin Sodium,Porcine 5,000 Unit/Ml Vial) 5,000 unit SUBCUT Q12H [facility] Last Admin: 07/22/22 09:06 Dose: 5,000 unit Documented By: AMARILIS Hydromorphone HCl (Hydromorphone Hcl 1 Mg/Ml Syringe) 1 mg IVPUSH Q3H PRN; Protocol PRN Reason: Pain, Severe (Pain Scale 7-10) Last Admin: 07/21/22 20:42 Dose: 1 mg Documented By: SAMIR Hydromorphone HCl (Hydromorphone Hcl 0.5 Mg/0.5 Ml Syringe) 0.5 mg IVPUSH Q2H PRN; Protocol PRN Reason: Pain, Moderate (Pain Scale 4-6 Last Admin: 07/22/22 09:06 Dose: 0.5 mg Documented By: AMARILIS Promethazine HCl 6.25 mg/ (Sodium Chloride) 50.25 mls @ 201 mls/hr IV Q6H PRN PRN Reason: nausea Last Infusion: 07/13/22 11:13 Dose: 0 mls/hr Documented By: LORIE Multivitamins 10 ml/ Trace Metals 1 ml/ Amino Acids/Electrolytes 2,000 mls @ 83.33 mls/hr IV DAILY@1800 [facility] Stop: 07/22/22 17:59 Last Admin: 07/21/22 18:26 Dose: 83.33 mls/hr Documented By: AMARILIS Lisinopril (Lisinopril 40 Mg Tablet) 40 mg PO DAILY [facility] Last Admin: 07/22/22 09:06 Dose: 40 mg Documented By: AMARILIS Nystatin (Nystatin Powder 15 Gm Bottle) 1 appl TOPICAL TID [facility]; Protocol Last Admin: 07/22/22 09:06 Dose: 1 appl Documented By: AMARILIS Ondansetron HCl (Ondansetron Hcl 4 Mg/2 Ml Vial) 4 mg IVPUSH Q8H PRN PRN Reason: nausea Last Admin: 07/13/22 07:41 Dose: 4 mg Documented By: LORIE Ondansetron HCl (Ondansetron Hcl 4 Mg/2 Ml Vial) 4 mg IVPUSH ONCE PRN PRN Reason: Nausea and Vomiting Pharmacy Consult (Consult Rx Perform Med Rec) 1 each MISCELLANE ONCE PRN PRN Reason: Consult order Simethicone (Simethicone 80 Mg Tab.Chew) 80 mg PO Q6H PRN PRN Reason: Gas Last Admin: 07/07/22 22:45 Dose: 80 mg Documented By: HO.ODRISM Sodium Chloride (0.9 % Sodium Chloride Flush 3 Ml Syringe) 3 ml IVFLUSH QSHIFT [facility] Last Admin: 07/22/22 09:07 Dose: 3 ml Documented By: AMARILIS Labs CBC & Chem 7: 07/21/22 05:52 07/21/22 05:52 Labs: Laboratory Results - last 24 hr 07/21/22 07/21/22 07/21/22 05:52 11:44 16:09 POC Glucose 130 H 143 H Phosphorus 4.2 Magnesium 2.1 07/21/22 07/22/22 20:31 07:43 POC Glucose 122 H 135 H Phosphorus Magnesium Procedures Date of Service Date of Service: 07/22/22 Progress Note: A&P Assessment and plan (1) Ileus: Status: Acute (2) Parastomal hernia: Status: Acute Assessment and Plan: Patient continues to have a prolonged ileus and requires continued nasogastric tube decompression, bowel rest. NG output remains high. Abdomen remains soft and midline incision is clean and intact. Continue NPO and TPN. Continue out of bed and ambulation. Await return of bowel function before removal of nasogastric tube and starting p.o. Time Spent With Patient Time: Total time spent is greater than 50% in coordination of care (as documented) at patient's floor/unit and/or counseling patient: Quality Stroke Does the patient have a stroke diagnosis?: No VTE Prior VTE?: No VTE Risk Level:: Medical - moderate - high VTE Device Contraindication: N/A - Device Ordered VTE Drug Contraindication: N/A - Med Ordered
--- NOTE | 2022-07-22 11:04 | HO.PM.IMPN ---
Subjective Subjective Date of Service: 07/22/22 Interval History: Seen in f/u for med consult No sob , no ab pain, BP is better, NGT remains in place copious drainage Review of Systems no sob, no fever, incisional pain Physical Exam Vital Signs: Vital Signs: Last Vital Signs Temp 97.9 F 07/22/22 08:00 Pulse 75 07/22/22 08:00 Resp 17 07/22/22 08:00 BP 146/80 H 07/22/22 08:00 Pulse Ox 94 07/22/22 08:00 O2 Del Method 07/22/22 08:00 O2 Flow Rate 2 07/15/22 07:15 FiO2 35 07/12/22 03:50 Oxygen Flow Rate 2 07/14/22 08:00 BMI result Body Mass Index 31.4 Const: Other: Gen: in no acute distress HEENT: sclera anicteric, moist mucus membranes, NGT in bilious drainage Neck: supple Lungs: clear to auscultation bilaterally Heart: regular rate and rhythm, no murmurs Abd: soft, stoma ok, NG tube with bilious drainage, no bowel sounds still Ext: trace edema Skin: warm/well-perfused Neuro: alert and oriented x3, no focal findings Psych: appropriate affect ? Objective Data Active Medications Albuterol/Ipratropium (Albuterol/Iprat 2.5/0.5mg 3 Ml Ampul.Neb) 3 ml INHALE RQ4H PRN PRN Reason: Shortness of Breath/Wheezing Last Admin: 07/07/22 23:33 Dose: 3 ml Documented By: ROCKY Benzonatate (Benzonatate 100 Mg Capsule) 200 mg PO TID PRN PRN Reason: cough Guaifenesin (Guaifenesin 100 Mg/5 Ml Liquid) 5 ml PO Q6H [facility] Last Admin: 07/22/22 09:07 Dose: Not Given Documented By: AMARILIS Non-Admin Reason: Patient Refused Heparin Sodium (Porcine) (Heparin Sodium,Porcine 5,000 Unit/Ml Vial) 5,000 unit SUBCUT Q12H [facility] Last Admin: 07/22/22 09:06 Dose: 5,000 unit Documented By: AMARILIS Hydromorphone HCl (Hydromorphone Hcl 1 Mg/Ml Syringe) 1 mg IVPUSH Q3H PRN; Protocol PRN Reason: Pain, Severe (Pain Scale 7-10) Last Admin: 07/21/22 20:42 Dose: 1 mg Documented By: SAMIR Hydromorphone HCl (Hydromorphone Hcl 0.5 Mg/0.5 Ml Syringe) 0.5 mg IVPUSH Q2H PRN; Protocol PRN Reason: Pain, Moderate (Pain Scale 4-6 Last Admin: 07/22/22 09:06 Dose: 0.5 mg Documented By: AMARILIS Promethazine HCl 6.25 mg/ (Sodium Chloride) 50.25 mls @ 201 mls/hr IV Q6H PRN PRN Reason: nausea Last Infusion: 07/13/22 11:13 Dose: 0 mls/hr Documented By: LORIE Multivitamins 10 ml/ Trace Metals 1 ml/ Amino Acids/Electrolytes 2,000 mls @ 83.33 mls/hr IV DAILY@1800 [facility] Stop: 07/22/22 17:59 Last Admin: 07/21/22 18:26 Dose: 83.33 mls/hr Documented By: AMARILIS Lisinopril (Lisinopril 40 Mg Tablet) 40 mg PO DAILY [facility] Last Admin: 07/22/22 09:06 Dose: 40 mg Documented By: AMARILIS Nystatin (Nystatin Powder 15 Gm Bottle) 1 appl TOPICAL TID [facility]; Protocol Last Admin: 07/22/22 09:06 Dose: 1 appl Documented By: AMARILIS Ondansetron HCl (Ondansetron Hcl 4 Mg/2 Ml Vial) 4 mg IVPUSH Q8H PRN PRN Reason: nausea Last Admin: 07/13/22 07:41 Dose: 4 mg Documented By: LORIE Ondansetron HCl (Ondansetron Hcl 4 Mg/2 Ml Vial) 4 mg IVPUSH ONCE PRN PRN Reason: Nausea and Vomiting Pharmacy Consult (Consult Rx Perform Med Rec) 1 each MISCELLANE ONCE PRN PRN Reason: Consult order Simethicone (Simethicone 80 Mg Tab.Chew) 80 mg PO Q6H PRN PRN Reason: Gas Last Admin: 07/07/22 22:45 Dose: 80 mg Documented By: SHIRLEY Sodium Chloride (0.9 % Sodium Chloride Flush 3 Ml Syringe) 3 ml IVFLUSH QSHIFT [facility] Last Admin: 07/22/22 09:07 Dose: 3 ml Documented By: AMARILIS Labs CBC & Chem 7: 07/21/22 05:52 07/21/22 05:52 Labs: Laboratory Results - last 24 hr 07/21/22 07/21/22 07/21/22 11:44 16:09 20:31 POC Glucose 130 H 143 H 122 H 07/22/22 07:43 POC Glucose 135 H Assessment and Plan (1) Parastomal hernia: Status: Acute (2) Acute respiratory failure with hypoxia: Status: Acute Plan 72yo M with colon CA s/p resection/osteomy, HTN admitted to general surgery service for parastomal hernia, repaired 07/05, back to OR 07/11 for fascial dehiscence medicine consultation for hypoxia from aspiration/mucus plugging # acute hypoxic resp failure--resolved, doing well on room air. use IS # presumed aspiration PNA - completed amp/sulbactam d#06/07, PCT decreasing appropriately # moderate emphysema (on CT, not previously diagnosed) - prn nebs, outpt PFTs # HTN--BPs a bit on high side but will continue to [place] - continue lisinopril 40 mg. IV med PRN # parastomal hernia # fascial dehiscence - management as per Surgery # postop ileus - on TPN until bowel function returns, further managment by surgery # VTE ppx - UFH Need for inaptient: Defer to surgery Quality Stroke Does the patient have a stroke diagnosis?: No VTE Prior VTE?: No VTE Risk Level:: Medical - moderate - high VTE Device Contraindication: N/A - Device Ordered VTE Drug Contraindication: N/A - Med Ordered
[2022-07-22 11:16] LABS: Glucose, Whole Blood 133 mg/dL (60-115)
[2022-07-22 16:37] LABS: Glucose, Whole Blood 139 mg/dL (60-115)
[2022-07-22] MEDS: Fat Emulsions 20% 250 ML 10 ML IV (17:52)
[2022-07-22 19:52] LABS: Glucose, Whole Blood 136 mg/dL (60-115)
[2022-07-22] MEDS: HYDROmorphone HCl 1 MG/ML SYRINGE IVPUSH ×2 (20:14→23:54)
[2022-07-23] VITALS (7 sets, daily range): BP systolic 142–178; BP diastolic 58–92; PULSE 70–88; RESP 17–20; TEMP 36–36.7; O2SAT 95–99
[2022-07-23] MEDS: HYDROmorphone HCl 1 MG/ML SYRINGE IVPUSH ×5 (03:30→23:42)
[2022-07-23 07:07] LABS: Glucose, Whole Blood 130 mg/dL (60-115)
[2022-07-23] MEDS: lisinopriL 40 MG TABLET PO (07:45)
[2022-07-23] MEDS: Nystatin Powder 15 GM BOTTLE 1 APPL TOPICAL ×3 (07:49→19:50)
--- NOTE | 2022-07-23 07:50 | P.PNGS_ITS ---
Subjective Subjective Date of Service: 07/24/22 Interval history: says he feels ok denies n/v He says he has been walking more Says he actually feels well except for occasional pain on the incisions Physical Exam Vital Signs: Vital Signs: Last Vital Signs Temp 97 F 07/23/22 06:49 Pulse 75 07/23/22 06:49 Resp 20 07/23/22 06:49 BP 178/83 H 07/23/22 06:49 Pulse Ox 96 07/23/22 06:49 O2 Del Method 07/23/22 06:49 O2 Flow Rate 2 07/15/22 07:15 FiO2 35 07/12/22 03:50 Oxygen Flow Rate 2 07/14/22 08:00 BMI result Body Mass Index 31.4 Const: Other: Appears comfortable on the recliner General: comfortable and no acute distress Resp: Effort & Inspection: normal respiratory effort Cardio: Rate: regular rate GI: Other: Soft, no guarding, no distention, stoma viable but with no significant output yet; incision clean, retention sutures intact Objective Data Active Medications Albuterol/Ipratropium (Albuterol/Iprat 2.5/0.5mg 3 Ml Ampul.Neb) 3 ml INHALE RQ4H PRN PRN Reason: Shortness of Breath/Wheezing Last Admin: 07/07/22 23:33 Dose: 3 ml Documented By: ROCKY Benzonatate (Benzonatate 100 Mg Capsule) 200 mg PO TID PRN PRN Reason: cough Guaifenesin (Guaifenesin 100 Mg/5 Ml Liquid) 5 ml PO Q6H [facility] Last Admin: 07/23/22 03:31 Dose: Not Given Documented By: MADHU Non-Admin Reason: Patient Refused Heparin Sodium (Porcine) (Heparin Sodium,Porcine 5,000 Unit/Ml Vial) 5,000 unit SUBCUT Q12H [facility] Last Admin: 07/22/22 20:15 Dose: 5,000 unit Documented By: BRANDON Hydromorphone HCl (Hydromorphone Hcl 1 Mg/Ml Syringe) 1 mg IVPUSH Q3H PRN; Protocol PRN Reason: Pain, Severe (Pain Scale 7-10) Last Admin: 07/23/22 03:30 Dose: 1 mg Documented By: MADHU Hydromorphone HCl (Hydromorphone Hcl 0.5 Mg/0.5 Ml Syringe) 0.5 mg IVPUSH Q2H PRN; Protocol PRN Reason: Pain, Moderate (Pain Scale 4-6 Last Admin: 07/22/22 15:32 Dose: 0.5 mg Documented By: AMARILIS Promethazine HCl 6.25 mg/ (Sodium Chloride) 50.25 mls @ 201 mls/hr IV Q6H PRN PRN Reason: nausea Last Infusion: 07/13/22 11:13 Dose: 0 mls/hr Documented By: LORIE Multivitamins 10 ml/ Trace Metals 1 ml/ Amino Acids/Electrolytes 2,000 mls @ 83.33 mls/hr IV DAILY@1800 [facility] Stop: 07/23/22 17:59 Last Admin: 07/22/22 17:52 Dose: 83.33 mls/hr Documented By: AMARILIS Lisinopril (Lisinopril 40 Mg Tablet) 40 mg PO DAILY [facility] Last Admin: 07/22/22 09:06 Dose: 40 mg Documented By: AMARILIS Nystatin (Nystatin Powder 15 Gm Bottle) 1 appl TOPICAL TID [facility]; Protocol Last Admin: 07/22/22 20:18 Dose: 1 appl Documented By: BRANDON Ondansetron HCl (Ondansetron Hcl 4 Mg/2 Ml Vial) 4 mg IVPUSH Q8H PRN PRN Reason: nausea Last Admin: 07/13/22 07:41 Dose: 4 mg Documented By: LORIE Ondansetron HCl (Ondansetron Hcl 4 Mg/2 Ml Vial) 4 mg IVPUSH ONCE PRN PRN Reason: Nausea and Vomiting Pharmacy Consult (Consult Rx Perform Med Rec) 1 each MISCELLANE ONCE PRN PRN Reason: Consult order Simethicone (Simethicone 80 Mg Tab.Chew) 80 mg PO Q6H PRN PRN Reason: Gas Last Admin: 07/07/22 22:45 Dose: 80 mg Documented By: SHIRLEY Sodium Chloride (0.9 % Sodium Chloride Flush 3 Ml Syringe) 3 ml IVFLUSH QSHIFT [facility] Last Admin: 07/22/22 21:48 Dose: Not Given Documented By: BRANDON Non-Admin Reason: IV Running Labs CBC & Chem 7: 07/21/22 05:52 07/24/22 06:08 Labs: Laboratory Results - last 24 hr 07/22/22 07/22/22 07/22/22 07:43 11:06 16:03 POC Glucose 135 H 133 H 139 H 07/22/22 07/23/22 19:32 06:48 POC Glucose 136 H 130 H Procedures Date of Service Date of Service: 07/23/22 Progress Note: A&P Assessment and plan (1) Ileus: Status: Acute Assessment and Plan: abdomen remains very benign no signficant stoma output continue TPN await return of GI function Follow lytes of TPN Looks well Out of bed Time Spent With Patient Time: Total time spent is greater than 50% in coordination of care (as documented) at patient's floor/unit and/or counseling patient: Quality Stroke Does the patient have a stroke diagnosis?: No VTE Prior VTE?: No VTE Risk Level:: Medical - moderate - high VTE Device Contraindication: N/A - Device Ordered VTE Drug Contraindication: N/A - Med Ordered
--- NOTE | 2022-07-23 08:52 | HO.PM.IMPN ---
Subjective Subjective Date of Service: 07/23/22 Interval History: Seen in f/u for med consult No sob , no ab pain, BP variable, NGT remains in place with ongoing drainage Review of Systems no sob, no fever, incisional pain Physical Exam Vital Signs: Vital Signs: Last Vital Signs Temp 97 F 07/23/22 06:49 Pulse 75 07/23/22 06:49 Resp 20 07/23/22 06:49 BP 178/83 H 07/23/22 06:49 Pulse Ox 95 07/23/22 08:00 O2 Del Method 07/23/22 06:49 O2 Flow Rate 2 07/15/22 07:15 FiO2 35 07/12/22 03:50 Oxygen Flow Rate 2 07/14/22 08:00 BMI result Body Mass Index 31.4 Const: Other: Gen: in no acute distress HEENT: sclera anicteric, moist mucus membranes, NGT in bilious drainage Neck: supple Lungs: clear to auscultation bilaterally Heart: regular rate and rhythm, no murmurs Abd: soft, stoma ok, NG tube with bilious drainage, no bowel sounds still Ext: trace edema Skin: warm/well-perfused Neuro: alert and oriented x3, no focal findings Psych: appropriate affect ? Objective Data Active Medications Albuterol/Ipratropium (Albuterol/Iprat 2.5/0.5mg 3 Ml Ampul.Neb) 3 ml INHALE RQ4H PRN PRN Reason: Shortness of Breath/Wheezing Last Admin: 07/07/22 23:33 Dose: 3 ml Documented By: ROCKY Benzonatate (Benzonatate 100 Mg Capsule) 200 mg PO TID PRN PRN Reason: cough Guaifenesin (Guaifenesin 100 Mg/5 Ml Liquid) 5 ml PO Q6H [facility] Last Admin: 07/23/22 03:31 Dose: Not Given Documented By: MADHU Non-Admin Reason: Patient Refused Heparin Sodium (Porcine) (Heparin Sodium,Porcine 5,000 Unit/Ml Vial) 5,000 unit SUBCUT Q12H [facility] [place] Last Admin: 07/22/22 20:15 Dose: 5,000 unit Documented By: BRANDON Hydromorphone HCl (Hydromorphone Hcl 1 Mg/Ml Syringe) 1 mg IVPUSH Q3H PRN; Protocol PRN Reason: Pain, Severe (Pain Scale 7-10) Last Admin: 07/23/22 07:45 Dose: 1 mg Documented By: DAYANNA Hydromorphone HCl (Hydromorphone Hcl 0.5 Mg/0.5 Ml Syringe) 0.5 mg IVPUSH Q2H PRN; Protocol PRN Reason: Pain, Moderate (Pain Scale 4-6 Last Admin: 07/22/22 15:32 Dose: 0.5 mg Documented By: AMARILIS Promethazine HCl 6.25 mg/ (Sodium Chloride) 50.25 mls @ 201 mls/hr IV Q6H PRN PRN Reason: nausea Last Infusion: 07/13/22 11:13 Dose: 0 mls/hr Documented By: LORIE Multivitamins 10 ml/ Trace Metals 1 ml/ Amino Acids/Electrolytes 2,000 mls @ 83.33 mls/hr IV DAILY@1800 [facility] [place] Stop: 07/23/22 17:59 Last Admin: 07/22/22 17:52 Dose: 83.33 mls/hr Documented By: AMARILIS Lisinopril (Lisinopril 40 Mg Tablet) 40 mg PO DAILY [facility] Last Admin: 07/23/22 07:45 Dose: 40 mg Documented By: DAYANNA Nystatin (Nystatin Powder 15 Gm Bottle) 1 appl TOPICAL TID [facility] [place]; Protocol Last Admin: 07/23/22 07:49 Dose: 1 appl Documented By: DAYANNA Ondansetron HCl (Ondansetron Hcl 4 Mg/2 Ml Vial) 4 mg IVPUSH Q8H PRN PRN Reason: nausea Last Admin: 07/13/22 07:41 Dose: 4 mg Documented By: LORIE Ondansetron HCl (Ondansetron Hcl 4 Mg/2 Ml Vial) 4 mg IVPUSH ONCE PRN PRN Reason: Nausea and Vomiting Pharmacy Consult (Consult Rx Perform Med Rec) 1 each MISCELLANE ONCE PRN PRN Reason: Consult order Simethicone (Simethicone 80 Mg Tab.Chew) 80 mg PO Q6H PRN PRN Reason: Gas Last Admin: 07/07/22 22:45 Dose: 80 mg Documented By: SHIRLEY Sodium Chloride (0.9 % Sodium Chloride Flush 3 Ml Syringe) 3 ml IVFLUSH QSHIFT [facility] Last Admin: 07/23/22 07:49 Dose: Not Given Documented By: DAYANNA Non-Admin Reason: IV Running Labs CBC & Chem 7: 07/21/22 05:52 07/21/22 05:52 Labs: Laboratory Results - last 24 hr 07/22/22 07/22/22 07/22/22 11:06 16:03 19:32 POC Glucose 133 H 139 H 136 H 07/23/22 06:48 POC Glucose 130 H Assessment and Plan (1) Parastomal hernia: Status: Acute (2) Acute respiratory failure with hypoxia: Status: Acute Plan 72yo M with colon CA s/p resection/osteomy, HTN admitted to general surgery service for parastomal hernia, repaired 07/05, back to OR 07/11 for fascial dehiscence medicine consultation for hypoxia from aspiration/mucus plugging # acute hypoxic resp failure--resolved, doing well on room air. use IS # presumed aspiration PNA - completed amp/sulbactam d#06/07, PCT decreasing appropriately # moderate emphysema (on CT, not previously diagnosed) - prn nebs, outpt PFTs # HTN--BPs a bit on high side but will continue to [place] - continue lisinopril 40 mg. IV med PRN # parastomal hernia # fascial dehiscence - management as per Surgery # postop ileus - on TPN until bowel function returns, further managment by surgery # VTE ppx - UFH Need for inaptient: Defer to surgery Quality Stroke Does the patient have a stroke diagnosis?: No VTE Prior VTE?: No VTE Risk Level:: Medical - moderate - high VTE Device Contraindication: N/A - Device Ordered VTE Drug Contraindication: N/A - Med Ordered
--- NOTE | 2022-07-23 08:57 | MHC.CLN ---
F/U CONTINUES NPO WITH TPN. PATIENT WITH ILEUS AND REQUIRES NG TUBE DECOMPRESSION AND BOWEL REST. TPN [id number] AT MAX GOAL RATE 83.33ML/HR WITH 10 ML OF 20% LIPIDS PROVIDES 1662 KCALS (23 KCALS/KG CMW); 100 G PROTEIN (1.4 G/KG). REPLETE LYTES NEEDED. REVIEWED LABS AND COMMUNICATED WITH PHARMACY. RD RECOMMENDS CONTINUE TPN AND LIPIDS AT MAX GOAL RATE.
[2022-07-23 09:56] LABS: Anion Gap 15 (12-20); Blood Urea Nitrogen 32 mg/dL (9-16); Calcium 8.5 mg/dL (8.4-10.2); Carbon Dioxide 30 mmol/L (22-29); Chloride 105 mmol/L (96-108); Creatinine Clr Calc Pharmacy 96.8; Estimated Glomerular Filt Rate > 60; Glucose Random 148 mg/dL (60-115); Magnesium 2.1 mg/dL (1.6-2.6); Phosphorus 4.2 mg/dL (2.7-4.5); Potassium 4.2 mmol/L (3.3-5.1); Sodium 146 mmol/L (135-145)
[2022-07-23] MEDS: Heparin Sodium,Porcine 5,000 UNIT/ML VIAL 5000 UNIT SUBCUT ×2 (10:33→19:43)
[2022-07-23 11:55] LABS: Glucose, Whole Blood 131 mg/dL (60-115)
--- NOTE | 2022-07-23 14:32 | MHC.CM.PN ---
EMR REVIEW, PATIENT IS NOT YET MEDICALLY CLEARED FOR DISCHARGE TODAY R/T NGT IN PLACE AND CONTINUE TPN, AWAITING RETURN OF GI FUNCTION. D/C PLAN CONTINUES TO BE HOME SELF-CARE VS HOME WITH NEW VNA. COM WILL CONTINUE TO FOLLOW FOR D/C NEEDS.
[2022-07-23 17:00] LABS: Glucose, Whole Blood 127 mg/dL (60-115)
[2022-07-23] MEDS: Fat Emulsions 20% 250 ML 10 ML IV (18:12)
[2022-07-23] MEDS: 0.9 % Sodium Chloride Flush 3 ML SYRINGE IVFLUSH (19:45)
[2022-07-23 20:52] LABS: Glucose, Whole Blood 139 mg/dL (60-115)
[2022-07-24] VITALS (9 sets, daily range): BP systolic 152–184; BP diastolic 62–80; PULSE 76–87; RESP 16–18; TEMP 36.2–36.6; O2SAT 95–97
[2022-07-24] MEDS: HYDROmorphone HCl 1 MG/ML SYRINGE IVPUSH ×5 (03:30→23:54)
[2022-07-24 06:50] LABS: Anion Gap 15 (12-20); Blood Urea Nitrogen 35 mg/dL (9-16); Calcium 8.3 mg/dL (8.4-10.2); Carbon Dioxide 31 mmol/L (22-29); Chloride 104 mmol/L (96-108); Creatinine Clr Calc Pharmacy 98.2; Estimated Glomerular Filt Rate > 60; Glucose Random 140 mg/dL (60-115); Potassium 4.1 mmol/L (3.3-5.1); Sodium 146 mmol/L (135-145)
[2022-07-24 07:21] LABS: Glucose, Whole Blood 134 mg/dL (60-115)
[2022-07-24] MEDS: lisinopriL 40 MG TABLET PO (08:28)
[2022-07-24] MEDS: Heparin Sodium,Porcine 5,000 UNIT/ML VIAL 5000 UNIT SUBCUT ×2 (08:30→20:49)
[2022-07-24] MEDS: Nystatin Powder 15 GM BOTTLE 1 APPL TOPICAL ×3 (08:36→20:50)
--- NOTE | 2022-07-24 09:42 | P.PNIM_ITS ---
Subjective Subjective Date of Service: 07/24/22 Interval History: Patient seen for follow up med consult. Pain well controlled. No sob, no abd pain, n/v, diarrhea. NG tube in place with ongoing drainage. BP variable. Physical Exam Vital Signs: Vital Signs: Last Vital Signs Temp 97.8 F 07/24/22 07:13 Pulse 76 07/24/22 07:13 Resp 18 07/24/22 07:13 BP 170/74 H 07/24/22 07:13 Pulse Ox 95 07/24/22 08:00 O2 Del Method 07/24/22 08:00 O2 Flow Rate 2 07/24/22 00:00 FiO2 35 07/12/22 03:50 Oxygen Flow Rate 2 07/14/22 08:00 BMI result Body Mass Index 31.4 Const: Other: Gen: in no acute distress HEENT: sclera anicteric, moist mucus membranes, NGT in bilious drainage Neck: supple Lungs: clear to auscultation bilaterally Heart: regular rate and rhythm, no murmurs Abd: soft, stoma ok, NG tube with bilious drainage, +bs Ext: trace edema Skin: warm/well-perfused Neuro: alert and oriented x3, no focal findings Psych: appropriate affect ? Objective Data Active Medications Albuterol/Ipratropium (Albuterol/Iprat 2.5/0.5mg 3 Ml Ampul.Neb) 3 ml INHALE RQ4H PRN PRN Reason: Shortness of Breath/Wheezing Last Admin: 07/07/22 23:33 Dose: 3 ml Documented By: ROCKY Benzonatate (Benzonatate 100 Mg Capsule) 200 mg PO TID PRN PRN Reason: cough Guaifenesin (Guaifenesin 100 Mg/5 Ml Liquid) 5 ml PO Q6H [facility] Last Admin: 07/24/22 04:49 Dose: Not Given Documented By: MADHU Non-Admin Reason: Patient Refused Heparin Sodium (Porcine) (Heparin Sodium,Porcine 5,000 Unit/Ml Vial) 5,000 unit SUBCUT Q12H [facility] Last Admin: 07/24/22 08:30 Dose: 5,000 unit Documented By: DAYANNA Hydromorphone HCl (Hydromorphone Hcl 1 Mg/Ml Syringe) 1 mg IVPUSH Q3H PRN; Protocol PRN Reason: Pain, Severe (Pain Scale 7-10) Last Admin: 07/24/22 08:44 Dose: 1 mg Documented By: DAYANNA Hydromorphone HCl (Hydromorphone Hcl 0.5 Mg/0.5 Ml Syringe) 0.5 mg IVPUSH Q2H PRN; Protocol PRN Reason: Pain, Moderate (Pain Scale 4-6 Last Admin: 07/22/22 15:32 Dose: 0.5 mg Documented By: AMARILIS Promethazine HCl 6.25 mg/ (Sodium Chloride) 50.25 mls @ 201 mls/hr IV Q6H PRN PRN Reason: nausea Last Infusion: 07/13/22 11:13 Dose: 0 mls/hr Documented By: LORIE Multivitamins 10 ml/ Trace Metals 1 ml/ Amino Acids/Electrolytes 2,000 mls @ 83.33 mls/hr IV DAILY@1800 [facility] Stop: 07/24/22 17:59 Last Admin: 07/23/22 18:06 Dose: 83.33 mls/hr Documented By: DAYANNA Lisinopril (Lisinopril 40 Mg Tablet) 40 mg PO DAILY [facility] Last Admin: 07/24/22 08:28 Dose: 40 mg Documented By: DAYANNA Nystatin (Nystatin Powder 15 Gm Bottle) 1 appl TOPICAL TID [facility]; Protocol Last Admin: 07/24/22 08:36 Dose: 1 appl Documented By: DAYANNA Ondansetron HCl (Ondansetron Hcl 4 Mg/2 Ml Vial) 4 mg IVPUSH Q8H PRN PRN Reason: nausea Last Admin: 07/13/22 07:41 Dose: 4 mg Documented By: LORIE Ondansetron HCl (Ondansetron Hcl 4 Mg/2 Ml Vial) 4 mg IVPUSH ONCE PRN PRN Reason: Nausea and Vomiting Pharmacy Consult (Consult Rx Perform Med Rec) 1 each MISCELLANE ONCE PRN PRN Reason: Consult order Simethicone (Simethicone 80 Mg Tab.Chew) 80 mg PO Q6H PRN PRN Reason: Gas Last Admin: 07/07/22 22:45 Dose: 80 mg Documented By: SHIRLEY Sodium Chloride (0.9 % Sodium Chloride Flush 3 Ml Syringe) 3 ml IVFLUSH QSHIFT [facility] Last Admin: 07/24/22 08:38 Dose: Not Given Documented By: DAYANNA Non-Admin Reason: IV Running Labs CBC & Chem 7: 07/21/22 05:52 07/24/22 06:08 Labs: Laboratory Results - last 24 hr 07/23/22 07/23/22 07/23/22 09:19 11:44 16:56 Anion Gap 15 Estim Creat Clear Calc 96.8 Estimated GFR > 60 POC Glucose 131 H 127 H Random Glucose 148 H Calcium 8.5 D Phosphorus 4.2 Magnesium 2.1 07/23/22 07/24/22 07/24/22 20:35 06:08 07:17 Anion Gap 15 Estim Creat Clear Calc 98.2 Estimated GFR > 60 POC Glucose 139 H 134 H Random Glucose 140 H Calcium 8.3 L Phosphorus Magnesium Assessment and Plan (1) Ileus: Status: Acute (2) Acute respiratory failure with hypoxia: Status: Acute (3) Hypertension: Status: Acute Plan 72yo M with colon CA s/p resection/osteomy, HTN admitted to general surgery service for parastomal hernia, repaired 07/05, back to OR 07/11 for fascial dehiscence medicine consultation for hypoxia from aspiration/mucus plugging # acute hypoxic resp failure--resolved, doing well on room air. use IS # presumed aspiration PNA - completed amp/sulbactam d#06/07, PCT decreasing appropriately # moderate emphysema (on CT, not previously diagnosed)- stable - prn nebs, outpt PFTs # HTN--BPs a bit on high side but will continue to watch - continue lisinopril 40 mg. IV med PRN # parastomal hernia with fascial dehiscence - management as per Surgery # postop ileus - on TPN until bowel function returns, further managment by surgery # VTE ppx - UFH Need for inaptient: Defer to surgery Quality Stroke Does the patient have a stroke diagnosis?: No VTE Prior VTE?: No VTE Risk Level:: Medical - moderate - high VTE Device Contraindication: N/A - Device Ordered VTE Drug Contraindication: N/A - Med Ordered
[2022-07-24 10:22] LABS: Albumin Level 2.7 g/dL (3.5-5.0); Magnesium 2.1 mg/dL (1.6-2.6); Phosphorus 4.4 mg/dL (2.7-4.5)
[2022-07-24 11:28] LABS: Glucose, Whole Blood 151 mg/dL (60-115)
--- NOTE | 2022-07-24 14:42 | PM.PNGS ---
Subjective Subjective Date of Service: 07/25/22 Interval history: Says he feels well Denies abdominal pain but says he gets pain meds for his incision No output from the stoma No events reported overnight Says has been getting out of bed Physical Exam Vital Signs: Vital Signs: Last Vital Signs Temp 97.2 F 07/24/22 11:31 Pulse 80 07/24/22 11:31 Resp 18 07/24/22 11:31 BP 184/80 H 07/24/22 11:31 Pulse Ox 95 07/24/22 11:31 O2 Del Method 07/24/22 11:31 O2 Flow Rate 2 07/24/22 00:00 FiO2 35 07/12/22 03:50 Oxygen Flow Rate 2 07/14/22 08:00 BMI result Body Mass Index 31.4 Const: General: comfortable and no acute distress Resp: Effort & Inspection: normal respiratory effort Cardio: Rate: regular rate GI: Other: Soft, nondistended, no guarding rebound, incision clean, retention sutures intact, stoma without output Objective Data Active Medications Albuterol/Ipratropium (Albuterol/Iprat 2.5/0.5mg 3 Ml Ampul.Neb) 3 ml INHALE RQ4H PRN PRN Reason: Shortness of Breath/Wheezing Last Admin: 07/07/22 23:33 Dose: 3 ml Documented By: ROCKY Benzonatate (Benzonatate 100 Mg Capsule) 200 mg PO TID PRN PRN Reason: cough Guaifenesin (Guaifenesin 100 Mg/5 Ml Liquid) 5 ml PO Q6H [facility] Last Admin: 07/24/22 10:36 Dose: Not Given Documented By: DAYANNA Non-Admin Reason: Patient Refused Heparin Sodium (Porcine) (Heparin Sodium,Porcine 5,000 Unit/Ml Vial) 5,000 unit SUBCUT Q12H [facility] Last Admin: 07/24/22 08:30 Dose: 5,000 unit Documented By: DAYANNA Hydromorphone HCl (Hydromorphone Hcl 1 Mg/Ml Syringe) 1 mg IVPUSH Q3H PRN; Protocol PRN Reason: Pain, Severe (Pain Scale 7-10) Last Admin: 07/24/22 14:35 Dose: 1 mg Documented By: DAYANNA Hydromorphone HCl (Hydromorphone Hcl 0.5 Mg/0.5 Ml Syringe) 0.5 mg IVPUSH Q2H PRN; Protocol PRN Reason: Pain, Moderate (Pain Scale 4-6 Last Admin: 07/22/22 15:32 Dose: 0.5 mg Documented By: AMARILIS Promethazine HCl 6.25 mg/ (Sodium Chloride) 50.25 mls @ 201 mls/hr IV Q6H PRN PRN Reason: nausea Last Infusion: 07/13/22 11:13 Dose: 0 mls/hr Documented By: LORIE Multivitamins 10 ml/ Trace Metals 1 ml/ Amino Acids/Electrolytes 2,000 mls @ 83.33 mls/hr IV DAILY@1800 [facility] Stop: 07/24/22 17:59 Last Admin: 07/23/22 18:06 Dose: 83.33 mls/hr Documented By: DAYANNA Multivitamins 10 ml/ Trace Metals 1 ml/ Amino Acids/Electrolytes 1,999.92 mls @ 83.33 mls/hr IV DAILY@1800 [facility] Stop: 07/25/22 17:59 Fat Emulsion Intravenous (Intralipid) 120 mls @ 10 mls/hr IV DAILY@1800 [facility] Stop: 07/25/22 05:59 Lisinopril (Lisinopril 40 Mg Tablet) 40 mg PO DAILY [facility] Last Admin: 07/24/22 08:28 Dose: 40 mg Documented By: DAYANNA Nystatin (Nystatin Powder 15 Gm Bottle) 1 appl TOPICAL TID [facility]; Protocol Last Admin: 07/24/22 08:36 Dose: 1 appl Documented By: DAYANNA Ondansetron HCl (Ondansetron Hcl 4 Mg/2 Ml Vial) 4 mg IVPUSH Q8H PRN PRN Reason: nausea Last Admin: 07/13/22 07:41 Dose: 4 mg Documented By: LORIE Ondansetron HCl (Ondansetron Hcl 4 Mg/2 Ml Vial) 4 mg IVPUSH ONCE PRN PRN Reason: Nausea and Vomiting Pharmacy Consult (Consult Rx Perform Med Rec) 1 each MISCELLANE ONCE PRN PRN Reason: Consult order Simethicone (Simethicone 80 Mg Tab.Chew) 80 mg PO Q6H PRN PRN Reason: Gas Last Admin: 07/07/22 22:45 Dose: 80 mg Documented By: SHIRLEY Sodium Chloride (0.9 % Sodium Chloride Flush 3 Ml Syringe) 3 ml IVFLUSH QSHIFT [facility] Last Admin: 07/24/22 08:38 Dose: Not Given Documented By: DAYANNA Non-Admin Reason: IV Running Labs CBC & Chem 7: 07/21/22 05:52 07/24/22 06:08 Labs: Laboratory Results - last 24 hr 07/23/22 07/23/22 07/24/22 16:56 20:35 06:08 Anion Gap 15 Estim Creat Clear Calc 98.2 Estimated GFR > 60 POC Glucose 127 H 139 H Random Glucose 140 H Calcium 8.3 L Phosphorus 4.4 Magnesium 2.1 Albumin 2.7 L 07/24/22 07/24/22 07:17 11:14 Anion Gap Estim Creat Clear Calc Estimated GFR POC Glucose 134 H 151 H Random Glucose Calcium Phosphorus Magnesium Albumin Procedures Date of Service Date of Service: 07/24/22 Progress Note: A&P Assessment and plan (1) Ileus: Status: Acute Assessment and Plan: Looks well otherwise NG tube still with some significant output, although less Exam remains benign Still no significant output Encourage ambulation ABILIO marks Time Spent With Patient Time: Total time spent is greater than 50% in coordination of care (as documented) at patient's floor/unit and/or counseling patient: Quality Stroke Does the patient have a stroke diagnosis?: No VTE Prior VTE?: No VTE Risk Level:: Medical - moderate - high VTE Device Contraindication: N/A - Device Ordered VTE Drug Contraindication: N/A - Med Ordered
--- NOTE | 2022-07-24 16:33 | PM.EVENT ---
Event Note Date of Service: 07/26/22 Event Note: Patient seen on afternoon rounds Unable to void freely Patient has history of difficulty insertion of Webb perioperatively Urology therefore consulted Explained plan to patient - he understands that his Webb will need to be reinserted Otherwise no new issues
[2022-07-24 16:38] LABS: Glucose, Whole Blood 136 mg/dL (60-115)
[2022-07-24] MEDS: HYDROmorphone HCl 0.5 MG/0.5 ML SYRINGE IVPUSH (16:54)
[2022-07-24] MEDS: Fat Emulsions 20% 250 ML 10 ML IV (18:12)
[2022-07-24 19:51] LABS: Glucose, Whole Blood 134 mg/dL (60-115)
[2022-07-25] VITALS (10 sets, daily range): BP systolic 142–164; BP diastolic 70–78; PULSE 64–82; RESP 16–18; TEMP 36.3–36.6; O2SAT 92–98; BMI 59.5
[2022-07-25] MEDS: HYDROmorphone HCl 1 MG/ML SYRINGE IVPUSH ×5 (03:38→20:03)
[2022-07-25 07:32] LABS: Glucose, Whole Blood 141 mg/dL (60-115)
[2022-07-25] MEDS: lisinopriL 40 MG TABLET PO (08:03)
--- NOTE | 2022-07-25 08:12 | P.PNGS_ITS ---
Subjective Subjective Date of Service: 07/27/22 Interval history: Webb catheter reinserted by Dr. Patel yesterday afternoon Patient says he now feels much better Denies significant abdominal pain However, still no significant output from stoma Physical Exam Vital Signs: Vital Signs: Last Vital Signs Temp 97.8 F 07/25/22 07:53 Pulse 82 07/25/22 07:53 Resp 18 07/25/22 07:53 BP 160/70 H 07/25/22 07:53 Pulse Ox 97 07/25/22 08:00 O2 Del Method 07/25/22 08:00 O2 Flow Rate 2 07/24/22 00:00 FiO2 35 07/12/22 03:50 Oxygen Flow Rate 2 07/14/22 08:00 BMI result Body Mass Index 31.4 Const: General: comfortable and no acute distress Resp: Effort & Inspection: normal respiratory effort Cardio: Rate: regular rate GI: Other: Soft, nondistended, no guarding rebound, incision clean and dry, tension sutures in place , stoma appears viable, with no output Objective Data Active Medications Albuterol/Ipratropium (Albuterol/Iprat 2.5/0.5mg 3 Ml Ampul.Neb) 3 ml INHALE RQ4H PRN PRN Reason: Shortness of Breath/Wheezing Last Admin: 07/07/22 23:33 Dose: 3 ml Documented By: ROCKY Benzonatate (Benzonatate 100 Mg Capsule) 200 mg PO TID PRN PRN Reason: cough Guaifenesin (Guaifenesin 100 Mg/5 Ml Liquid) 5 ml PO Q6H [facility] Last Admin: 07/25/22 03:47 Dose: Not Given Documented By: MADHU Non-Admin Reason: Patient Refused Heparin Sodium (Porcine) (Heparin Sodium,Porcine 5,000 Unit/Ml Vial) 5,000 unit SUBCUT Q12H [facility] Last Admin: 07/24/22 20:49 Dose: 5,000 unit Documented By: LUISITO Hydromorphone HCl (Hydromorphone Hcl 1 Mg/Ml Syringe) 1 mg IVPUSH Q3H PRN; Protocol PRN Reason: Pain, Severe (Pain Scale 7-10) Last Admin: 07/25/22 08:03 Dose: 1 mg Documented By: LUDIN Hydromorphone HCl (Hydromorphone Hcl 0.5 Mg/0.5 Ml Syringe) 0.5 mg IVPUSH Q2H PRN; Protocol PRN Reason: Pain, Moderate (Pain Scale 4-6 Last Admin: 07/24/22 16:54 Dose: 0.5 mg Documented By: DAYANNA Promethazine HCl 6.25 mg/ (Sodium Chloride) 50.25 mls @ 201 mls/hr IV Q6H PRN PRN Reason: nausea Last Infusion: 07/13/22 11:13 Dose: 0 mls/hr Documented By: LORIE Multivitamins 10 ml/ Trace Metals 1 ml/ Amino Acids/Electrolytes 1,999.92 mls @ 83.33 mls/hr IV DAILY@1800 [facility] Stop: 07/25/22 17:59 Last Admin: 07/24/22 18:11 Dose: 83.33 mls/hr Documented By: DANITZA Lisinopril (Lisinopril 40 Mg Tablet) 40 mg PO DAILY [facility] Last Admin: 07/25/22 08:03 Dose: 40 mg Documented By: LUDIN Nystatin (Nystatin Powder 15 Gm Bottle) 1 appl TOPICAL TID [facility]; Protocol Last Admin: 07/24/22 20:50 Dose: 1 appl Documented By: LUISITO Ondansetron HCl (Ondansetron Hcl 4 Mg/2 Ml Vial) 4 mg IVPUSH Q8H PRN PRN Reason: nausea Last Admin: 07/13/22 07:41 Dose: 4 mg Documented By: LORIE Ondansetron HCl (Ondansetron Hcl 4 Mg/2 Ml Vial) 4 mg IVPUSH ONCE PRN PRN Reason: Nausea and Vomiting Pharmacy Consult (Consult Rx Perform Med Rec) 1 each MISCELLANE ONCE PRN PRN Reason: Consult order Simethicone (Simethicone 80 Mg Tab.Chew) 80 mg PO Q6H PRN PRN Reason: Gas Last Admin: 07/07/22 22:45 Dose: 80 mg Documented By: SHIRLEY Sodium Chloride (0.9 % Sodium Chloride Flush 3 Ml Syringe) [facility] Last Admin: 07/24/22 23:57 Dose: Not Given Documented By: MADHU Non-Admin Reason: tlc only Labs CBC & Chem 7: 07/21/22 05:52 07/26/22 09:33 Labs: Laboratory Results - last 24 hr 07/24/22 07/24/22 07/24/22 06:08 11:14 15:27 POC Glucose 151 H 136 H Phosphorus 4.4 Magnesium 2.1 Albumin 2.7 L 07/24/22 07/25/22 19:36 07:17 POC Glucose 134 H 141 H Phosphorus Magnesium Albumin Procedures Date of Service Date of Service: 07/25/22 Progress Note: A&P Assessment and plan (1) Ileus: Status: Acute Assessment and Plan: Still no significant output from stoma However, abdominal exam remains very benign, nondistended NG tube in place Patient to get out of bed and ambulate today - was unable to do it yesterday because of urinary retention Looks well otherwise Continue TPN Time Spent With Patient Time: Total time spent is greater than 50% in coordination of care (as documented) at patient's floor/unit and/or counseling patient: Quality Stroke Does the patient have a stroke diagnosis?: No VTE Prior VTE?: No VTE Risk Level:: Medical - moderate - high VTE Device Contraindication: N/A - Device Ordered VTE Drug Contraindication: N/A - Med Ordered
[2022-07-25] MEDS: Nystatin Powder 15 GM BOTTLE 1 APPL TOPICAL ×2 (10:50→19:54)
[2022-07-25] MEDS: 0.9 % Sodium Chloride Flush 3 ML SYRINGE IVFLUSH (10:51)
[2022-07-25] MEDS: Heparin Sodium,Porcine 5,000 UNIT/ML VIAL 5000 UNIT SUBCUT ×2 (11:06→20:04)
[2022-07-25 11:14] LABS: Glucose, Whole Blood 134 mg/dL (60-115)
--- NOTE | 2022-07-25 12:43 | MHC.CM.PN ---
EMR REVIEWED, NG TUBE REMAINS IN PLACE, PT CONT'S TO RECEIVE TPN, CHUNG CATH PLACED D/T URINARY RETENTION AND STILL PT W/MINIMAL OUTPUT VIA STOMA, NO D/C PANNED FOR TODAY, CM WILL CONT TO FOLLOW D/C NEEDS.
[2022-07-25 16:00] LABS: Glucose, Whole Blood 128 mg/dL (60-115)
--- NOTE | 2022-07-25 16:03 | PM.EVENT ---
Event Note Date of Service: 07/25/22 Event Note: Seen on afternoon rounds Had been walking down the hallway Feels well Occasional incisional pain Looks comfortable Good urine output No stoma output yet Keep NG tube in for now TPN
[2022-07-25] MEDS: Fat Emulsions 20% 250 ML 10 ML IV (19:44)
[2022-07-25 21:08] LABS: Glucose, Whole Blood 139 mg/dL (60-115)
[2022-07-26] VITALS (10 sets, daily range): BP systolic 115–148; BP diastolic 62–80; PULSE 74–101; RESP 17–18; TEMP 36.1–36.8; O2SAT 95–97
[2022-07-26] MEDS: HYDROmorphone HCl 1 MG/ML SYRINGE IVPUSH ×4 (00:11→18:02)
[2022-07-26] MEDS: HYDROmorphone HCl 0.5 MG/0.5 ML SYRINGE IVPUSH (07:56)
[2022-07-26] MEDS: lisinopriL 40 MG TABLET PO (07:56)
[2022-07-26] MEDS: Nystatin Powder 15 GM BOTTLE 1 APPL TOPICAL ×3 (08:00→21:39)
[2022-07-26] MEDS: 0.9 % Sodium Chloride Flush 3 ML SYRINGE IVFLUSH (08:04)
--- NOTE | 2022-07-26 08:19 | HO.PM.IMPN ---
Subjective Subjective Date of Service: 07/26/22 Interval History: Seen for follow up for medical consult: Reporting 07/11 abdominal pain responds well to pain meds. Still no BM. Blood pressures have been fluctuating somewhat but have remained stable overall. No cp, sob, h/a. NG tube in place with ongoing drainage. Review of Systems General: No fevers, malaise, unintentional weight loss Cardiovascular: No chest pain, palpitations, or leg edema Respiratory: No shortness of breath, wheezing, cough GI: +abdominal pain. No nausea, vomiting Neuro: No headaches, weakness, paresthesias Skin: No rashes or lesions Physical Exam Vital Signs: Vital Signs: Last Vital Signs Temp 98.2 F 07/26/22 07:46 Pulse 81 07/26/22 07:46 Resp 18 07/26/22 07:46 BP 140/75 H 07/26/22 07:46 Pulse Ox 97 07/26/22 07:57 O2 Del Method 07/26/22 07:57 O2 Flow Rate 2 07/24/22 00:00 FiO2 35 07/12/22 03:50 Oxygen Flow Rate 2 07/14/22 08:00 BMI result Body Mass Index 59.5 Constitutional - Awake and Alert, No apparent distress Eyes - PERRLA, EOMI Cardiovascular - S1S2, RRR, No edema Respiratory - Normal lung expansion, Normal respiratory effort, No respiratory distress, CTA bilaterally Gastrointestinal - + BS, Soft, nondistended, no guarding rebound, incision clean and dry, tension sutures in place , stoma appears viable, with no output Extremities - no calf tenderness bilaterally, no swelling Skin - Warm/Dry Neurological - Alert & oriented x3, No focal deficit Psychological - Appropriate affect Objective Data Active Medications Benzonatate (Benzonatate 100 Mg Capsule) 200 mg PO TID PRN PRN Reason: cough Guaifenesin (Guaifenesin 100 Mg/5 Ml Liquid) 5 ml PO Q6H [facility] Last Admin: 07/26/22 05:05 Dose: Not Given Documented By: MADHU Non-Admin Reason: Patient Refused Heparin Sodium (Porcine) (Heparin Sodium,Porcine 5,000 Unit/Ml Vial) 5,000 unit SUBCUT Q12H [facility] Last Admin: 07/25/22 20:04 Dose: 5,000 unit Documented By: LUISITO Hydromorphone HCl (Hydromorphone Hcl 1 Mg/Ml Syringe) 1 mg IVPUSH Q3H PRN; Protocol PRN Reason: Pain, Severe (Pain Scale 7-10) Last Admin: 07/26/22 03:55 Dose: 1 mg Documented By: MADHU Hydromorphone HCl (Hydromorphone Hcl 0.5 Mg/0.5 Ml Syringe) 0.5 mg IVPUSH Q2H PRN; Protocol PRN Reason: Pain, Moderate (Pain Scale 4-6 Last Admin: 07/26/22 07:56 Dose: 0.5 mg Documented By: AMARILIS Promethazine HCl 6.25 mg/ (Sodium Chloride) 50.25 mls @ 201 mls/hr IV Q6H PRN PRN Reason: nausea Last Infusion: 07/13/22 11:13 Dose: 0 mls/hr Documented By: LORIE Multivitamins 10 ml/ Trace Metals 1 ml/ Amino Acids/Electrolytes 1,999.92 mls @ 83.33 mls/hr IV DAILY@1800 [facility] Stop: 07/26/22 17:59 Last Admin: 07/25/22 19:35 Dose: 83.33 mls/hr Documented By: LUISITO Lisinopril (Lisinopril 40 Mg Tablet) 40 mg PO DAILY [facility] Last Admin: 07/26/22 07:56 Dose: 40 mg Documented By: AMARILIS Nystatin (Nystatin Powder 15 Gm Bottle) 1 appl TOPICAL TID [facility]; Protocol Last Admin: 07/26/22 08:00 Dose: 1 appl Documented By: AMARILIS Ondansetron HCl (Ondansetron Hcl 4 Mg/2 Ml Vial) 4 mg IVPUSH Q8H PRN PRN Reason: nausea Last Admin: 07/13/22 07:41 Dose: 4 mg Documented By: LORIE Ondansetron HCl (Ondansetron Hcl 4 Mg/2 Ml Vial) 4 mg IVPUSH ONCE PRN PRN Reason: Nausea and Vomiting Pharmacy Consult (Consult Rx Perform Med Rec) 1 each MISCELLANE ONCE PRN PRN Reason: Consult order Simethicone (Simethicone 80 Mg Tab.Chew) 80 mg PO Q6H PRN PRN Reason: Gas Last Admin: 07/07/22 22:45 Dose: 80 mg Documented By: DAVIDLiu Sodium Chloride (0.9 % Sodium Chloride Flush 3 Ml Syringe) 3 ml IVFLUSH QSHIFT [facility] Last Admin: 07/26/22 08:04 Dose: 3 ml Documented By: AMARILIS Labs CBC & Chem 7: 07/21/22 05:52 07/24/22 06:08 Labs: Laboratory Results - last 24 hr 07/25/22 07/25/22 07/25/22 11:05 15:56 21:04 POC Glucose 134 H 128 H 139 H Assessment and Plan (1) Ileus: Status: Acute (2) Small bowel obstruction: Status: Acute (3) Dehiscence of closure of fascia, superficial or muscular: Status: Acute Plan 72yo M with colon CA s/p resection/osteomy, HTN admitted to general surgery service for parastomal hernia, repaired 07/05, back to OR 07/11 for fascial dehiscence medicine consultation for hypoxia from aspiration/mucus plugging # acute hypoxic resp failure--resolved, doing well on room air. use IS # presumed aspiration PNA - completed amp/sulbactam d#06/07, PCT decreasing appropriately # moderate emphysema (on CT, not previously diagnosed)- stable - prn nebs, outpt PFTs # HTN--BPs a bit on high side but stable overall - continue lisinopril 40 mg. IV med PRN # parastomal hernia with fascial dehiscence - management as per Surgery # postop ileus - on TPN until bowel function returns, further managment by surgery # VTE ppx - UFH Need for inaptient: Defer to surgery Quality Stroke Does the patient have a stroke diagnosis?: No VTE Prior VTE?: No VTE Risk Level:: Medical - moderate - high VTE Device Contraindication: N/A - Device Ordered VTE Drug Contraindication: N/A - Med Ordered
--- NOTE | 2022-07-26 09:36 | P.PNGS_ITS ---
Subjective Subjective Date of Service: 07/27/22 Interval history: States he feels well Does not take much pain medications anymore Ambulated well yesterday Denies output from his stoma Physical Exam Vital Signs: Vital Signs: Last Vital Signs Temp 98.2 F 07/26/22 07:46 Pulse 81 07/26/22 07:46 Resp 18 07/26/22 07:46 BP 140/75 H 07/26/22 07:46 Pulse Ox 97 07/26/22 07:57 O2 Del Method 07/26/22 07:57 O2 Flow Rate 2 07/24/22 00:00 FiO2 35 07/12/22 03:50 Oxygen Flow Rate 2 07/14/22 08:00 BMI result Body Mass Index 59.5 Const: General: healthy appearing and comfortable Resp: Effort & Inspection: normal respiratory effort Cardio: Rate: regular rate GI: Other: Not distended Palpation (GI): Soft to palpation, not firm, nontender and no guarding Objective Data Active Medications Benzonatate (Benzonatate 100 Mg Capsule) 200 mg PO TID PRN PRN Reason: cough Guaifenesin (Guaifenesin 100 Mg/5 Ml Liquid) 5 ml PO Q6H [facility] Last Admin: 07/26/22 05:05 Dose: Not Given Documented By: MADHU Non-Admin Reason: Patient Refused Heparin Sodium (Porcine) (Heparin Sodium,Porcine 5,000 Unit/Ml Vial) 5,000 unit SUBCUT Q12H [facility] Last Admin: 07/25/22 20:04 Dose: 5,000 unit Documented By: LUISITO Hydromorphone HCl (Hydromorphone Hcl 1 Mg/Ml Syringe) 1 mg IVPUSH Q3H PRN; Prot ocol PRN Reason: Pain, Severe (Pain Scale 7-10) Last Admin: 07/26/22 03:55 Dose: 1 mg Documented By: MADHU Hydromorphone HCl (Hydromorphone Hcl 0.5 Mg/0.5 Ml Syringe) 0.5 mg IVPUSH Q2H PRN; Protocol PRN Reason: Pain, Moderate (Pain Scale 4-6 Last Admin: 07/26/22 07:56 Dose: 0.5 mg Documented By: AMARILIS Promethazine HCl 6.25 mg/ (Sodium Chloride) 50.25 mls @ 201 mls/hr IV Q6H PRN PRN Reason: nausea Last Infusion: 07/13/22 11:13 Dose: 0 mls/hr Documented By: LORIE Multivitamins 10 ml/ Trace Metals 1 ml/ Amino Acids/Electrolytes 1,999.92 mls @ 83.33 mls/hr IV DAILY@1800 [facility] Stop: 07/26/22 17:59 Last Admin: 07/25/22 19:35 Dose: 83.33 mls/hr Documented By: LUISITO Lisinopril (Lisinopril 40 Mg Tablet) 40 mg PO DAILY [facility] Last Admin: 07/26/22 07:56 Dose: 40 mg Documented By: AMARILIS Nystatin (Nystatin Powder 15 Gm Bottle) 1 appl TOPICAL TID [facility]; Protocol Last Admin: 07/26/22 08:00 Dose: 1 appl Documented By: AMARILIS Ondansetron HCl (Ondansetron Hcl 4 Mg/2 Ml Vial) 4 mg IVPUSH Q8H PRN PRN Reason: nausea Last Admin: 07/13/22 07:41 Dose: 4 mg Documented By: LORIE Ondansetron HCl (Ondansetron Hcl 4 Mg/2 Ml Vial) 4 mg IVPUSH ONCE PRN PRN Reason: Nausea and Vomiting Pharmacy Consult (Consult Rx Perform Med Rec) 1 each MISCELLANE ONCE PRN PRN Reason: Consult order Simethicone (Simethicone 80 Mg Tab.Chew) 80 mg PO Q6H PRN PRN Reason: Gas Last Admin: 07/07/22 22:45 Dose: 80 mg Documented By: SHIRLEY Sodium Chloride (0.9 % Sodium Chloride Flush 3 Ml [facility]ringe) [facility] Last Admin: 07/26/22 08:04 Dose: 3 ml Documented By: AMARILIS Labs CBC & Chem 7: 07/21/22 05:52 07/26/22 09:33 Labs: Laboratory Results - last 24 hr 07/25/22 07/25/22 07/25/22 11:05 15:56 21:04 POC Glucose 134 H 128 H 139 H Procedures Date of Service Date of Service: 07/26/22 Progress Note: A&P Assessment and plan (1) Ileus: Status: Acute Assessment and Plan: Still no significant output from his stoma Order for small-bowel series today Clinically looks well Appears comfortable, abdomen soft, nondistended and benign No significant stoma output Ambulate Time Spent With Patient Time: Total time spent is greater than 50% in coordination of care (as documented) at patient's floor/unit and/or counseling patient: Quality Stroke Does the patient have a stroke diagnosis?: No VTE Prior VTE?: No VTE Risk Level:: Medical - moderate - high VTE Device Contraindication: N/A - Device Ordered VTE Drug Contraindication: N/A - Med Ordered
[2022-07-26 10:12] LABS: Anion Gap 14 (12-20); Blood Urea Nitrogen 35 mg/dL (9-16); Calcium 8.7 mg/dL (8.4-10.2); Carbon Dioxide 33 mmol/L (22-29); Chloride 103 mmol/L (96-108); Creatinine Clr Calc Pharmacy 132.7; Estimated Glomerular Filt Rate > 60; Glucose Random 145 mg/dL (60-115); Phosphorus 4.1 mg/dL (2.7-4.5); Potassium 3.9 mmol/L (3.3-5.1); Sodium 146 mmol/L (135-145)
[2022-07-26 13:42] LABS: Glucose, Whole Blood 101 mg/dL (60-115)
[2022-07-26] MEDS: Heparin Sodium,Porcine 5,000 UNIT/ML VIAL 5000 UNIT SUBCUT ×2 (14:00→21:38)
[2022-07-26 16:28] LABS: Glucose, Whole Blood 163 mg/dL (60-115)
--- NOTE | 2022-07-26 17:09 | PM.EVENT ---
Event Note Date of Service: 07/26/22 Event Note: Patient followed multiple times today. He had Gastrografin contrast via his NG tube for his small-bowel series and he had large amounts of stoma output since then He appears comfortable His abdomen remains very soft and benign Currently has a lot of thick with stools, brown from his stoma and this has already been emptied multiple times I therefore removed his NG tube I may advance his diet by tomorrow if he continues to remain comfortable
[2022-07-26] MEDS: Omeprazole 20 MG CAPSULE.DR PO (18:03)
[2022-07-26] MEDS: Fat Emulsions 20% 250 ML 10 ML IV (18:03)
[2022-07-26 20:52] LABS: Glucose, Whole Blood 123 mg/dL (60-115)
[2022-07-27] VITALS (9 sets, daily range): BP systolic 80–150; BP diastolic 48–80; PULSE 75–104; RESP 18; TEMP 36.1–37; O2SAT 95–99; BMI 27.9
[2022-07-27] MEDS: 0.9 % Sodium Chloride Flush 3 ML SYRINGE IVFLUSH ×2 (00:26→16:37)
[2022-07-27] MEDS: HYDROmorphone HCl 1 MG/ML SYRINGE IVPUSH ×4 (05:20→21:41)
[2022-07-27] MEDS: Omeprazole 20 MG CAPSULE.DR PO ×2 (05:21→16:37)
[2022-07-27 07:55] LABS: Glucose, Whole Blood 143 mg/dL (60-115)
--- NOTE | 2022-07-27 08:44 | P.PNGS_ITS ---
Subjective Subjective Date of Service: 07/30/22 Interval history: Continues to feels well No nausea or vomiting Stoma with very good output Hungry, wants to eat Physical Exam Vital Signs: Vital Signs: Last Vital Signs Temp 97.8 F 07/27/22 08:00 Pulse 83 07/27/22 08:00 Resp 18 07/27/22 08:00 BP 150/80 H 07/27/22 08:00 Pulse Ox 97 07/27/22 08:00 O2 Del Method 07/27/22 08:00 O2 Flow Rate 2 07/24/22 00:00 FiO2 35 07/12/22 03:50 Oxygen Flow Rate 2 07/14/22 08:00 BMI result Body Mass Index 59.5 Const: General: comfortable and no acute distress Resp: Effort & Inspection: normal respiratory effort Cardio: Rate: regular rate GI: Other: Stoma with good output of thick stools, incision well healing Palpation (GI): Soft to palpation, not firm, nontender and no guarding Objective Data Active Medications Benzonatate (Benzonatate 100 Mg Capsule) 200 mg PO TID PRN PRN Reason: cough Guaifenesin (Guaifenesin 100 Mg/5 Ml Liquid) 5 ml PO Q6H [facility] Last Admin: 07/27/22 05:16 Dose: Not Given Documented By: JAYESH Non-Admin Reason: Patient Refused Heparin Sodium (Porcine) (Heparin Sodium,Porcine 5,000 Unit/Ml Vial) 5,000 unit SUBCUT Q12H [facility] Last Admin: 07/26/22 21:38 Dose: 5,000 unit Documented By: EVANGELISTA Hydromorphone HCl (Hydromorphone Hcl 1 Mg/Ml Syringe) 1 mg IVPUSH Q4H PRN; Protocol PRN Reason: Pain, Severe (Pain Scale 7-10) Last Admin: 07/27/22 05:20 Dose: 1 mg Documented By: JAYESH Promethazine HCl 6.25 mg/ (Sodium Chloride) 50.25 mls @ 201 mls/hr IV Q6H PRN PRN Reason: nausea Last Infusion: 07/13/22 11:13 Dose: 0 mls/hr Documented By: LORIE Multivitamins 10 ml/ Trace Metals 1 ml/ Amino Acids/Electrolytes 2,000 mls @ 83.333 mls/hr IV DAILY@1800 [facility] Stop: 07/27/22 17:59 Last Admin: 07/26/22 18:03 Dose: 83.33 mls/hr Documented By: AMARILIS Lisinopril (Lisinopril 40 Mg Tablet) 40 mg PO DAILY [facility] Last Admin: 07/26/22 07:56 Dose: 40 mg Documented By: AMARILIS Nystatin (Nystatin Powder 15 Gm Bottle) 1 appl TOPICAL TID [facility]; Protocol Last Admin: 07/26/22 21:39 Dose: 1 appl Documented By: EVANGELISTA Omeprazole (Omeprazole 20 Mg Capsule.) 20 mg PO BID@0630,1630 [facility] Last Admin: 07/27/22 05:21 Dose: 20 mg Documented By: JAYESH Ondansetron HCl (Ondansetron Hcl 4 Mg/2 Ml Vial) 4 mg IVPUSH Q8H PRN PRN Reason: nausea Last Admin: 07/13/22 07:41 Dose: 4 mg Documented By: LORIE Ondansetron HCl (Ondansetron Hcl 4 Mg/2 Ml Vial) 4 mg IVPUSH ONCE PRN PRN Reason: Nausea and Vomiting Pharmacy Consult (Consult Rx Perform Med Rec) 1 each MISCELLANE ONCE PRN PRN Reason: Consult order Simethicone (Simethicone 80 Mg Tab.Chew) 80 mg PO Q6H PRN PRN Reason: Gas Last Admin: 07/07/22 22:45 Dose: 80 mg Documented By: SHIRLEY Sodium Chloride (0.9 % Sodium Chloride Flush 3 Ml Syringe) 3 ml IVFLUSH QSHIFT [facility] Last Admin: 07/27/22 00:26 Dose: 3 ml Documented By: JAYESH Labs CBC & Chem 7: 07/28/22 05:25 07/29/22 05:22 Labs: Laboratory Results - last 24 hr 07/26/22 07/26/22 07/26/22 09:33 13:30 16:23 Anion Gap 14 Estim Creat Clear Calc 132.7 Estimated GFR > 60 POC Glucose 101 163 H Random Glucose 145 H Calcium 8.7 Phosphorus 4.1 Magnesium 2.0 07/26/22 07/27/22 20:42 07:50 Anion Gap Estim Creat Clear Calc Estimated GFR POC Glucose 123 H 143 H Random Glucose Calcium Phosphorus Magnesium Procedures Date of Service Date of Service: 07/27/22 Progress Note: A&P Assessment and plan (1) Ileus: Status: Acute Assessment and Plan: Now with good stoma output Clear liquids, advance as tolerated Continue ambulation Will not reorder TPN after bag runs out Looks well Labs checked Time Spent With Patient Time: Total time spent is greater than 50% in coordination of care (as documented) at patient's floor/unit and/or counseling patient: Quality Stroke Does the patient have a stroke diagnosis?: No VTE Prior VTE?: No VTE Risk Level:: Medical - moderate - high VTE Device Contraindication: N/A - Device Ordered VTE Drug Contraindication: N/A - Med Ordered
[2022-07-27] MEDS: lisinopriL 40 MG TABLET PO (10:54)
[2022-07-27] MEDS: Heparin Sodium,Porcine 5,000 UNIT/ML VIAL 5000 UNIT SUBCUT ×2 (10:54→21:41)
[2022-07-27] MEDS: Nystatin Powder 15 GM BOTTLE 1 APPL TOPICAL ×3 (10:56→21:45)
[2022-07-27 12:08] LABS: Glucose, Whole Blood 129 mg/dL (60-115)
--- NOTE | 2022-07-27 12:33 | MHC.CLN ---
F/U NG TUBE OUT 07/26. DIET ADVANCED TO CLEAR LIQUIDS 07/27. RD ADDED ENSURE CLEAR TID TO PROVIDE ADDITIONAL 720 KCALS, 24 G PROTEIN. PER MD, TPN TO STOP AFTER TODAY'S BAG COMPETED. FOLLOW FOR DIET TOLERANCE/DIET ADVANCEMENT.
--- NOTE | 2022-07-27 13:15 | P.PNIM_ITS ---
Subjective Subjective Date of Service: 07/27/22 Interval History: Seen and examined this morning Follow-up for consultation NG tube was removed this morning, patient very happy. He reports that his diet is being increased to clear liquids which is also looking forward to. He does have abdominal pain with movement but is looking forward to taking a walk with the nurse later today. He denies any nausea or vomiting and is overall feeling well Review of Systems Review of Systems: Yes all other systems are reviewed and are negative Constitutional Constitutional: Denies chills and Denies fever(s) ENT Ears, Nose, Mouth, and Throat: Denies dizziness Cardiovascular Cardiovascular: Denies chest pain, Denies palpitations and Denies dyspnea Respiratory Respiratory: Denies cough and Denies dyspnea Gastrointestinal Gastrointestinal: Denies nausea and Denies vomiting Neurologic Neurologic: Denies dizziness Endocrine Endocrine: Denies palpitations Physical Exam Vital Signs: Vital Signs: Last Vital Signs Temp 97.7 F 07/27/22 11:51 Pulse 104 H 07/27/22 13:05 Resp 18 07/27/22 13:05 BP 90/50 L 07/27/22 13:05 Pulse Ox 99 07/27/22 13:05 O2 Del Method 07/27/22 13:05 O2 Flow Rate 2 07/24/22 00:00 FiO2 35 07/12/22 03:50 Oxygen Flow Rate 2 07/14/22 08:00 BMI result Body Mass Index 59.5 Const: General: cooperative, comfortable, alert and awake Nutritional Appearance: average body habitus Orientation/consciousness: patient oriented x3 Resp: Effort & Inspection: normal respiratory effort and able to speak in complete sentences Auscultation: clear to auscultation bilaterally Cardio: Rate: regular rate Heart sounds: S1 normal heart sound present and S2 normal heart sound present GI: Other: large midline abdominal incision; ostomy with small amt of output Palpation (GI): Soft to palpation : Other: cunningham present Neuro: General: patient oriented x3 Extrem: Other: trace edema Objective Data Active Medications Benzonatate (Benzonatate 100 Mg Capsule) 200 mg PO TID PRN PRN Reason: cough Guaifenesin (Guaifenesin 100 Mg/5 Ml Liquid) 5 ml PO Q6H [facility] Last Admin: 07/27/22 10:57 Dose: Not Given Documented By: JIM Non-Admin Reason: Patient Refused Heparin Sodium (Porcine) (Heparin Sodium,Porcine 5,000 Unit/Ml Vial) 5,000 unit SUBCUT Q12H [facility] Last Admin: 07/27/22 10:54 Dose: 5,000 unit Documented By: JIM Hydromorphone HCl (Hydromorphone Hcl 1 Mg/Ml Syringe) 1 mg IVPUSH Q4H PRN; Protocol PRN Reason: Pain, Severe (Pain Scale 7-10) Last Admin: 07/27/22 05:20 Dose: 1 mg Documented By: JAYESH Promethazine HCl 6.25 mg/ (Sodium Chloride) 50.25 mls @ 201 mls/hr IV Q6H PRN PRN Reason: nausea Last Infusion: 07/13/22 11:13 Dose: 0 mls/hr Documented By: LORIE Multivitamins 10 ml/ Trace Metals 1 ml/ Amino Acids/Electrolytes 2,000 mls @ 83.333 mls/hr IV DAILY@1800 [facility] Stop: 07/27/22 17:59 Last Admin: 07/26/22 18:03 Dose: 83.33 mls/hr Documented By: AMARILIS Lactated Ringer's (Lr) 1,000 mls @ 999 mls/hr IV .Q1H1M [facility] Stop: 07/27/22 14:15 Lisinopril (Lisinopril 40 Mg Tablet) 40 mg PO DAILY [facility] Last Admin: 07/27/22 10:54 Dose: 40 mg Documented By: JIM Nystatin (Nystatin Powder 15 Gm Bottle) 1 appl TOPICAL TID [facility]; Protocol Last Admin: 07/27/22 10:56 Dose: 1 appl Documented By: JIM Omeprazole (Omeprazole 20 Mg Capsule.) 20 mg PO BID@0630,1630 [facility] Last Admin: 07/27/22 05:21 Dose: 20 mg Documented By: JAYESH Ondansetron HCl (Ondansetron Hcl 4 Mg/2 Ml Vial) 4 mg IVPUSH Q8H PRN PRN Reason: nausea Last Admin: 07/13/22 07:41 Dose: 4 mg Documented By: LORIE Ondansetron HCl (Ondansetron Hcl 4 Mg/2 Ml Vial) 4 mg IVPUSH ONCE PRN PRN Reason: Nausea and Vomiting Pharmacy Consult (Consult Rx Perform Med Rec) 1 each MISCELLANE ONCE PRN PRN Reason: Consult order Simethicone (Simethicone 80 Mg Tab.Chew) 80 mg PO Q6H PRN PRN Reason: Gas Last Admin: 07/07/22 22:45 Dose: 80 mg Documented By: SHIRLEY Sodium Chloride (0.9 % Sodium Chloride Flush 3 Ml Syringe) 3 ml IVFLUSH QSHIFT [facility] Last Admin: 07/27/22 10:56 Dose: Not Given Documented By: JIM Non-Admin Reason: IV Running Labs CBC & Chem 7: 07/21/22 05:52 07/26/22 09:33 Labs: Laboratory Results - last 24 hr 07/26/22 07/26/22 07/26/22 13:30 16:23 20:42 POC Glucose 101 163 H 123 H 07/27/22 07/27/22 07:50 11:50 POC Glucose 143 H 129 H Assessment and Plan (1) Ileus: Status: Acute (2) Hypertension: Status: Acute Plan 72yo M with colon CA s/p resection/osteomy, HTN admitted to general surgery service for parastomal hernia, repaired 07/05, back to OR 07/11 for fascial dehiscence medicine consultation for hypoxia from aspiration/mucus plugging acute hypoxic resp failure-resolved, doing well on room air -continue incentive spirometry presumed aspiration PNA - completed amp/sulbactam d#7/, PCT decreasing appropriately moderate emphysema (on CT, not previously diagnosed)- stable - prn nebs, outpt PFTs HTN--BPs a bit on high side but stable overall late morning documented low BP - IVF bolus ordered by surgery. may need to hold lisinopril if bp continues to be low parastomal hernia with fascial dehiscence - management as per Surgery postop ileus NGT removed, starting on clear liquids VTE ppx - UFH Need for inpatient: Defer to surgery Quality Stroke Does the patient have a stroke diagnosis?: No VTE Prior VTE?: No VTE Risk Level:: Medical - moderate - high VTE Device Contraindication: N/A - Device Ordered VTE Drug Contraindication: N/A - Med Ordered
[2022-07-27] MEDS: Lactated Ringers 1,000 ML 999 ML IV (13:37)
--- NOTE | 2022-07-27 15:09 | PC.NURSE ---
IV fluid bolus comleted,BP 116/57 pulse 93 ,PA Maeve Finley notified
--- NOTE | 2022-07-27 15:21 | PM.EVENT ---
Event Note Date of Service: 07/27/22 Event Note: continues to feel well passing stool and gas via stoma tolerating clear liquids well Abdomen remained soft Small-bowel series shows dilation of small bowel loops but he did to past a lot of stools yesterday after Gastrografin He had a transient blood pressure of 78 systolic earlier but was asymptomatic Given 1 L of LR BP now up to 118/57 Final bag of TPN today Advance diet tomorrow Doing well overall Keep Webb in place due to urinary retention - discussed with Dr. Patel
[2022-07-27 16:23] LABS: Glucose, Whole Blood 134 mg/dL (60-115)
--- NOTE | 2022-07-27 16:24 | MHC.CM.PN ---
EMR REVIEWED, PER SURGICAL NOTE PT HAVING STOOL THROUGH STOMA, NG TUBE REMOVED, PT RECEIVING 1L OF LR AND LAST BAG OF TPN TO BE GIVEN TODAY W/PLAN TO ADVANCE DIET TOMORROW, ANTIC D/C SUN/MON IF TOLERATING DIET. CM WILL PLACE [facility] REFERRALS IN ANTIC OF D/C. PER PHYSICAL THERAPY PT WILL NEED SCRIPT FOR WALKER ON D/C.
[2022-07-27] MEDS: Dextrose 5 % and 0.45 % NaCl 1,000 ML 80 ML IVCONT (16:37)
[2022-07-27 19:30] LABS: Glucose, Whole Blood 130 mg/dL (60-115)
[2022-07-28 03:28] VITALS: BP 124/56; PULSE 80; RESP 18; TEMP 36.1; O2SAT 96
[2022-07-28] MEDS: Omeprazole 20 MG CAPSULE.DR PO ×2 (04:34→15:38)
[2022-07-28] MEDS: HYDROmorphone HCl 1 MG/ML SYRINGE IVPUSH ×5 (04:34→21:38)
[2022-07-28] MEDS: Dextrose 5 % and 0.45 % NaCl 1,000 ML 80 ML IVCONT ×2 (04:35→15:39)
[2022-07-28 06:00] LABS: Hematocrit 30.9 % (42.0-52.0); Hemoglobin 9.9 g/dl (14.0-18.0); Mean Corpuscular Hemoglobin 31.6 pg (27.0-33.0); Mean Corpuscular Volume 98.7 fL (80.0-98.0); Mean Platelet Volume 11.3 fL (9.4-12.4); Platelet Count 270 X10*3/uL (160-400); Red Blood Count 3.13 X10*6/uL (4.60-5.80); Red Cell Distribution Width 14.1 % (11.0-16.0); White Blood Count 10.2 X10*3/uL (4.8-10.8)
[2022-07-28 06:51] VITALS: BP 114/64; PULSE 91; RESP 18; TEMP 36.6; O2SAT 97
[2022-07-28 07:17] LABS: Glucose, Whole Blood 100 mg/dL (60-115)
[2022-07-28] MEDS: 0.9 % Sodium Chloride Flush 3 ML SYRINGE IVFLUSH (07:54)
[2022-07-28] MEDS: Heparin Sodium,Porcine 5,000 UNIT/ML VIAL 5000 UNIT SUBCUT ×2 (09:30→21:38)
[2022-07-28] MEDS: Nystatin Powder 15 GM BOTTLE 1 APPL TOPICAL ×3 (09:33→21:42)
[2022-07-28 11:18] VITALS: BP 115/52; PULSE 79; RESP 18; TEMP 36; O2SAT 96
[2022-07-28 11:23] LABS: Glucose, Whole Blood 152 mg/dL (60-115)
--- NOTE | 2022-07-28 11:55 | P.PNIM_ITS ---
Subjective Subjective Date of Service: 07/28/22 Interval History: Seen and examined this morning Follow-up for surgical consultation Patient was hypotensive in the afternoon yesterday, BP improved this morning. Patient has remained asymptomatic Feels well today, denies dizziness, shortness of breath, chest pain Review of Systems Review of Systems: Yes all other systems are reviewed and are negative Constitutional Constitutional: Denies chills and Denies fever(s) ENT Ears, Nose, Mouth, and Throat: Denies dizziness Cardiovascular Cardiovascular: Denies chest pain, Denies palpitations and Denies dyspnea Respiratory Respiratory: Denies cough and Denies dyspnea Gastrointestinal Gastrointestinal: Denies nausea and Denies vomiting Neurologic Neurologic: Denies dizziness Endocrine Endocrine: Denies palpitations Physical Exam Vital Signs: Vital Signs: Last Vital Signs Temp 96.8 F 07/28/22 11:18 Pulse 79 07/28/22 11:18 Resp 18 07/28/22 11:18 BP 115/52 L 07/28/22 11:18 Pulse Ox 96 07/28/22 11:18 O2 Del Method 07/28/22 11:18 O2 Flow Rate 2 07/24/22 00:00 FiO2 35 07/12/22 03:50 Oxygen Flow Rate 2 07/14/22 08:00 BMI result Body Mass Index 27.9 Const: General: cooperative, comfortable, alert and awake Nutritional Appearance: average body habitus Orientation/consciousness: patient oriented x3 Resp: Effort & Inspection: normal respiratory effort and able to speak in complete sentences Auscultation: clear to auscultation bilaterally Cardio: Rate: regular rate Heart sounds: S1 normal heart sound present and S2 normal heart sound present GI: Other: large midline abdominal incision; ostomy with small amt of output Palpation (GI): Soft to palpation : Other: cunningham present Neuro: General: patient oriented x3 Extrem: Other: trace edema Objective Data Active Medications Benzonatate (Benzonatate 100 Mg Capsule) 200 mg PO TID PRN PRN Reason: cough Guaifenesin (Guaifenesin 100 Mg/5 Ml Liquid) 5 ml PO Q6H [facility] Last Admin: 07/28/22 09:30 Dose: Not Given Documented By: SANDRA Non-Admin Reason: Patient Refused Heparin Sodium (Porcine) (Heparin Sodium,Porcine 5,000 Unit/Ml Vial) 5,000 unit SUBCUT Q12H [facility] Last Admin: 07/28/22 09:30 Dose: 5,000 unit Documented By: SANDRA Hydromorphone HCl (Hydromorphone Hcl 1 Mg/Ml Syringe) 1 mg IVPUSH Q4H PRN; Protocol PRN Reason: Pain, Severe (Pain Scale 7-10) Last Admin: 07/28/22 09:40 Dose: 1 mg Documented By: SANDRA Promethazine HCl 6.25 mg/ (Sodium Chloride) 50.25 mls @ 201 mls/hr IV Q6H PRN PRN Reason: nausea Last Infusion: 07/13/22 11:13 Dose: 0 mls/hr Documented By: LORIE Dextrose/Sodium Chloride (D51/2ns) 1,000 mls @ 80 mls/hr IVCONT .[id number] [facility] Last Admin: 07/28/22 04:35 Dose: 80 mls/hr Documented By: SHYANN Lisinopril (Lisinopril 40 Mg Tablet) 40 mg PO DAILY [facility] Last Admin: 07/27/22 10:54 Dose: 40 mg Documented By: JIM Nystatin (Nystatin Powder 15 Gm Bottle) 1 appl TOPICAL TID [facility]; Protocol Last Admin: 07/28/22 09:33 Dose: 1 appl Documented By: SANDRA Omeprazole (Omeprazole 20 Mg Capsule.Dr) 20 mg PO BID@0630,1630 [facility] Last Admin: 07/28/22 04:34 Dose: 20 mg Documented By: SHYANN Ondansetron HCl (Ondansetron Hcl 4 Mg/2 Ml Vial) 4 mg IVPUSH Q8H PRN PRN Reason: nausea Last Admin: 07/13/22 07:41 Dose: 4 mg Documented By: LORIE Ondansetron HCl (Ondansetron Hcl 4 Mg/2 Ml Vial) 4 mg IVPUSH ONCE PRN PRN Reason: Nausea and Vomiting Pharmacy Consult (Consult Rx Perform Med Rec) 1 each MISCELLANE ONCE PRN PRN Reason: Consult order Simethicone (Simethicone 80 Mg Tab.Chew) 80 mg PO Q6H PRN PRN Reason: Gas Last Admin: 08/06/22 22:45 Dose: 80 mg Documented By: SHIRLEY Sodium Chloride (0.9 % Sodium Chloride Flush 3 Ml Syringe) 3 ml IVFLUSH QSHIFT [facility] Last Admin: 07/28/22 07:54 Dose: 3 ml Documented By: SANDRA Comments: TLC flushed with 10 cc flush +blood return Labs CBC & Chem 7: 07/28/22 05:25 07/26/22 09:33 Labs: Laboratory Results - last 24 hr 07/27/22 07/27/22 07/27/22 11:50 15:43 19:24 MCV MCH MCHC RDW Plt Count MPV Absolute Nucleated RBC Nucleated RBC % (auto) POC Glucose 129 H 134 H 130 H 07/28/22 07/28/22 07/28/22 05:25 06:51 11:18 MCV 98.7 H MCH 31.6 MCHC 32.0 RDW 14.1 Plt Count 270 D MPV 11.3 Absolute Nucleated RBC 0.000 Nucleated RBC % (auto) 0.0 POC Glucose 100 152 H Assessment and Plan (1) Hypertension: Status: Acute Plan 72yo M with colon CA s/p resection/osteomy, HTN admitted to general surgery service for parastomal hernia, repaired 07/05, back to OR 07/11 for fascial dehiscence medicine consultation for hypoxia from aspiration/mucus plugging acute hypoxic resp failure-resolved, doing well on room air -continue incentive spirometry presumed aspiration PNA - completed amp/sulbactam d#7/, PCT decreasing appropriately moderate emphysema (on CT, not previously diagnosed)- stable - prn nebs, outpt PFTs HTN hypotensive yesterday improved with IVF, no sepsis will hold Lisinopril parastomal hernia with fascial dehiscence - management as per Surgery postop ileus NGT removed, starting on clear liquids VTE ppx - UFH Need for inpatient: Defer to surgery Quality Stroke Does the patient have a stroke diagnosis?: No VTE Prior VTE?: No VTE Risk Level:: Medical - moderate - high VTE Device Contraindication: N/A - Device Ordered VTE Drug Contraindication: N/A - Med Ordered
--- NOTE | 2022-07-28 13:35 | P.PNGS_ITS ---
Subjective Subjective Date of Service: 07/28/22 Interval history: feeling well but tired, has been walking around nd tolerating liquids, little burpy no nausea, ostomy with gas and stool. complains of pinching sensation near ostomy area Physical Exam Vital Signs: Vital Signs: Last Vital Signs Temp 96.8 F 07/28/22 11:18 Pulse 79 07/28/22 11:18 Resp 18 07/28/22 11:18 BP 115/52 L 07/28/22 11:18 Pulse Ox 96 07/28/22 11:18 O2 Del Method 07/28/22 11:18 O2 Flow Rate 2 07/24/22 00:00 FiO2 35 07/12/22 03:50 Oxygen Flow Rate 2 07/14/22 08:00 BMI result Body Mass Index 27.9 Const: General: cooperative, comfortable and no acute distress Resp: Effort & Inspection: normal respiratory effort Auscultation: clear to auscultation bilaterally Cardio: Rate: regular rate Rhythm: regular rhythm GI: Other: soft distended nontender hypo bowel sounds incision looks good and ostomy healthy with gas in bag Objective Data Active Medications Benzonatate (Benzonatate 100 Mg Capsule) 200 mg PO TID PRN PRN Reason: cough Guaifenesin (Guaifenesin 100 Mg/5 Ml Liquid) 5 ml PO Q6H [facility] Last Admin: 07/28/22 09:30 Dose: Not Given Documented By: SANDRA Non-Admin Reason: Patient Refused Heparin Sodium (Porcine) (Heparin Sodium,Porcine 5,000 Unit/Ml Vial) 5,000 unit SUBCUT Q12H [facility] Last Admin: 07/28/22 09:30 Dose: 5,000 unit Documented By: SANDRA Hydromorphone HCl (Hydromorphone Hcl 1 Mg/Ml Syringe) 1 mg IVPUSH Q4H PRN; Protocol PRN Reason: Pain, Severe (Pain Scale 7-10) Last Admin: 07/28/22 09:40 Dose: 1 mg Documented By: SANDRA Promethazine HCl 6.25 mg/ (Sodium Chloride) 50.25 mls @ 201 mls/hr IV Q6H PRN PRN Reason: nausea Last Infusion: 07/13/22 11:13 Dose: 0 mls/hr Documented By: LORIE Dextrose/Sodium Chloride (D51/2ns) 1,000 mls @ 80 mls/hr IVCONT .[id number] [facility] Last Admin: 07/28/22 04:35 Dose: 80 mls/hr Documented By: SHYANN Lisinopril (Lisinopril 40 Mg Tablet) 40 mg PO DAILY [facility] Last Admin: 07/27/22 10:54 Dose: 40 mg Documented By: JIM Nystatin (Nystatin Powder 15 Gm Bottle) 1 appl TOPICAL TID [facility]; Protocol Last Admin: 07/28/22 09:33 Dose: 1 appl Documented By: SANDRA Omeprazole (Omeprazole 20 Mg Capsule.Dr) 20 mg PO BID@0630,1630 [facility] Last Admin: 07/28/22 04:34 Dose: 20 mg Documented By: SHYANN Ondansetron HCl (Ondansetron Hcl 4 Mg/2 Ml Vial) 4 mg IVPUSH Q8H PRN PRN Reason: nausea Last Admin: 07/13/22 07:41 Dose: 4 mg Documented By: LORIE Ondansetron HCl (Ondansetron Hcl 4 Mg/2 Ml Vial) 4 mg IVPUSH ONCE PRN PRN Reason: Nausea and Vomiting Pharmacy Consult (Consult Rx Perform Med Rec) 1 each MISCELLANE ONCE PRN PRN Reason: Consult order Simethicone (Simethicone 80 Mg Tab.Chew) 80 mg PO Q6H PRN PRN Reason: Gas Last Admin: 07/07/22 22:45 Dose: 80 mg Documented By: SHIRLEY Sodium Chloride (0.9 % Sodium Chloride Flush 3 Ml Syringe) 3 ml IVFLUSH QSHIFT [facility] Last Admin: 07/28/22 07:54 Dose: 3 ml Documented By: SANDRA Comments: TLC flushed with 10 cc flush +blood return Labs CBC & Chem 7: 07/28/22 05:25 07/26/22 09:33 Labs: Laboratory Results - last 24 hr 07/27/22 07/27/22 07/28/22 15:43 19:24 05:25 MCV 98.7 H MCH 31.6 MCHC 32.0 RDW 14.1 Plt Count 270 D MPV 11.3 Absolute Nucleated RBC 0.000 Nucleated RBC % (auto) 0.0 POC Glucose 134 H 130 H 07/28/22 07/28/22 06:51 11:18 MCV MCH MCHC RDW Plt Count MPV Absolute Nucleated RBC Nucleated RBC % (auto) POC Glucose 100 152 H Procedures Date of Service Date of Service: 07/28/22 Progress Note: A&P Assessment and plan (1) Parastomal hernia: Status: Acute Plan pt is 72 year old male s/p exploration and repair of parastomal hernia with twila and then with dehisc requiring reclosure in OR - doing well now cont with slow po advancement - keep liquids for today ambulate po pain meds keep cunningham in due to urniary retention - as per urology team Time Spent With Patient Time: Total time spent is greater than 50% in coordination of care (as documented) at patient's floor/unit and/or counseling patient: Quality Stroke Does the patient have a stroke diagnosis?: No VTE Prior VTE?: No VTE Risk Level:: Medical - moderate - high VTE Device Contraindication: N/A - Device Ordered VTE Drug Contraindication: N/A - Med Ordered
[2022-07-28 15:44] VITALS: BP 123/61; PULSE 72; RESP 18; TEMP 36.4; O2SAT 98
[2022-07-28 16:15] LABS: Glucose, Whole Blood 114 mg/dL (60-115)
[2022-07-28 19:10] VITALS: BP 99/56; PULSE 80; RESP 18; TEMP 36.5; O2SAT 98
[2022-07-28 19:47] LABS: Glucose, Whole Blood 93 mg/dL (60-115)
[2022-07-28 23:27] VITALS: BP 107/55; PULSE 75; RESP 18; TEMP 36.2; O2SAT 97
[2022-07-29] VITALS (7 sets, daily range): BP systolic 123–158; BP diastolic 62–72; PULSE 76–86; RESP 17–19; TEMP 36.1–36.4; O2SAT 91–97
[2022-07-29] MEDS: Dextrose 5 % and 0.45 % NaCl 1,000 ML 80 ML IVCONT (03:12)
[2022-07-29] MEDS: HYDROmorphone HCl 1 MG/ML SYRINGE IVPUSH ×4 (03:12→20:12)
[2022-07-29] MEDS: Omeprazole 20 MG CAPSULE.DR PO ×2 (05:24→16:41)
[2022-07-29 06:56] LABS: Anion Gap 13 (12-20); Blood Urea Nitrogen 31 mg/dL (9-16); Calcium 7.4 mg/dL (8.4-10.2); Carbon Dioxide 27 mmol/L (22-29); Chloride 103 mmol/L (96-108); Creatinine Clr Calc Pharmacy 89.2; Estimated Glomerular Filt Rate > 60; Glucose Random 97 mg/dL (60-115); Potassium 3.6 mmol/L (3.3-5.1); Sodium 139 mmol/L (135-145)
[2022-07-29 07:49] LABS: Glucose, Whole Blood 92 mg/dL (60-115)
[2022-07-29] MEDS: Heparin Sodium,Porcine 5,000 UNIT/ML VIAL 5000 UNIT SUBCUT ×2 (09:39→20:12)
[2022-07-29] MEDS: 0.9 % Sodium Chloride Flush 3 ML SYRINGE IVFLUSH ×2 (09:40→16:41)
[2022-07-29] MEDS: Nystatin Powder 15 GM BOTTLE 1 APPL TOPICAL ×3 (09:51→20:17)
--- NOTE | 2022-07-29 10:52 | P.PNIM_ITS ---
Subjective Subjective Date of Service: 07/29/22 Interval History: seen and examined this morning follow up for medical consult no overnight events feeling well, bp still on lower side; patient asymptomatic, denies dizziness No chest pain, shortness of breath. Ambulated down the hallway yesterday without difficulty Abdominal discomfort improving, still with liquid output an ostomy Review of Systems Review of Systems: Yes all other systems are reviewed and are negative Constitutional Constitutional: Denies chills and Denies fever(s) ENT Ears, Nose, Mouth, and Throat: Denies dizziness Cardiovascular Cardiovascular: Denies chest pain, Denies palpitations and Denies dyspnea Respiratory Respiratory: Denies cough and Denies dyspnea Gastrointestinal Gastrointestinal: Denies nausea and Denies vomiting Neurologic Neurologic: Denies dizziness Endocrine Endocrine: Denies palpitations Physical Exam Vital Signs: Vital Signs: Last Vital Signs Temp 97.6 F 07/29/22 07:35 Pulse 79 07/29/22 07:35 Resp 18 07/29/22 07:35 BP 123/62 07/29/22 07:35 Pulse Ox 91 L 07/29/22 08:00 O2 Del Method 07/29/22 07:35 O2 Flow Rate 2 07/24/22 00:00 FiO2 35 07/12/22 03:50 Oxygen Flow Rate 2 07/14/22 08:00 BMI result Body Mass Index 27.9 Const: General: cooperative, comfortable, alert and awake Nutritional Appearance: average body habitus Orientation/consciousness: patient oriented x3 Resp: Effort & Inspection: normal respiratory effort and able to speak in complete sentences Auscultation: clear to auscultation bilaterally Cardio: Rate: regular rate Heart sounds: S1 normal heart sound present and S2 normal heart sound present GI: Other: large midline abdominal incision; ostomy with small amt of liquid output Palpation (GI): Soft to palpation : Other: cunningham present Neuro: General: patient oriented x3 Extrem: Other: trace edema Objective Data Active Medications Acetaminophen (Acetaminophen 325 Mg Tablet) 650 mg PO Q6H PRN PRN Reason: Pain, Moderate (Pain Scale 4-6 Benzonatate (Benzonatate 100 Mg Capsule) 200 mg PO TID PRN PRN Reason: cough Guaifenesin (Guaifenesin 100 Mg/5 Ml Liquid) 5 ml PO Q6H [facility] Last Admin: 07/29/22 10:11 Dose: Not Given Documented By: NAVIN Non-Admin Reason: Patient Refused Heparin Sodium (Porcine) (Heparin Sodium,Porcine 5,000 Unit/Ml Vial) 5,000 unit SUBCUT Q12H [facility] Last Admin: 07/29/22 09:39 Dose: 5,000 unit Documented By: NAVIN Hydromorphone HCl (Hydromorphone Hcl 1 Mg/Ml Syringe) 1 mg IVPUSH Q4H PRN; Protocol PRN Reason: Pain, Severe (Pain Scale 7-10) Last Admin: 07/29/22 09:40 Dose: 1 mg Documented By: NAVIN Promethazine HCl 6.25 mg/ (Sodium Chloride) 50.25 mls @ 201 mls/hr IV Q6H PRN PRN Reason: nausea Last Infusion: 07/13/22 11:13 Dose: 0 mls/hr Documented By: LORIE Dextrose/Sodium Chloride (D51/2ns) 1,000 mls @ 80 mls/hr IVCONT .[id number] [facility] Last Admin: 07/29/22 03:12 Dose: 80 mls/hr Documented By: ADAIR Lisinopril (Lisinopril 40 Mg Tablet) 40 mg PO DAILY [facility] Last Admin: 07/27/22 10:54 Dose: 40 mg Documented By: JIM Nystatin (Nystatin Powder 15 Gm Bottle) 1 appl TOPICAL TID [facility]; Protocol Last Admin: 07/29/22 09:51 Dose: 1 appl Documented By: NAVIN Omeprazole (Omeprazole 20 Mg Capsule.) 20 mg PO BID@0630,1630 [facility] Last Admin: 07/29/22 05:24 Dose: 20 mg Documented By: ADAIR Ondansetron HCl (Ondansetron Hcl 4 Mg/2 Ml Vial) 4 mg IVPUSH Q8H PRN PRN Reason: nausea Last Admin: 07/13/22 07:41 Dose: 4 mg Documented By: LORIE Ondansetron HCl (Ondansetron Hcl 4 Mg/2 Ml Vial) 4 mg IVPUSH ONCE PRN PRN Reason: Nausea and Vomiting Pharmacy Consult (Consult Rx Perform Med Rec) 1 each MISCELLANE ONCE PRN PRN Reason: Consult order Simethicone (Simethicone 80 Mg Tab.Chew) 80 mg PO Q6H PRN PRN Reason: Gas Last Admin: 07/07/22 22:45 Dose: 80 mg Documented By: SHIRLEY Sodium Chloride (0.9 % Sodium Chloride Flush 3 Ml Syringe) 3 ml IVFLUSH QSHIFT [facility] Last Admin: 07/29/22 09:40 Dose: 3 ml Documented By: NAVIN Labs CBC & Chem 7: 07/28/22 05:25 07/29/22 05:22 Labs: Laboratory Results - last 24 hr 07/28/22 07/28/22 07/28/22 11:18 15:07 19:42 Anion Gap Estim Creat Clear Calc Estimated GFR POC Glucose 152 H 114 93 Random Glucose Calcium 07/29/22 07/29/22 05:22 07:34 Anion Gap 13 Estim Creat Clear Calc 89.2 Estimated GFR > 60 POC Glucose 92 Random Glucose 97 Calcium 7.4 L D Assessment and Plan (1) Emphysema lung: Status: Acute (2) Hypertension: Status: Acute Plan 72yo M with colon CA s/p resection/ostomy, HTN admitted to general surgery service for parastomal hernia, repaired 07/05, back to OR 07/11 for fascial dehiscence medicine consultation for hypoxia from aspiration/mucus plugging HTN hypotensive 07/27, bp still soft better with IVF, no sepsis will hold Lisinopril (on benazepril 40 BID and HCTZ 25 daily, cardizem 30 daily at baseline) follow BP closely postop ileus NGT removed, started on clear liquids acute hypoxic resp failure-resolved, doing well on room air -continue incentive spirometry presumed aspiration PNA - completed amp/sulbactam d#06/07, PCT decreased appropriately moderate emphysema (on CT, not previously diagnosed)- stable - prn nebs, outpt PFTs parastomal hernia with fascial dehiscence - management as per Surgery VTE ppx - UFH Need for inpatient: Defer to surgery Quality Stroke Does the patient have a stroke diagnosis?: No VTE Prior VTE?: No VTE Risk Level:: Medical - moderate - high VTE Device Contraindication: N/A - Device Ordered VTE Drug Contraindication: N/A - Med Ordered
[2022-07-29 11:15] LABS: Glucose, Whole Blood 105 mg/dL (60-115)
--- NOTE | 2022-07-29 11:15 | PM.PNGS ---
Subjective Subjective Date of Service: 07/29/22 Interval history: feeling well - tolerating po liquids and going slow and doing well, ostomy putting out stool and gas no n/v Physical Exam Vital Signs: Vital Signs: Last Vital Signs Temp 97.3 F 07/29/22 11:00 Pulse 76 07/29/22 11:00 Resp 17 07/29/22 11:00 BP 133/66 07/29/22 11:00 Pulse Ox 95 07/29/22 11:00 O2 Del Method 07/29/22 11:00 O2 Flow Rate 2 07/24/22 00:00 FiO2 35 07/12/22 03:50 Oxygen Flow Rate 2 07/14/22 08:00 BMI result Body Mass Index 27.9 Const: General: cooperative, healthy appearing and comfortable; No acute distress Resp: Auscultation: clear to auscultation bilaterally Cardio: Rate: regular rate Rhythm: regular rhythm GI: Other: abdo still distended appearance but softer, no tenderness better active bowel sounds - ostomy looks great Objective Data Active Medications Acetaminophen (Acetaminophen 325 Mg Tablet) 650 mg PO Q6H PRN PRN Reason: Pain, Moderate (Pain Scale 4-6 Benzonatate (Benzonatate 100 Mg Capsule) 200 mg PO TID PRN PRN Reason: cough Guaifenesin (Guaifenesin 100 Mg/5 Ml Liquid) 5 ml PO Q6H [facility] Last Admin: 07/29/22 10:11 Dose: Not Given Documented By: NAVIN Non-Admin Reason: Patient Refused Heparin Sodium (Porcine) (Heparin Sodium,Porcine 5,000 Unit/Ml Vial) 5,000 unit SUBCUT Q12H [facility] Last Admin: 07/29/22 09:39 Dose: 5,000 unit Documented By: NAVIN Hydromorphone HCl (Hydromorphone Hcl 1 Mg/Ml Syringe) 1 mg IVPUSH Q4H PRN; Protocol PRN Reason: Pain, Severe (Pain Scale 7-10) Last Admin: 07/29/22 09:40 Dose: 1 mg Documented By: NAVIN Promethazine HCl 6.25 mg/ (Sodium Chloride) 50.25 mls @ 201 mls/hr IV Q6H PRN PRN Reason: nausea Last Infusion: 07/13/22 11:13 Dose: 0 mls/hr Documented By: LORIE Lisinopril (Lisinopril 40 Mg Tablet) 40 mg PO DAILY [facility] Last Admin: 07/27/22 10:54 Dose: 40 mg Documented By: JIM Nystatin (Nystatin Powder 15 Gm Bottle) 1 appl TOPICAL TID [facility]; Protocol Last Admin: 07/29/22 09:51 Dose: 1 appl Documented By: NAVIN Omeprazole (Omeprazole 20 Mg Capsule.Dr) 20 mg PO BID@0630,1630 [facility] Last Admin: 07/29/22 05:24 Dose: 20 mg Documented By: ADAIR Ondansetron HCl (Ondansetron Hcl 4 Mg/2 Ml Vial) 4 mg IVPUSH Q8H PRN PRN Reason: nausea Last Admin: 07/13/22 07:41 Dose: 4 mg Documented By: LORIE Ondansetron HCl (Ondansetron Hcl 4 Mg/2 Ml Vial) 4 mg IVPUSH ONCE PRN PRN Reason: Nausea and Vomiting Pharmacy Consult (Consult Rx Perform Med Rec) 1 each MISCELLANE ONCE PRN PRN Reason: Consult order Simethicone (Simethicone 80 Mg Tab.Chew) 80 mg PO Q6H PRN PRN Reason: Gas Last Admin: 07/07/22 22:45 Dose: 80 mg Documented By: SHIRLEY Sodium Chloride (0.9 % Sodium Chloride Flush 3 Ml Syringe) 3 ml IVFLUSH QSHIFT [facility] Last Admin: 07/29/22 09:40 Dose: 3 ml Documented By: NAVIN Labs CBC & Chem 7: 07/28/22 05:25 07/29/22 05:22 Labs: Laboratory Results - last 24 hr 07/28/22 07/28/22 07/28/22 11:18 15:07 19:42 Anion Gap Estim Creat Clear Calc Estimated GFR POC Glucose 152 H 114 93 Random Glucose Calcium 07/29/22 07/29/22 07/29/22 05:22 07:34 11:04 Anion Gap 13 Estim Creat Clear Calc 89.2 Estimated GFR > 60 POC Glucose 92 105 Random Glucose 97 Calcium 7.4 L D Procedures Date of Service Date of Service: 07/29/22 Progress Note: A&P Assessment and plan (1) Ileus: Status: Acute Plan pt is 72 year old male s/p repair of parastomal hernia nd then repair of midline dehisc and cunningham in for urinary retention - ileus improving plan to advance diet to toast today heplock ivf po pain meds of tylenol and less narcotics ambulate keep cunningham in pt understands and agree with the plan Time Spent With Patient Time: Total time spent is greater than 50% in coordination of care (as documented) at patient's floor/unit and/or counseling patient: Quality Stroke Does the patient have a stroke diagnosis?: No VTE Prior VTE?: No VTE Risk Level:: Medical - moderate - high VTE Device Contraindication: N/A - Device Ordered VTE Drug Contraindication: N/A - Med Ordered
[2022-07-29 15:57] LABS: Glucose, Whole Blood 105 mg/dL (60-115)
[2022-07-29 20:44] LABS: Glucose, Whole Blood 89 mg/dL (60-115)
[2022-07-30] VITALS (7 sets, daily range): BP systolic 124–169; BP diastolic 64–81; PULSE 80–94; RESP 16–18; TEMP 36.3–37.6; O2SAT 94–97; BMI 29.0
[2022-07-30] MEDS: Omeprazole 20 MG CAPSULE.DR PO ×2 (06:30→15:38)
[2022-07-30 07:36] LABS: Glucose, Whole Blood 97 mg/dL (60-115)
--- NOTE | 2022-07-30 08:24 | PM.PNGS ---
Subjective Subjective Date of Service: 08/01/22 Interval history: Says he feels well Denies abdominal pain Stoma continues to function well Tolerating regular diet Physical Exam Vital Signs: Vital Signs: Last Vital Signs Temp 99.6 F 07/30/22 07:44 Pulse 85 07/30/22 07:44 Resp 16 07/30/22 07:44 BP 169/81 H 07/30/22 07:44 Pulse Ox 95 07/30/22 08:00 O2 Del Method 07/30/22 08:00 O2 Flow Rate 2 07/24/22 00:00 FiO2 35 07/12/22 03:50 Oxygen Flow Rate 2 07/14/22 08:00 BMI result Body Mass Index 29.0 Const: General: comfortable and no acute distress Orientation/consciousness: patient oriented x3 Neck: Neck: Yes no lymphadenopathy Resp: Auscultation: clear to auscultation bilaterally Cardio: Rhythm: regular rhythm GI: Other: Stoma with good output Incision clean and dry Palpation (GI): Soft to palpation, nontender and no guarding Neuro: General: patient oriented x3 Objective Data Active Medications Acetaminophen (Acetaminophen 325 Mg Tablet) 650 mg PO Q6H PRN PRN Reason: Pain, Moderate (Pain Scale 4-6 Benzonatate (Benzonatate 100 Mg Capsule) 200 mg PO TID PRN PRN Reason: cough Guaifenesin (Guaifenesin 100 Mg/5 Ml Liquid) 5 ml PO Q6H [facility] Last Admin: 07/30/22 04:57 Dose: Not Given Documented By: ADAIR Non-Admin Reason: Patient Refused Heparin Sodium (Porcine) (Heparin Sodium,Porcine 5,000 Unit/Ml Vial) 5,000 unit SUBCUT Q12H [facility] Last Admin: 07/29/22 20:12 Dose: 5,000 unit Documented By: ADAIR Hydromorphone HCl (Hydromorphone Hcl 1 Mg/Ml Syringe) 1 mg IVPUSH Q4H PRN; Protocol PRN Reason: Pain, Severe (Pain Scale 7-10) Last Admin: 07/29/22 20:12 Dose: 1 mg Documented By: ADAIR Promethazine HCl 6.25 mg/ (Sodium Chloride) 50.25 mls @ 201 mls/hr IV Q6H PRN PRN Reason: nausea Last Infusion: 07/13/22 11:13 Dose: 0 mls/hr Documented By: LORIE Lisinopril (Lisinopril 40 Mg Tablet) 40 mg PO DAILY [facility] Last Admin: 07/27/22 10:54 Dose: 40 mg Documented By: JIM Nystatin (Nystatin Powder 15 Gm Bottle) 1 appl TOPICAL TID [facility]; Protocol Last Admin: 07/29/22 20:17 Dose: 1 appl Documented By: ADAIR Omeprazole (Omeprazole 20 Mg Capsule.Dr) 20 mg PO BID@0630,1630 [facility] Last Admin: 07/30/22 06:30 Dose: 20 mg Documented By: ADAIR Ondansetron HCl (Ondansetron Hcl 4 Mg/2 Ml Vial) 4 mg IVPUSH Q8H PRN PRN Reason: nausea Last Admin: 07/13/22 07:41 Dose: 4 mg Documented By: LORIE Ondansetron HCl (Ondansetron Hcl 4 Mg/2 Ml Vial) 4 mg IVPUSH ONCE PRN PRN Reason: Nausea and Vomiting Pharmacy Consult (Consult Rx Perform Med Rec) 1 each MISCELLANE ONCE PRN PRN Reason: Consult order Simethicone (Simethicone 80 Mg Tab.Chew) 80 mg PO Q6H PRN PRN Reason: Gas Last Admin: 07/07/22 22:45 Dose: 80 mg Documented By: SHIRLEY Sodium Chloride (0.9 % Sodium Chloride Flush 3 Ml Syringe) 3 ml IVFLUSH QSHIFT [facility] Last Admin: 07/29/22 20:09 Dose: Not Given Documented By: ADAIR Non-Admin Reason: flushed triple with 5ml Labs CBC & Chem 7: 07/28/22 05:25 07/29/22 05:22 Labs: Laboratory Results - last 24 hr 07/29/22 07/29/22 07/29/22 11:04 15:53 20:03 POC Glucose 105 105 89 07/30/22 07:15 POC Glucose 97 Procedures Date of Service Date of Service: 07/30/22 Progress Note: A&P Assessment and plan (1) Ileus: Status: Acute Assessment and Plan: Postop ileus clinically resolved Diet as tolerated Doing well overall Good stoma function Possible DC home tomorrow Time Spent With Patient Time: Total time spent is greater than 50% in coordination of care (as documented) at patient's floor/unit and/or counseling patient: Quality Stroke Does the patient have a stroke diagnosis?: No VTE Prior VTE?: No VTE Risk Level:: Medical - moderate - high VTE Device Contraindication: N/A - Device Ordered VTE Drug Contraindication: N/A - Med Ordered
--- NOTE | 2022-07-30 10:04 | HO.PM.IMPN ---
Subjective Subjective Date of Service: 07/30/22 Review of Systems Follow up consultation for hypotension feeling well denies chest pain, sob Physical Exam Vital Signs: Vital Signs: Last Vital Signs Temp 99.6 F 07/30/22 07:44 Pulse 85 07/30/22 07:44 Resp 16 07/30/22 07:44 BP 169/81 H 07/30/22 07:44 Pulse Ox 95 07/30/22 08:00 O2 Del Method 07/30/22 08:00 O2 Flow Rate 2 07/24/22 00:00 FiO2 35 07/12/22 03:50 Oxygen Flow Rate 2 07/14/22 08:00 BMI result Body Mass Index 29.0 Appearing in no acute distress lung sounds are clear to auscultation heart regular rate rhythm, clear S1, S2 positive bowel sounds, abdomen is soft, nontender neuro patient is alert x3, no focal deficits Objective Data Active Medications Acetaminophen (Acetaminophen 325 Mg Tablet) 650 mg PO Q6H PRN PRN Reason: Pain, Moderate (Pain Scale 4-6 Benzonatate (Benzonatate 100 Mg Capsule) 200 mg PO TID PRN PRN Reason: cough Guaifenesin (Guaifenesin 100 Mg/5 Ml Liquid) 5 ml PO Q6H [facility] Last Admin: 07/30/22 04:57 Dose: Not Given Documented By: ADAIR Non-Admin Reason: Patient Refused Heparin Sodium (Porcine) (Heparin Sodium,Porcine 5,000 Unit/Ml Vial) 5,000 unit SUBCUT Q12H [facility] Last Admin: 07/29/22 20:12 Dose: 5,000 unit Documented By: ADAIR Hydromorphone HCl (Hydromorphone Hcl 1 Mg/Ml Syringe) 1 mg IVPUSH Q4H PRN; Protocol PRN Reason: Pain, Severe (Pain Scale 7-10) Last Admin: 07/29/22 20:12 Dose: 1 mg Documented By: ADAIR Promethazine HCl 6.25 mg/ (Sodium Chloride) 50.25 mls @ 201 mls/hr IV Q6H PRN PRN Reason: nausea Last Infusion: 07/13/22 11:13 Dose: 0 mls/hr Documented By: LORIE Lisinopril (Lisinopril 40 Mg Tablet) 40 mg PO DAILY [facility] Last Admin: 07/27/22 10:54 Dose: 40 mg Documented By: JIM Nystatin (Nystatin Powder 15 Gm Bottle) 1 appl TOPICAL TID [facility]; Protocol Last Admin: 07/29/22 20:17 Dose: 1 appl Documented By: ADAIR Omeprazole (Omeprazole 20 Mg Capsule.) 20 mg PO BID@0630,1630 [facility] Last Admin: 07/30/22 06:30 Dose: 20 mg Documented By: ADAIR Ondansetron HCl (Ondansetron Hcl 4 Mg/2 Ml Vial) 4 mg IVPUSH Q8H PRN PRN Reason: nausea Last Admin: 07/13/22 07:41 Dose: 4 mg Documented By: LORIE Ondansetron HCl (Ondansetron Hcl 4 Mg/2 Ml Vial) 4 mg IVPUSH ONCE PRN PRN Reason: Nausea and Vomiting Pharmacy Consult (Consult Rx Perform Med Rec) 1 each MISCELLANE ONCE PRN PRN Reason: Consult order Simethicone (Simethicone 80 Mg Tab.Chew) 80 mg PO Q6H PRN PRN Reason: Gas Last Admin: 07/07/22 22:45 Dose: 80 mg Documented By: SHIRLEY Sodium Chloride (0.9 % Sodium Chloride Flush 3 Ml Syringe) 3 ml IVFLUSH QSHIFT [facility] Last Admin: 07/29/22 20:09 Dose: Not Given Documented By: ADAIR Non-Admin Reason: flushed triple with 5ml Labs CBC & Chem 7: 07/28/22 05:25 07/29/22 05:22 Labs: Laboratory Results - last 24 hr 07/29/22 07/29/22 07/29/22 11:04 15:53 20:03 POC Glucose 105 105 89 07/30/22 07:15 POC Glucose 97 Assessment and Plan (1) Emphysema lung: Status: Acute (2) Hypertension: Status: Acute Plan 72yo M with colon CA s/p resection/ostomy, HTN admitted to general surgery service for parastomal hernia, repaired 07/05, back to OR 07/11 for fascial dehiscence medicine consultation for hypoxia from aspiration/mucus plugging HTN. Improved better with IVF, no sepsis Lisinopril resumed follow BP closely postop ileus NGT removed, started on clear liquids acute hypoxic resp failure-resolved, doing well on room air continue incentive spirometry presumed aspiration PNA completed amp/sulbactam d#7/, PCT decreased appropriately moderate emphysema (on CT, not previously diagnosed)- stable prn nebs, outpt PFTs parastomal hernia with fascial dehiscence management as per Surgery VTE ppx [facility] Attending Dr. Jimenez Need for inpatient: Defer to surgery Quality Stroke Does the patient have a stroke diagnosis?: No VTE Prior VTE?: No VTE Risk Level:: Medical - moderate - high VTE Device Contraindication: N/A - Device Ordered VTE Drug Contraindication: N/A - Med Ordered
--- NOTE | 2022-07-30 10:30 | MHC.CLN ---
F/U DIET ADVANCED TO REGULAR, LOW FAT. HAD BEEN TOLERATING CLEAR LIQUIDS WELL. WEIGHT ON 07/29=83.9 KG. CONTINUE TO FOLLOW FOR DIET TOLERANCE AND INTAKE.
[2022-07-30] MEDS: Heparin Sodium,Porcine 5,000 UNIT/ML VIAL 5000 UNIT SUBCUT ×2 (10:48→21:05)
[2022-07-30] MEDS: Nystatin Powder 15 GM BOTTLE 1 APPL TOPICAL ×3 (10:50→21:07)
[2022-07-30] MEDS: lisinopriL 40 MG TABLET PO (11:06)
[2022-07-30] MEDS: HYDROmorphone HCl 1 MG/ML SYRINGE IVPUSH ×3 (11:29→19:43)
[2022-07-30 11:36] LABS: Glucose, Whole Blood 106 mg/dL (60-115)
[2022-07-30 16:40] LABS: Glucose, Whole Blood 119 mg/dL (60-115)
[2022-07-30 19:56] LABS: Glucose, Whole Blood 144 mg/dL (60-115)
[2022-07-31] MEDS: HYDROmorphone HCl 1 MG/ML SYRINGE IVPUSH ×3 (00:06→10:46)
[2022-07-31 03:36] VITALS: BP 131/71; PULSE 80; RESP 18; TEMP 36.1; O2SAT 97
[2022-07-31] MEDS: Omeprazole 20 MG CAPSULE.DR PO ×2 (05:31→16:19)
[2022-07-31 07:44] LABS: Glucose, Whole Blood 98 mg/dL (60-115)
[2022-07-31 08:00] VITALS: BP 147/76; PULSE 72; RESP 17; TEMP 36.7; O2SAT 96; BMI 28.6
[2022-07-31] MEDS: 0.9 % Sodium Chloride Flush 3 ML SYRINGE IVFLUSH ×2 (08:51→16:20)
[2022-07-31] MEDS: lisinopriL 40 MG TABLET PO (08:52)
[2022-07-31] MEDS: Heparin Sodium,Porcine 5,000 UNIT/ML VIAL 5000 UNIT SUBCUT ×2 (08:52→21:12)
[2022-07-31] MEDS: Nystatin Powder 15 GM BOTTLE 1 APPL TOPICAL ×3 (08:53→21:15)
[2022-07-31 09:56] VITALS: BP 147/76; PULSE 72; O2SAT 96
[2022-07-31 11:20] LABS: Glucose, Whole Blood 111 mg/dL (60-115)
[2022-07-31 12:00] VITALS: BP 129/69; PULSE 82; RESP 18; TEMP 36.3; O2SAT 97
--- NOTE | 2022-07-31 14:42 | MHC.CM.PN ---
EMR REVIEWED PT NOT DISCHARGING TODAY AND PER [facility] SURGICAL REPORTED THEY ANTICIPATE HE WILL BE THROUGH END OF WEEK, [facility] UPDATED ON D/C ANTICIPATED NEEDS.
[2022-07-31 15:39] VITALS: BP 119/71; PULSE 85; RESP 18; TEMP 36.4; O2SAT 97
[2022-07-31 15:46] LABS: Glucose, Whole Blood 136 mg/dL (60-115)
--- NOTE | 2022-07-31 15:58 | P.PNGS_ITS ---
Subjective Subjective Date of Service: 07/31/22 Interval history: Tolerating diet well Good stoma function Says he feels ?tired? States he does not feel he is ready to go home because of low energy levels Physical Exam Vital Signs: Vital Signs: Last Vital Signs Temp 97.6 F 07/31/22 15:39 Pulse 85 07/31/22 15:39 Resp 18 07/31/22 15:39 BP 119/71 07/31/22 15:39 Pulse Ox 97 07/31/22 15:39 O2 Del Method 07/31/22 15:39 O2 Flow Rate 2 07/24/22 00:00 FiO2 35 07/12/22 03:50 Oxygen Flow Rate 2 07/14/22 08:00 BMI result Body Mass Index 28.6 Const: General: comfortable and no acute distress Resp: Effort & Inspection: normal respiratory effort Cardio: Rate: regular rate GI: Other: Stoma with good output Palpation (GI): Soft to palpation, not firm, nontender and no guarding Objective Data Active Medications Acetaminophen (Acetaminophen 325 Mg Tablet) 650 mg PO Q6H PRN PRN Reason: Pain, Moderate (Pain Scale 4-6 Benzonatate (Benzonatate 100 Mg Capsule) 200 mg PO TID PRN PRN Reason: cough Guaifenesin (Guaifenesin 100 Mg/5 Ml Liquid) 5 ml PO Q6H [facility] Last Admin: 07/31/22 15:51 Dose: Not Given Documented By: BIBIANA Non-Admin Reason: Patient Refused Heparin Sodium (Porcine) (Heparin Sodium,Porcine 5,000 Unit/Ml Vial) 5,000 unit SUBCUT Q12H [facility] Last Admin: 07/31/22 08:52 Dose: 5,000 unit Documented By: TANO Promethazine HCl 6.25 mg/ (Sodium Chloride) 50.25 mls @ 201 mls/hr IV Q6H PRN PRN Reason: nausea Last Infusion: 07/13/22 11:13 Dose: 0 mls/hr Documented By: LORIE Lisinopril (Lisinopril 40 Mg Tablet) 40 mg PO DAILY [facility] Last Admin: 07/31/22 08:52 Dose: 40 mg Documented By: TANO Morphine Sulfate (Morphine Sulfate 2 Mg/Ml Cartridge) 1 mg IVPUSH Q4H PRN; Protocol PRN Reason: Pain, Severe (Pain Scale 7-10) Nystatin (Nystatin Powder 15 Gm Bottle) 1 appl TOPICAL TID [facility]; Protocol Last Admin: 07/31/22 08:53 Dose: 1 appl Documented By: TANO Omeprazole (Omeprazole 20 Mg Capsule.) 20 mg PO BID@0630,1630 [facility] Last Admin: 07/31/22 05:31 Dose: 20 mg Documented By: SHIRLEY Ondansetron HCl (Ondansetron Hcl 4 Mg/2 Ml Vial) 4 mg IVPUSH Q8H PRN PRN Reason: nausea Last Admin: 07/13/22 07:41 Dose: 4 mg Documented By: LORIE Ondansetron HCl (Ondansetron Hcl 4 Mg/2 Ml Vial) 4 mg IVPUSH ONCE PRN PRN Reason: Nausea and Vomiting Oxycodone HCl (Oxycodone Hcl Immed Release 5 Mg Tablet) 10 mg PO Q4H PRN PRN Reason: Pain, Moderate (Pain Scale 4-6 Pharmacy Consult (Consult Rx Perform Med Rec) 1 each MISCELLANE ONCE PRN PRN Reason: Consult order Simethicone (Simethicone 80 Mg Tab.Chew) 80 mg PO Q6H PRN PRN Reason: Gas Last Admin: 07/07/22 22:45 Dose: 80 mg Documented By: SHIRLEY Sodium Chloride (0.9 % Sodium Chloride Flush 3 Ml Syringe) [facility] Last Admin: 07/31/22 08:51 Dose: 3 ml Documented By: TANO Labs CBC & Chem 7: 07/28/22 05:25 07/29/22 05:22 Labs: Laboratory Results - last 24 hr 07/30/22 07/30/22 07/31/22 16:31 19:16 07:31 POC Glucose 119 H 144 H 98 07/31/22 07/31/22 11:17 15:42 POC Glucose 111 136 H Procedures Date of Service Date of Service: 07/31/22 Progress Note: A&P Assessment and plan (1) Ileus: Status: Acute Assessment and Plan: Ileus clinically resolved Good GI function He has been ambulating He says he is not ready to be discharged because of low energy levels Discussed with corrections caseworker (2) Parastomal hernia: Status: Acute Time Spent With Patient Time: Total time spent is greater than 50% in coordination of care (as documented) at patient's floor/unit and/or counseling patient: Quality Stroke Does the patient have a stroke diagnosis?: No VTE Prior VTE?: No VTE Risk Level:: Medical - moderate - high VTE Device Contraindication: N/A - Device Ordered VTE Drug Contraindication: N/A - Med Ordered
[2022-07-31] MEDS: oxyCODONE HCl Immed Release 5 MG TABLET 10 MG PO ×2 (16:28→21:12)
[2022-07-31 20:00] VITALS: BP 143/62; PULSE 81; RESP 18; TEMP 36.3; O2SAT 98
[2022-07-31 20:42] LABS: Glucose, Whole Blood 142 mg/dL (60-115)
[2022-08-01] VITALS (7 sets, daily range): BP systolic 129–169; BP diastolic 67–88; PULSE 65–95; RESP 17–18; TEMP 36.2–36.9; O2SAT 94–100
[2022-08-01] MEDS: Omeprazole 20 MG CAPSULE.DR PO ×2 (05:59→16:07)
[2022-08-01 07:18] LABS: Glucose, Whole Blood 100 mg/dL (60-115)
[2022-08-01] MEDS: lisinopriL 40 MG TABLET PO (08:33)
[2022-08-01] MEDS: 0.9 % Sodium Chloride Flush 3 ML SYRINGE IVFLUSH ×2 (08:37→16:07)
--- NOTE | 2022-08-01 09:03 | PM.PNGS ---
Subjective Subjective Date of Service: 08/01/22 Interval history: Denies abdominal pain Tolerating diet well Stoma with good function Had been ambulating the hallway Physical Exam Vital Signs: Vital Signs: Last Vital Signs Temp 98.3 F 08/01/22 07:26 Pulse 75 08/01/22 07:26 Resp 17 08/01/22 07:26 BP 169/88 H 08/01/22 07:26 Pulse Ox 100 08/01/22 07:26 O2 Del Method 08/01/22 08:00 O2 Flow Rate 2 07/24/22 00:00 FiO2 35 07/12/22 03:50 Oxygen Flow Rate 2 07/14/22 08:00 BMI result Body Mass Index 28.6 Const: General: comfortable and no acute distress Orientation/consciousness: patient oriented x3 Neck: Neck: Yes no lymphadenopathy Resp: Auscultation: clear to auscultation bilaterally Cardio: Rhythm: regular rhythm GI: Other: Incision clean and dry, retention sutures in place, stoma with good output Palpation (GI): Soft to palpation, nontender and no guarding Neuro: General: patient oriented x3 Objective Data Active Medications Acetaminophen (Acetaminophen 325 Mg Tablet) 650 mg PO Q6H PRN PRN Reason: Pain, Moderate (Pain Scale 4-6 Benzonatate (Benzonatate 100 Mg Capsule) 200 mg PO TID PRN PRN Reason: cough Guaifenesin (Guaifenesin 100 Mg/5 Ml Liquid) 5 ml PO Q6H [facility] Last Admin: 08/01/22 03:31 Dose: Not Given Documented By: EVANGELISTA Non-Admin Reason: Patient Refused Heparin Sodium (Porcine) (Heparin Sodium,Porcine 5,000 Unit/Ml Vial) 5,000 unit SUBCUT Q12H [facility] Last Admin: 07/31/22 21:12 Dose: 5,000 unit Documented By: EVANGELISTA Promethazine HCl 6.25 mg/ (Sodium Chloride) 50.25 mls @ 201 mls/hr IV Q6H PRN PRN Reason: nausea Last Infusion: 07/13/22 11:13 Dose: 0 mls/hr Documented By: LORIE Lisinopril (Lisinopril 40 Mg Tablet) 40 mg PO DAILY [facility] Last Admin: 08/01/22 08:33 Dose: 40 mg Documented By: TANO Morphine Sulfate (Morphine Sulfate 2 Mg/Ml Cartridge) 1 mg IVPUSH Q4H PRN; Protocol PRN Reason: Pain, Severe (Pain Scale 7-10) Nystatin (Nystatin Powder 15 Gm Bottle) 1 appl TOPICAL TID [facility]; Protocol Last Admin: 07/31/22 21:15 Dose: 1 appl Documented By: EVANGELISTA Omeprazole (Omeprazole 20 Mg Capsule.Dr) 20 mg PO BID@0630,1630 [facility] Last Admin: 08/01/22 05:59 Dose: 20 mg Documented By: EVANGELISTA Ondansetron HCl (Ondansetron Hcl 4 Mg/2 Ml Vial) 4 mg IVPUSH Q8H PRN PRN Reason: nausea Last Admin: 07/13/22 07:41 Dose: 4 mg Documented By: LORIE Ondansetron HCl (Ondansetron Hcl 4 Mg/2 Ml Vial) 4 mg IVPUSH ONCE PRN PRN Reason: Nausea and Vomiting Oxycodone HCl (Oxycodone Hcl Immed Release 5 Mg Tablet) 10 mg PO Q4H PRN PRN Reason: Pain, Moderate (Pain Scale 4-6 Last Admin: 07/31/22 21:12 Dose: 10 mg Documented By: EVANGELISTA Pharmacy Consult (Consult Rx Perform Med Rec) 1 each MISCELLANE ONCE PRN PRN Reason: Consult order Simethicone (Simethicone 80 Mg Tab.Chew) 80 mg PO Q6H PRN PRN Reason: Gas Last Admin: 07/07/22 22:45 Dose: 80 mg Documented By: SHIRLEY Sodium Chloride (0.9 % Sodium Chloride Flush 3 Ml Syringe) 3 ml IVFLUSH QSHIFT [facility] Last Admin: 08/01/22 08:37 Dose: 3 ml Documented By: TANO Labs CBC & Chem 7: 07/28/22 05:25 07/29/22 05:22 Labs: Laboratory Results - last 24 hr 07/31/22 07/31/22 07/31/22 11:17 15:42 20:08 POC Glucose 111 136 H 142 H 08/01/22 06:58 POC Glucose 100 Procedures Date of Service Date of Service: 08/01/22 Progress Note: A&P Assessment and plan (1) Ileus: Status: Acute Assessment and Plan: Has been doing well Good GI function He is now amenable to being discharged to [facility] He feels that he is not ready to be discharged to home Discussed with supervisor case loading Time Spent With Patient Time: Total time spent is greater than 50% in coordination of care (as documented) at patient's floor/unit and/or counseling patient: Quality Stroke Does the patient have a stroke diagnosis?: No VTE Prior VTE?: No VTE Risk Level:: Medical - moderate - high VTE Device Contraindication: N/A - Device Ordered VTE Drug Contraindication: N/A - Med Ordered
--- NOTE | 2022-08-01 10:08 | MHC.CM.PN ---
EMR reviewed, cm met w/pt as he is now asing for STR, pt reports he is [facility]% [facility], pt reports he is unsure of preferences and would like to be as close to [place] as possible so can visit, pt agreeable to referral placed to [facility] facilities and would like cm to speak w/ when she comes in later today, cm will follow referrals and meet w/pt/ when she comes in for visit.
[2022-08-01] MEDS: oxyCODONE HCl Immed Release 5 MG TABLET 10 MG PO ×4 (10:10→22:56)
[2022-08-01] MEDS: Heparin Sodium,Porcine 5,000 UNIT/ML VIAL 5000 UNIT SUBCUT ×2 (10:10→20:18)
[2022-08-01] MEDS: Nystatin Powder 15 GM BOTTLE 1 APPL TOPICAL ×3 (10:10→20:22)
--- NOTE | 2022-08-01 10:59 | MHC.CLN ---
F/U DIET=REGULAR, LOW FAT. GOOD GI FUNCTION REPORTED AND TOLERATING DIET. INTAKE VARIABLE BUT USUALLY 75-100%. CONTINUE TO FOLLOW FOR INTAKE AND TOLERANCE.
[2022-08-01 11:15] LABS: Glucose, Whole Blood 121 mg/dL (60-115)
--- NOTE | 2022-08-01 11:35 | MHC.CM.PN ---
CM MET W/PT AND PAT [id number] AT BEDSIDE, PER DISCUSSION PT GOING ON MEDICARE A BENEFIT HE ONLY HAS 70% SNF COVERAGE THROUGH [facility] AND PREFERRED SNF IS [facility], SECOND CHOICE IS [facility], REFERRAL SENT TO [facility] AND CM AWAITING RESPONSE. ONCE SNF IS CONFIRMED WILL REQUEST RAPID VS PCR COVID TESTS
--- NOTE | 2022-08-01 13:10 | MHC.CM.PN ---
CM RECEIVED BED OFFER FROM [facility], LIAISON REPORTS THEY WILL HAVE A BED TOMORROW, SURGICAL AWARE AND COVID PCR REQUESTED.
--- NOTE | 2022-08-01 16:14 | PM.DS ---
DS: Providers Provider Date of Service: 08/02/22 Date of admission: 07/03/22 22:11 Date of discharge: 08/02/22 Primary care physician: Julio Cesar Hernandez MD Consults: 07/04/22 02:47 Consult to Hospitalist Routine Consulting Provider: Hospitalist Reason For Exam: HTN 07/11/22 10:55 Consult to Pulmonology Routine Consulting Provider: Ishmael Perkins Reason for consultation: Hypooxia post op Has provider been notified: No 07/16/22 03:18 Consult to Urology Routine Consulting Provider: Patrice Patel Reason for consultation: urinary retentiob difficult cath Has provider been notified: No 07/24/22 14:46 Consult to Urology Routine Consulting Provider: Patrice Patel Reason for consultation: urinary retention - DS: Diagnosis Discharge Diagnosis (1) Ileus: Status: Acute (2) Parastomal hernia: Status: Acute (3) Dehiscence of closure of fascia, superficial or muscular: Status: Acute (4) Emphysema lung: Status: Acute (5) Hypertension: Status: Acute DS: Summary Hospital Course Hospital Course: The patient is a 68 male, who was admitted for a parastomal hernia July 03. He has symptoms of pain had improved significantly. He did not have any tenderness after admission but I did recommend to him to undergo repair. He underwent repair in July with a mesh. Intraop findings showed patches of nonviable small-bowel which prompted small-bowel resection. He tolerated this well. Postoperatively, he was comfortable and denies any significant pain. Was started on clear liquids and this was advanced as tolerated. He was on regular diet already and had bed ambulating. He did have some coughing and at some point on July 11, 2022, he had noted evisceration of his bowel loops well coughing. He therefore had to be brought to the operating room for repair of this all day since with retention sutures. He had an NG tube placed because of anticipation of ileus. He did end up with having a prolonged ileus and had to be started on TPN. He did not have any stoma put until July 25, 2022. He was started on diet again and he continued to tolerate this. He continued to ambulate but did state that he did not feel that he had the same energy as before. He decided to therefore be transferred to long term instead of being discharged to home. Time Spent with Patient Time attestation: Total time spent providing and/or coordinating discharge services: Discharge coordination time: Less than 30 minutes Quality: Safe Use of Opioids Does Pt have an Active Cancer Diagnosis on the Problem List?: No Quality: Stroke Does the patient have a stroke diagnosis?: No Physical Exam Vital Signs: Vital Signs: Last Vital Signs Temp 98.5 F 08/01/22 15:27 Pulse 92 08/01/22 15:27 Resp 18 08/01/22 15:27 BP 129/68 08/01/22 15:27 Pulse Ox 95 08/01/22 15:27 O2 Del Method 08/01/22 15:27 O2 Flow Rate 2 07/24/22 00:00 FiO2 35 07/12/22 03:50 Oxygen Flow Rate 2 07/14/22 08:00 BMI result Body Mass Index 28.6 Const: General: comfortable and no acute distress Orientation/consciousness: patient oriented x3 Neck: Neck: Yes no lymphadenopathy Resp: Auscultation: clear to auscultation bilaterally Cardio: Rhythm: regular rhythm GI: Other: Soft, retention sutures in place, midline incision healing well, stoma with good function Palpation (GI): Soft to palpation, nontender and no guarding Neuro: General: patient oriented x3 DS: Data Data Completed and Pending Completed studies during hospitalization [Text1]: Pending at discharge 07/05/22 11:48 Surgical [PTH] Routine Pending studies at discharge: Laboratory Results WBC 10.2 X10*3/uL (4.8-10.8) 07/28/22 05:25 RBC 3.13 X10*6/uL (4.60-5.80) L 07/28/22 05:25 Hgb 9.9 g/dl (14.0-18.0) L 07/28/22 05:25 Hct 30.9 % (42.0-52.0) L 07/28/22 05:25 MCV 98.7 fL (80.0-98.0) H 07/28/22 05:25 MCH 31.6 pg (27.0-33.0) 07/28/22 05:25 MCHC 32.0 g/dl (31.0-36.0) 07/28/22 05:25 RDW 14.1 % (11.0-16.0) 07/28/22 05:25 Plt Count 270 X10*3/uL (160-400) D 07/28/22 05:25 MPV 11.3 fL (9.4-12.4) 07/28/22 05:25 Immature Gran % (Auto) 1.9 % (0.0-0.4) H 07/19/22 05:18 Neut % (Auto) 79.3 % (45-73) H 07/19/22 05:18 Lymph % (Auto) 7.0 % (20-40) L 07/19/22 05:18 [place] % (Auto) 9.7 % (2-11) 07/19/22 05:18 Eos % (Auto) 1.6 % (0-4) 07/19/22 05:18 Baso % (Auto) 0.5 % (0-2) 07/19/22 05:18 Lymph # (Auto) 1.0 X10*3/uL (1.2-4.9) L 07/19/22 05:18 [place] # (Auto) 1.4 X10*3/uL (0.1-1.2) H 07/19/22 05:18 Eos # (Auto) 0.2 X10*3/uL (0.0-0.4) 07/19/22 05:18 Baso # (Auto) 0.1 X10*3/uL (0.0-0.2) 07/19/22 05:18 Abs Immat Gran (auto) 0.28 X10*3/uL (0.00-0.03) H 07/19/22 05:18 Absolute Neuts (auto) 11.6 x10*3/uL (2.0-8.3) H 07/19/22 05:18 Absolute Nucleated RBC 0.000 X10*3/uL (0.0-0.012) 07/28/22 05:25 Nucleated RBC % (auto) 0.0 /100WBC (0.0-0.2) 07/28/22 05:25 Smear Tech's Comments VERIFIED 07/03/22 19:07 PT 12.6 SEC (10.0-13.1) 07/19/22 05:18 INR 1.1 (0.9-1.1) 07/19/22 05:18 Sodium 139 mmol/L (135-145) 07/29/22 05:22 Potassium 3.6 mmol/L (3.3-5.1) 07/29/22 05:22 Chloride 103 mmol/L (96-108) 07/29/22 05:22 Carbon Dioxide 27 mmol/L (22-29) 07/29/22 05:22 Anion Gap 13 (12-20) 07/29/22 05:22 BUN 31 mg/dL (9-16) H 07/29/22 05:22 Creatinine 0.74 mg/dL (0.5-1.4) 07/29/22 05:22 Estim Creat Clear Calc 89.2 07/29/22 05:22 Estimated GFR > 60 07/29/22 05:22 POC Glucose 121 mg/dL (60-115) H 08/01/22 11:07 Random Glucose 97 mg/dL (60-115) 07/29/22 05:22 Lactic Acid 2.7 mmol/L (0.5-2.0) H* 07/03/22 19:07 Lactic Acid F/U @ 2Hr 1.8 mmol/L (0.5-2.0) 07/03/22 23:38 Calcium 7.4 mg/dL (8.4-10.2) L D 07/29/22 05:22 Phosphorus 4.1 mg/dL (2.7-4.5) 07/26/22 09:33 Magnesium 2.0 mg/dL (1.6-2.6) 07/26/22 09:33 Total Bilirubin 0.4 mg/dL (0.0-1.0) 07/12/22 05:25 AST 18 U/L (5-37) 07/12/22 05:25 ALT 31 U/L (0-40) 07/12/22 05:25 Alkaline Phosphatase 65 U/L (39-117) 07/12/22 05:25 B-Natriuretic Peptide 73 pg/mL (<100) 07/06/22 00:08 Total Protein 4.0 g/dL (6.5-8.0) L 07/12/22 05:25 Albumin 2.7 g/dL (3.5-5.0) L 07/24/22 06:08 Triglycerides 119 mg/dL 07/20/22 05:27 Lipase 24 U/L (8-78) 07/03/22 19:07 Procalcitonin 0.22 ng/mL 07/15/22 06:00 Urine Color YELLOW 07/03/22 19:21 Urine Appearance CLEAR 07/03/22 19:21 Urine pH 7.0 (5.0-8.0) 07/03/22 19:21 Ur Specific [place] 1.015 (1.005-1.025) 07/03/22 19:21 Urine Protein TRACE MG/DL (NEG-TRACE) 07/03/22 19:21 Urine Glucose (UA) NEG MG/DL (NEG) 07/03/22 19:21 Urine Ketones 15 MG/DL (NEG) 07/03/22 19:21 Urine Blood NEG (NEG) 07/03/22 19:21 Urine Nitrite NEG (NEG) 07/03/22 19:21 Ur Leukocyte Esterase TRACE (NEG) H 07/03/22 19:21 Urine RBC 0 /HPF (0) 07/03/22 19:21 Urine WBC 0-2 /HPF (0-4) 07/03/22 19:21 Ur Squamous Epith Cells NONE /LPF 07/03/22 19:21 Urine Bacteria TRACE /LPF 07/03/22 19:21 COVID-19 (DUNIA) Negative (Negative) 07/03/22 19:15 COVID-19 Clin Com See Note 07/03/22 19:15 Impressions Abdomen/Pelvis CT 07/03/22 20:20 IMPRESSION: Ostomy left lower quadrant. Small bowel obstruction at the ostomy site with herniation of bowel loops at the ostomy. Fleischner guidelines were followed. Chest CTA 07/06/22 00:50 IMPRESSION: * No pulmonary embolism. * No aortic aneurysm or dissection. * Moderate secretions present within the left mainstem bronchus and lower lobe bronchioles -- recommend pulmonary toilet. * Small bilateral pleural effusions with accompanying atelectasis. * Moderate emphysema. VTE: negative This critical result was discussed with Dr Farley at 07/06/2022 1:25 AM and it was ascertained that the content and urgency of the report was understood at the time of direct communication. Abdomen X-Ray 07/17/22 09:04 . IMPRESSION: Ileus. Continued follow-up advised. Chest X-Ray 07/17/22 09:04 . IMPRESSION: Ileus. Continued follow-up advised. Upper GI and Small Bowel X-Ray 07/27/22 10:30 IMPRESSION: Persistent dilated small bowel measuring up to 6.7 cm. There is slow passage of oral contrast into the large bowel which is nondilated. Appearance is suggestive of a distal partial small bowel obstruction. Nasogastric tube no longer seen on delayed images. Labs on day of discharge: Laboratory Results - last 24 hr 07/31/22 08/01/22 08/01/22 20:08 06:58 11:07 POC Glucose 142 H 100 121 H Discharge Plan Discharge Patient Disposition: [facility] Discharge Diagnosis: Status post repair of a parastomal hernia and status post repair of fascial dehiscence Referrals: [facility] [Outside] - 1 Day (SHORT TERM REHAB) Patrice Patel MD [Physician] - 1 Week (for urinary retention, still has Webb) Julio Cesar Hernandez MD [Primary Care Provider] - 1 Week Mati Lugo MD [Physician] - 1 Week Discharge Medications: New oxycodone-acetaminophen [Percocet] 5-325 mg tablet 1 tab PO TID PRN (Reason: pain) Qty: 20 0RF Rx Instructions: Partial Fill upon patient request. lisinopril 40 mg tablet 40 mg PO DAILY Qty: 30 2RF Discontinued hydrochlorothiazide 25 mg Tablet 25 mg PO DAILY benazepril 40 mg Tablet 40 mg PO BID diltiazem HCl 30 mg Tablet 30 mg PO DAILY Discharge Orders: Discharge Order (Routine); Ordered 08/02/22 Ordered By: Mati Lugo Activity on Discharge: No heavy lifting Stand Alone Forms: Patient Portal Discharge page Care Plan Goals: Continue physical therapy Continue incentive spirometry Health Concerns: History of smoking, and COPD Plan of Treatment: Physical therapy Continue pain medication Stoma care Follow-up with Dr. Patel for Webb removal Assessment: Doing well Discharge Date/Time: 08/02/22 13:30
[2022-08-01 16:24] LABS: Influenza A PCR NEGATIVE (Negative); Influenza B PCR NEGATIVE (Negative); Resp Syncy Virus RNA Qual PCR NEGATIVE (Negative); SARS COV2 PCR INHOUSE NEGATIVE (Negative)
[2022-08-01] MEDS: Morphine Sulfate 2 MG/ML CARTRIDGE 1 MG IVPUSH (20:17)
[2022-08-02] MEDS: oxyCODONE HCl Immed Release 5 MG TABLET 10 MG PO ×2 (03:43→08:33)
[2022-08-02 04:00] VITALS: BP 160/77; PULSE 94; RESP 18; TEMP 36.8; O2SAT 96
[2022-08-02] MEDS: Omeprazole 20 MG CAPSULE.DR PO (06:25)
[2022-08-02 07:27] VITALS: BP 158/79; PULSE 96; RESP 20; TEMP 36.8; O2SAT 94
[2022-08-02 07:51] LABS: Glucose, Whole Blood 118 mg/dL (60-115)
[2022-08-02] MEDS: 0.9 % Sodium Chloride Flush 3 ML SYRINGE IVFLUSH (08:33)
[2022-08-02] MEDS: lisinopriL 40 MG TABLET PO (08:33)
[2022-08-02] MEDS: Nystatin Powder 15 GM BOTTLE 1 APPL TOPICAL (08:35)
--- NOTE | 2022-08-02 08:47 | PM.PNGS ---
Subjective Subjective Date of Service: 08/02/22 Interval history: Says he feels well Denies significant pain Good oral intake Good stoma function Physical Exam Vital Signs: Vital Signs: Last Vital Signs Temp 98.2 F 08/02/22 07:27 Pulse 96 08/02/22 07:27 Resp 20 08/02/22 07:27 BP 158/79 H 08/02/22 07:27 Pulse Ox 94 08/02/22 07:27 O2 Del Method 08/02/22 07:27 O2 Flow Rate 2 07/24/22 00:00 FiO2 35 07/12/22 03:50 Oxygen Flow Rate 2 07/14/22 08:00 BMI result Body Mass Index 28.6 Const: General: comfortable and no acute distress Resp: Effort & Inspection: normal respiratory effort Cardio: Rate: regular rate GI: Other: Soft, nontender, no guarding rebound, incision clean and dry, retention sutures in place, stoma with good function Objective Data Active Medications Acetaminophen (Acetaminophen 325 Mg Tablet) 650 mg PO Q6H PRN PRN Reason: Pain, Moderate (Pain Scale 4-6 Benzonatate (Benzonatate 100 Mg Capsule) 200 mg PO TID PRN PRN Reason: cough Guaifenesin (Guaifenesin 100 Mg/5 Ml Liquid) 5 ml PO Q6H [facility] Last Admin: 08/02/22 03:45 Dose: Not Given Documented By: EVANGELISTA Non-Admin Reason: Patient Refused Heparin Sodium (Porcine) (Heparin Sodium,Porcine 5,000 Unit/Ml Vial) 5,000 unit SUBCUT Q12H [facility] Last Admin: 08/01/22 20:18 Dose: 5,000 unit Documented By: EVANGELISTA Promethazine HCl 6.25 mg/ (Sodium Chloride) 50.25 mls @ 201 mls/hr IV Q6H PRN PRN Reason: nausea Last Infusion: 07/13/22 11:13 Dose: 0 mls/hr Documented By: LORIE Lisinopril (Lisinopril 40 Mg Tablet) 40 mg PO DAILY [facility] Last Admin: 08/02/22 08:33 Dose: 40 mg Documented By: TANO Morphine Sulfate (Morphine Sulfate 2 Mg/Ml Cartridge) 1 mg IVPUSH Q4H PRN; Protocol PRN Reason: Pain, Severe (Pain Scale 7-10) Last Admin: 08/01/22 20:17 Dose: 1 mg Documented By: EVANGELISTA Nystatin (Nystatin Powder 15 Gm Bottle) 1 appl TOPICAL TID [facility]; Protocol Last Admin: 08/02/22 08:35 Dose: 1 appl Documented By: TANO Omeprazole (Omeprazole 20 Mg Capsule.Dr) 20 mg PO BID@0630,1630 [facility] Last Admin: 08/02/22 06:25 Dose: 20 mg Documented By: EVANGELISTA Ondansetron HCl (Ondansetron Hcl 4 Mg/2 Ml Vial) 4 mg IVPUSH Q8H PRN PRN Reason: nausea Last Admin: 07/13/22 07:41 Dose: 4 mg Documented By: LORIE Ondansetron HCl (Ondansetron Hcl 4 Mg/2 Ml Vial) 4 mg IVPUSH ONCE PRN PRN Reason: Nausea and Vomiting Oxycodone HCl (Oxycodone Hcl Immed Release 5 Mg Tablet) 10 mg PO Q4H PRN PRN Reason: Pain, Moderate (Pain Scale 4-6 Last Admin: 08/02/22 08:33 Dose: 10 mg Documented By: TANO Pharmacy Consult (Consult Rx Perform Med Rec) 1 each MISCELLANE ONCE PRN PRN Reason: Consult order Simethicone (Simethicone 80 Mg Tab.Chew) 80 mg PO Q6H PRN PRN Reason: Gas Last Admin: 07/07/22 22:45 Dose: 80 mg Documented By: SHIRLEY Sodium Chloride (0.9 % Sodium Chloride Flush 3 Ml Syringe) [facility] Admin: 08/02/22 08:33 Dose: 3 ml Documented By: TANO Labs CBC & Chem 7: 07/28/22 05:25 07/29/22 05:22 Labs: Laboratory Results - last 24 hr 08/01/22 08/01/22 08/02/22 11:07 14:52 07:29 POC Glucose 121 H 118 H Influenza Type A (PCR) NEGATIVE Influenza Type B (PCR) NEGATIVE RSV RNA Qual (PCR) NEGATIVE SARS-CoV-2 RNA (RT-PCR) NEGATIVE Procedures Date of Service Date of Service: 08/02/22 Progress Note: A&P Assessment and plan (1) Parastomal hernia: Status: Acute Assessment and Plan: Status post parastomal hernia repair, status post repair of fascial dehiscence He continues to do well Good GI functions DC to group home today He will see Dr. Patel for urinary retention, keep Webb to leg bag for now I will see him in the office for regular follow ups Physical therapy Looks well Time Spent With Patient Time: Total time spent is greater than 50% in coordination of care (as documented) at patient's floor/unit and/or counseling patient: Quality Stroke Does the patient have a stroke diagnosis?: No VTE Prior VTE?: No VTE Risk Level:: Medical - moderate - high VTE Device Contraindication: N/A - Device Ordered VTE Drug Contraindication: N/A - Med Ordered
--- NOTE | 2022-08-02 09:18 | MHC.CM.PN ---
PT MEDICALLY CLEARED FOR D/C TO STR AT [facility] AT 1PM [facility]IA [facility] FOR BLS TRANSPORT. PER PT REQUEST CM ATTEMPTED TO CONTACT PT'S [facility]OTT TO UPDATE HER ON PLAN, NO ANSWER AND MESSAGE LEFT W/CM CONTACT NUMBER.
[2022-08-02 10:01] VITALS: BP 158/79; PULSE 96; O2SAT 94
[2022-08-02] MEDS: Heparin Sodium,Porcine 5,000 UNIT/ML VIAL 5000 UNIT SUBCUT (10:20)
[2022-08-02 10:45] VITALS: BP 125/73; PULSE 102; RESP 20; TEMP 36.3; O2SAT 95
[2022-08-02 11:01] LABS: Glucose, Whole Blood 135 mg/dL (60-115)
== END 2022-08-02 13:30 | disposition skilled nursing facility (03) | DRG 329 ==
LOC: HO.ED 21:24 → HO.EDOVER 22:21 → HO.S3 07-04 13:12 → HO.ICU 07-11 15:19 → HO.S3 07-12 14:09
PROVIDERS: Emergency Medicine; Family Medicine; Hospitalist; Internal Medicine Cardiovascular Disease; Physician Assistant Medical; Surgery; Admitting Provider Surgery; Emergency Provider Emergency Medicine; PCP Internal Medicine Medical Oncology; Visit Provider Surgery
PROC: 0DB80ZZ Excision of Small Intestine, Open Approach (ICD-10-PCS; CPT 49000; principal; 2022-07-05 09:10)
PROC: 0JQ80ZZ Repair Abdomen Subcutaneous Tissue and Fascia, Open Approach (ICD-10-PCS; principal; 2022-07-11 11:50)
DX: K43.3 Parastomal hernia with obstruction, without gangrene (principal); J69.0 Pneumonitis due to inhalation of food and vomit; J96.01 Acute respiratory failure with hypoxia; T81.31XA Disruption of external operation (surgical) wound, not elsewhere classified, initial encounter; K56.7 Ileus, unspecified; J98.11 Atelectasis; I11.9 Hypertensive heart disease without heart failure; R33.9 Retention of urine, unspecified; K66.0 Peritoneal adhesions (postprocedural) (postinfection); J43.9 Emphysema, unspecified; Z20.822 Contact with and (suspected) exposure to COVID-19; Z93.3 Colostomy status; Z85.038 Personal history of other malignant neoplasm of large intestine; Z79.899 Other long term (current) drug therapy
CPT/HCPCS: 0241U; 36415; 71045; 71275; 74018; 74176; 74250; 80048; 80051; 80053; 81001; 82040; 82310; 82565; 82947; 83605; 83690; 83735; 83880; 84100; 84145; 84478; 84520; 85025; 85027; 85610; 87040; 87635; 88307; 93005; 94640; 97116; 97161; 97530; 99285; C1751; C1758; C1769; C1781; J0131; J0295; J0330; J0690; J1100; J1170; J1885; J1940; J2250; J2270; J2370; J2405; J2543; J2550; J2795; J3010; Q9967

== ENCOUNTER 2022-08-02 22:58 | Inpatient (IN) | payer MEDICARE, SELFPAY ==
--- NOTE | ~2022-08-02 | XR_ITS ---
EXAMINATION: XR CHEST CLINICAL INFORMATION: Check PICC line placement COMPARISON: Previous chest x-ray most recent 08/04/2022 TECHNIQUE: Frontal view of the chest was obtained. FINDINGS: There is a new left upper extremity PICC line with tip projecting over the SVC. The cardiac and mediastinal contours are stable. The lungs are clear. There is no pleural effusion or pneumothorax. There are degenerative changes of the spine. XR/XR chest 1V IMPRESSION: Satisfactory position of left upper extremity PICC line.
--- NOTE | ~2022-08-02 | IR_ITS ---
PROCEDURE: IR INSERTION OF PICC CLINICAL INFORMATION: Long-term TPN requirement COMPARISON: None TECHNIQUE/FINDINGS: Procedure and recent benefits including bleeding, infection and blood clot were discussed with the patient and informed consent was obtained. All elements of maximal sterile barrier technique followed including use of cap, mask, sterile gown, sterile gloves, a sterile full body drape and hand hygiene. Also followed skin preparation with 2% chlorhexidine for cutaneous antisepsis, and sterile ultrasound preparation with sterile gel and probe cover when applicable. The left upper arm was prepped and draped in the usual sterile fashion. The skin and soft tissues were anesthetized with 1% lidocaine plain. Using ultrasound guidance, left brachial vein access was obtained. Over an 018 wire and through a peel-away sheath, a 5 [place] double-lumen PICC line was positioned. Catheter length is 47 cm. The exam was performed in the patient's bed. Chest x-ray was subsequently done to check tip line placement. Catheter tip is in the SVC. Real-time ultrasound guidance was used to document vein patency and for needle entry. A formal ultrasound picture was recorded. No fluoroscopic images. IR/IR cvc insert peripheral IMPRESSION: Left upper extremity 5 [place] double-lumen PICC line placement.
--- NOTE | ~2022-08-02 | XR_ITS ---
EXAMINATION: XR CHEST CLINICAL INFORMATION: NG tube placement COMPARISON: Chest radiograph 07/17/2012 TECHNIQUE: Frontal view of the chest was obtained. FINDINGS: There is an enteric tube in place. The sentinel eye is at the expected level of the gastroesophageal junction and the tip projects over the proximal body of the stomach. The cardiomediastinal contours are within normal limits. The lungs are well expanded and there are no focal opacities. No pleural effusion or pneumothorax. Structures of the chest wall are intact. XR/XR chest 1V IMPRESSION: Nasogastric tube in place, as described.
--- NOTE | ~2022-08-02 | CT_ITS ---
EXAMINATION: CT ABDOMEN AND PELVIS WITHOUT CONTRAST CLINICAL INFORMATION: Stool leaking from incision. Question of fistula. COMPARISON: CT abdomen/pelvis performed yesterday Small bowel follow-through study dated 07/26/2022 CT dated 07/03/2022 TECHNIQUE: Multidetector volumetric images were obtained from the superior aspect of the liver through the pubic symphysis without the use of intravenous contrast. Oral contrast: No This CT examination was performed using dose optimization techniques as appropriate, variously including the following: *Automated exposure control *Adjustment of mA and/or kV according to patient size (this includes techniques or standardized protocols for targeted exams where dose is matched to indication/reason for exam; i.e. extremities or head) *Use of iterative reconstruction technique DLP: 666 mGy-cm FINDINGS: LUNG BASES: The visualized lung bases are unremarkable. LIVER, GALLBLADDER, AND BILIARY TREE: The liver is normal in size, shape, and attenuation. No focal hepatic lesion or biliary ductal dilatation is present. Physiologically contracted gallbladder with cholelithiasis. PANCREAS: Unremarkable. SPLEEN: Unremarkable. ADRENAL GLANDS: Unremarkable. KIDNEYS AND URETERS: The kidneys are normal in size, shape, and attenuation. No hydronephrosis, hydroureter, or calculi seen. Bilateral simple cysts are benign and require no follow-up. No perinephric stranding. BLADDER: Collapsed around a Webb catheter balloon thick-walled. GASTROINTESTINAL TRACT / ABDOMINAL WALL: Again seen is dehiscence of the patient's midline lower abdominal wall incision. There are foci of gas present within the incision and within the peritoneal cavity immediately deep to the incision which upon further review likely originating from a matted conglomerate of small bowel within the anterior false pelvis at the site of the anastomosis and chronic partial small bowel obstruction. These are seen on the franco images from today's exam. Left hemicolectomy with left lower quadrant end colostomy. Multiple enteroenteric anastomosis redemonstrated within the lower abdomen. There are loops of markedly distended small bowel leading into the pelvis, with a relative point of transition within the lower abdomen in the midline, however distal to this point of transition, there our loops of small bowel which are not entirely decompressed, although significantly lesser in caliber proximally suggesting at least partial small bowel obstruction. Appearance is similar to that seen on the previous small bowel follow-through exam. Multiple loops of small bowel within the pelvis distal to the point of transition exhibits submucosal edema indicative of enteritis, as well as submucosal fat deposition. There is dehiscence of the patient's midline lower abdominal incision with a few small foci of gas within the subcutaneous fat as well as within the ventral peritoneum. LYMPH NODES: Normal. VASCULAR: Aorta is atherosclerotic but normal caliber. PELVIC VISCERA: Prostate and seminal vesicles unremarkable. Similar appearing presacral coalescent soft tissue tethering loops of small bowel, without associated obstruction and this location OSSEOUS STRUCTURES: No acute or suspicious osseous abnormalities. CT/CT abdomen pelvis wo IV con IMPRESSION: * Probable small bowel perforation in the region of the enteroenteric anastomosis within the anterior false pelvis (see franco images). Gas tracks from this region of the small bowel into the patient's dehiscent incision within the midline lower abdominal wall. The small bowel leak/perforation is more clearly evident on the examination from yesterday which was contrast-enhanced (see series 7, images 68-71). No mature fistula. No drainable collection. * Multiple dilated loops of small bowel upstream from an enteroenteric anastomosis within the anterior false pelvis are similar to prior. 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 * Cholelithiasis.
--- NOTE | ~2022-08-02 | CT_ITS ---
EXAMINATION: CT ABDOMEN AND PELVIS WITH CONTRAST CLINICAL INFORMATION: History parastomal hernia with dehiscence. Leaking. COMPARISON: Small bowel follow-through study dated 07/26/2022 CT dated 07/03/2022 TECHNIQUE: Multidetector volumetric images were obtained from the superior aspect of the liver through the pubic symphysis following administration 85 mL of Omnipaque 350 intravenous contrast. Sagittal and coronal reformatted images were obtained on the technologist's workstation. Oral contrast: No This CT examination was performed using dose optimization techniques as appropriate, variously including the following: *Automated exposure control *Adjustment of mA and/or kV according to patient size (this includes techniques or standardized protocols for targeted exams where dose is matched to indication/reason for exam; i.e. extremities or head) *Use of iterative reconstruction technique DLP: 790 mGy-cm FINDINGS: LUNG BASES: The visualized lung bases are unremarkable. LIVER, GALLBLADDER, AND BILIARY TREE: The liver is normal in size, shape, and attenuation. No focal hepatic lesion or biliary ductal dilatation is present. Physiologically contracted gallbladder with cholelithiasis. PANCREAS: Unremarkable. SPLEEN: Unremarkable. ADRENAL GLANDS: Unremarkable. KIDNEYS AND URETERS: The kidneys are normal in size, shape, and attenuation. No hydronephrosis, hydroureter, or calculi seen. Bilateral simple cysts are benign and require no follow-up. No perinephric stranding. BLADDER: Collapsed around a Webb catheter balloon thick-walled. GASTROINTESTINAL TRACT /ABDOMINAL WALL: Left hemicolectomy with left lower quadrant end colostomy. Multiple enteroenteric anastomosis redemonstrated within the lower abdomen. There are loops of markedly distended small bowel leading into the pelvis, with a relative point of transition within the lower abdomen in the midline, however distal to this point of transition, there our loops of small bowel which are not entirely decompressed, although significantly lesser in caliber proximally suggesting at least partial small bowel obstruction. Appearance is similar to that seen on the previous small bowel follow-through exam. Multiple loops of small bowel within the pelvis distal to the point of transition exhibits submucosal edema indicative of enteritis, as well as submucosal fat deposition. There is dehiscence of the patient's midline lower abdominal incision with a few small foci of gas within the subcutaneous fat as well as within the ventral peritoneum. LYMPH NODES: Normal. VASCULAR: Aorta is atherosclerotic but normal caliber. PELVIC VISCERA: Prostate and seminal vesicles unremarkable. Similar appearing presacral coalescent soft tissue tethering loops of small bowel, without associated obstruction and this location OSSEOUS STRUCTURES: No acute or suspicious osseous abnormalities. CT/CT abdomen pelvis w IV con IMPRESSION: * Interval repair of the previously seen parastomal hernia. * Multiple significantly dilated loops of small bowel upstream from an enteroenteric anastomosis within the anterior false pelvis, with transition point is shown on the franco images. Appearance is similar to that seen on the previous small bowel series, and is most suggestive of a partial small bowel obstruction. 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 * Dehiscent incision along the midline lower abdominal wall with associated subcutaneous gas which appears to track into the ventral peritoneum/retroperitoneal space. No drainable collection. * Cholelithiasis.
[2022-08-02 23:09] VITALS: BP 160/86; PULSE 108; RESP 16; O2SAT 99; BMI 31.4
[2022-08-03] VITALS (13 sets, daily range): BP systolic 105–152; BP diastolic 59–76; PULSE 71–98; RESP 16–21; TEMP 36.7–37.3; O2SAT 94–98
--- NOTE | 2022-08-03 00:23 | ED_ITS ---
HPI - Abdominal Pain General Chief Complaint: Abdominal Pain Stated Complaint: Lower Abd.Pain Time Seen by Provider: 08/02/22 23:25 Source: patient and EMS Mode of arrival: EMS Limitations: no limitations History of Present Illness HPI narrative: Patient comes to the emergency room coming from [facility], complaining of abdominal pain surgical wound discharge. Patient was discharged today per from this hospital. Patient was admitted for a parastomal hernia, complicated by dehiscence of the closure of the aphasia. Patient states that the staff at the short-term rehab, they were concerned about the discharge from the surgical wound. Patient complaining of diffuse abdominal pain, but that has been going on for several days. Denies any fever or chills. Related Data Previous Rx's Medication Instructions Recorded lisinopril 40 mg tablet 40 mg PO DAILY #30 tabs 08/02/22 oxycodone-acetaminophen 5 mg-325 1 tab PO TID PRN pain #20 tabs 08/02/22 mg tablet (Percocet) Allergies Allergy/AdvReac Type Severity Reaction Status Date / Time No Known Allergies Allergy Verified 07/03/22 17:35 [No Known Allergies*] Review of Systems Review of Systems Constitutional : No Weight loss, No Fever, No Chills, No Night Sweats, No Fatigue, No Malaise ENT/Mouth : No Hearing loss, No Ear Pain, No Nasal Congestion, No Sinus Pain, No Hoarseness, No sore throat, No Rhinorrhea, No Swallowing Difficulty Eyes: No Eye Pain, No Swelling, No Redness, No Foreign Body, No Discharge, No Vision Changes Cardiovascular : No Chest Pain, No SOB, No Dyspnea on Exertion, No Orthopnea, No Edema, No Palpitations Respiratory : No Cough, No Sputum, No Wheezing, No Smoke Exposure, No Dyspnea Gastrointestinal no nausea vomiting or diarrhea, constipation, complaining of abdominal pain at the surgical site which has been ongoing for couple of weeks, complaining of discharge coming from the surgical wound. Genitourinary : no irregular bleeding, No Dysuria, No Urinary Frequency, No Hematuria, No Urinary Incontinence, No Urgency, No Flank Pain, No Urinary Flow Changes, No Hesitancy Musculoskeletal : No joint pain, No Myalgias, No Joint Swelling Skin : No Skin Lesions, No rash Neuro : No Weakness, No Numbness, No Paresthesias, No Loss of Consciousness, No Dizziness, No Headache Psych : No Anxiety/Panic, No Depression, No SI/HI/AH/VH, No Social Issues, Heme/Lymph: No Bruising, No Bleeding,No Lymphadenopathy Endocrine : No Polyuria, No Polydipsia, No Temperature Intolerance [facility] Past Medical History Medical History Colorectal cancer Dehiscence of closure of fascia, superficial or muscular Emphysema lung Hypertension Parastomal hernia Social History Social History Household Members: Spouse Housing: Apartment Do you presently have visiting nurse or other home services: No Alcohol intake: unknown Patient Tobacco Use Status: Never used Tobacco Advance Directives: Yes Advance Directives Information Provided: Yes Advance Directives on File: No Advance Directives Date on File: 07/04/22 service: Yes Current occupational status: retired Physical Exam ED Vital Signs: Vital Signs - 24 hr 08/02/22 23:09 08/03/22 01:22 08/03/22 00:14 Temperature 98.7 F Pulse Rate 108 H 94 Respiratory Rate 16 18 16 Blood Pressure 160/86 H 105/59 L Pulse Oximetry 99 96 Oxygen Delivery Method Room Air Room Air 08/03/22 02:24 Temperature 98.4 F Pulse Rate 98 Respiratory Rate 16 Blood Pressure 152/72 H Pulse Oximetry 96 Oxygen Delivery Method Room Air BMI result Body Mass Index 31.4 Const Other: Appearance: Alert. Oriented X3. No acute distress. Eyes: Pupils equal, round and reactive to light. ENT: Pharynx normal. Neck: Normal inspection. Neck supple. No lymph nodes noted. No crepitus CVS: Normal heart rate and rhythm. Pulses normal. Normal S1 and S2 Respiratory: No respiratory distress. Breath sounds normal. No Wheezing. No rales Abdomen: Soft , tenderness to palpation in the suprapubic area, there is thick brownish discharge draining from the inferior aspect of the surgical wound. See pictures below. Skin: Skin warm and dry. Extremities: No lower extremity edema. No Lacerations. No Rash Neuro: Oriented X 3. No motor deficit. No sensory deficit. Moving all extremities. No slurred speech. CN 2 through 12 grossly intact Psych: calm, cooperative, normal affect Course Course Course Narrative: Patient being given IV fluids. Patient will need a CT scan with contrast, it is possible that he may have developed either a seroma or a enterocutaneous fistula I discussed the CT findings with Dr. Lugo, patient will be admitted. MDM - Abdominal Pain Lab Data Result diagrams: 08/03/22 00:21 08/03/22 01:15 Labs: Lab Results 08/03/22 08/03/22 08/03/22 Range/Units 00:21 00:21 01:15 WBC 13.4 H (4.8-10.8) X10*3/uL RBC 3.75 L (4.60-5.80) X10*6/uL Hgb 11.7 L (14.0-18.0) g/dl Hct 36.0 L (42.0-52.0) % MCV 96.0 (80.0-98.0) fL MCH 31.2 (27.0-33.0) pg MCHC 32.5 (31.0-36.0) g/dl RDW 13.5 (11.0-16.0) % Plt Count 260 (160-400) X10*3/uL MPV 10.3 (9.4-12.4) fL Immature Gran % (Auto) 0.4 (0.0-0.4) % Neut % (Auto) 84.9 H (45-73) % Lymph % (Auto) 5.8 L (20-40) % [place] % (Auto) 8.3 (2-11) % Eos % (Auto) 0.3 (0-4) % Baso % (Auto) 0.3 (0-2) % Lymph # (Auto) 0.8 L (1.2-4.9) X10*3/uL [place] # (Auto) 1.1 (0.1-1.2) X10*3/uL Eos # (Auto) 0.0 (0.0-0.4) X10*3/uL Baso # (Auto) 0.0 (0.0-0.2) X10*3/uL Abs Immat Gran (auto) 0.06 H (0.00-0.03) X10*3/uL Absolute Neuts (auto) 11.4 H (2.0-8.3) x10*3/uL Absolute Nucleated RBC 0.000 (0.0-0.012) X10*3/uL Nucleated RBC % (auto) 0.0 (0.0-0.2) /100WBC PT (10.0-13.1) SEC INR (0.9-1.1) Sodium 140 (135-145) mmol/L Potassium 4.8 D (3.3-5.1) mmol/L Chloride 103 (96-108) mmol/L Carbon Dioxide 22 (22-29) mmol/L Anion Gap 20 (12-20) BUN 19 H (9-16) mg/dL Creatinine 0.81 (0.5-1.4) mg/dL Estim Creat Clear Calc 97.3 Estimated GFR > 60 Random Glucose 132 H D (60-115) mg/dL Lactic Acid 1.1 (0.5-2.0) mmol/L Calcium 7.7 L (8.4-10.2) mg/dL Total Bilirubin 0.2 (0.0-1.0) mg/dL Direct Bilirubin < 0.2 (0.0-0.5) mg/dL AST 30 D (5-37) U/L ALT 37 (0-40) U/L Alkaline Phosphatase 105 D (39-117) U/L Total Protein 5.5 L D (6.5-8.0) g/dL Albumin 2.5 L (3.5-5.0) g/dL COVID-19 (DUNIA) (Negative) COVID-19 Clin Com 08/03/22 08/03/22 Range/Units 01:15 01:15 WBC (4.8-10.8) X10*3/uL RBC (4.60-5.80) X10*6/uL Hgb (14.0-18.0) g/dl Hct (42.0-52.0) % MCV (80.0-98.0) fL MCH (27.0-33.0) pg MCHC (31.0-36.0) g/dl RDW (11.0-16.0) % Plt Count (160-400) X10*3/uL MPV (9.4-12.4) fL Immature Gran % (Auto) (0.0-0.4) % Neut % (Auto) (45-73) % Lymph % (Auto) (20-40) % [place] % (Auto) (2-11) % Eos % (Auto) (0-4) % Baso % (Auto) (0-2) % Lymph # (Auto) (1.2-4.9) X10*3/uL [place] # (Auto) (0.1-1.2) X10*3/uL Eos # (Auto) (0.0-0.4) X10*3/uL Baso # (Auto) (0.0-0.2) X10*3/uL Abs Immat Gran (auto) (0.00-0.03) X10*3/uL Absolute Neuts (auto) (2.0-8.3) x10*3/uL Absolute Nucleated RBC (0.0-0.012) X10*3/uL Nucleated RBC % (auto) (0.0-0.2) /100WBC PT 13.9 H (10.0-13.1) SEC INR 1.2 H (0.9-1.1) Sodium (135-145) mmol/L Potassium (3.3-5.1) mmol/L Chloride (96-108) mmol/L Carbon Dioxide (22-29) mmol/L Anion Gap (12-20) BUN (9-16) mg/dL Creatinine (0.5-1.4) mg/dL Estim Creat Clear Calc Estimated GFR Random Glucose (60-115) mg/dL Lactic Acid (0.5-2.0) mmol/L Calcium (8.4-10.2) mg/dL Total Bilirubin (0.0-1.0) mg/dL Direct Bilirubin (0.0-0.5) mg/dL AST (5-37) U/L ALT (0-40) U/L Alkaline Phosphatase (39-117) U/L Total Protein (6.5-8.0) g/dL Albumin (3.5-5.0) g/dL COVID-19 (DUNIA) Negative (Negative) COVID-19 Clin Com See Note Imaging Data CT scan - abdomen: Radiologist's impression: FINDINGS: LUNG BASES: The visualized lung bases are unremarkable.? LIVER, GALLBLADDER, AND BILIARY TREE: The liver is normal in size, shape, and attenuation. No focal hepatic lesion or biliary ductal dilatation is present. Physiologically contracted gallbladder with cholelithiasis.? PANCREAS: Unremarkable.? SPLEEN: Unremarkable.? ADRENAL GLANDS: Unremarkable.? KIDNEYS AND URETERS: The kidneys are normal in size, shape, and attenuation. No hydronephrosis, hydroureter, or calculi seen. Bilateral simple cysts are benign and require no follow-up. No perinephric stranding. ? BLADDER: Collapsed around a Webb catheter balloon thick-walled.? GASTROINTESTINAL TRACT /ABDOMINAL WALL: Left hemicolectomy with left lower quadrant end colostomy. Multiple enteroenteric anastomosis redemonstrated within the lower abdomen. There are loops of markedly distended small bowel leading into the pelvis, with a relative point of transition within the lower abdomen in the midline, however distal to this point of transition, there our loops of small bowel which are not entirely decompressed, although significantly lesser in caliber proximally suggesting at least partial small bowel obstruction. Appearance is similar to that seen on the previous small bowel follow-through exam. Multiple loops of small bowel within the pelvis distal to the point of transition exhibits submucosal edema indicative of enteritis, as well as submucosal fat deposition. There is dehiscence of the patient's midline lower abdominal incision with a few small foci of gas within the subcutaneous fat as well as within the ventral peritoneum. LYMPH NODES: Normal. VASCULAR: Aorta is atherosclerotic but normal caliber. PELVIC VISCERA: Prostate and seminal vesicles unremarkable. Similar appearing presacral coalescent soft tissue tethering loops of small bowel, without associated obstruction and this location OSSEOUS STRUCTURES: No acute or suspicious osseous abnormalities.? CT/CT abdomen pelvis w IV con IMPRESSION: *? Interval repair of the previously seen parastomal hernia. *? Multiple significantly dilated loops of small bowel upstream from an enteroenteric anastomosis within the anterior false pelvis, with transition point is shown on the franco images. Appearance is similar to that seen on the previous small bowel series, and is most suggestive of a partial small bowel obstruction. 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 *? Dehiscent incision along the midline lower abdominal wall with associated subcutaneous gas which appears to track into the ventral peritoneum/retroperitoneal space. No drainable collection. *? Cholelithiasis. ? ? Discharge Plan Discharge Clinical Impression: Small bowel obstruction, Dehiscence of surgical wound Patient Disposition: Admitted As Inpatient Prescriptions: No Action oxycodone-acetaminophen [Percocet] 5-325 mg tablet 1 tab PO TID PRN (Reason: pain) Qty: 20 0RF Rx Instructions: Partial Fill upon patient request. lisinopril 40 mg tablet 40 mg PO DAILY Qty: 30 2RF
[2022-08-03 00:26] LABS: MANUAL DIFF FLAG NO
[2022-08-03 00:27] LABS: Basophils Percent Auto 0.3 % (0-2); Eosinophils Percent Auto 0.3 % (0-4); Hemoglobin 11.7 g/dl (14.0-18.0); Imm Gran Abs Auto 0.06 X10*3/uL (0.00-0.03); Imm Gran Pct Auto 0.4 % (0.0-0.4); Lymphocytes Absolute Auto 0.8 X10*3/uL (1.2-4.9); Lymphocytes Percent Auto 5.8 % (20-40); Mean Corpuscular HGB Conc 32.5 g/dl (31.0-36.0); Mean Corpuscular Hemoglobin 31.2 pg (27.0-33.0); Mean Platelet Volume 10.3 fL (9.4-12.4); Monocytes Absolute Auto 1.1 X10*3/uL (0.1-1.2); Monocytes Percent Auto 8.3 % (2-11); Neutrophils Absolute Auto 11.4 x10*3/uL (2.0-8.3); Neutrophils Percent Auto 84.9 % (45-73); Platelet Count 260 X10*3/uL (160-400); Red Blood Count 3.75 X10*6/uL (4.60-5.80); Red Cell Distribution Width 13.5 % (11.0-16.0); White Blood Count 13.4 X10*3/uL (4.8-10.8)
[2022-08-03 00:40] LABS: Lactic Acid 1.1 mmol/L (0.5-2.0)
[2022-08-03] MEDS: 0.9 % Sodium Chloride 1,000 ML 999 ML IVCONT (01:22)
[2022-08-03] MEDS: Morphine Sulfate 4 MG/ML CARTRIDGE IVPUSH (01:22)
[2022-08-03 01:29] LABS: INTERNATIONAL NORM RATIO 1.2 (0.9-1.1); Prothrombin Time 13.9 SEC (10.0-13.1)
--- NOTE | 2022-08-03 01:39 | PC.NURSE ---
Pt arrived to our facility with an abdominal wound that was draining purulent fluid. Bandages covering the wound were found to be soaked with purulent fluid. Bandages removed, area around the wound was cleaned, and new bandages were placed around the wound. Pt was difficult to obtain IV access; this RN made two unsuccessful attempts, charge nurse made two unsuccessful attempts, and then Dr. Augustin was able to place IV access with an EJ. After the IV line was placed, this RN checked the bandages again and found them to be saturated with purulent fluid. Will continue to monitor the drainage from the wound and replace dressings as needed. Pt has been medicated and is resting comfortably in bed at this time. Waiting for labs results and CT scan with contrast.
[2022-08-03 01:49] LABS: COVID-19 Test Negative (Negative)
[2022-08-03 01:51] LABS: Alanine Aminotransferase 37 U/L (0-40); Albumin Level 2.5 g/dL (3.5-5.0); Alkaline Phosphatase 105 U/L (39-117); Anion Gap 20 (12-20); Aspartate Amino Transferase 30 U/L (5-37); Bilirubin Direct < 0.2 mg/dL (0.0-0.5); Bilirubin Total 0.2 mg/dL (0.0-1.0); Blood Urea Nitrogen 19 mg/dL (9-16); Calcium 7.7 mg/dL (8.4-10.2); Carbon Dioxide 22 mmol/L (22-29); Chloride 103 mmol/L (96-108); Creatinine Clr Calc Pharmacy 97.3; Estimated Glomerular Filt Rate > 60; Glucose Random 132 mg/dL (60-115); Potassium 4.8 mmol/L (3.3-5.1); Sodium 140 mmol/L (135-145); Total Protein 5.5 g/dL (6.5-8.0)
[2022-08-03] MEDS: iohexoL 350 MG/ML 100 ML INFUS..BTL IV (02:25)
[2022-08-03] MEDS: HYDROmorphone HCl 1 MG/ML SYRINGE IVPUSH (04:46)
[2022-08-03] MEDS: Dextrose 5 % and 0.9 % NaCl 1,000 ML 80 ML IVCONT ×2 (04:46→15:36)
[2022-08-03] MEDS: lisinopriL 40 MG TABLET PO (04:48)
[2022-08-03] MEDS: ondansetron HCL 4 MG/2 ML VIAL IVPUSH ×3 (04:52→20:05)
--- NOTE | 2022-08-03 05:02 | PC.NURSE ---
Wound dressings saturated in purulent fluid. Wounds cleaned and redressed.
--- NOTE | 2022-08-03 07:05 | PHA.MEDREC ---
Pharmacy Consult ? Medication Reconciliation Pharmacy has completed the medication reconciliation. Patient just discharged on 08/05/22. Completed med rec by discharge summary. Shefali Mcgill, JamelD
[2022-08-03] MEDS: Morphine Sulfate 4 MG/ML CARTRIDGE 3 MG IVPUSH ×4 (07:24→19:53)
[2022-08-03 07:26] LABS: Appearance Urine Cloudy; Color Urine Yellow; Glucose Urine UA Negative (Negative); Leukocyte Esterase Urine Negative (Negative); Nitrite Urine Negative (Negative); Urine Blood Large (3+) (Negative); Urine Ketones 15 mg/dL (Negative); Urine Protein 100 (2+) mg/dL (Neg-Trace)
[2022-08-03 07:36] LABS: Calcium Oxalate Crystals Urine Present
[2022-08-03 07:41] LABS: Squamous Epithelial Cell Urine 0-2 /HPF (0-2)
[2022-08-03 07:42] LABS: RBC Urine >20 /HPF (0-2); WBC Urine 0-5 /HPF (0-5)
[2022-08-03 07:43] LABS: Bacteria Urine 2+ (None Seen)
--- NOTE | 2022-08-03 08:27 | PM.HPGS ---
History of Present Illness History of Present Illness Date of Service: 08/16/22 Chief complaint: Lower Abd.Pain Narrative: Prosper Bhatti is a 72 year old male who [facility] of what he described as needed from his wound. He had undergone repair of parastomal hernia small-bowel resection last July 05, 2022. He was doing well but a fascial dehiscence with evisceration on July 11, 2022 so he was brought back for repair of this descends with retention sutures. He had some postop ileus during NG tube placement but eventually was tolerating diet. He had been doing well for the past few days and was actually [facility]. However, he says that last night, this nurse told him that he had some drainage from the wound any was sent back to the ER. He also had describes some incisional pain as well on the lower abdomen He otherwise has good stoma function. He had no fever or chills. Review of Systems Constitutional: Constitutional: Denies chills and Denies fever(s) Cardiovascular: Cardiovascular: Denies chest pain, Denies dyspnea and Denies dyspnea on exertion Respiratory: Respiratory: Denies cough, Denies dyspnea and Denies dyspnea on exertion Gastrointestinal: Gastrointestinal: Denies hematochezia and Denies change in bowel habits Genitourinary: Genitourinary: Denies hematuria and Denies difficulty urinating Musculoskeletal: Musculoskeletal: Denies back pain and Denies limited range of motion Neurologic: Denies focal weakness and Denies convulsions Psychiatric: Psychiatric: Denies depression and Denies mood swings [facility] Past Medical History Medical History (Updated 08/10/22 @ 00:03 by Adelina Hanna) Colorectal cancer Dehiscence of closure of fascia, superficial or muscular Emphysema lung Enterocutaneous fistula Hypertension Parastomal hernia Social History Social History Household Members: Spouse Housing: Apartment Do you presently have visiting nurse or other home services: No Alcohol intake: unknown Patient Tobacco Use Status: Never used Tobacco Advance Directives Date on File: 07/04/22 service: Yes Current occupational status: retired Meds Allergies Allergy/AdvReac Type Severity Reaction Status Date / Time No Known Allergies Allergy Verified 07/03/22 17:35 [No Known Allergies*] Active Medications: Current Medications Dextrose/Sodium Chloride (D5ns) 1,000 mls @ 80 mls/hr IVCONT .[id number] [facility] Last Admin: 08/03/22 04:46 Dose: 80 mls/hr Morphine Sulfate (Morphine Sulfate 4 Mg/Ml Cartridge) 3 mg IVPUSH Q4H PRN; Protocol PRN Reason: Pain, Severe (Pain Scale 7-10) Last Admin: 08/03/22 07:24 Dose: 3 mg Ondansetron HCl (Ondansetron Hcl 4 Mg/2 Ml Vial) 4 mg IVPUSH Q6H PRN PRN Reason: Nausea Last Admin: 08/03/22 04:52 Dose: 4 mg Oxycodone HCl (Oxycodone Hcl Immed Release 5 Mg Tablet) 5 mg PO Q6H PRN PRN Reason: Pain, Moderate (Pain Scale 4-6 Sodium Chloride (0.9 % Sodium Chloride Flush 3 Ml Syringe) 3 ml IVFLUSH QSHIFT [facility] Last Admin: 08/03/22 07:33 Dose: Not Given Physical Exam Vital Signs: Vital Signs: Last Vital Signs Temp 98.0 F 08/03/22 07:13 Pulse 89 08/03/22 07:25 Resp 18 08/03/22 07:25 BP 134/67 08/03/22 07:25 Pulse Ox 98 08/03/22 07:25 O2 Del Method 08/03/22 07:25 BMI result Body Mass Index 31.4 Const: General: comfortable and no acute distress Orientation/consciousness: patient oriented x3 Neck: Neck: Yes no lymphadenopathy Resp: Auscultation: clear to auscultation bilaterally Cardio: Rhythm: regular rhythm GI: Other: incision clean, scanty drainage from lower part of wound, serous, retention sutures intact, stoma functioning well Palpation (GI): Soft to palpation, nontender and no guarding Neuro: General: patient oriented x3 Results Results Labs: Short CBC 08/03/22 Range/Units 00:21 WBC 13.4 H (4.8-10.8) X10*3/uL Hgb 11.7 L (14.0-18.0) g/dl Hct 36.0 L (42.0-52.0) % Plt Count 260 (160-400) X10*3/uL BMP 08/03/22 01:15 Sodium 140 Potassium 4.8 D Chloride 103 Carbon Dioxide 22 BUN 19 H Creatinine 0.81 Calcium 7.7 L Liver Function 08/03/22 Range/Units 01:15 Total Bilirubin 0.2 (0.0-1.0) mg/dL Direct Bilirubin < 0.2 (0.0-0.5) mg/dL AST 30 D (5-37) U/L ALT 37 (0-40) U/L Alkaline Phosphatase 105 D (39-117) U/L Albumin 2.5 L (3.5-5.0) g/dL Urine 08/03/22 Range/Units 07:18 Urine Color Yellow Urine Appearance Cloudy Urine pH 6.0 (5.0-9.0) Ur Specific [place] 1.020 (1.005-1.025) Urine Protein 100 (2+) H (Neg-Trace) mg/dL Urine Glucose (UA) Negative (Negative) mg/dL Assessment and Plan (1) Small bowel obstruction: Status: Resolved He describes pain last night, and had some wound drainage so he was sent to the ED from the [place]. Review of his CT scan shows suggestion of partial SB obstruction with some mural thickening of some small bowel loops. There is some separation of the fascia in the lower part of the incision which will be develop a hernia.l. His wound is currently dry and there is no heavy drainage. He otherwise appears well. He is not comfortable about going back to the [place]. He will be kept on clear liquids for now. I have started him on IVF. His exam is otherwise benign. Quality Stroke Does the patient have a stroke diagnosis?: No VTE Prior VTE?: No VTE Risk Level:: Medical - moderate - high VTE Device Contraindication: N/A - Device Ordered VTE Drug Contraindication: N/A - Med Ordered Procedures Date of Service Date of Service: 08/03/22
--- NOTE | 2022-08-03 09:34 | PC.NURSE ---
sleeeping and easily woken, denies painm, skin wpd, updated via phone
--- NOTE | 2022-08-03 11:06 | PC.NURSE ---
episode of n/v a few minurtes after morphine, zofran given, now feeling improved, skin wpd alert
--- NOTE | 2022-08-03 11:17 | PC.NURSE ---
after vomitting, the pt's abd wound drained purulent drainage and some of it was thick, now w nad after mattie, alert
--- NOTE | 2022-08-03 11:44 | MHC.CM.PN ---
PATIENT IS PRESENTLY AT [facility], WILL DISCHARGE FROM THERE TO HOME HE LIVES WITH [facility] NEEDED DENIES RECEIVING HOME SERVICES HCP- COPY REQUESTED MARLENE TAY X4 PCP: [facility] Jason D/C PLAN: BLS TRANSPORT BACK TO [facility]
--- NOTE | 2022-08-03 15:37 | PM.EVENT ---
Event Note Date of Service: 08/03/22 Event Note: tolerating clears says he is tired from last night stoma functioning abd soft, benign, with some scanty drainage from lower part of incision, retentions in place continue clears wound care and stoma care looks well otherwise
[2022-08-03] MEDS: Omeprazole 20 MG CAPSULE.DR PO (15:47)
[2022-08-03] MEDS: oxyCODONE HCl Immed Release 5 MG TABLET PO (17:51)
--- NOTE | 2022-08-03 20:37 | PC.NURSE ---
surgical incision has 1 cm long opening at the bottom oozing yellowish drainge,area cleansed with NS and covered with sterile kerlix,drsg changed on admission to this floor and now ,4 kerlixes saturated with drainage
--- NOTE | 2022-08-03 23:34 | PC.NURSE ---
P Lower incision drsg saturated with yelowish drainage with very strong odor appear as stool is coming out from the bottom of the incision,also noticed yellow liquid drainage oozing from top of the incision which is new,Colostomy intact,no output from colostomy I Dr. Del Rosario notified,nursing lawn service supervisor notified and is coming to evaluate patient E as suggested by Dr. Del oRsario planning to apply appliance over the lower part of incision
--- NOTE | 2022-08-03 23:43 | PC.NURSE ---
left neck drsg CDI,no crepitus,TLC site
[2022-08-04] VITALS: BP 138/64; PULSE 89; RESP 18; TEMP 36.3; O2SAT 96
[2022-08-04] MEDS: Morphine Sulfate 4 MG/ML CARTRIDGE 3 MG IVPUSH ×6 (00:05→23:30)
--- NOTE | 2022-08-04 05:40 | PC.NURSE ---
Patient to CT around midnight due to fecal material leaking from dehised surgical site. Ostomy appliance placed over opening per request of DR. Del Rosario. Patient made NPO. VSS, patient does not report any increase in pain.
[2022-08-04] MEDS: Dextrose 5 % and 0.9 % NaCl 1,000 ML 80 ML IVCONT ×2 (05:52→16:52)
[2022-08-04 05:53] VITALS: TEMP 37.3
[2022-08-04 08:00] VITALS: BP 166/74; PULSE 87; RESP 18; TEMP 36.7; O2SAT 98
[2022-08-04] MEDS: ondansetron HCL 4 MG/2 ML VIAL IVPUSH ×2 (08:25→16:58)
[2022-08-04] MEDS: 0.9 % Sodium Chloride Flush 3 ML SYRINGE IVFLUSH ×2 (08:35→16:42)
--- NOTE | 2022-08-04 08:58 | PM.PNGS ---
Subjective Subjective Date of Service: 08/04/22 Interval history: had repeat CT done last night when bilious fluid seen on wound drainage CT shows EC fistula pt now depressed from another setback some pain on lower abdomen stoma functioning Physical Exam Vital Signs: Vital Signs: Last Vital Signs Temp 98.1 F 08/04/22 08:00 Pulse 87 08/04/22 08:00 Resp 18 08/04/22 08:00 BP 166/74 H 08/04/22 08:00 Pulse Ox 98 08/04/22 08:00 O2 Del Method 08/04/22 08:00 BMI result Body Mass Index 31.4 Const: Other: depressed General: no acute distress Resp: Effort & Inspection: normal respiratory effort Cardio: Rate: regular rate GI: Other: stoma functioning, lower part of incision with drainage being caught by appliance - c/w enteric contents Palpation (GI): Soft to palpation, no guarding and not rigid Objective Data Active Medications Dextrose/Sodium Chloride (D5ns) 1,000 mls @ 80 mls/hr IVCONT .[id number] [facility] Last Admin: 08/04/22 05:52 Dose: 80 mls/hr Documented By: PING Morphine Sulfate (Morphine Sulfate 4 Mg/Ml Cartridge) 3 mg IVPUSH Q4H PRN; Protocol PRN Reason: Pain, Severe (Pain Scale 7-10) Last Admin: 08/04/22 08:10 Dose: 3 mg Documented By: CINTHIA Omeprazole (Omeprazole 20 Mg Capsule.Dr) 20 mg PO BID@0630,1630 [facility] Last Admin: 08/04/22 03:36 Dose: Not Given Documented By: PING Non-Admin Reason: NPO Ondansetron HCl (Ondansetron Hcl 4 Mg/2 Ml Vial) 4 mg IVPUSH Q6H PRN PRN Reason: Nausea Last Admin: 08/04/22 08:25 Dose: 4 mg Documented By: CINTHIA Oxycodone HCl (Oxycodone Hcl Immed Release 5 Mg Tablet) 5 mg PO Q6H PRN PRN Reason: Pain, Moderate (Pain Scale 4-6 Last Admin: 08/03/22 17:51 Dose: 5 mg Documented By: LUISITO Sodium Chloride (0.9 % Sodium Chloride Flush 3 Ml Syringe) 3 ml IVFLUSH QSHIFT [facility] Last Admin: 08/04/22 08:35 Dose: 3 ml Documented By: CINTHIA Labs CBC & Chem 7: 08/03/22 00:21 08/03/22 01:15 Microbiology Microbiology Results: Microbiology 08/03/22 01:15 Blood Culture - Preliminary Blood - Venous No growth after 24 hours. 08/03/22 00:21 Blood Culture - Preliminary Blood - Venous No growth after 24 hours. Procedures Date of Service Date of Service: 08/04/22 Progress Note: A&P Assessment and plan (1) Enterocutaneous fistula: Status: Acute Assessment and Plan: CT now showing EC fistula currently with stoma appliance to control fistula check lytes IVF - PPN for now, then TPN after PICC line NPO, ok to have meds, ice chips and small sips abd benign explained to him the plan EC output appears high Time Spent With Patient Time: Total time spent is greater than 50% in coordination of care (as documented) at patient's floor/unit and/or counseling patient: Quality Stroke Does the patient have a stroke diagnosis?: No VTE Prior VTE?: No VTE Risk Level:: Medical - moderate - high VTE Device Contraindication: N/A - Device Ordered VTE Drug Contraindication: N/A - Med Ordered
[2022-08-04 10:24] LABS: Triglycerides 85 mg/dL
[2022-08-04] MEDS: oxyCODONE HCl Immed Release 5 MG TABLET PO ×2 (10:31→18:33)
[2022-08-04] MEDS: Heparin Sodium,Porcine 5,000 UNIT/ML VIAL 5000 UNIT SUBCUT ×2 (10:31→20:19)
[2022-08-04 10:43] LABS: Alanine Aminotransferase 29 U/L (0-40); Albumin Level 2.3 g/dL (3.5-5.0); Alkaline Phosphatase 92 U/L (39-117); Anion Gap 14 (12-20); Aspartate Amino Transferase 14 U/L (5-37); Bilirubin Total 0.3 mg/dL (0.0-1.0); Blood Urea Nitrogen 18 mg/dL (9-16); Calcium 7.5 mg/dL (8.4-10.2); Carbon Dioxide 25 mmol/L (22-29); Chloride 107 mmol/L (96-108); Creatinine Clr Calc Pharmacy 115.9; Estimated Glomerular Filt Rate > 60; Glucose Random 136 mg/dL (60-115); Magnesium 1.4 mg/dL (1.6-2.6); Phosphorus 3.2 mg/dL (2.7-4.5); Potassium 3.7 mmol/L (3.3-5.1); Sodium 142 mmol/L (135-145); Total Protein 4.7 g/dL (6.5-8.0)
--- NOTE | 2022-08-04 11:02 | HE.PHANOTE ---
Patient to be started on PPN, telephone order per Dr. Lugo. Patient was previously on D15AA5 @ 83.33 mL/hr last given on 07/26 and was transitioned to a regular diet. Dr. Lugo originally wanted to restart him at 100 cc/hr. Discuss with CHARLIE Miller. She recommended that patient be titrated-up to goal rate. Since patient was discharged 08/02 with a full diet, patient is not at risk for refeeding syndrome. Currently patient has peripheral line but will be scheduled for a PICC at a later date. Pharmacy to follow. Will start titrate similar to patient's last time on TPN Day 1: D5AA4.25 @45 mL/hr Day 2: D5AA4.25 @ 65 mL/hr Day 3: D5AA4.25 @ 83.333 mL/hr with lipids at 10 mL/hr (if level within normal limits) Angela agreed with titration. Will re-access if patient gets PICC line. Dr. Lugo okayed starting rate of 45 mL/hr with fluids continuing to run Shefali Mcgill, JamelD
[2022-08-04] MEDS: Magnesium Sulfate/D5W 1 GM/100 ML PIGGYBACK IV (11:31)
--- NOTE | 2022-08-04 15:12 | PM.EVENT ---
Event Note Date of Service: 08/04/22 Event Note: NGT inserted earlier to decrease bloating and fistula output in good position on xray abdl exam remains benign- soft; stoma with output, EC fistula controlled by stoma appliance Mg replaced repeat labs oliverio PPN ordered
[2022-08-04 15:36] VITALS: BP 144/72; PULSE 83; RESP 16; TEMP 36.6; O2SAT 95
--- NOTE | 2022-08-04 19:20 | PC.NURSE ---
200 ml brown drainage emptied from colostomy bag placed at lower aspect of abdominal incision wound. Notified MD 11:45 of new yellow/white purulent drainage from midline incision above and below 1st plastic loop. Pt states increased pressure and pain in abdomen. MD to bedside 12:00 to assess wound. MD placed NG Tube 12:00 and placed order for NGT to intermittent suction. Drainage from NGT brown color. Additional 50 ml brown drainage measured 16:00 from colostomy bag at lower aspect of midline incision.
[2022-08-04 19:54] VITALS: BP 149/70; PULSE 80; RESP 17; TEMP 36.3; O2SAT 94
[2022-08-04 23:52] VITALS: BP 150/82; PULSE 84; RESP 18; TEMP 36.1; O2SAT 95
[2022-08-05] MEDS: 0.9 % Sodium Chloride Flush 3 ML SYRINGE IVFLUSH ×4 (00:09→20:38)
[2022-08-05] MEDS: ondansetron HCL 4 MG/2 ML VIAL IVPUSH ×2 (00:37→08:38)
[2022-08-05 03:52] VITALS: BP 138/68; PULSE 78; RESP 16; TEMP 36.1; O2SAT 94
[2022-08-05] MEDS: Morphine Sulfate 4 MG/ML CARTRIDGE 3 MG IVPUSH ×2 (04:57→08:38)
[2022-08-05] MEDS: Pantoprazole Sodium 40 MG/10 ML VIAL IVPUSH (05:21)
[2022-08-05 06:36] LABS: Albumin Level 2.2 g/dL (3.5-5.0); Anion Gap 12 (12-20); Blood Urea Nitrogen 20 mg/dL (9-16); Calcium 7.5 mg/dL (8.4-10.2); Carbon Dioxide 25 mmol/L (22-29); Chloride 108 mmol/L (96-108); Creatinine Clr Calc Pharmacy 123.1; Estimated Glomerular Filt Rate > 60; Glucose Random 154 mg/dL (60-115); Magnesium 1.7 mg/dL (1.6-2.6); Potassium 3.7 mmol/L (3.3-5.1); Sodium 141 mmol/L (135-145); Triglycerides 110 mg/dL
[2022-08-05 08:00] VITALS: BP 160/70; PULSE 75; RESP 18; TEMP 36.6; O2SAT 96
[2022-08-05] MEDS: Heparin Sodium,Porcine 5,000 UNIT/ML VIAL 5000 UNIT SUBCUT ×2 (08:38→20:47)
[2022-08-05] MEDS: Dextrose 5 % and 0.9 % NaCl 1,000 ML 80 ML IVCONT ×2 (08:38→20:42)
--- NOTE | 2022-08-05 09:25 | P.PNGS_ITS ---
Subjective Subjective Date of Service: 08/05/22 Interval history: tired feels depressed no other events reported Physical Exam Vital Signs: Vital Signs: Last Vital Signs Temp 97.9 F 08/05/22 08:00 Pulse 75 08/05/22 08:00 Resp 18 08/05/22 08:00 BP 160/70 H 08/05/22 08:00 Pulse Ox 96 08/05/22 08:00 O2 Del Method 08/05/22 08:00 BMI result Body Mass Index 31.4 Const: General: no acute distress Resp: Effort & Inspection: normal respiratory effort Cardio: Rate: regular rate GI: Other: soft, no guarding or rebound, stoma functioning well, stoma appliance on lower abdomen controlling enterocutaneous fistula output, retention sutures in place Objective Data Active Medications Benzocaine (Throat Lozenge, Medicated Lozenge) 1 lozenge MUCOUS MEM Q2H PRN PRN Reason: Sore Throat Heparin Sodium (Porcine) (Heparin Sodium,Porcine 5,000 Unit/Ml Vial) 5,000 unit SUBCUT Q12H [facility] Last Admin: 08/05/22 08:38 Dose: 5,000 unit Documented By: DANTE Multivitamins 18.5 ml/ Trace Metals 1.9 ml/ Amino Acids/Electrolytes/Dextrose 1,080 mls @ 45 mls/hr IV DAILY@1800 [facility] Stop: 08/05/22 17:59 Last Admin: 08/04/22 18:24 Dose: 45 mls/hr Documented By: CINTHIA Dextrose/Sodium Chloride (D5ns) 1,000 mls @ 80 mls/hr IVCONT .[id number] [facility] Last Admin: 08/05/22 08:38 Dose: 80 mls/hr Documented By: DANTE Multivitamins 12.8 ml/ Trace Metals 1.3 ml/ Amino Acids/Electrolytes/Dextrose 1,560 mls @ 65 mls/hr IV DAILY@1800 [facility] Stop: 08/06/22 17:59 Morphine Sulfate (Morphine Sulfate 4 Mg/Ml Cartridge) 3 mg IVPUSH Q3H PRN; Protocol PRN Reason: Pain, Severe (Pain Scale 7-10) Last Admin: 08/05/22 08:38 Dose: 3 mg Documented By: DANTE Ondansetron HCl (Ondansetron Hcl 4 Mg/2 Ml Vial) 4 mg IVPUSH Q4H PRN PRN Reason: Nausea Last Admin: 08/05/22 08:38 Dose: 4 mg Documented By: DANTE Oxycodone HCl (Oxycodone Hcl Immed Release 5 Mg Tablet) 5 mg PO Q6H PRN PRN Reason: Pain, Moderate (Pain Scale 4-6 Last Admin: 08/04/22 18:33 Dose: 5 mg Documented By: CINTHIA Pantoprazole Sodium (Pantoprazole Sodium 40 Mg/10 Ml Vial) 40 mg IVPUSH DAILY@0630 [facility] Last Admin: 08/05/22 05:21 Dose: 40 mg Documented By: MORRINGlenda Sodium Chloride (0.9 % Sodium Chloride Flush 3 Ml Syringe) 3 ml IVFLUSH QSHIFT [facility] Last Admin: 08/05/22 08:38 Dose: 3 ml Documented By: DANTE Labs CBC & Chem 7: 08/03/22 00:21 08/05/22 05:49 Labs: Laboratory Results - last 24 hr 08/04/22 08/04/22 08/05/22 09:28 09:28 05:49 Anion Gap 14 12 Estim Creat Clear Calc 115.9 123.1 Estimated GFR > 60 > 60 Random Glucose 136 H 154 H Calcium 7.5 L 7.5 L Phosphorus 3.2 3.0 Magnesium 1.4 L* 1.7 Total Bilirubin 0.3 AST 14 D ALT 29 Alkaline Phosphatase 92 Total Protein 4.7 L Albumin 2.3 L 2.2 L Triglycerides 85 110 Microbiology Microbiology Results: Microbiology 08/03/22 01:15 Blood Culture - Preliminary Blood - Venous No growth after 48 hours. 08/03/22 00:21 Blood Culture - Preliminary Blood - Venous No growth after 48 hours. Procedures Date of Service Date of Service: 08/05/22 Progress Note: A&P Assessment and plan (1) Enterocutaneous fistula: Status: Acute Assessment and Plan: now with Enterocutaneous fistula PPN started, to switch to TPN once with PICC line NPO, with NGT stoma with output pain mgt no abx good UO lytes good - Mg now normal Time Spent With Patient Time: Total time spent is greater than 50% in coordination of care (as documented) at patient's floor/unit and/or counseling patient: Quality Stroke Does the patient have a stroke diagnosis?: No VTE Prior VTE?: No VTE Risk Level:: Medical - moderate - high VTE Device Contraindication: N/A - Device Ordered VTE Drug Contraindication: N/A - Med Ordered
[2022-08-05] MEDS: Morphine Sulfate 4 MG/ML CARTRIDGE 2 MG IVPUSH ×6 (11:08→23:09)
[2022-08-05 11:29] VITALS: BP 172/77; PULSE 77; RESP 18; TEMP 37.2; O2SAT 95
[2022-08-05 15:39] VITALS: BP 179/86; PULSE 75; RESP 15; TEMP 36.2; O2SAT 96
--- NOTE | 2022-08-05 16:08 | PM.EVENT ---
Event Note Date of Service: 08/05/22 Event Note: Says he is comfortable did get some pain meds earlier abdomen remained soft stoma with output EC fistula output control NG tube in place - scanty output all day, continue current care
[2022-08-05 19:39] VITALS: BP 170/78; PULSE 80; RESP 19; TEMP 36.2; O2SAT 96
[2022-08-05 23:57] VITALS: BP 172/90; PULSE 78; RESP 17; TEMP 36.6; O2SAT 96
[2022-08-06] VITALS (7 sets, daily range): BP systolic 158–179; BP diastolic 70–90; PULSE 73–79; RESP 15–18; TEMP 36.1–36.9; O2SAT 94–97
[2022-08-06] MEDS: Morphine Sulfate 4 MG/ML CARTRIDGE 2 MG IVPUSH ×3 (03:40→11:22)
[2022-08-06] MEDS: Pantoprazole Sodium 40 MG/10 ML VIAL IVPUSH (05:25)
[2022-08-06 07:31] LABS: Albumin Level 2.1 g/dL (3.5-5.0); Anion Gap 11 (12-20); Blood Urea Nitrogen 18 mg/dL (9-16); Calcium 7.3 mg/dL (8.4-10.2); Carbon Dioxide 25 mmol/L (22-29); Chloride 108 mmol/L (96-108); Creatinine Clr Calc Pharmacy 129.2; Estimated Glomerular Filt Rate > 60; Glucose Random 156 mg/dL (60-115); Magnesium 1.6 mg/dL (1.6-2.6); Phosphorus 3.2 mg/dL (2.7-4.5); Potassium 3.5 mmol/L (3.3-5.1); Sodium 140 mmol/L (135-145); Triglycerides 97 mg/dL
[2022-08-06] MEDS: 0.9 % Sodium Chloride Flush 3 ML SYRINGE IVFLUSH ×2 (08:19→19:36)
[2022-08-06] MEDS: Heparin Sodium,Porcine 5,000 UNIT/ML VIAL 5000 UNIT SUBCUT ×2 (08:19→19:36)
[2022-08-06] MEDS: ondansetron HCL 4 MG/2 ML VIAL IVPUSH (08:19)
[2022-08-06] MEDS: Dextrose 5 % and 0.9 % NaCl 1,000 ML 80 ML IVCONT (09:13)
--- NOTE | 2022-08-06 09:50 | P.PNGS_ITS ---
Subjective Subjective Date of Service: 08/07/22 Interval history: no new complaints says he is ok able to sleep last night wants to eat Physical Exam Vital Signs: Vital Signs: Last Vital Signs Temp 97 F 08/06/22 07:05 Pulse 75 08/06/22 07:05 Resp 18 08/06/22 07:05 BP 179/90 H 08/06/22 07:05 Pulse Ox 97 08/06/22 07:05 O2 Del Method 08/06/22 07:05 BMI result Body Mass Index 31.4 Const: General: comfortable and no acute distress Resp: Effort & Inspection: normal respiratory effort Cardio: Rate: regular rate GI: Other: EC fistula with some output, controlled by appliance, has been low, colostomy functioning well Palpation (GI): Soft to palpation, not firm and nontender Objective Data Active Medications Benzocaine (Throat Lozenge, Medicated Lozenge) 1 lozenge MUCOUS MEM Q2H PRN PRN Reason: Sore Throat Heparin Sodium (Porcine) (Heparin Sodium,Porcine 5,000 Unit/Ml Vial) 5,000 unit SUBCUT Q12H [facility] Last Admin: 08/06/22 08:19 Dose: 5,000 unit Documented By: DANTE Dextrose/Sodium Chloride (D5ns) 1,000 mls @ 80 mls/hr IVCONT .[id number] [facility] Stop: 08/06/22 17:30 Last Admin: 08/06/22 09:13 Dose: 80 mls/hr Documented By: DANTE Multivitamins 12.8 ml/ Trace Metals 1.3 ml/ Amino Acids/Electrolytes/Dextrose 1,560 mls @ 65 mls/hr IV DAILY@1800 [facility] Stop: 08/06/22 17:59 Last Admin: 08/05/22 18:05 Dose: 65 mls/hr Documented By: DANTE Multivitamins 10 ml/ Trace Metals 1 ml/ Amino Acids/Electrolytes/Dextrose 2,000 mls @ 83.333 mls/hr IV DAILY@1800 [facility] Stop: 08/07/22 17:59 Fat Emulsion Intravenous (Intralipid) 120 mls @ 10 mls/hr IVCONT BID@0600,1800 [facility] Stop: 08/07/22 17:59 Morphine Sulfate (Morphine Sulfate 4 Mg/Ml Cartridge) 2 mg IVPUSH Q2H PRN; Protocol PRN Reason: Pain, Severe (Pain Scale 7-10) Last Admin: 08/06/22 08:18 Dose: 2 mg Documented By: DANTE Ondansetron HCl (Ondansetron Hcl 4 Mg/2 Ml Vial) 4 mg IVPUSH Q4H PRN PRN Reason: Nausea Last Admin: 08/06/22 08:19 Dose: 4 mg Documented By: DANTE Oxycodone HCl (Oxycodone Hcl Immed Release 5 Mg Tablet) 5 mg PO Q6H PRN PRN Reason: Pain, Moderate (Pain Scale 4-6 Last Admin: 08/04/22 18:33 Dose: 5 mg Documented By: CINTHIA Pantoprazole Sodium (Pantoprazole Sodium 40 Mg/10 Ml Vial) 40 mg IVPUSH DAILY@0630 [facility] Last Admin: 08/06/22 05:25 Dose: 40 mg Documented By: LOLISRINGlenda Sodium Chloride (0.9 % Sodium Chloride Flush 3 Ml Syringe) 3 ml IVFLUSH [facility] Last Admin: 08/06/22 08:19 Dose: 3 ml Documented By: DANTE Labs CBC & Chem 7: 08/03/22 00:21 08/07/22 08:40 Labs: Laboratory Results - last 24 hr 08/06/22 07:00 Anion Gap 11 L Estim Creat Clear Calc 129.2 Estimated GFR > 60 Random Glucose 156 H Calcium 7.3 L Phosphorus 3.2 Magnesium 1.6 Albumin 2.1 L Triglycerides 97 Procedures Date of Service Date of Service: 08/06/22 Progress Note: A&P Assessment and plan (1) Enterocutaneous fistula: Status: Acute Assessment and Plan: no new complaints on PPN, then TPN once PICC line in tomorrow lytes ok control EC fistula NGT output low - may dc later exam be benign wound care EC output seems much less Time Spent With Patient Time: Total time spent is greater than 50% in coordination of care (as documented) at patient's floor/unit and/or counseling patient: Quality Stroke Does the patient have a stroke diagnosis?: No VTE Prior VTE?: No VTE Risk Level:: Medical - moderate - high VTE Device Contraindication: N/A - Device Ordered VTE Drug Contraindication: N/A - Med Ordered
--- NOTE | 2022-08-06 10:25 | P.CONHOSP_ITS ---
History of Present Illness Data of Consult Service Date: 08/06/22 Requesting physician: Mati Lugo Primary Care Provider: Julio Cesar Hernandez MD HPI Reason for consult: HTN 72 year old man [facility] due to increased drainage to abd wound. He had undergone repair of parastomal hernia small-bowel resection last July 05, 2022.? He was doing well but a fascial dehiscence with?evisceration on July 11, 2022 so he was brought back for? repair of this descends with retention sutures.? He had some postop ileus during NG tube placement but eventually was tolerating diet.? He had been doing well and was actually [facility]However due ti drainage he was sent to the ED. Abd CT showed SBO and NGT was placed. He denied cp, sob, nausea, vomiting. He is passing his bowels. He is on PPN also. consult was requested for HTN management. Review of Systems Review of Systems: Denies any recent fever chills or decrease in appetite respiratory denies any shortness of breath coverage production cardiovascular no chest pain gastrointestinal See HPI genitourinary denies any dysuria frequency or hematuria musculoskeletal denies any joint pain or swelling neuropsych denies any weakness or seizures all other systems reviewed are negative [facility] Medical History (Updated 08/04/22 @ 09:01 by Mati Lugo MD) Colorectal cancer Dehiscence of closure of fascia, superficial or muscular Emphysema lung Enterocutaneous fistula Hypertension Parastomal hernia Social History Household Members: Spouse Housing: Apartment Do you presently have visiting nurse or other home services: No Alcohol intake: unknown Patient Tobacco Use Status: Never used Tobacco Advance Directives Date on File: 07/04/22 service: Yes Current occupational status: retired Meds Allergies Allergy/AdvReac Type Severity Reaction Status Date / Time No Known Allergies Allergy Verified 07/03/22 17:35 [No Known Allergies*] Active Medications: Current Medications Benzocaine (Throat Lozenge, Medicated Lozenge) 1 lozenge MUCOUS MEM Q2H PRN PRN Reason: Sore Throat Heparin Sodium (Porcine) (Heparin Sodium,Porcine 5,000 Unit/Ml Vial) 5,000 unit SUBCUT Q12H [facility] Last Admin: 08/06/22 08:19 Dose: 5,000 unit Dextrose/Sodium Chloride (D5ns) 1,000 mls @ 80 mls/hr IVCONT .[id number] [facility] Stop: 08/06/22 17:30 Last Admin: 08/06/22 09:13 Dose: 80 mls/hr Multivitamins 12.8 ml/ Trace Metals 1.3 ml/ Amino Acids/Electrolytes/Dextrose 1,560 mls @ 65 mls/hr IV DAILY@1800 [facility] Stop: 08/06/22 17:59 Last Admin: 08/05/22 18:05 Dose: 65 mls/hr Multivitamins 10 ml/ Trace Metals 1 ml/ Amino Acids/Electrolytes/Dextrose 2,000 mls @ 83.333 mls/hr IV DAILY@1800 [facility] Stop: 08/07/22 17:59 Fat Emulsion Intravenous (Intralipid) 120 mls @ 10 mls/hr IVCONT BID@0600,1800 [facility] Stop: 08/07/22 17:59 Morphine Sulfate (Morphine Sulfate 4 Mg/Ml Cartridge) 2 mg IVPUSH Q2H PRN; Protocol PRN Reason: Pain, Severe (Pain Scale 7-10) Last Admin: 08/06/22 08:18 Dose: 2 mg Ondansetron HCl (Ondansetron Hcl 4 Mg/2 Ml Vial) 4 mg IVPUSH Q4H PRN PRN Reason: Nausea Last Admin: 08/06/22 08:19 Dose: 4 mg Oxycodone HCl (Oxycodone Hcl Immed Release 5 Mg Tablet) 5 mg PO Q6H PRN PRN Reason: Pain, Moderate (Pain Scale 4-6 Last Admin: 08/04/22 18:33 Dose: 5 mg Pantoprazole Sodium (Pantoprazole Sodium 40 Mg/10 Ml Vial) 40 mg IVPUSH DAILY@0630 [facility] Last Admin: 08/06/22 05:25 Dose: 40 mg Sodium Chloride (0.9 % Sodium Chloride Flush 3 Ml Syringe) 3 ml IVFLUSH [facility] Last Admin: 08/06/22 08:19 Dose: 3 ml Physical Exam Vital Signs and Narrative: Vital Signs: Last Vital Signs Temp 97 F 08/06/22 07:05 Pulse 75 08/06/22 07:05 Resp 18 08/06/22 07:05 BP 179/90 H 08/06/22 07:05 Pulse Ox 97 08/06/22 07:05 O2 Del Method 08/06/22 07:05 BMI result Body Mass Index 31.4 Appearing weak and tired head is normocephalic atraumatic eyes pupils are PERRLA sclera is anicteric mouth throat mucous membranes are intact and moist neck is supple no lymphadenopathy, no JVD noted lung sounds are clear to auscultation heart regular rate rhythm, clear S1, S2 abdominal wound with dressing Wound dehiscence neuro patient is alert x3, no focal deficits NGT Results Labs CBC and Chem 7: 08/03/22 00:21 08/06/22 07:00 Labs: Laboratory Results - last 24 hr 08/06/22 07:00 Anion Gap 11 L Estim Creat Clear Calc 129.2 Estimated GFR > 60 Random Glucose 156 H Calcium 7.3 L Phosphorus 3.2 Magnesium 1.6 Albumin 2.1 L Triglycerides 97 Assessment and Plan (1) Enterocutaneous fistula: Status: Acute (2) Dehiscence of surgical wound: Status: Acute Plan 72yo M with colon CA s/p resection/ostomy, HTN admitted to general surgery service for parastomal hernia, repaired 07/05, back to OR 07/11 for fascial dehiscence. DC and admit same day by surgery on 08/03 due to concern from SNF over wound drainage HTN. started home lisinopril follow BP closely parastomal hernia with fascial dehiscenc wound care management as per Surgery SBO partial NGT NPO PPN management as per surgery VTE ppx heparin Attending Dr. Fragoso
[2022-08-06] MEDS: lisinopriL 40 MG TABLET PO (11:23)
[2022-08-06] MEDS: Morphine Sulfate 2 MG/ML CARTRIDGE IVPUSH ×5 (13:56→23:45)
--- NOTE | 2022-08-06 15:23 | PM.EVENT ---
Event Note Date of Service: 08/06/22 Event Note: practically no output from NG tube today abdomen soft stoma functioning less output from EC fistula NG tube DC okay to have ice chips and small sips
[2022-08-06] MEDS: Fat Emulsions 20% 250 ML 10 ML IVCONT (17:53)
[2022-08-07] MEDS: Morphine Sulfate 2 MG/ML CARTRIDGE IVPUSH ×5 (02:34→13:25)
[2022-08-07 03:26] VITALS: BP 178/68; PULSE 80; RESP 17; TEMP 36.4; O2SAT 93
[2022-08-07] MEDS: Pantoprazole Sodium 40 MG/10 ML VIAL IVPUSH (04:55)
[2022-08-07] MEDS: Fat Emulsions 20% 250 ML 10 ML IVCONT (05:02)
[2022-08-07 07:34] VITALS: BP 179/89; PULSE 71; RESP 16; TEMP 37.7; O2SAT 95
--- NOTE | 2022-08-07 08:30 | HO.PM.IMPN ---
Subjective Subjective Date of Service: 08/07/22 Review of Systems Follow-up SBO, hypertension Feeling about the same, persistent pain but tolerable, worse with coughing Denies nausea Physical Exam Vital Signs: Vital Signs: Last Vital Signs Temp 99.8 F 08/07/22 07:34 Pulse 71 08/07/22 07:34 Resp 16 08/07/22 07:34 BP 179/89 H 08/07/22 07:34 Pulse Ox 95 08/07/22 07:34 O2 Del Method 08/07/22 07:34 BMI result Body Mass Index 31.4 Appearing in no acute distress lung sounds are clear to auscultation heart regular rate rhythm, clear S1, S2 positive bowel sounds, abdomen is soft, nontender neuro patient is alert x3, no focal deficits Abdominal wound dressing intact Objective Data Active Medications Benzocaine (Throat Lozenge, Medicated Lozenge) 1 lozenge MUCOUS MEM Q2H PRN PRN Reason: Sore Throat Heparin Sodium (Porcine) (Heparin Sodium,Porcine 5,000 Unit/Ml Vial) 5,000 unit SUBCUT Q12H [facility] Last Admin: 08/06/22 19:36 Dose: 5,000 unit Documented By: ADAIR Multivitamins 10 ml/ Trace Metals 1 ml/ Amino Acids/Electrolytes/Dextrose 2,000 mls @ 83.333 mls/hr IV DAILY@1800 [facility] Stop: 08/07/22 17:59 Last Admin: 08/06/22 17:53 Dose: 83.33 mls/hr Documented By: DANTE Fat Emulsion Intravenous (Intralipid) 120 mls @ 10 mls/hr IVCONT BID@0600,1800 [facility] Stop: 08/07/22 17:59 Last Admin: 08/07/22 05:02 Dose: 10 mls/hr Documented By: ADAIR Lisinopril (Lisinopril 40 Mg Tablet) 40 mg PO DAILY [facility]; Protocol Morphine Sulfate (Morphine Sulfate 2 Mg/Ml Cartridge) 2 mg IVPUSH Q2H PRN; Protocol PRN Reason: Pain, Severe (Pain Scale 7-10) Last Admin: 08/07/22 04:48 Dose: 2 mg Documented By: ADAIR Ondansetron HCl (Ondansetron Hcl 4 Mg/2 Ml Vial) 4 mg IVPUSH Q4H PRN PRN Reason: Nausea Last Admin: 08/06/22 08:19 Dose: 4 mg Documented By: DANTE Oxycodone HCl (Oxycodone Hcl Immed Release 5 Mg Tablet) 5 mg PO Q6H PRN PRN Reason: Pain, Moderate (Pain Scale 4-6 Last Admin: 08/04/22 18:33 Dose: 5 mg Documented By: CINTHIA Pantoprazole Sodium (Pantoprazole Sodium 40 Mg/10 Ml Vial) 40 mg IVPUSH DAILY@0630 [facility] Last Admin: 08/07/22 04:55 Dose: 40 mg Documented By: ADAIR Sodium Chloride (0.9 % Sodium Chloride Flush 3 Ml Syringe) 3 ml IVFLUSH QSHIFT [facility] Last Admin: 08/06/22 19:36 Dose: 3 ml Documented By: ADAIR Labs CBC & Chem 7: 08/03/22 00:21 08/06/22 07:00 Assessment and Plan (1) Emphysema lung: Status: Acute (2) Hypertension: Status: Acute (3) Enterocutaneous fistula: Status: Acute Plan 72yo M with colon CA s/p resection/ostomy, HTN admitted to general surgery service for parastomal hernia, repaired 07/05, back to OR 07/11 for fascial dehiscence. DC and admit same day by surgery on 08/03 due to concern from SNF over wound drainage HTN. started home lisinopril follow BP closely parastomal hernia with fascial dehiscenc wound care management as per Surgery SBO partial NGT removed NPO with ice chips PPN, plan to start TPN PICC line placement management as per surgery VTE ppx heparin Attending Dr. Arnold Quality Stroke Does the patient have a stroke diagnosis?: No VTE Prior VTE?: No VTE Risk Level:: Medical - moderate - high VTE Device Contraindication: N/A - Device Ordered VTE Drug Contraindication: N/A - Med Ordered
[2022-08-07] MEDS: lisinopriL 40 MG TABLET PO (09:03)
[2022-08-07] MEDS: Heparin Sodium,Porcine 5,000 UNIT/ML VIAL 5000 UNIT SUBCUT ×2 (09:03→21:41)
[2022-08-07] MEDS: 0.9 % Sodium Chloride Flush 3 ML SYRINGE IVFLUSH (09:04)
[2022-08-07 09:20] LABS: Albumin Level 2.1 g/dL (3.5-5.0); Anion Gap 13 (12-20); Blood Urea Nitrogen 17 mg/dL (9-16); Calcium 7.3 mg/dL (8.4-10.2); Carbon Dioxide 25 mmol/L (22-29); Chloride 103 mmol/L (96-108); Creatinine Clr Calc Pharmacy 138.3; Estimated Glomerular Filt Rate > 60; Glucose Random 140 mg/dL (60-115); Magnesium 1.6 mg/dL (1.6-2.6); Phosphorus 3.5 mg/dL (2.7-4.5); Potassium 3.8 mmol/L (3.3-5.1); Sodium 137 mmol/L (135-145)
[2022-08-07 11:06] VITALS: BP 180/86; PULSE 82; RESP 20; TEMP 36.4; O2SAT 97
--- NOTE | 2022-08-07 11:28 | HO.RADPN ---
RADIOLOGY Narrative Narrative: Left brachial 5 fr double lumen PICC line placed. Catheter length 47 cm. Catheter tip in SVC.
[2022-08-07 12:10] VITALS: BMI 28.6
--- NOTE | 2022-08-07 12:33 | MHC.CLN ---
NUTRITION PATIENT SCHEDULED FOR PICC LINE TODAY. PPN D10AA4.25 RUNNING AT 83.33 ML PER HOUR WITH 10 ML OF 20% LIPIDS. PROVIDES 1500 KCALS, 85 G PROTEIN. CHANGING FROM PPN TO TPN TODAY. DISCUSSED WITH PHARMACY. LABS REVIEWED. RD RECOMMENDS TPN D15AA5% AT MAX GOAL RATE OF 83.33 ML PER HOUR PLUS LIPIDS 20 ML OF 20% LIPIDS. PROVIDES 1900 CALORIES (26.7 KCALS/KG CMW); 100 G PROTEIN (1.41 G/KG CMW). REPLETE LYTES NEEDED. FOLLOW FOR DIET TOLERANCE AND LABS.
--- NOTE | 2022-08-07 13:53 | P.PNGS_ITS ---
Subjective Subjective Date of Service: 08/08/22 Interval history: Says he is tired Some pain periodically on the lower part of his incision Has had no problems since NG tube was removed yesterday Physical Exam Vital Signs: Vital Signs: Last Vital Signs Temp 97.6 F 08/07/22 11:06 Pulse 82 08/07/22 11:06 Resp 20 08/07/22 11:06 BP 180/86 H 08/07/22 11:06 Pulse Ox 97 08/07/22 11:06 O2 Del Method 08/07/22 11:06 BMI result Body Mass Index 28.6 Const: General: no acute distress Resp: Effort & Inspection: normal respiratory effort Cardio: Rate: regular rate GI: Other: Stoma with some output, enterocutaneous fistula also with some enteric contents as output , unable to accurately quantify this time as bag apparently had not been emptied last night Palpation (GI): Soft to palpation and not firm Objective Data Active Medications Benzocaine (Throat Lozenge, Medicated Lozenge) 1 lozenge MUCOUS MEM Q2H PRN PRN Reason: Sore Throat Heparin Sodium (Porcine) (Heparin Sodium,Porcine 5,000 Unit/Ml Vial) 5,000 unit SUBCUT Q12H [facility] Last Admin: 08/07/22 09:03 Dose: 5,000 unit Documented By: LORIE Multivitamins 10 ml/ Trace Metals 1 ml/ Amino Acids/Electrolytes/Dextrose 2,000 mls @ 83.333 mls/hr IV DAILY@1800 [facility] Stop: 08/07/22 17:59 Last Admin: 08/06/22 17:53 Dose: 83.33 mls/hr Documented By: DANTE Fat Emulsion Intravenous (Intralipid) 120 mls @ 10 mls/hr IVCONT BID@0600,1800 [facility] Stop: 08/07/22 17:59 Last Admin: 08/07/22 05:02 Dose: 10 mls/hr Documented By: ADAIR Multivitamins 10 ml/ Trace Metals 1 ml/ Amino Acids/Electrolytes 1,999 mls @ 83.33 mls/hr IV DAILY@1800 [facility] Stop: 08/08/22 17:59 Fat Emulsion Intravenous (Intralipid) 240 mls @ 20 mls/hr IV DAILY@1800 [facility] Stop: 08/08/22 05:59 Lisinopril (Lisinopril 40 Mg Tablet) 40 mg PO DAILY [facility]; Protocol Last Admin: 08/07/22 09:03 Dose: 40 mg Documented By: LORIE Morphine Sulfate (Morphine Sulfate 2 Mg/Ml Cartridge) 2 mg IVPUSH Q2H PRN; Protocol PRN Reason: Pain, Severe (Pain Scale 7-10) Last Admin: 08/07/22 13:25 Dose: 2 mg Documented By: LORIE Ondansetron HCl (Ondansetron Hcl 4 Mg/2 Ml Vial) 4 mg IVPUSH Q4H PRN PRN Reason: Nausea Last Admin: 08/06/22 08:19 Dose: 4 mg Documented By: DANTE Oxycodone HCl (Oxycodone Hcl Immed Release 5 Mg Tablet) 5 mg PO Q6H PRN PRN Reason: Pain, Moderate (Pain Scale 4-6 Last Admin: 08/04/22 18:33 Dose: 5 mg Documented By: CINTHIA Pantoprazole Sodium (Pantoprazole Sodium 40 Mg/10 Ml Vial) 40 mg IVPUSH KOBI LY@0630 [facility] Last Admin: 08/07/22 04:55 Dose: 40 mg Documented By: ADAIR Sodium Chloride (0.9 % Sodium Chloride Flush 3 Ml Syringe) 3 ml IVFLUSH QSIDFT [facility] Last Admin: 08/07/22 09:04 Dose: 3 ml Documented By: LORIE Labs CBC & Chem 7: 08/03/22 00:21 08/08/22 05:39 Labs: Laboratory Results - last 24 hr 08/07/22 08:40 Anion Gap 13 Estim Creat Clear Calc 138.3 Estimated GFR > 60 Random Glucose 140 H Calcium 7.3 L Phosphorus 3.5 Magnesium 1.6 Albumin 2.1 L Procedures Date of Service Date of Service: 08/07/22 Progress Note: A&P Assessment and plan (1) Enterocutaneous fistula: Status: Acute Assessment and Plan: Control fistula output with stoma appliance On clear liquids PICC line placed TPN ordered for today Lytes okay Wound care as well - retention sutures still in place Time Spent With Patient Time: Total time spent is greater than 50% in coordination of care (as documented) at patient's floor/unit and/or counseling patient: Quality Stroke Does the patient have a stroke diagnosis?: No VTE Prior VTE?: No VTE Risk Level:: Medical - moderate - high VTE Device Contraindication: N/A - Device Ordered VTE Drug Contraindication: N/A - Med Ordered
[2022-08-07] MEDS: oxyCODONE HCl Immed Release 5 MG TABLET PO (14:37)
[2022-08-07 15:44] VITALS: BP 174/80; PULSE 80; RESP 17; TEMP 36.5; O2SAT 96
[2022-08-07] MEDS: Morphine Sulfate 4 MG/ML CARTRIDGE 3 MG IVPUSH ×2 (18:32→21:42)
[2022-08-07] MEDS: Fat Emulsions 20% 250 ML 20 ML IV (19:39)
[2022-08-07 20:00] VITALS: BP 158/79; PULSE 78; RESP 18; TEMP 36.9; O2SAT 95
[2022-08-08] VITALS (9 sets, daily range): BP systolic 110–170; BP diastolic 52–82; PULSE 78–90; RESP 18; TEMP 35.5–37.5; O2SAT 94–96
[2022-08-08] MEDS: Morphine Sulfate 2 MG/ML CARTRIDGE IVPUSH ×2 (03:25→05:35)
[2022-08-08] MEDS: Pantoprazole Sodium 40 MG/10 ML VIAL IVPUSH (05:31)
[2022-08-08 07:03] LABS: Anion Gap 14 (12-20); Blood Urea Nitrogen 17 mg/dL (9-16); Calcium 7.4 mg/dL (8.4-10.2); Carbon Dioxide 25 mmol/L (22-29); Chloride 100 mmol/L (96-108); Creatinine Clr Calc Pharmacy 113.2; Estimated Glomerular Filt Rate > 60; Glucose Random 143 mg/dL (60-115); Magnesium 1.5 mg/dL (1.6-2.6); Phosphorus 3.7 mg/dL (2.7-4.5); Potassium 3.9 mmol/L (3.3-5.1); Sodium 135 mmol/L (135-145)
[2022-08-08] MEDS: lisinopriL 40 MG TABLET PO (08:00)
[2022-08-08] MEDS: Heparin Sodium,Porcine 5,000 UNIT/ML VIAL 5000 UNIT SUBCUT ×2 (08:00→20:24)
--- NOTE | 2022-08-08 08:03 | P.PNGS_ITS ---
Subjective Subjective Date of Service: 08/09/22 Interval history: Says he slept well last night No other events Still has drainage from fistula site Stoma with output Switched to TPN last night Physical Exam Vital Signs: Vital Signs: Last Vital Signs Temp 99.2 F 08/08/22 03:32 Pulse 79 08/08/22 03:32 Resp 18 08/08/22 06:35 BP 168/82 H 08/08/22 03:32 Pulse Ox 95 08/08/22 03:32 O2 Del Method 08/08/22 03:32 BMI result Body Mass Index 28.6 Const: General: comfortable and no acute distress Resp: Effort & Inspection: normal respiratory effort Cardio: Rate: regular rate GI: Other: Soft, with enterocutaneous fistula on the lower part of incision, stoma with output, retention sutures intact, no guarding rebound Objective Data Active Medications Benzocaine (Throat Lozenge, Medicated Lozenge) 1 lozenge MUCOUS MEM Q2H PRN PRN Reason: Sore Throat Heparin Sodium (Porcine) (Heparin Sodium,Porcine 5,000 Unit/Ml Vial) 5,000 unit SUBCUT Q12H [facility] Last Admin: 08/07/22 21:41 Dose: 5,000 unit Documented By: LUISITO Multivitamins 10 ml/ Trace Metals 1 ml/ Amino Acids/Electrolytes 1,999 mls @ 83.33 mls/hr IV DAILY@1800 [facility] Stop: 08/08/22 17:59 Last Admin: 08/07/22 19:38 Dose: 83.33 mls/hr Documented By: LUISITO Lisinopril (Lisinopril 40 Mg Tablet) 40 mg PO DAILY [facility]; Protocol Last Admin: 08/07/22 09:03 Dose: 40 mg Documented By: LORIE Morphine Sulfate (Morphine Sulfate 2 Mg/Ml Cartridge) 2 mg IVPUSH Q2H PRN; Protocol PRN Reason: Pain, Severe (Pain Scale 7-10) Last Admin: 08/08/22 05:35 Dose: 2 mg Documented By: MADHU Morphine Sulfate (Morphine Sulfate 4 Mg/Ml Cartridge) 3 mg IVPUSH Q2H PRN; Protocol PRN Reason: Pain, Severe (Pain Scale 7-10) Last Admin: 08/07/22 21:42 Dose: 3 mg Documented By: LUISITO Ondansetron HCl (Ondansetron Hcl 4 Mg/2 Ml Vial) 4 mg IVPUSH Q4H PRN PRN Reason: Nausea Last Admin: 08/06/22 08:19 Dose: 4 mg Documented By: DANTE Sodium Chloride (0.9 % Sodium Chloride Flush 3 Ml Syringe) 3 ml IVFLUSH QSHIFT [facility] Last Admin: 08/08/22 00:41 Dose: Not Given Documented By: MADHU Non-Admin Reason: picc line only Labs CBC & Chem 7: 08/03/22 00:21 08/09/22 05:25 Labs: Laboratory Results - last 24 hr 08/07/22 08/08/22 08:40 05:39 Anion Gap 13 14 Estim Creat Clear Calc 138.3 113.2 Estimated GFR > 60 > 60 Random Glucose 140 H 143 H Calcium 7.3 L 7.4 L Phosphorus 3.5 3.7 Magnesium 1.6 1.5 L Albumin 2.1 L Microbiology Microbiology Results: Microbiology 08/03/22 01:15 Blood Culture - Final Blood - Venous No growth after 5 days. 08/03/22 00:21 Blood Culture - Final Blood - Venous No growth after 5 days. Procedures Date of Service Date of Service: 08/08/22 Progress Note: A&P Assessment and plan (1) Enterocutaneous fistula: Status: Acute Assessment and Plan: On TPN Will see how enterocutaneous fistula output trends Continue TPN Out of bed to chair Lytes okay On clear liquids Time Spent With Patient Time: Total time spent is greater than 50% in coordination of care (as documented) at patient's floor/unit and/or counseling patient: Quality Stroke Does the patient have a stroke diagnosis?: No VTE Prior VTE?: No VTE Risk Level:: Medical - moderate - high VTE Device Contraindication: N/A - Device Ordered VTE Drug Contraindication: N/A - Med Ordered
[2022-08-08] MEDS: 0.9 % Sodium Chloride Flush 3 ML SYRINGE IVFLUSH ×2 (08:04→16:19)
[2022-08-08] MEDS: Morphine Sulfate 4 MG/ML CARTRIDGE 3 MG IVPUSH ×7 (08:15→22:59)
--- NOTE | 2022-08-08 09:30 | MHC.CLN ---
NUTRITION CONTINUES WITH CLEAR LIQUIDS AND TPN. TPN D15AA5% AT MAX GOAL RATE OF 83.33 ML PER HOUR PLUS LIPIDS 20 ML OF 20% LIPIDS. PROVIDES 1900 CALORIES (26.7 KCALS/KG CMW); 100 G PROTEIN (1.41 G/KG CMW). REPLETE LYTES NEEDED. LABS REVIEWED. DISCUSSED WITH PHARMACY. FOLLOW FOR DIET TOLERANCE/ADVANCEMENT, TPN, AND LYTES.
--- NOTE | 2022-08-08 11:55 | HO.PM.IMPN ---
Subjective Subjective Date of Service: 08/08/22 Interval History: Follow-up for med consult including hypertension Feeling about the same, says slept well , pain well controlled with prn medications Denies nausea, vomiting. Stoma with output + Constitutional Constitutional: Denies chills and Denies fever(s) Cardiovascular Cardiovascular: Denies chest pain, Denies dyspnea and Denies dyspnea on exertion Respiratory Respiratory: Denies cough, Denies dyspnea and Denies dyspnea on exertion Gastrointestinal Gastrointestinal: Denies hematochezia and Denies change in bowel habits Genitourinary Genitourinary: Denies hematuria and Denies difficulty urinating Musculoskeletal Musculoskeletal: Denies back pain and Denies limited range of motion Neurologic Neurologic: Denies focal weakness and Denies convulsions Psychiatric Psychiatric: Denies depression and Denies mood swings Physical Exam Vital Signs: Vital Signs: Last Vital Signs Temp 96 F L 08/08/22 11:09 Pulse 86 08/08/22 11:09 Resp 18 08/08/22 11:09 BP 148/79 H 08/08/22 11:09 Pulse Ox 95 08/08/22 11:09 O2 Del Method 08/08/22 11:09 BMI result Body Mass Index 28.6 Const: Other: depressed General: comfortable and no acute distress Orientation/consciousness: patient oriented x3 Neck: Neck: Yes no lymphadenopathy Resp: Effort & Inspection: normal respiratory effort Auscultation: clear to auscultation bilaterally Cardio: Rate: regular rate Rhythm: regular rhythm GI: Other: Soft, with enterocutaneous fistula on the lower part of incision, stoma with output, retention sutures intact, no guarding rebound Palpation (GI): Soft to palpation, not firm, nontender, no guarding and not rigid Neuro: General: patient oriented x3 Objective Data Active Medications Benzocaine (Throat Lozenge, Medicated Lozenge) 1 lozenge MUCOUS MEM Q2H PRN PRN Reason: Sore Throat Heparin Sodium (Porcine) (Heparin Sodium,Porcine 5,000 Unit/Ml Vial) 5,000 unit SUBCUT Q12H [facility] Last Admin: 08/08/22 08:00 Dose: 5,000 unit Documented By: GRIFFIN Multivitamins 10 ml/ Trace Metals 1 ml/ Amino Acids/Electrolytes 1,999 mls @ 83.33 mls/hr IV DAILY@1800 [facility] Stop: 08/08/22 17:59 Last Admin: 08/07/22 19:38 Dose: 83.33 mls/hr Documented By: LUISITO Multivitamins 10 ml/ Trace Metals 1 ml/ Amino Acids/Electrolytes 2,000 mls @ 83.333 mls/hr IV DAILY@1800 [facility] Stop: 08/09/22 17:59 Fat Emulsion Intravenous (Intralipid) 240 mls @ 20 mls/hr IV DAILY@1800 [facility] Stop: 08/09/22 05:59 Lisinopril (Lisinopril 40 Mg Tablet) 40 mg PO DAILY [facility]; Protocol Last Admin: 08/08/22 08:00 Dose: 40 mg Documented By: GRIFFIN Morphine Sulfate (Morphine Sulfate 2 Mg/Ml Cartridge) 2 mg IVPUSH Q2H PRN; Protocol PRN Reason: Pain, Severe (Pain Scale 7-10) Last Admin: 08/08/22 05:35 Dose: 2 mg Documented By: MADHU Morphine Sulfate (Morphine Sulfate 4 Mg/Ml Cartridge) 3 mg IVPUSH Q2H PRN; Protocol PRN Reason: Pain, Severe (Pain Scale 7-10) Last Admin: 08/08/22 11:42 Dose: 3 mg Documented By: GRIFFIN Ondansetron HCl (Ondansetron Hcl 4 Mg/2 Ml Vial) 4 mg IVPUSH Q4H PRN PRN Reason: Nausea Last Admin: 08/06/22 08:19 Dose: 4 mg Documented By: DANTE Sodium Chloride (0.9 % Sodium Chloride Flush 3 Ml Syringe) 3 ml IVFSH [facility] Last Admin: 08/08/22 08:04 Dose: 3 ml Documented By: GRIFFIN Labs CBC & Chem 7: 08/03/22 00:21 08/08/22 05:39 Labs: Laboratory Results - last 24 hr 08/08/22 05:39 Anion Gap 14 Estim Creat Clear Calc 113.2 Estimated GFR > 60 Random Glucose 143 H Calcium 7.4 L Phosphorus 3.7 Magnesium 1.5 L Microbiology Microbiology Results: Microbiology 08/03/22 01:15 Blood Culture - Final Blood - Venous No growth after 5 days. 08/03/22 00:21 Blood Culture - Final Blood - Venous No growth after 5 days. Assessment and Plan (1) Enterocutaneous fistula: Status: Acute (2) Hypertension: Status: Acute (3) Parastomal hernia: Status: Acute Plan HTN -Likely exacerbated in the setting of pain. Started home lisinopril and will add amlodipine -Monitor closely Hypomagnesemia -Likely due to GI loss. Replete Enterocutaneous fistula -On TPN, will continue -Will see how enterocutaneous fistula output trends -Out of bed to chair -Lytes okay -On clear liquids Parastomal hernia with dehiscence -Wound care. Defer management to surgery Quality Stroke Does the patient have a stroke diagnosis?: No VTE Prior VTE?: No VTE Risk Level:: Medical - moderate - high VTE Device Contraindication: N/A - Device Ordered VTE Drug Contraindication: N/A - Med Ordered
[2022-08-08] MEDS: Magnesium Sulfate/D5W 1 GM/100 ML PIGGYBACK IV (12:37)
[2022-08-08] MEDS: amLODIPine Besylate 5 MG TABLET PO (12:37)
[2022-08-08] MEDS: ondansetron HCL 4 MG/2 ML VIAL IVPUSH (14:13)
--- NOTE | 2022-08-08 15:44 | MHC.CM.PN ---
EMR REVIEW, PATIENT IS NOT MEDICALLY CLEARED FOR DISCHARGE TODAY R/T ON TPN AND CLEAR LIQUIDS; WAITING FOR ENTEROCUTANEOUS FISTULA OUTPUT TRENDS; FOLLOWING FOR DIET TOLERANCE/ADVANCEMENT AND LYTES. D/C PLAN IS RETURN TO [facility]. CM WILL FOLLOW FOR FURTHER DISCHARGE NEEDS.
--- NOTE | 2022-08-08 16:45 | PM.EVENT ---
Event Note Date of Service: 08/08/22 Event Note: was on recliner for most of the day says he is ok in better mood stable VS abd soft stoma functioning EC fistula with some output continue TPN monitor fistula output
[2022-08-08] MEDS: Fat Emulsions 20% 250 ML 20 ML IV (18:07)
[2022-08-09 03:55] VITALS: BP 144/70; PULSE 84; RESP 18; TEMP 36.1; O2SAT 93
[2022-08-09] MEDS: Morphine Sulfate 4 MG/ML CARTRIDGE 3 MG IVPUSH ×7 (05:23→21:14)
[2022-08-09 07:02] LABS: Anion Gap 15 (12-20); Blood Urea Nitrogen 19 mg/dL (9-16); Calcium 7.6 mg/dL (8.4-10.2); Carbon Dioxide 26 mmol/L (22-29); Chloride 101 mmol/L (96-108); Estimated Glomerular Filt Rate > 60; Glucose Random 151 mg/dL (60-115); Magnesium 1.7 mg/dL (1.6-2.6); Phosphorus 4.1 mg/dL (2.7-4.5); Potassium 4.2 mmol/L (3.3-5.1); Sodium 138 mmol/L (135-145)
[2022-08-09 07:35] VITALS: BP 132/61; PULSE 81; RESP 18; TEMP 36.8; O2SAT 94
--- NOTE | 2022-08-09 07:58 | P.PNGS_ITS ---
Subjective Subjective Date of Service: 08/10/22 Interval history: Feels ?okay? No new complaints Says he has been getting out of bed more Physical Exam Vital Signs: Vital Signs: Last Vital Signs Temp 98.2 F 08/09/22 07:35 Pulse 81 08/09/22 07:35 Resp 18 08/09/22 07:35 BP 132/61 08/09/22 07:35 Pulse Ox 94 08/09/22 07:35 O2 Del Method 08/09/22 07:35 BMI result Body Mass Index 28.6 Const: General: comfortable and no acute distress Resp: Effort & Inspection: normal respiratory effort Cardio: Rate: regular rate GI: Other: Soft, stoma with output, enterocutaneous fistula still with drainage Objective Data Active Medications Amlodipine Besylate (Amlodipine Besylate 5 Mg Tablet) 5 mg PO DAILY [facility]; Protocol Last Admin: 08/08/22 12:37 Dose: 5 mg Documented By: GRIFFIN Benzocaine (Throat Lozenge, Medicated Lozenge) 1 lozenge MUCOUS MEM Q2H PRN PRN Reason: Sore Throat Heparin Sodium (Porcine) (Heparin Sodium,Porcine 5,000 Unit/Ml Vial) 5,000 unit SUBCUT Q12H [facility] Last Admin: 08/08/22 20:24 Dose: 5,000 unit Documented By: DANITZA Multivitamins 10 ml/ Trace Metals 1 ml/ Amino Acids/Electrolytes 2,000 mls @ 83.333 mls/hr IV DAILY@1800 [facility] Stop: 08/09/22 17:59 Last Admin: 08/08/22 18:07 Dose: 83.33 mls/hr Documented By: GRIFFIN Lisinopril (Lisinopril 40 Mg Tablet) 40 mg PO DAILY [facility]; Protocol Last Admin: 08/08/22 08:00 Dose: 40 mg Documented By: GRIFFIN Morphine Sulfate (Morphine Sulfate 4 Mg/Ml Cartridge) 3 mg IVPUSH Q2H PRN; Protocol PRN Reason: Pain, Severe (Pain Scale 7-10) Last Admin: 08/09/22 05:23 Dose: 3 mg Documented By: ODRISM Ondansetron HCl (Ondansetron Hcl 4 Mg/2 Ml Vial) 4 mg IVPUSH Q4H PRN PRN Reason: Nausea Last Admin: 08/08/22 14:13 Dose: 4 mg Documented By: GRIFFIN Sodium Chloride (0.9 % Sodium Chloride Flush 3 Ml Syringe) 3 ml IVFLUSH QSHIFT [facility] Last Admin: 08/09/22 00:43 Dose: Not Given Documented By: SHIRLEY Non-Admin Reason: IV Running Labs CBC & Chem 7: 08/03/22 00:21 08/10/22 05:25 Labs: Laboratory Results - last 24 hr 08/09/22 05:25 Anion Gap 15 Estim Creat Clear Calc 106.0 Estimated GFR > 60 Random Glucose 151 H Calcium 7.6 L Phosphorus 4.1 Magnesium 1.7 Procedures Date of Service Date of Service: 08/09/22 Progress Note: A&P Assessment and plan (1) Enterocutaneous fistula: Status: Acute Assessment and Plan: Control of enterocutaneous fistula with appliance TPN On clear liquid diet Lytes okay Abdomen soft Stoma with output Long-term plan - allow acute inflammatory and postop changes to settle down prior to resection of small-bowel fistula site Time Spent With Patient Time: Total time spent is greater than 50% in coordination of care (as documented) at patient's floor/unit and/or counseling patient: Quality Stroke Does the patient have a stroke diagnosis?: No VTE Prior VTE?: No VTE Risk Level:: Medical - moderate - high VTE Device Contraindication: N/A - Device Ordered VTE Drug Contraindication: N/A - Med Ordered
[2022-08-09] MEDS: lisinopriL 40 MG TABLET PO (08:45)
[2022-08-09] MEDS: amLODIPine Besylate 5 MG TABLET PO (08:45)
[2022-08-09 08:49] LABS: Albumin Level 2.2 g/dL (3.5-5.0); Triglycerides 140 mg/dL
[2022-08-09] MEDS: Heparin Sodium,Porcine 5,000 UNIT/ML VIAL 5000 UNIT SUBCUT ×2 (08:50→21:17)
[2022-08-09] MEDS: 0.9 % Sodium Chloride Flush 3 ML SYRINGE IVFLUSH ×2 (08:52→18:18)
--- NOTE | 2022-08-09 09:38 | HO.PM.IMPN ---
Subjective Subjective Date of Service: 08/09/22 Interval History: Follow-up for med consult including hypertension Feeling about the same, says slept well , pain well controlled with prn medications Denies nausea, vomiting. Stoma with output + Review of Systems Follow-up SBO, hypertension Feeling about the same, persistent pain but tolerable. Denies nausea Constitutional Constitutional: Denies chills and Denies fever(s) Cardiovascular Cardiovascular: Denies chest pain, Denies dyspnea and Denies dyspnea on exertion Respiratory Respiratory: Denies cough, Denies dyspnea and Denies dyspnea on exertion Gastrointestinal Gastrointestinal: Denies hematochezia and Denies change in bowel habits Genitourinary Genitourinary: Denies hematuria and Denies difficulty urinating Musculoskeletal Musculoskeletal: Denies back pain and Denies limited range of motion Neurologic Neurologic: Denies focal weakness and Denies convulsions Psychiatric Psychiatric: Denies depression and Denies mood swings Physical Exam Vital Signs: Vital Signs: Last Vital Signs Temp 98.2 F 08/09/22 07:35 Pulse 81 08/09/22 07:35 Resp 18 08/09/22 07:35 BP 132/61 08/09/22 07:35 Pulse Ox 94 08/09/22 07:35 O2 Del Method 08/09/22 07:35 BMI result Body Mass Index 28.6 Const: Other: depressed General: comfortable and no acute distress Orientation/consciousness: patient oriented x3 Neck: Neck: Yes no lymphadenopathy Resp: Effort & Inspection: normal respiratory effort Auscultation: clear to auscultation bilaterally Cardio: Rate: regular rate Rhythm: regular rhythm GI: Other: Soft, with enterocutaneous fistula on the lower part of incision, stoma with output, retention sutures intact, no guarding rebound Palpation (GI): Soft to palpation, not firm, nontender, no guarding and not rigid Neuro: General: patient oriented x3 Objective Data Active Medications Amlodipine Besylate (Amlodipine Besylate 5 Mg Tablet) 5 mg PO DAILY [facility]; Protocol Last Admin: 08/09/22 08:45 Dose: 5 mg Documented By: DUANE Benzocaine (Throat Lozenge, Medicated Lozenge) 1 lozenge MUCOUS MEM Q2H PRN PRN Reason: Sore Throat Heparin Sodium (Porcine) (Heparin Sodium,Porcine 5,000 Unit/Ml Vial) 5,000 unit SUBCUT Q12H [facility] Last Admin: 08/09/22 08:50 Dose: 5,000 unit Documented By: DUANE Multivitamins 10 ml/ Trace Metals 1 ml/ Amino Acids/Electrolytes 2,000 mls @ 83.333 mls/hr IV DAILY@1800 [facility] Stop: 08/09/22 17:59 Last Admin: 08/08/22 18:07 Dose: 83.33 mls/hr Documented By: GRIFFIN Lisinopril (Lisinopril 40 Mg Tablet) 40 mg PO DAILY [facility]; Protocol Last Admin: 08/09/22 08:45 Dose: 40 mg Documented By: DUANE Morphine Sulfate (Morphine Sulfate 4 Mg/Ml Cartridge) 3 mg IVPUSH Q2H PRN; Protocol PRN Reason: Pain, Severe (Pain Scale 7-10) Last Admin: 08/09/22 08:44 Dose: 3 mg Documented By: DUANE Ondansetron HCl (Ondansetron Hcl 4 Mg/2 Ml Vial) 4 mg IVPUSH Q4H PRN PRN Reason: Nausea Last Admin: 08/08/22 14:13 Dose: 4 mg Documented By: GRIFFIN Sodium Chloride (0.9 % Sodium Chloride Flush 3 Ml Syringe) 3 ml IVFLUSH QSHIFT [facility] Last Admin: 08/09/22 08:52 Dose: 3 ml Documented By: DUANE Labs CBC & Chem 7: 08/03/22 00:21 08/09/22 05:25 Labs: Laboratory Results - last 24 hr 08/09/22 05:25 Anion Gap 15 Estim Creat Clear Calc 106.0 Estimated GFR > 60 Random Glucose 151 H Calcium 7.6 L Phosphorus 4.1 Magnesium 1.7 Albumin 2.2 L Triglycerides 140 Assessment and Plan (1) Hypertension: Status: Acute (2) Parastomal hernia: Status: Acute (3) Enterocutaneous fistula: Status: Acute Plan HTN -Likely exacerbated in the setting of pain. Started home lisinopril and added amlodipine -Well controlled, will monitor closely Hypomagnesemia -Likely due to GI loss. 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 Defer management to surgery Quality Stroke Does the patient have a stroke diagnosis?: No VTE Prior VTE?: No VTE Risk Level:: Medical - moderate - high VTE Device Contraindication: N/A - Device Ordered VTE Drug Contraindication: N/A - Med Ordered
[2022-08-09] MEDS: ondansetron HCL 4 MG/2 ML VIAL IVPUSH ×3 (10:09→22:14)
[2022-08-09 11:21] VITALS: BP 125/59; PULSE 75; RESP 18; TEMP 36.2; O2SAT 96
--- NOTE | 2022-08-09 11:40 | MHC.CLN ---
F/U CONTINUES WITH CLEAR LIQUIDS AND TPN PO 50% X 2 OF C/L DIET TPN D15AA5% AT MAX GOAL RATE OF 83.33 ML PER HOUR PLUS LIPIDS 20 ML OF 20% LIPIDS PROVIDES 1900 TOTAL CALORIES (26.7 KCALS/KG CMW); 100 G PROTEIN (1.41 G/KG CMW) NOTED NEW STAGE 2 [id number] WILL PROMOTE WOUND HEALING NO CHANGES AT THIS TIME REPLETE LYTES NEEDED
[2022-08-09 16:00] VITALS: BP 118/58; PULSE 85; RESP 18; TEMP 36.3; O2SAT 95
[2022-08-09] MEDS: Fat Emulsions 20% 250 ML 20 ML IV (18:18)
[2022-08-09 19:55] VITALS: BP 112/52; PULSE 83; RESP 15; TEMP 36.4; O2SAT 93
[2022-08-10] VITALS (7 sets, daily range): BP systolic 118–152; BP diastolic 60–78; PULSE 68–87; RESP 16–18; TEMP 36–37.2; O2SAT 94–96
[2022-08-10] MEDS: Morphine Sulfate 4 MG/ML CARTRIDGE 3 MG IVPUSH ×10 (00:34→23:58)
[2022-08-10] MEDS: ondansetron HCL 4 MG/2 ML VIAL IVPUSH ×2 (02:15→06:08)
[2022-08-10 07:15] LABS: Anion Gap 17 (12-20); Blood Urea Nitrogen 24 mg/dL (9-16); Calcium 7.5 mg/dL (8.4-10.2); Carbon Dioxide 24 mmol/L (22-29); Chloride 100 mmol/L (96-108); Creatinine Clr Calc Pharmacy 107.7; Estimated Glomerular Filt Rate > 60; Glucose Random 140 mg/dL (60-115); Magnesium 1.7 mg/dL (1.6-2.6); Phosphorus 4.1 mg/dL (2.7-4.5); Potassium 4.6 mmol/L (3.3-5.1); Sodium 136 mmol/L (135-145)
[2022-08-10] MEDS: amLODIPine Besylate 5 MG TABLET PO (08:46)
[2022-08-10] MEDS: lisinopriL 40 MG TABLET PO (08:46)
[2022-08-10] MEDS: 0.9 % Sodium Chloride Flush 3 ML SYRINGE IVFLUSH ×2 (08:47→20:05)
[2022-08-10] MEDS: Heparin Sodium,Porcine 5,000 UNIT/ML VIAL 5000 UNIT SUBCUT ×2 (08:47→20:01)
--- NOTE | 2022-08-10 08:57 | HO.PM.IMPN ---
Subjective Subjective Date of Service: 08/10/22 Interval History: Follow-up for med consult including hypertension Feeling about the same, says slept well , pain well controlled with prn medications Denies nausea, vomiting. Stoma with output + Review of Systems All 13 ROS reviewed Constitutional Constitutional: Denies chills and Denies fever(s) Cardiovascular Cardiovascular: Denies chest pain, Denies dyspnea and Denies dyspnea on exertion Respiratory Respiratory: Denies cough, Denies dyspnea and Denies dyspnea on exertion Gastrointestinal Gastrointestinal: Denies hematochezia and Denies change in bowel habits Genitourinary Genitourinary: Denies hematuria and Denies difficulty urinating Musculoskeletal Musculoskeletal: Denies back pain and Denies limited range of motion Neurologic Neurologic: Denies focal weakness and Denies convulsions Psychiatric Psychiatric: Denies depression and Denies mood swings Physical Exam Vital Signs: Vital Signs: Last Vital Signs Temp 97 F 08/10/22 07:11 Pulse 76 08/10/22 07:11 Resp 18 08/10/22 07:11 BP 152/74 H 08/10/22 07:11 Pulse Ox 96 08/10/22 07:11 O2 Del Method 08/10/22 07:11 BMI result Body Mass Index 28.6 Const: Other: depressed General: comfortable and no acute distress Orientation/consciousness: patient oriented x3 Neck: Neck: Yes no lymphadenopathy Resp: Effort & Inspection: normal respiratory effort Auscultation: clear to auscultation bilaterally Cardio: Rate: regular rate Rhythm: regular rhythm GI: Other: Soft, with enterocutaneous fistula on the lower part of incision, stoma with output, retention sutures intact, no guarding rebound Palpation (GI): Soft to palpation, not firm, nontender, no guarding and not rigid Neuro: General: patient oriented x3 Objective Data Active Medications Amlodipine Besylate (Amlodipine Besylate 5 Mg Tablet) 5 mg PO DAILY [facility]; Protocol Last Admin: 08/10/22 08:46 Dose: 5 mg Documented By: DANTE Benzocaine (Throat Lozenge, Medicated Lozenge) 1 lozenge MUCOUS MEM Q2H PRN PRN Reason: Sore Throat Heparin Sodium (Porcine) (Heparin Sodium,Porcine 5,000 Unit/Ml Vial) 5,000 unit SUBCUT Q12H [facility] Last Admin: 08/10/22 08:47 Dose: 5,000 unit Documented By: DANTE Multivitamins 10 ml/ Trace Metals 1 ml/ Amino Acids/Electrolytes 2,000 mls @ 83.33 mls/hr IV DAILY@1800 [facility] Stop: 08/10/22 17:59 Last Admin: 08/09/22 18:17 Dose: 83.33 mls/hr Documented By: DUANE Lisinopril (Lisinopril 40 Mg Tablet) 40 mg PO DAILY [facility]; Protocol Last Admin: 08/10/22 08:46 Dose: 40 mg Documented By: DANTE Morphine Sulfate (Morphine Sulfate 4 Mg/Ml Cartridge) 3 mg IVPUSH Q2H PRN; Protocol PRN Reason: Pain, Severe (Pain Scale 7-10) Last Admin: 08/10/22 08:46 Dose: 3 mg Documented By: DANTE Ondansetron HCl (Ondansetron Hcl 4 Mg/2 Ml Vial) 4 mg IVPUSH Q4H PRN PRN Reason: Nausea Last Admin: 08/10/22 06:08 Dose: 4 mg Documented By: SHIRLEY Sodium Chloride (0.9 % Sodium Chloride Flush 3 Ml Syringe) 3 ml IVFLUSH QSHIFT [facility] Last Admin: 08/10/22 08:47 Dose: 3 ml Documented By: DANTE Labs CBC & Chem 7: 08/03/22 00:21 08/10/22 05:25 Labs: Laboratory Results - last 24 hr 08/10/22 05:25 Anion Gap 17 Estim Creat Clear Calc 107.7 Estimated GFR > 60 Random Glucose 140 H Calcium 7.5 L Phosphorus 4.1 Magnesium 1.7 Assessment and Plan (1) Hypertension: Status: Acute (2) Dehiscence of surgical wound: Status: Acute (3) Enterocutaneous fistula: Status: Acute Plan HTN -Likely exacerbated in the setting of pain. Started home lisinopril and added amlodipine -Well controlled, will monitor closely Hypomagnesemia -Likely due to GI loss. 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 Defer management to surgery Quality Stroke Does the patient have a stroke diagnosis?: No VTE Prior VTE?: No VTE Risk Level:: Medical - moderate - high VTE Device Contraindication: N/A - Device Ordered VTE Drug Contraindication: N/A - Med Ordered
--- NOTE | 2022-08-10 10:01 | PM.PNGS ---
Subjective Subjective Date of Service: 08/13/22 Interval history: no new complaints says he is ok was on recliner most of day yesterday no vomitting - taking clears Physical Exam Vital Signs: Vital Signs: Last Vital Signs Temp 97 F 08/10/22 07:11 Pulse 76 08/10/22 07:11 Resp 18 08/10/22 07:11 BP 152/74 H 08/10/22 07:11 Pulse Ox 96 08/10/22 07:11 O2 Del Method 08/10/22 07:11 BMI result Body Mass Index 28.6 Const: General: comfortable and no acute distress Resp: Effort & Inspection: normal respiratory effort Cardio: Rate: regular rate GI: Other: stoma with output, EC fistula output does not seem to be decreasing; retentions in place Palpation (GI): Soft to palpation, not firm and no guarding Objective Data Active Medications Amlodipine Besylate (Amlodipine Besylate 5 Mg Tablet) 5 mg PO DAILY [facility]; Protocol Last Admin: 08/10/22 08:46 Dose: 5 mg Documented By: DANTE Benzocaine (Throat Lozenge, Medicated Lozenge) 1 lozenge MUCOUS MEM Q2H PRN PRN Reason: Sore Throat Heparin Sodium (Porcine) (Heparin Sodium,Porcine 5,000 Unit/Ml Vial) 5,000 unit SUBCUT Q12H [facility] Last Admin: 08/10/22 08:47 Dose: 5,000 unit Documented By: DANTE Multivitamins 10 ml/ Trace Metals 1 ml/ Amino Acids/Electrolytes 2,000 mls @ 83.33 mls/hr IV DAILY@1800 [facility] Stop: 08/10/22 17:59 Last Admin: 08/09/22 18:17 Dose: 83.33 mls/hr Documented By: DUANE Multivitamins 10 ml/ Trace Metals 1 ml/ Amino Acids/Electrolytes 2,000 mls @ 83.33 mls/hr IV DAILY@1800 [facility] Stop: 08/11/22 17:59 Fat Emulsion Intravenous (Intralipid) 240 mls @ 20 mls/hr IV DAILY@1800 [facility] Stop: 08/11/22 05:59 Lisinopril (Lisinopril 40 Mg Tablet) 40 mg PO DAILY [facility]; Protocol Last Admin: 08/10/22 08:46 Dose: 40 mg Documented By: DANTE Morphine Sulfate (Morphine Sulfate 4 Mg/Ml Cartridge) 3 mg IVPUSH Q2H PRN; Protocol PRN Reason: Pain, Severe (Pain Scale 7-10) Last Admin: 08/10/22 08:46 Dose: 3 mg Documented By: DANTE Ondansetron HCl (Ondansetron Hcl 4 Mg/2 Ml Vial) 4 mg IVPUSH Q4H PRN PRN Reason: Nausea Last Admin: 08/10/22 06:08 Dose: 4 mg Documented By: SHIRLEY Sodium Chloride (0.9 % Sodium Chloride Flush 3 Ml Syringe) 3 ml IVFLUSH QSHIFT [facility] Last Admin: 08/10/22 08:47 Dose: 3 ml Documented By: DANTE Labs CBC & Chem 7: 08/03/22 00:21 08/13/22 05:25 Labs: Laboratory Results - last 24 hr 08/10/22 05:25 Anion Gap 17 Estim Creat Clear Calc 107.7 Estimated GFR > 60 Random Glucose 140 H Calcium 7.5 L Phosphorus 4.1 Magnesium 1.7 Procedures Date of Service Date of Service: 08/10/22 Progress Note: A&P Assessment and plan (1) Enterocutaneous fistula: Status: Acute Assessment and Plan: EC fistula still active - output does not seem to have decrease I have added another stoma appliance to upper part of incision continue TPN explained to pt I may have to refer him to [facility]? for management of fistula as output has not decreased clinically stable otherwise on clear liquids Time Spent With Patient Time: Total time spent is greater than 50% in coordination of care (as documented) at patient's floor/unit and/or counseling patient: Quality Stroke Does the patient have a stroke diagnosis?: No VTE Prior VTE?: No VTE Risk Level:: Medical - moderate - high VTE Device Contraindication: N/A - Device Ordered VTE Drug Contraindication: N/A - Med Ordered
--- NOTE | 2022-08-10 10:53 | MHC.CLN ---
F/U CONTINUES WITH CLEAR LIQUIDS AND TPN. ENSURE CLEAR ADDED TID DUE TO STAGE II WOUND COCCYX. PROVIDES ADDITIONAL 720 KCALS, 24 G PROTEIN. TPN D15AA5% AT MAX GOAL RATE OF 83.33 ML PER HOUR PLUS LIPIDS 20 ML OF 20% LIPIDS PROVIDES 1900 TOTAL CALORIES (26.7 KCALS/KG CMW); 100 G PROTEIN (1.41 G/KG CMW). REPLETE LYTES NEEDED. DISCUSSED WITH PHARMACY. CONTINUE CURRENT TPN WITH LIPDS.
--- NOTE | 2022-08-10 13:58 | MHC.CM.PN ---
EMR REVIEW, PATIENT CONTINUES TO NEED INPATIENT HOSPITALIZATION R/T (PER [facility]) PATIENT CONTINUES WITH CLEAR LIQUIDS AND TPN/ENSURE CLEAR ADDED; STAGE II COCCYX PRESSURE INJURY; AND ACTIVE EC FISTULA. D/C PLAN CONTINUES TO BE RETURN TO [facility]. CM WILL CONTINUE TO FOLLOW FOR D/C NEEDS.
--- NOTE | 2022-08-10 15:12 | PM.EVENT ---
Event Note Date of Service: 08/10/22 Event Note: His enterocutaneous fistula output does not seem to decreased in quantity I had a long discussion with him regarding this I explained to him that I am considering transfer him to [facility] in view of complexity of his case He is hesitant at this time Says he will about it over the weekend I plan to make arrangements for transfer once he decides to go Continue TPN Wound care, control fistula output
[2022-08-10 16:15] LABS: Glucose, Whole Blood 142 mg/dL (60-115)
[2022-08-10] MEDS: Fat Emulsions 20% 250 ML 20 ML IV (18:19)
[2022-08-11] MEDS: Morphine Sulfate 4 MG/ML CARTRIDGE 3 MG IVPUSH ×8 (01:56→21:25)
[2022-08-11 03:16] VITALS: BP 132/67; PULSE 82; RESP 16; TEMP 36.6; O2SAT 94
[2022-08-11] MEDS: 0.9 % Sodium Chloride Flush 3 ML SYRINGE IVFLUSH ×2 (07:33→21:26)
[2022-08-11 07:41] VITALS: BP 135/67; PULSE 80; RESP 17; TEMP 36.4; O2SAT 94
[2022-08-11 07:43] LABS: Anion Gap 12 (12-20); Blood Urea Nitrogen 25 mg/dL (9-16); Calcium 7.5 mg/dL (8.4-10.2); Carbon Dioxide 27 mmol/L (22-29); Chloride 97 mmol/L (96-108); Creatinine Clr Calc Pharmacy 109.4; Estimated Glomerular Filt Rate > 60; Glucose Random 145 mg/dL (60-115); Magnesium 1.7 mg/dL (1.6-2.6); Phosphorus 4.1 mg/dL (2.7-4.5); Potassium 4.3 mmol/L (3.3-5.1); Sodium 132 mmol/L (135-145)
--- NOTE | 2022-08-11 08:00 | PM.PNGS ---
Subjective Subjective Date of Service: 08/11/22 Patient reports: no new complaints Interval history: The patient is seen in coverage in continues to report no significant health issues or interval change since yesterday. He denies any chest pain, difficulty breathing or shortness of breath. He is tolerating sips of clear liquids. Physical Exam Vital Signs: Vital Signs: Last Vital Signs Temp 97.6 F 08/11/22 07:41 Pulse 80 08/11/22 07:41 Resp 17 08/11/22 07:41 BP 135/67 08/11/22 07:41 Pulse Ox 94 08/11/22 07:41 O2 Del Method 08/11/22 07:41 BMI result Body Mass Index 28.6 Abdomen is soft with no tenderness. Appliances are in place with drainage Objective Data Active Medications Amlodipine Besylate (Amlodipine Besylate 5 Mg Tablet) 5 mg PO DAILY [facility]; Protocol Last Admin: 08/10/22 08:46 Dose: 5 mg Documented By: DANTE Benzocaine (Throat Lozenge, Medicated Lozenge) 1 lozenge MUCOUS MEM Q2H PRN PRN Reason: Sore Throat Heparin Sodium (Porcine) (Heparin Sodium,Porcine 5,000 Unit/Ml Vial) 5,000 unit SUBCUT Q12H [facility] Last Admin: 08/10/22 20:01 Dose: 5,000 unit Documented By: ADAIR Multivitamins 10 ml/ Trace Metals 1 ml/ Amino Acids/Electrolytes 2,000 mls @ 83.33 mls/hr IV DAILY@1800 [facility] Stop: 08/11/22 17:59 Last Admin: 08/10/22 18:19 Dose: 83.33 mls/hr Documented By: DANTE Lisinopril (Lisinopril 40 Mg Tablet) 40 mg PO DAILY [facility]; Protocol Last Admin: 08/10/22 08:46 Dose: 40 mg Documented By: DANTE Morphine Sulfate (Morphine Sulfate 4 Mg/Ml Cartridge) 3 mg IVPUSH Q2H PRN; Protocol PRN Reason: Pain, Severe (Pain Scale 7-10) Last Admin: 08/11/22 07:33 Dose: 3 mg Documented By: NAVIN Ondansetron HCl (Ondansetron Hcl 4 Mg/2 Ml Vial) 4 mg IVPUSH Q4H PRN PRN Reason: Nausea Last Admin: 08/10/22 06:08 Dose: 4 mg Documented By: SHIRLEY Sodium Chloride (0.9 % Sodium Chloride Flush 3 Ml Syringe) 3 ml IVFLUSH [facility] Last Admin: 08/11/22 07:33 Dose: 3 ml Documented By: NAVIN Labs CBC & Chem 7: 08/03/22 00:21 08/11/22 05:58 Labs: Laboratory Results - last 24 hr 08/10/22 08/11/22 16:02 05:58 Anion Gap 12 Estim Creat Clear Calc 109.4 Estimated GFR > 60 POC Glucose 142 H Random Glucose 145 H Calcium 7.5 L Phosphorus 4.1 Magnesium 1.7 Procedures Date of Service Date of Service: 08/11/22 Progress Note: A&P Assessment and plan (1) Enterocutaneous fistula: Status: Acute (2) Dehiscence of surgical wound: Status: Acute (3) Emphysema lung: Status: Acute (4) Hypertension: Status: Acute Plan Continue TPN Continue present management. Time Spent With Patient Time: Total time spent is greater than 50% in coordination of care (as documented) at patient's floor/unit and/or counseling patient: Quality Stroke Does the patient have a stroke diagnosis?: No VTE Prior VTE?: No VTE Risk Level:: Medical - moderate - high VTE Device Contraindication: N/A - Device Ordered VTE Drug Contraindication: N/A - Med Ordered
[2022-08-11] MEDS: lisinopriL 40 MG TABLET PO (09:33)
[2022-08-11] MEDS: amLODIPine Besylate 5 MG TABLET PO (09:33)
[2022-08-11] MEDS: Heparin Sodium,Porcine 5,000 UNIT/ML VIAL 5000 UNIT SUBCUT ×2 (09:33→21:26)
[2022-08-11 11:28] VITALS: BP 154/80; PULSE 78; RESP 16; TEMP 36.4; O2SAT 96
[2022-08-11] MEDS: ondansetron HCL 4 MG/2 ML VIAL IVPUSH (12:08)
[2022-08-11 15:36] VITALS: BP 119/59; PULSE 86; RESP 15; TEMP 37.1; O2SAT 94
[2022-08-11] MEDS: Fat Emulsions 20% 250 ML 20 ML IV (18:49)
[2022-08-11 19:34] VITALS: BP 132/58; PULSE 85; RESP 15; TEMP 36.8; O2SAT 95
[2022-08-11 23:53] VITALS: BP 137/60; PULSE 82; RESP 17; TEMP 36.4; O2SAT 95
[2022-08-12] MEDS: Morphine Sulfate 4 MG/ML CARTRIDGE 3 MG IVPUSH ×6 (00:24→13:34)
[2022-08-12 03:22] VITALS: BP 146/68; PULSE 84; RESP 17; TEMP 36.7; O2SAT 98
[2022-08-12] MEDS: ondansetron HCL 4 MG/2 ML VIAL IVPUSH ×4 (04:02→22:00)
[2022-08-12 06:05] LABS: Anion Gap 14 (12-20); Blood Urea Nitrogen 21 mg/dL (9-16); Calcium 7.9 mg/dL (8.4-10.2); Carbon Dioxide 28 mmol/L (22-29); Chloride 97 mmol/L (96-108); Creatinine Clr Calc Pharmacy 107.7; Estimated Glomerular Filt Rate > 60; Glucose Random 158 mg/dL (60-115); Magnesium 1.8 mg/dL (1.6-2.6); Phosphorus 3.9 mg/dL (2.7-4.5); Potassium 4.4 mmol/L (3.3-5.1); Sodium 135 mmol/L (135-145)
[2022-08-12 07:37] VITALS: BP 146/68; PULSE 83; RESP 16; TEMP 36.2; O2SAT 97
[2022-08-12] MEDS: Heparin Sodium,Porcine 5,000 UNIT/ML VIAL 5000 UNIT SUBCUT ×2 (08:13→20:04)
[2022-08-12] MEDS: amLODIPine Besylate 5 MG TABLET PO (08:13)
[2022-08-12] MEDS: 0.9 % Sodium Chloride Flush 3 ML SYRINGE IVFLUSH ×3 (08:14→20:02)
[2022-08-12] MEDS: lisinopriL 40 MG TABLET PO (08:14)
[2022-08-12 10:17] LABS: Triglycerides 171 mg/dL
[2022-08-12 11:23] VITALS: BP 143/67; PULSE 82; RESP 20; TEMP 36.2; O2SAT 95
[2022-08-12 16:00] VITALS: BP 155/105; PULSE 88; RESP 18; TEMP 36.8; O2SAT 95
[2022-08-12] MEDS: Morphine Sulfate 2 MG/ML CARTRIDGE 3 MG IVPUSH ×4 (17:24→23:50)
[2022-08-12] MEDS: Fat Emulsions 20% 250 ML 20 ML IV (18:02)
[2022-08-12 19:33] VITALS: BP 135/77; PULSE 87; RESP 19; TEMP 36.4; O2SAT 91
[2022-08-13] VITALS (7 sets, daily range): BP systolic 105–162; BP diastolic 58–74; PULSE 65–93; RESP 16–20; TEMP 36.1–36.6; O2SAT 94–96
[2022-08-13] MEDS: ondansetron HCL 4 MG/2 ML VIAL IVPUSH ×3 (02:29→17:04)
[2022-08-13] MEDS: Morphine Sulfate 2 MG/ML CARTRIDGE 3 MG IVPUSH ×9 (02:29→23:57)
[2022-08-13 06:35] LABS: Anion Gap 14 (12-20); Blood Urea Nitrogen 21 mg/dL (9-16); Calcium 7.8 mg/dL (8.4-10.2); Carbon Dioxide 28 mmol/L (22-29); Chloride 99 mmol/L (96-108); Creatinine Clr Calc Pharmacy 107.7; Estimated Glomerular Filt Rate > 60; Glucose Random 152 mg/dL (60-115); Magnesium 1.8 mg/dL (1.6-2.6); Phosphorus 3.9 mg/dL (2.7-4.5); Potassium 4.5 mmol/L (3.3-5.1); Sodium 136 mmol/L (135-145)
[2022-08-13] MEDS: Heparin Sodium,Porcine 5,000 UNIT/ML VIAL 5000 UNIT SUBCUT ×2 (08:54→20:43)
[2022-08-13] MEDS: lisinopriL 40 MG TABLET PO (08:55)
[2022-08-13] MEDS: amLODIPine Besylate 5 MG TABLET PO (08:55)
[2022-08-13] MEDS: 0.9 % Sodium Chloride Flush 3 ML SYRINGE IVFLUSH (08:55)
--- NOTE | 2022-08-13 09:00 | PM.PNGS ---
Subjective Subjective Date of Service: 08/14/22 Interval history: A little depressed today No new complaints Taking clear liquids Denies vomiting Physical Exam Vital Signs: Vital Signs: Last Vital Signs Temp 97 F 08/13/22 07:06 Pulse 84 08/13/22 07:06 Resp 18 08/13/22 07:06 BP 148/74 H 08/13/22 07:06 Pulse Ox 94 08/13/22 07:06 O2 Del Method 08/13/22 07:06 BMI result Body Mass Index 28.6 Const: General: no acute distress Resp: Effort & Inspection: normal respiratory effort Cardio: Rate: regular rate GI: Other: Soft, no guarding rebound, stoma with some output, enterocutaneous fistula with stoma appliances controlling output Objective Data Active Medications Amlodipine Besylate (Amlodipine Besylate 5 Mg Tablet) 5 mg PO DAILY [facility]; Protocol Last Admin: 08/13/22 08:55 Dose: 5 mg Documented By: ANSON Benzocaine (Throat Lozenge, Medicated Lozenge) 1 lozenge MUCOUS MEM Q2H PRN PRN Reason: Sore Throat Heparin Sodium (Porcine) (Heparin Sodium,Porcine 5,000 Unit/Ml Vial) 5,000 unit SUBCUT Q12H [facility] Last Admin: 08/13/22 08:54 Dose: 5,000 unit Documented By: ANSON Multivitamins 10 ml/ Trace Metals 1 ml/ Amino Acids/Electrolytes 2,011 mls @ 83.33 mls/hr IV DAILY@1800 [facility] Stop: 08/13/22 17:59 Last Admin: 08/12/22 18:02 Dose: 83.33 mls/hr Documented By: NAVIN Lisinopril (Lisinopril 40 Mg Tablet) 40 mg PO DAILY [facility]; Protocol Last Admin: 08/13/22 08:55 Dose: 40 mg Documented By: ANSON Morphine Sulfate (Morphine Sulfate 2 Mg/Ml Cartridge) 3 mg IVPUSH Q2H PRN; Protocol PRN Reason: Pain, Moderate (Pain Scale 4-6 Last Admin: 08/13/22 08:54 Dose: 3 mg Documented By: ANSON Ondansetron HCl (Ondansetron Hcl 4 Mg/2 Ml Vial) 4 mg IVPUSH Q4H PRN PRN Reason: Nausea Last Admin: 08/13/22 08:54 Dose: 4 mg Documented By: ANSON Sodium Chloride (0.9 % Sodium Chloride Flush 3 Ml Syringe) 3 ml IVFLUSH QSHIFT [facility] Last Admin: 08/13/22 08:55 Dose: 3 ml Documented By: ANSON Labs CBC & Chem 7: 08/03/22 00:21 08/14/22 05:31 Labs: Laboratory Results - last 24 hr 08/12/22 08/13/22 05:29 05:25 Anion Gap 14 Estim Creat Clear Calc 107.7 Estimated GFR > 60 Random Glucose 152 H Calcium 7.8 L Phosphorus 3.9 Magnesium 1.8 Triglycerides 171 Procedures Date of Service Date of Service: 08/13/22 Progress Note: A&P Assessment and plan (1) Enterocutaneous fistula: Status: Acute Assessment and Plan: Still with significant enterocutaneous fistula output On TPN Cristofer marks I had a long discussion with him again about transferring him to a tertiary center He is now receptive to this In the meantime, continue TPN Encouraged to get out of bed Will call [facility]ose[facility] about transferring patient Time Spent With Patient Time: Total time spent is greater than 50% in coordination of care (as documented) at patient's floor/unit and/or counseling patient: Quality Stroke Does the patient have a stroke diagnosis?: No VTE Prior VTE?: No VTE Risk Level:: Medical - moderate - high VTE Device Contraindication: N/A - Device Ordered VTE Drug Contraindication: N/A - Med Ordered
--- NOTE | 2022-08-13 10:05 | MHC.CM.PN ---
CM RECEIVED A CALL FROM [facility] [employer] REQUESTING A COPY OF PTS FACE SHEET BE FAXED TO THEM AT [phone] FAX SENT AT 10:06
--- NOTE | 2022-08-13 11:29 | MHC.CLN ---
F/U CONTINUES WITH CLEAR LIQUIDS AND TPN. ENSURE CLEAR ADDED TID DUE TO STAGE II WOUND COCCYX. PROVIDES ADDITIONAL 720 KCALS, 24 G PROTEIN. PATIENT WITH SIGNIFICANT OUTPUT FROM FISTULA AND TAKING SOME CLEAR LIQUIDS. TPN D15AA5% AT MAX GOAL RATE OF 83.33 ML PER HOUR PLUS LIPIDS 20 ML OF 20% LIPIDS PROVIDES 1900 TOTAL CALORIES (26.7 KCALS/KG CMW); 100 G PROTEIN (1.41 G/KG CMW). REPLETE LYTES NEEDED. DISCUSSED WITH PHARMACY. CONTINUE CURRENT TPN WITH LIPIDS.
--- NOTE | 2022-08-13 13:33 | PM.DS ---
DS: Providers Provider Date of Service: 08/15/22 Date of admission: 08/03/22 03:42 Primary care physician: Julio Cesar Hernandez MD Consults: 08/06/22 09:54 Consult to Hospitalist Routine Consulting Provider: Hospitalist Reason For Exam: HTN 08/08/22 10:19 Consult to Urology Routine Consulting Provider: Patrice Patel Reason for consultation: Webb in place for retention for 4 weeks now DS: Diagnosis Discharge Diagnosis (1) Enterocutaneous fistula: Status: Acute DS: Summary Hospital Course Hospital Course: 72-year-old male, with attention, and a remote history of rectal cancer, status post APR in 2004, initially admitted for parastomal hernia on July 03, 2022. He underwent repair of his parastomal hernia July for using a biologic mesh (Ovitex) in a [employer] fashion. Part of the small bowel was resected at that time because of non-viability. He had a little bit of postop ileus but eventually had good bowel movements and was tolerating diet. However, on July 11, 2022, he had coughing fit and fascial dehiscence with evisceration on the lower part of the incision. He was brought back to the operating room for repair of this fascial dehiscence. He had an NG tube in place. He had prolonged ileus and was started on TPN. He eventually had good GI function on July 24 and was started on clear liquids. He tolerated this well and his diet was advanced. He was discharged to the assisted on August 03, 2022. At the time of his discharge, he had good GI function and was ambulating and felt well. However, later that night, he was sent to the ER by the assisted because of drainage from the lower part of incision. He was readmitted and over the course of the next 2 days he had noticed increasing drainage which appeared to be enteric contents.. A CAT scan was done therefore which showing an enterocutaneous fistula to the lower part of the incision. He was therefore kept NPO and had an NG tube inserted. He had a Webb catheter in place because of urinary retention. The NG tube was removed on August 06. His enterocutaneous fistula output was control with a stoma appliance. He was started on TPN with via PICC line. He continued to have significant output from his enterocutaneous fistula. Was tolerating clear liquids. His electrolytes are being monitored. In view of this persistently elevated output from enterocutaneous fistula, I told him that we will send him to [facility] for there management.. He currently has 2 appliances on the midline incision along with his old ostomy on the left side. He continues to have output from his old colostomy. His electrolytes have been followed. He remains on TPN. The patient has a Webb catheter in place because of severe urinary retention. Time Spent with Patient Time attestation: Total time spent providing and/or coordinating discharge services: Discharge coordination time: Greater than 30 minutes Quality: Safe Use of Opioids Does Pt have an Active Cancer Diagnosis on the Problem List?: No Quality: Stroke Does the patient have a stroke diagnosis?: No Physical Exam Vital Signs: Vital Signs: Last Vital Signs Temp 97.6 F 08/13/22 11:08 Pulse 81 08/13/22 11:08 Resp 18 08/13/22 11:08 BP 127/69 08/13/22 11:08 Pulse Ox 95 08/13/22 11:08 O2 Del Method 08/13/22 11:08 BMI result Body Mass Index 28.6 Const: General: comfortable and no acute distress Resp: Effort & Inspection: normal respiratory effort Auscultation: clear to auscultation bilaterally Cardio: Rate: regular rate GI: Other: Soft, no guarding rebound, retention sutures in place, colostomy on the left side, enterocutaneous fistula on midline with 2 stoma appliances to control fistulous output : Other: Webb catheter in place DS: Data Data Completed and Pending Completed studies during hospitalization [Text1]: Procedures Drainage of Bladder with Drainage Device, Via Natural or Artificial Opening (07/03/22) Excision of Small Intestine, Open Approach (07/03/22) Release Peritoneum, Open Approach (07/03/22) Repair Abdomen Subcutaneous Tissue and Fascia, Open Approach (07/03/22) Supplement Abdominal Wall with Synthetic Substitute, Open Approach (07/03/22) Labs on day of discharge: Laboratory Results - last 24 hr 08/13/22 05:25 Sodium 136 Potassium 4.5 Chloride 99 Carbon Dioxide 28 Anion Gap 14 BUN 21 H Creatinine 0.62 Estim Creat Clear Calc 107.7 Estimated GFR > 60 Random Glucose 152 H Calcium 7.8 L Phosphorus 3.9 Magnesium 1.8 Laboratory Results WBC 13.4 X10*3/uL (4.8-10.8) H 08/03/22 00:21 RBC 3.75 X10*6/uL (4.60-5.80) L 08/03/22 00:21 Hgb 11.7 g/dl (14.0-18.0) L 08/03/22 00:21 Hct 36.0 % (42.0-52.0) L 08/03/22 00:21 MCV 96.0 fL (80.0-98.0) 08/03/22 00:21 MCH 31.2 pg (27.0-33.0) 08/03/22 00: MCHC 32.5 g/dl (31.0-36.0) 08/03/22 00:21 RDW 13.5 % (11.0-16.0) 08/03/22 00:21 Plt Count 260 X10*3/uL (160-400) 08/03/22 00:21 MPV 10.3 fL (9.4-12.4) 08/03/22 00:21 Immature Gran % (Auto) 0.4 % (0.0-0.4) 08/03/22 00: Neut % (Auto) 84.9 % (45-73) H 08/03/22 00:21 Lymph % (Auto) 5.8 % (20-40) L 08/03/22 00:21 [place] % (Auto) 8.3 % (2-11) 08/03/22 00:21 Eos % (Auto) 0.3 % (0-4) 08/03/22 00:21 Baso % (Auto) 0.3 % (0-2) 08/03/22 00:21 Lymph # (Auto) 0.8 X10*3/uL (1.2-4.9) L 08/03/22 00:21 [place] # (Auto) 1.1 X10*3/uL (0.1-1.2) 08/03/22 00:21 Eos # (Auto) 0.0 X10*3/uL (0.0-0.4) 08/03/22 00:21 Baso # (Auto) 0.0 X10*3/uL (0.0-0.2) 08/03/22 00:21 Abs Immat Gran (auto) 0.06 X10*3/uL (0.00-0.03) H 08/03/22 00:21 Absolute Neuts (auto) 11.4 x10*3/uL (2.0-8.3) H 08/03/22 00:21 Absolute Nucleated RBC 0.000 X10*3/uL (0.0-0.012) 08/03/22 00:21 Nucleated RBC % (auto) 0.0 /100WBC (0.0-0.2) 08/03/22 00:21 PT 13.9 SEC (10.0-13.1) H 08/03/22 01:15 INR 1.2 (0.9-1.1) H 08/03/22 01:15 Sodium 136 mmol/L (135-145) 08/13/22 05:25 Potassium 4.5 mmol/L (3.3-5.1) 08/13/22 05:25 Chloride 99 mmol/L (96-108) 08/13/22 05:25 Carbon Dioxide 28 mmol/L (22-29) 08/13/22 05:25 Anion Gap 14 (12-20) 08/13/22 05:25 BUN 21 mg/dL (9-16) H 08/13/22 05:25 Creatinine 0.62 mg/dL (0.5-1.4) 08/13/22 05:25 Estim Creat Clear Calc 107.7 08/13/22 05:25 Estimated GFR > 60 08/13/22 05:25 POC Glucose 142 mg/dL (60-115) H 08/10/22 16:02 Random Glucose 152 mg/dL (60-115) H 08/13/22 05:25 Lactic Acid 1.1 mmol/L (0.5-2.0) 08/03/22 00:21 Calcium 7.8 mg/dL (8.4-10.2) L 08/13/22 05:25 Phosphorus 3.9 mg/dL (2.7-4.5) 08/13/22 05:25 Magnesium 1.8 mg/dL (1.6-2.6) 08/13/22 05:25 Total Bilirubin 0.3 mg/dL (0.0-1.0) 08/04/22 09:28 Direct Bilirubin < 0.2 mg/dL (0.0-0.5) 08/03/22 01:15 AST 14 U/L (5-37) D 08/04/22 09:28 ALT 29 U/L (0-40) 08/04/22 09:28 Alkaline Phosphatase 92 U/L (39-117) 08/04/22 09:28 Total Protein 4.7 g/dL (6.5-8.0) L 08/04/22 09:28 Albumin 2.2 g/dL (3.5-5.0) L 08/09/22 05:25 Triglycerides 171 mg/dL 08/12/22 05:29 Urine Color Yellow 08/03/22 07:18 Urine Appearance Cloudy 08/03/22 07:18 Urine pH 6.0 (5.0-9.0) 08/03/22 07:18 Ur Specific [place] 1.020 (1.005-1.025) 08/03/22 07:18 Urine Protein 100 (2+) mg/dL (Neg-Trace) H 08/03/22 07:18 Urine Glucose (UA) Negative mg/dL (Negative) 08/03/22 07:18 Urine Ketones 15 mg/dL (Negative) 08/03/22 07:18 Urine Blood Large (3+) (Negative) H 08/03/22 07:18 Urine Nitrite Negative (Negative) 08/03/22 07:18 Ur Leukocyte Esterase Negative (Negative) 08/03/22 07:18 Urine RBC >20 /HPF (0-2) H 08/03/22 07:18 Urine WBC 0-5 /HPF (0-5) 08/03/22 07:18 Ur Squamous Epith Cells 0-2 /HPF (0-2) 08/03/22 07:18 Calcium Oxalate Crystal Present 08/03/22 07:18 Urine Bacteria 2+ (None Seen) 08/03/22 07:18 Hyaline Casts 3-5 /LPF (0-2) 08/03/22 07:18 COVID-19 (DUNIA) Negative (Negative) 08/03/22 01:15 COVID-19 Clin Com See Note 08/03/22 01:15 Impressions Abdomen/Pelvis CT 08/04/22 00:49 IMPRESSION: * Probable small bowel perforation in the region of the enteroenteric anastomosis within the anterior false pelvis (see franco images). Gas tracks from this region of the small bowel into the patient's dehiscent incision within the midline lower abdominal wall. The small bowel leak/perforation is more clearly evident on the examination from yesterday which was contrast-enhanced (see series 7, images 68-71). No mature fistula. No drainable collection. * Multiple dilated loops of small bowel upstream from an enteroenteric anastomosis within the anterior false pelvis are similar to prior. 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 * Cholelithiasis. PICC Line Insertion 08/07/22 10:30 IMPRESSION: Left upper extremity 5 Divehi double-lumen PICC line placement. Chest X-Ray 08/07/22 10:34 IMPRESSION: Satisfactory position of left upper extremity PICC line. Discharge Plan Discharge Patient Disposition: [facility] Discharge Diagnosis: Enterocutaneous fistula Referrals: Julio Cesar Hernandez MD [Primary Care Provider] - 1 Week Mati Lugo MD [Physician] - 1 Week Discharge Medications: Continued oxycodone-acetaminophen [Percocet] 5-325 mg tablet 1 tab PO TID PRN (Reason: pain) Qty: 20 0RF Rx Instructions: Partial Fill upon patient request. lisinopril 40 mg tablet 40 mg PO DAILY Qty: 30 2RF Discharge Orders: Discharge Order (Routine); Ordered 08/15/22 Ordered By: Mati Lugo Activity on Discharge: As tolerated Stand Alone Forms: Patient Portal Discharge page Care Plan Goals: Control enterocutaneous fistula Health Concerns: Enterocutaneous fistula Hypertension History of smoking Plan of Treatment: For transfer to [facility] Assessment: Stable for transfer
--- NOTE | 2022-08-13 15:16 | PM.EVENT ---
Event Note Date of Service: 08/14/22 Event Note: I had a long talk with Dr. China Moseley I reviewed with him clinical course Mr. Bhatti, especially about formation of enterocutaneous fistula postop He says that he is accepting the patient Awaiting for availability of bed I have reviewed this with seems and he understands the plan well and is comfortable with this
--- NOTE | 2022-08-13 15:46 | MHC.CM.PN ---
PATIENT AWAITING [facility]
[2022-08-13 18:23] LABS: Influenza A PCR NEGATIVE (Negative); Influenza B PCR NEGATIVE (Negative); Resp Syncy Virus RNA Qual PCR NEGATIVE (Negative); SARS COV2 PCR INHOUSE NEGATIVE (Negative)
[2022-08-13] MEDS: Fat Emulsions 20% 250 ML 20 ML IV (19:03)
[2022-08-14] VITALS (7 sets, daily range): BP systolic 118–168; BP diastolic 52–74; PULSE 76–84; RESP 16–20; TEMP 36.3–37.1; O2SAT 94–96
[2022-08-14] MEDS: ondansetron HCL 4 MG/2 ML VIAL IVPUSH ×3 (05:55→16:49)
[2022-08-14] MEDS: Morphine Sulfate 2 MG/ML CARTRIDGE 3 MG IVPUSH ×7 (05:56→21:33)
[2022-08-14 06:12] LABS: Anion Gap 13 (12-20); Blood Urea Nitrogen 29 mg/dL (9-16); Calcium 7.9 mg/dL (8.4-10.2); Carbon Dioxide 28 mmol/L (22-29); Chloride 99 mmol/L (96-108); Estimated Glomerular Filt Rate > 60; Glucose Random 141 mg/dL (60-115); Magnesium 1.8 mg/dL (1.6-2.6); Phosphorus 4.5 mg/dL (2.7-4.5); Potassium 4.6 mmol/L (3.3-5.1); Sodium 135 mmol/L (135-145)
--- NOTE | 2022-08-14 08:46 | P.PNGS_ITS ---
Subjective Subjective Date of Service: 08/15/22 Interval history: c/o nausea today no vomitting denies signficant pain Physical Exam Vital Signs: Vital Signs: Last Vital Signs Temp 98.4 F 08/14/22 07:30 Pulse 84 08/14/22 07:30 Resp 18 08/14/22 07:30 BP 168/74 H 08/14/22 07:30 Pulse Ox 96 08/14/22 07:30 O2 Del Method 08/14/22 07:30 BMI result Body Mass Index 28.6 Const: Other: looks depressed General: no acute distress Resp: Effort & Inspection: normal respiratory effort Cardio: Rate: regular rate GI: Other: soft, stoma with some output, EC fistula with significant output, leaking through appliance, no guarding or rebound Objective Data Active Medications Amlodipine Besylate (Amlodipine Besylate 5 Mg Tablet) 5 mg PO DAILY [facility]; Protocol Last Admin: 08/13/22 08:55 Dose: 5 mg Documented By: ANSON Benzocaine (Throat Lozenge, Medicated Lozenge) 1 lozenge MUCOUS MEM Q2H PRN PRN Reason: Sore Throat Heparin Sodium (Porcine) (Heparin Sodium,Porcine 5,000 Unit/Ml Vial) 5,000 unit SUBCUT Q12H [facility] Last Admin: 08/13/22 20:43 Dose: 5,000 unit Documented By: EVANGELISTA Multivitamins 10 ml/ Trace Metals 1 ml/ Amino Acids/Electrolytes 2,000 mls @ 83.333 mls/hr IV DAILY@1800 [facility] Stop: 08/14/22 17:59 Last Admin: 08/13/22 19:03 Dose: 83.33 mls/hr Documented By: AMARILIS Promethazine HCl 12.5 mg/ (Sodium Chloride) 50.5 mls @ 202 mls/hr IV Q6H PRN PRN Reason: Nausea Lisinopril (Lisinopril 40 Mg Tablet) 40 mg PO DAILY [facility]; Protocol Last Admin: 08/13/22 08:55 Dose: 40 mg Documented By: ANSON Morphine Sulfate (Morphine Sulfate 2 Mg/Ml Cartridge) 3 mg IVPUSH Q2H PRN; Protocol PRN Reason: Pain, Moderate (Pain Scale 4-6 Last Admin: 08/14/22 08:24 Dose: 3 mg Documented By: HO.MATTHEP Ondansetron HCl (Ondansetron Hcl 4 Mg/2 Ml Vial) 4 mg IVPUSH Q4H PRN PRN Reason: Nausea Last Admin: 08/14/22 05:55 Dose: 4 mg Documented By: MADHU Sodium Chloride (0.9 % Sodium Chloride Flush 3 Ml Syringe) 3 ml IVFLUSH QSHIFT [facility] Last Admin: 08/13/22 23:57 Dose: Not Given Documented By: MADHU Non-Admin Reason: picc line flush only Labs CBC & Chem 7: 08/03/22 00:21 08/15/22 06:02 Labs: Laboratory Results - last 24 hr 08/13/22 08/14/22 17:08 05:31 Anion Gap 13 Estim Creat Clear Calc 106.0 Estimated GFR > 60 Random Glucose 141 H Calcium 7.9 L Phosphorus 4.5 Magnesium 1.8 Influenza Type A (PCR) NEGATIVE Influenza Type B (PCR) NEGATIVE RSV RNA Qual (PCR) NEGATIVE SARS-CoV-2 RNA (RT-PCR) NEGATIVE Procedures Date of Service Date of Service: 08/14/22 Progress Note: A&P Assessment and plan (1) Enterocutaneous fistula: Status: Acute Assessment and Plan: EC fistula output still high discussed case with Dr. Atkinson yesterday ([employer] [facility]) - they are taking pt in awaiting bed Phenergan added keep NPO exam benign stoma/ fistula care explained to him plan Time Spent With Patient Time: Total time spent is greater than 50% in coordination of care (as documented) at patient's floor/unit and/or counseling patient: Quality Stroke Does the patient have a stroke diagnosis?: No VTE Prior VTE?: No VTE Risk Level:: Medical - moderate - high VTE Device Contraindication: N/A - Device Ordered VTE Drug Contraindication: N/A - Med Ordered
[2022-08-14] MEDS: 0.9 % Sodium Chloride Flush 3 ML SYRINGE IVFLUSH ×2 (09:30→16:53)
[2022-08-14] MEDS: amLODIPine Besylate 5 MG TABLET PO (09:30)
[2022-08-14] MEDS: Heparin Sodium,Porcine 5,000 UNIT/ML VIAL 5000 UNIT SUBCUT ×2 (09:30→21:35)
[2022-08-14] MEDS: lisinopriL 40 MG TABLET PO (09:30)
[2022-08-14] MEDS: Fat Emulsions 20% 250 ML 20 ML IV (18:05)
--- NOTE | 2022-08-14 18:52 | PM.EVENT ---
Event Note Date of Service: 08/15/22 Event Note: seen on evening rounds says he is 'OK' explained to him that [facility] stated he may be transferred there tomorrow he understands plan abdl exam benign still with high EF fistula output was in room as well - quetions answered TPN reordered
[2022-08-15] VITALS (7 sets, daily range): BP systolic 100–153; BP diastolic 55–68; PULSE 75–99; RESP 16–23; TEMP 36.6–37.7; O2SAT 91–95
[2022-08-15] MEDS: Morphine Sulfate 2 MG/ML CARTRIDGE 3 MG IVPUSH ×7 (05:10→21:46)
[2022-08-15 06:27] LABS: Anion Gap 14 (12-20); Blood Urea Nitrogen 28 mg/dL (9-16); Calcium 7.7 mg/dL (8.4-10.2); Carbon Dioxide 26 mmol/L (22-29); Chloride 98 mmol/L (96-108); Creatinine Clr Calc Pharmacy 104.3; Estimated Glomerular Filt Rate > 60; Glucose Random 152 mg/dL (60-115); Magnesium 1.8 mg/dL (1.6-2.6); Potassium 4.5 mmol/L (3.3-5.1); Sodium 133 mmol/L (135-145)
--- NOTE | 2022-08-15 07:39 | PM.PNGS ---
Subjective Subjective Date of Service: 08/16/22 Interval history: Says he is ?okay? Says he slept well Physical Exam Vital Signs: Vital Signs: Last Vital Signs Temp 99.2 F 08/15/22 07:18 Pulse 93 08/15/22 07:18 Resp 18 08/15/22 07:18 BP 137/62 08/15/22 07:18 Pulse Ox 95 08/15/22 07:18 O2 Del Method 08/15/22 07:18 BMI result Body Mass Index 28.6 Const: General: comfortable and no acute distress Resp: Effort & Inspection: normal respiratory effort Cardio: Rate: regular rate GI: Other: Soft, no guarding rebound, EC fistula active output, colostomy in place with some output as well Objective Data Active Medications Amlodipine Besylate (Amlodipine Besylate 5 Mg Tablet) 5 mg PO DAILY [facility]; Protocol Last Admin: 08/14/22 09:30 Dose: 5 mg Documented By: AMARILIS Benzocaine (Throat Lozenge, Medicated Lozenge) 1 lozenge MUCOUS MEM Q2H PRN PRN Reason: Sore Throat Heparin Sodium (Porcine) (Heparin Sodium,Porcine 5,000 Unit/Ml Vial) 5,000 unit SUBCUT Q12H [facility] Last Admin: 08/14/22 21:35 Dose: 5,000 unit Documented By: LUISITO Promethazine HCl 12.5 mg/ (Sodium Chloride) 50.5 mls @ 202 mls/hr IV Q6H PRN PRN Reason: Nausea Last Infusion: 08/14/22 19:32 Dose: 0 mls/hr Documented By: AMARILIS Multivitamins 10 ml/ Trace Metals 1 ml/ Amino Acids/Electrolytes 2,000 mls @ 83.333 mls/hr IV DAILY@1800 [facility] Stop: 08/15/22 17:59 Last Admin: 08/14/22 18:05 Dose: 83.33 mls/hr Documented By: AMARILIS Lisinopril (Lisinopril 40 Mg Tablet) 40 mg PO DAILY [facility]; Protocol Last Admin: 08/14/22 09:30 Dose: 40 mg Documented By: AMARILIS Morphine Sulfate (Morphine Sulfate 2 Mg/Ml Cartridge) 3 mg IVPUSH Q2H PRN; Protocol PRN Reason: Pain, Moderate (Pain Scale 4-6 Last Admin: 08/15/22 05:10 Dose: 3 mg Documented By: MADHU Ondansetron HCl (Ondansetron Hcl 4 Mg/2 Ml Vial) 4 mg IVPUSH Q4H PRN PRN Reason: Nausea Last Admin: 08/14/22 16:49 Dose: 4 mg Documented By: AMARILIS Sodium Chloride (0.9 % Sodium Chloride Flush 3 Ml Syringe) 3 ml IVFLUSH QSHIFT [facility] Last Admin: 08/15/22 00:01 Dose: Not Given Documented By: MADHU Non-Admin Reason: picc line flush only Labs CBC & Chem 7: 08/03/22 00:21 08/16/22 05:33 Labs: Laboratory Results - last 24 hr 08/15/22 06:02 Anion Gap 14 Estim Creat Clear Calc 104.3 Estimated GFR > 60 Random Glucose 152 H Calcium 7.7 L Phosphorus 4.0 Magnesium 1.8 Procedures Date of Service Date of Service: 08/15/22 Progress Note: A&P Assessment and plan (1) Enterocutaneous fistula: Status: Acute Assessment and Plan: Fistula still with active output Awaiting transfer to [facility] As discussed with [facility] yesterday - possibly today, awaiting bed Exam otherwise benign Patient understands plan Continue TPN Control EC fistula Time Spent With Patient Time: Total time spent is greater than 50% in coordination of care (as documented) at patient's floor/unit and/or counseling patient: Quality Stroke Does the patient have a stroke diagnosis?: No VTE Prior VTE?: No VTE Risk Level:: Medical - moderate - high VTE Device Contraindication: N/A - Device Ordered VTE Drug Contraindication: N/A - Med Ordered
[2022-08-15] MEDS: lisinopriL 40 MG TABLET PO (08:45)
[2022-08-15] MEDS: amLODIPine Besylate 5 MG TABLET PO (08:45)
[2022-08-15] MEDS: Heparin Sodium,Porcine 5,000 UNIT/ML VIAL 5000 UNIT SUBCUT ×2 (08:46→22:00)
[2022-08-15] MEDS: 0.9 % Sodium Chloride Flush 3 ML SYRINGE IVFLUSH ×2 (08:47→16:09)
[2022-08-15 09:00] LABS: Albumin Level 2.3 g/dL (3.5-5.0)
[2022-08-15] MEDS: ondansetron HCL 4 MG/2 ML VIAL IVPUSH ×2 (09:14→22:37)
--- NOTE | 2022-08-15 11:14 | MHC.CLN ---
F/U CURRENTLY NPO WITH TPN. AWAITING TRANSFER TO [facility]. CONTINUE TPN D15AA5% AT MAX GOAL RATE OF 83.33 ML PER HOUR PLUS LIPIDS 20 ML OF 20% LIPIDS PROVIDES 1900 TOTAL CALORIES (26.7 KCALS/KG CMW); 100 G PROTEIN (1.41 G/KG CMW). REPLETE LYTES NEEDED. DISCUSSED WITH PHARMACY. CONTINUE CURRENT TPN WITH LIPIDS.
--- NOTE | 2022-08-15 15:50 | PC.NURSE ---
Report called to RN at [facility] Afsaneh Moseley Room 10B. Awaiting transport. BLS per Dr. Lugo. Patient and family aware of transfer.
[2022-08-15] MEDS: Fat Emulsions 20% 250 ML 20 ML IV (19:30)
--- NOTE | 2022-08-15 22:07 | PC.NURSE ---
initial schedule for transfer via S ambulance was schedule between 4-5 pm, ambulance service was called at 6 pm and they stated that they will come around 7 pm, we called the aircraft dispatcher at 8 pm and they said that they don't have any availability tonight and will transport tomorrow at 9 am. patient , the receiving hospital and the nursing supervisor plating and point assembly was informed
--- NOTE | 2022-08-15 23:37 | PC.NURSE ---
Patient reports increased pain to his mid abdomen 8/10 , nausea ,burping more frequently. medicated with morphine 3 mg IV , the last does didn't have much effect for the pain. Kunal aHrris- general Surgeon was called and notifed. Morphine dose increased to 4 mg Q2 PRN for pain, one additional dose ordered now for pain.
[2022-08-16] MEDS: Morphine Sulfate 2 MG/ML CARTRIDGE IVPUSH (00:23)
[2022-08-16 01:23] VITALS: RESP 20
[2022-08-16 03:42] VITALS: BP 105/53; PULSE 92; RESP 18; TEMP 36.2; O2SAT 94
[2022-08-16 06:41] LABS: Anion Gap 13 (12-20); Blood Urea Nitrogen 30 mg/dL (9-16); Calcium 7.8 mg/dL (8.4-10.2); Carbon Dioxide 26 mmol/L (22-29); Chloride 98 mmol/L (96-108); Creatinine Clr Calc Pharmacy 99.6; Estimated Glomerular Filt Rate > 60; Glucose Random 147 mg/dL (60-115); Magnesium 1.8 mg/dL (1.6-2.6); Phosphorus 4.2 mg/dL (2.7-4.5); Potassium 4.4 mmol/L (3.3-5.1); Sodium 133 mmol/L (135-145)
[2022-08-16 07:28] VITALS: BP 128/58; PULSE 85; RESP 20; TEMP 36.6; O2SAT 93
[2022-08-16] MEDS: amLODIPine Besylate 5 MG TABLET PO (07:51)
[2022-08-16] MEDS: Morphine Sulfate 4 MG/ML CARTRIDGE IVPUSH ×3 (07:51→12:31)
[2022-08-16] MEDS: lisinopriL 40 MG TABLET PO (07:51)
[2022-08-16] MEDS: Heparin Sodium,Porcine 5,000 UNIT/ML VIAL 5000 UNIT SUBCUT (07:51)
[2022-08-16] MEDS: 0.9 % Sodium Chloride Flush 3 ML SYRINGE IVFLUSH (08:04)
--- NOTE | 2022-08-16 08:09 | P.PNGS_ITS ---
Subjective Subjective Date of Service: 08/24/22 Interval history: Says he is tired this morning Was scheduled to be transferred to [facility] last night Transport however delayed Some bloating No vomiting Physical Exam Vital Signs: Vital Signs: Last Vital Signs Temp 97.8 F 08/16/22 07:28 Pulse 85 08/16/22 07:28 Resp 20 08/16/22 07:28 BP 128/58 L 08/16/22 07:28 Pulse Ox 93 08/16/22 07:28 O2 Del Method 08/16/22 07:28 BMI result Body Mass Index 28.6 Const: General: no acute distress Resp: Effort & Inspection: normal respiratory effort Cardio: Rate: regular rate GI: Other: Soft no guarding or rebound, stoma with small amount of output, enterocutaneous fistula still with significant drainage Objective Data Active Medications Amlodipine Besylate (Amlodipine Besylate 5 Mg Tablet) 5 mg PO DAILY [facility]; Protocol Last Admin: 08/16/22 07:51 Dose: 5 mg Documented By: LUDIN Benzocaine (Throat Lozenge, Medicated Lozenge) 1 lozenge MUCOUS MEM Q2H PRN PRN Reason: Sore Throat Heparin Sodium (Porcine) (Heparin Sodium,Porcine 5,000 Unit/Ml Vial) 5,000 unit SUBCUT Q12H [facility] Last Admin: 08/16/22 07:51 Dose: 5,000 unit Documented By: LUDIN Promethazine HCl 12.5 mg/ (Sodium Chloride) 50.5 mls @ 202 mls/hr IV Q6H PRN PRN Reason: Nausea Last Infusion: 08/14/22 19:32 Dose: 0 mls/hr Documented By: AMARILIS Multivitamins 10 ml/ Trace Metals 1 ml/ Amino Acids/Electrolytes 2,011 mls @ 83.33 mls/hr IV DAILY@1800 [facility] Stop: 08/16/22 17:59 Last Admin: 08/15/22 19:30 Dose: 83.33 mls/hr Documented By: DANITZA Lisinopril (Lisinopril 40 Mg Tablet) 40 mg PO DAILY [facility]; Protocol Last Admin: 08/16/22 07:51 Dose: 40 mg Documented By: LUDIN Morphine Sulfate (Morphine Sulfate 4 Mg/Ml Cartridge) 4 mg IVPUSH Q2H PRN; Protocol PRN Reason: Pain, Severe (Pain Scale 7-10) Last Admin: 08/16/22 07:51 Dose: 4 mg Documented By: LUDIN Ondansetron HCl (Ondansetron Hcl 4 Mg/2 Ml Vial) 4 mg IVPUSH Q4H PRN PRN Reason: Nausea Last Admin: 08/15/22 22:37 Dose: 4 mg Documented By: DANITZA Sodium Chloride (0.9 % Sodium Chloride Flush 3 Ml Syringe) 3 ml IVFLUSH QSHIFT [facility] Last Admin: 08/16/22 08:04 Dose: 3 ml Documented By: LUDIN Labs CBC & Chem 7: 08/03/22 00:21 08/16/22 05:33 Labs: Laboratory Results - last 24 hr 08/15/22 08/16/22 06:02 05:33 Anion Gap 13 Estim Creat Clear Calc 99.6 Estimated GFR > 60 Random Glucose 147 H Calcium 7.8 L Phosphorus 4.2 Magnesium 1.8 Albumin 2.3 L Procedures Date of Service Date of Service: 08/16/22 Progress Note: A&P Assessment and plan (1) Enterocutaneous fistula: Status: Acute Assessment and Plan: For transfer to [facility] Labs okay On TPN Active enterocutaneous fistula Exam benign Patient and his are aware of plan and comfortable with this Time Spent With Patient Time: Total time spent is greater than 50% in coordination of care (as documented) at patient's floor/unit and/or counseling patient: Quality Stroke Does the patient have a stroke diagnosis?: No VTE Prior VTE?: No VTE Risk Level:: Medical - moderate - high VTE Device Contraindication: N/A - Device Ordered VTE Drug Contraindication: N/A - Med Ordered
[2022-08-16] MEDS: Acetaminophen 325 MG TABLET 650 MG PO (11:54)
[2022-08-16] MEDS: Piperacillin Sodium/Tazobactam 3.375 GM in 0.9 % Sodium Chloride 50 ML IV (11:54)
--- NOTE | 2022-08-16 13:24 | PC.NURSE ---
P: Temp 100.9 with chills and rigors. I: Dr. Lugo notified. Tylenol po x1, zosyn and blood cultures ordered. E: Rigors stopped. Patient appears more comfortable. Pain 06/10. Zosyn infused. EMS in to transfer patient.
--- NOTE | 2022-08-16 13:31 | PM.EVENT ---
Event Note Date of Service: 08/16/22 Event Note: Transfer this morning delayed again due to availability of staff Patient updated - had low-grade temperature earlier Stable vital signs however I had started him on Zosyn because of low-grade temp in uncertainty as to he will be transferred Ordered for blood cultures Abdominal exam remains benign Discussed with ambulance coordinator to facilitate transfer as patient has been waiting for several days Had talked to Fahad Moseley yesterday and they already stated that his bed had been available
== END 2022-08-16 13:28 | disposition short-term general hospital (02) | DRG 920 ==
LOC: HO.ED 08-03 03:48 → HO.EDOVER 08-03 04:25 → HO.S3 08-03 13:26
PROVIDERS: Internal Medicine; Surgery; Admitting Provider Surgery; Emergency Provider Emergency Medicine; PCP Internal Medicine Medical Oncology; Visit Provider Surgery
DX: T81.83XA Persistent postprocedural fistula, initial encounter (principal); K56.600 Partial intestinal obstruction, unspecified as to cause; T81.31XA Disruption of external operation (surgical) wound, not elsewhere classified, initial encounter; K63.2 Fistula of intestine; J43.9 Emphysema, unspecified; Z85.048 Personal history of other malignant neoplasm of rectum, rectosigmoid junction, and anus; E83.42 Hypomagnesemia; Z20.822 Contact with and (suspected) exposure to COVID-19; Z79.899 Other long term (current) drug therapy
CPT/HCPCS: 0241U; 36415; 36573; 71045; 74176; 74177; 80048; 80053; 81001; 82040; 82248; 82947; 83605; 83735; 84100; 84478; 85025; 85610; 87040; 87077; 87186; 87205; 87635; 96361; 96374; 96375; 99285; C1758; J1170; J2270; J2405; J2543; J2550; J3475; Q9967

== ENCOUNTER 2022-08-27 08:38 | Emergency (ER) | payer OTHER, MEDICARE, SELFPAY ==
--- NOTE | 2022-08-27 08:48 | ED_ITS ---
HPI - CPR General Chief Complaint: Cardiac Arrest/CPR Stated Complaint: CARDIAC ARREST,WITNESSED Time Seen by Provider: 08/27/22 08:48 Source: EMS and old records reviewed Mode of arrival: EMS Limitations: other (ongoing CPR) History of Present Illness HPI narrative: 72 yo male with hx of emphysema, pneumonia, HTN, recent surgical wound dehiscence, DNI no NIPPV but attempt compressions brought in from SNF after b eing found unresponsive this AM. Last seen well per EMS last night. EMS notes he was not breathing with them and not responsive then lost pulses 30 minutes prior to arrival in ED. Vtach and shocked x 1 to asystole. Given epi and BS was 150s. Patient remained in asystole on ED arrival. Davis Airway placed. complaint: found unresponsive Onset (ago): unknown Place: NH/SNF Bystander CPR performed: No AED applied by bystander/tentering machine off bearer: No Initial findings in the field: unresponsive and other rhythm (states initially had a pulse then became more unresponsive, pulse not felt placed on monitor and VTach noted) ROSC in the field: No Associated injuries: No Known history of: other (recent illness and wound issue) Treatments prior to arrival: BMV, other airway device (davis), chest compressions, defibrillated shocks # (1) and epinephrine mgs # (3+) Related Data Previous Rx's Medication Instructions Recorded lisinopril 40 mg tablet 40 mg PO DAILY #30 tabs 08/02/22 oxycodone-acetaminophen 5 mg-325 1 tab PO TID PRN pain #20 tabs 08/02/22 mg tablet (Percocet) Allergies Allergy/AdvReac Type Severity Reaction Status Date / Time No Known Allergies Allergy Verified 07/03/22 17:35 [No Known Allergies*] Review of Systems Review of Systems: ROS unable to be obtained due to ongoing CPR [facility] Past Medical History Medical History Colorectal cancer Dehiscence of closure of fascia, superficial or muscular Emphysema lung Enterocutaneous fistula Hypertension Parastomal hernia Social History Social History Household Members: Spouse Housing: Apartment Do you presently have visiting nurse or other home services: No Alcohol intake: unknown Patient Tobacco Use Status: Never used Tobacco Advance Directives: Yes Advance Directives on File: Yes Advance Directives Date on File: 07/04/22 service: Yes Current occupational status: retired Physical Exam Vital Signs: Appearance: ongoing CPR, obtunded. Eyes: pupils fixed and dilated ENT: Pharynx normal. davis airway in place Neck: Normal inspection. Neck supple. CVS: absent pulses, no heart sounds, compressions in place Respiratory: no spontaneous respirations Abdomen: soft but large dressing in place c/d/i Skin: Skin cool and dry. dusky appearing Extremities: No lower extremity edema. Neuro: no response to painful stimuli Course Course Course Narrative: patient is DNI - 30 min of prehospital CPR with multiple epi and shock advised. the patient has fixed and dilated pupils, no neurological movements, no pulses and absent heart sounds, cardiac US shows no cardiac activity and both ventricles are filled with dense material. resuscitative efforts held 843am. call to spouse Purnima [phone] - aware of patient expiring. MDM - Cardiac Arrest/CPR MDM Narrative Medical decision making narrative: 72 yo male with hx of emphysema, pneumonia, HTN, recent surgical wound de hiscence, DNI no NIPPV here in cardiac arrest with 30 minutes patient in asystole 30 min of prehospital CPR in asystole with evidence of hyperdense material on ECHO ?layered blood concerning for prolonged downtime. At this time resuscitative efforts held time of 843am. Procedures Procedure Narrative Procedure Narrative: cardiac bedside US - no cardiac activity, dense material in both ventricles no effusion seen 843am CPR - epi, compressions with good femoral pulse asystole on the monitor. Discharge Plan Discharge Clinical Impression: Cardiac arrest Patient Disposition: Date/Time: 08/27/22 08:43
--- NOTE | 2022-08-27 09:06 | PC.NURSE ---
[facility] contacted and report filed. Case # [id number] provided by Julian Concepcion.
[2022-08-27 10:50] LABS: Glucose, Whole Blood 239 mg/dL (60-115)
== END 2022-08-27 10:58 | disposition expired ==
PROVIDERS: Emergency Provider Emergency Medicine; PCP Internal Medicine Medical Oncology
DX: I46.9 Cardiac arrest, cause unspecified (principal); J43.9 Emphysema, unspecified; I10 Essential (primary) hypertension; K63.2 Fistula of intestine
CPT/HCPCS: 82947; 96374; 99282; 99285; J0171